=== PATIENT | male | born 1940 | race Caucasian/White ===

== ENCOUNTER 2017-04-25 17:55 | Emergency (ER) | payer OTHER, MEDICARE ==
[~2017-04-25] VITALS: Ht 177.8 cm; Wt 95.9 kg
[~2017-04-25 17:55] MED LIST: ALLO300T2 PO; ASCO10003 PO; ASPI81TA21 PO; ATEN25TA PO; CETI10TA84 PO; FENO145T26 PO; FLAX10007 PO; GINK40TA3 PO; GUAI1TAB55 PO; KETO0.5S22 OP; KRIL1CAP11 PO; LUTE1CAP6 PO; MAGN500C PO; METF1000 PO; MISC4CAP PO; NITR0.4S UT; NRN/300 PO; OFLO0.3S4 OP; PRED1SUS3 OP; PRLSR20 PO; ROSU20TA PO; SITA1TAB27 PO; TRIA0.1C20 TOP; VANC5CAP PO; VTMD1000 PO; ZINC1TAB PO
[2017-04-25 18:21] VITALS: TEMP 36.9; Ht 177.8 cm; Wt 95.9 kg
[2017-04-25] MEDS ORDERED: PROCHLORPERAZINE 5 MG/ML 2 ML VIAL IV STA (18:51)
[2017-04-25] MEDS ORDERED: DiphenhydrAMINE HCL 50 MG/ML VIAL IV STA (18:51)
[2017-04-25] MEDS ORDERED: FENTANYL CITRATE INJ 50 MCG/1 ML 2 ML VIAL IV STA (18:51)
[2017-04-25] MEDS ORDERED: SODIUM CHLORIDE 0.9% 1000ML 1,000 ML IV STA (18:51)
--- NOTE | 2017-04-25 19:00 | EMERGENCY ROOM VISIT NOTE ---
History Report prepared by Shawn: Tosha Uriostegui Under the Supervision of: Dr. Qiana Monahan M.D. First contact with patient: 18:47 Chief Complaint: HEADACHE Stated Complaint: PEPPER SINCE NOON,TYLENOL @ 330, OFF BP MEDS FOR 2 YRS History of Present Illness The patient is a 77 year old male who presents to the Emergency Room with complaints of a constant headache beginning 8 hours ago. The patient states that he got home today about 5 hours ago and took a nap and Tylenol without relief of his symptoms. He is not on any blood thinners. He reports that the pain is on his right side and he does not usually have headaches like this. He notes that he does have a history of migraines but has not had a headache in over 30 years. The patient denies any photophobia, vomiting, difficulty walking , and visual changes. He notes that he was driving today when the headache started and he did not do anything strenuous today. The patient's states that the patient did eat lunch slightly later today than usual. Source of History: patient Onset: 8 hours ago Position: head (right) Quality: ache Timing: constant Note: The patient denies any photophobia, vomiting, and visual changes. Review of Systems See HPI for pertinent positives & negatives. A total of 10 systems reviewed and were otherwise negative. Past Medical & Surgical Medical Problems: (1) CKD (chronic kidney disease), stage III (2) Coronary artery disease (3) Diabetes mellitus, type II (4) GERD (gastroesophageal reflux disease) (5) Hypertension (6) Lumbar stenosis with neurogenic claudication Surgical Problems: (1) Status post appendectomy (2) Status post lumbar surgery Family History Diabetes mellitus FHx: heart disease Social History Smoking Status: Never Smoker Drug Use: none Marital Status: Housing Status: lives with family Occupation Status: retired Current/Historical Medications Scheduled Allopurinol (Zyloprim), 300 MG PO QAM Ascorbic Acid (Vitamin C), 1,000 MG PO DAILY Aspirin Enteric Coated (Ecotrin Or Generic), 81 MG PO QPM Atenolol (Tenormin), 25 MG PO QPM Cetirizine (Zyrtec), 10 MG PO DAILY Cholecalciferol (Vitamin D3), 1,000 INTER.UNIT PO DAILY Clindamycin Phos (Clindamycin Phosphate), 1 APPLN TOP UD Gabapentin (Neurontin), 300 MG PO AMHS Ginkgo Biloba (Ginkoba), 60 MG PO BID Guaifenesin Ext Rel (Mucinex Ext Rel), 600 MG PO Q12 Krill Oil (Hm Megakrill 300 mg), 300 MG PO BID Lutein (Lutein), 40 MG PO DAILY Magnesium Oxide (Mg Supplement (Magnesium), 500 MG PO DAILY Metformin Hcl (Glucophage), 1,000 MG PO BID Omeprazole (Prilosec), 20 MG PO QAM Probiotic Product (Align), 4 MG PO DAILY Rosuvastatin Calcium (Rosuvastatin Calcium), 1 TAB PO DAILY Triamcinolone Acet (Triamcinolone Acetonide), 1 APPLN PO UD Zinc Gluconate (Zinc), 50 MG PO DAILY Scheduled PRN Nitroglycerin (Nitrostat), 0.4 MG UT UD PRN for Chest Pain Allergies Coded Allergies: Oxycodone (Unverified Allergy, Intermediate, NIGHTMARES, 04/25/17) Eletriptan (Verified Allergy, Unknown, LYMPH NODES SWELLED, HOT FLASHES, 04/25/17) Physical Exam Vital Signs Date Time Temp Pulse Resp B/P (MAP) Pulse Ox O2 Delivery O2 Flow Rate FiO2 04/25/17 22:30 59 20 176/86 96 Room Air 04/25/17 21:30 62 20 205/79 96 Room Air 04/25/17 20:57 60 04/25/17 20:56 58 20 175/109 96 Room Air 04/25/17 19:28 61 20 185/80 98 Room Air 04/25/17 18:21 36.9 68 18 142/98 95 Room Air Physical Exam Vital signs reviewed. General: Well-appearing male, in no significant distress. HEENT: No scleral icterus, PERRLA, neck supple. Atraumatic. Cardiovascular: Regular rate and rhythm, no extra sounds. Pulmonary: Clear to auscultation bilaterally, normal work of breathing. Abdomen: Soft, nontender, nondistended, positive bowel sounds. Musculoskeletal: Atraumatic, no peripheral edema. Neurologic: Patient awake alert and oriented x 3, full strength in all 4 extremities. Cranial nerves 2 through 12 grossly intact. Skin: Warm, dry, no rash Medical Decision & Procedures ER Provider Diagnostic Interpretation: CT results as stated below per my review and radiologist interpretation: CT SCAN OF THE BRAIN WITHOUT IV CONTRAST FINDINGS: Brain parenchyma: There are age-related involutional changes noting mild subcortical and periventricular microangiopathic change. There is no hemorrhage, mass effect, or evidence of acute territorial ischemia by CT criteria. Carranza-white matter is preserved. No extra-axial fluid collection is seen. Ventricles, sulci, cisterns: Prominent secondary to involutional change. Intracranial vasculature: There is atherosclerotic calcification of the cavernous carotid and vertebral arteries. Calvarium: Unremarkable. Sinuses and mastoids: There is trace mucosal thickening in the right maxillary antrum and ethmoid sinuses. A retention cyst is noted in the left maxillary antrum. The mastoid air cells are well pneumatized. Orbits: The bony orbits are grossly intact. There are bilateral ocular lens implants. IMPRESSION: There is no hemorrhage, mass effect, or evidence of acute territorial ischemia by CT criteria. Electronically signed by: Dagoberto Quinones M.D. 04/25/2017 8:12 PM Dictated Date/Time: 04/25/2017 8:10 PM Laboratory Results 04/25/17 19:25 Red Blood Count 4.36, Mean Corpuscular Volume 88.3, Mean Corpuscular Hemoglobin 31.0, Mean Corpuscular Hemoglobin Concent 35.1, Mean Platelet Volume 9.7, Neutrophils (%) (Auto) 62.1, Lymphocytes (%) (Auto) 21.2, Monocytes (%) (Auto) 7.5, Eosinophils (%) (Auto) 8.0, Basophils (%) (Auto) 0.7, Neutrophils # (Auto) 4.57, Lymphocytes # (Auto) 1.56, Monocytes # (Auto) 0.55, Eosinophils # (Auto) 0.59, Basophils # (Auto) 0.05 04/25/17 19:25 Test 04/25/17 19:25 04/25/17 22:30 White Blood Count 7.36 K/uL (4.8-10.8) Red Blood Count 4.36 M/uL (4.7-6.1) Hemoglobin 13.5 g/dL (14.0-18.0) Hematocrit 38.5 % (42-52) Mean Corpuscular Volume 88.3 fL (80-100) Mean Corpuscular Hemoglobin 31.0 pg (25-34) Mean Corpuscular Hemoglobin Concent 35.1 g/dl (32-36) Platelet Count 138 K/uL (130-400) Mean Platelet Volume 9.7 fL (7.4-10.4) Neutrophils (%) (Auto) 62.1 % Lymphocytes (%) (Auto) 21.2 % Monocytes (%) (Auto) 7.5 % Eosinophils (%) (Auto) 8.0 % Basophils (%) (Auto) 0.7 % Neutrophils # (Auto) 4.57 K/uL (1.4-6.5) Lymphocytes # (Auto) 1.56 K/uL (1.2-3.4) Monocytes # (Auto) 0.55 K/uL (0.11-0.59) Eosinophils # (Auto) 0.59 K/uL (0-0.5) Basophils # (Auto) 0.05 K/uL (0-0.2) RDW Standard Deviation 45.8 fL (36.4-46.3) RDW Coefficient of Variation 14.1 % (11.5-14.5) Immature Granulocyte % (Auto) 0.5 % Immature Granulocyte # (Auto) 0.04 K/uL (0.00-0.02) Anion Gap 8.0 mmol/L (3-11) Est Creatinine Clear Calc Drug Dose 69.6 ml/min Estimated GFR () 82.6 Estimated GFR (Non- 71.3 BUN/Creatinine Ratio 14.0 (10-20) Calcium Level 9.2 mg/dl (8.5-10.1) Magnesium Level 1.4 mg/dl (1.8-2.4) Total Bilirubin 0.4 mg/dl (0.2-1) Direct Bilirubin < 0.1 mg/dl (0-0.2) Aspartate Amino Transf (AST/SGOT) 29 U/L (15-37) Alanine Aminotransferase (ALT/SGPT) 37 U/L (12-78) Alkaline Phosphatase 82 U/L (45-117) Total Protein 7.9 gm/dl (6.4-8.2) Albumin 4.3 gm/dl (3.4-5.0) Urine Color YELLOW Urine Appearance CLEAR (CLEAR) Urine pH 6.5 (4.5-7.5) Urine Specific [place] 1.013 (1.000-1.030) Urine Protein TRACE (NEG) Urine Glucose (UA) NEG (NEG) Urine Ketones NEG (NEG) Urine Occult Blood NEG (NEG) Urine Nitrite NEG (NEG) Urine Bilirubin NEG (NEG) Urine Urobilinogen NEG (NEG) Urine Leukocyte Esterase NEG (NEG) Urine WBC (Auto) 1-5 /hpf (0-5) Urine RBC (Auto) 0-4 /hpf (0-4) Urine Hyaline Casts (Auto) 1-5 /lpf (0-5) Urine Epithelial Cells (Auto) 0-5 /lpf (0-5) Urine Bacteria (Auto) NEG (NEG) Laboratory results per my review. Medications Administered Medications (Trade) Dose Ordered Sig/Tita Route Start Time Stop Time Status Last Admin Dose Admin Sodium Chloride 1,000 ml @ 150 mls/hr Q6H40M STAT IV 04/25/17 18:51 04/26/17 00:04 DC 04/25/17 19:32 150 MLS/HR Fentanyl Citrate (Fentanyl Inj) 50 mcg NOW STAT IV 04/25/17 18:51 04/25/17 18:53 DC 04/25/17 19:48 50 MCG Prochlorperazine Edisylate (Compazine Inj) 5 mg NOW STAT IV 04/25/17 18:51 04/25/17 18:53 DC 04/25/17 19:47 5 MG Diphenhydramine HCl (Benadryl Inj) 25 mg NOW STAT IV 04/25/17 18:51 04/25/17 18:53 DC 04/25/17 19:48 25 MG Magnesium Sulfate (Magnesium Sulfate) 1 gm NOW STAT IV 04/25/17 20:14 04/25/17 20:15 DC 04/25/17 20:54 1 GM Magnesium Oxide (Mag-Ox Tab) 800 mg NOW STAT PO 04/25/17 22:17 04/25/17 22:18 DC 04/25/17 22:44 800 MG ECG Indication: other (headache) Rate (beats per minute): 59 Rhythm: sinus bradycardia Findings: 1st degree AV block, nonspecific-ST abn (Lateral), left axis deviation, other (sinus arrhythmia) ED Course 1846: Past medical records reviewed. The patient was evaluated in room B7. A complete history and physical examination was performed. 1850: Benadryl Inj 25mg IV, Compazine Inj 5mg IV, Fentanyl 50mcg IV, Sodium Chloride 1000 ml @ 150 mls/hr IV. 2010: I reevaluated and updated the patient. 2013: Magnesium Sulfate 1gm IV. 2212: I reevaluated and updated the patient. 2216: Magnesium Oxide 800mg PO. 2223: Upon reevaluation, the patient appeared to have improvement of his symptoms. I discussed findings with the patient. He verbalized agreement of the treatment plan. The patient was discharged home. Medical Decision DDx: Intracranial hemorrhage, intracranial mass, migraine headache, tension headache , sinusitis, meningitis This patient was evaluated and appeared to be in no significant distress. Physical examination is fairly unrevealing. IV access was obtained and laboratory work was drawn. Patient was medicated with IV fentanyl 50 g, 5 mg of IV Compazine and 25 mg of IV Benadryl. He was hydrated with normal saline solution. CT scan of the head was performed and is negative for acute intracranial abnormality. Laboratory work reveals a normal white blood cell count. Patient does have a mild hypomagnesemia. Patient was given 1 g of IV magnesium. He was given 800 mg of oral magnesium. His headache had resolved. Patient was discharged to care of his . He does take supplemental magnesium home. He was advised to continue the supplemental therapy and follow- up with his primary care physician this week for reevaluation and repeat laboratory work. He will return to the ER for worsening of symptoms or any medical concerns. Medication Reconcilliation Current Medication List: was personally reviewed by me Blood Pressure Screening Patient's blood pressure: Elevated blood pressure Blood pressure disposition: Elevated BP felt to be situational Impression Primary Impression: Headache Additional Impression: Hypomagnesemia Scribe Attestation The scribe's documentation has been prepared under my direction and personally reviewed by me in its entirety. I confirm that the note above accurately reflects all work, treatment, procedures, and medical decision making performed by me. Departure Information Dispostion Home / Self-Care Referrals Chetan Galvez M.D. (PCP) Forms HOME CARE DOCUMENTATION FORM, IMPORTANT VISIT INFORMATION Patient Instructions My [facility] Additional Instructions Diagnosis: Headache, hypomagnesemia Please continue your magnesium as prescribed. Have your magnesium level rechecked in one to 2 weeks. Tylenol 650 mg every 6 hours as needed for pain. Drink plenty of clear fluids. Return to the ER for worsening of symptoms or any medical concerns. Problem Qualifiers
[2017-04-25 19:56] LABS: BASO % 0.7 %; BASO ABS # 0.05 K/uL (0-0.2); COMPLETE YES; HEMATOCRIT 38.5 % (42-52); IG% 0.5 %; LYMPH % 21.2 %; LYMPH ABS # 1.56 K/uL (1.2-3.4); MEAN CELL VOLUME 88.3 fL (80-100); MEAN CORPUSCULAR HGB CONC 35.1 g/dl (32-36); MEAN PLATELET VOLUME 9.7 fL (7.4-10.4); MONO % 7.5 %; NEUT % 62.1 %; PLATELET COUNT 138 K/uL (130-400); RED BLOOD COUNT 4.36 M/uL (4.7-6.1); WHITE BLOOD COUNT 7.36 K/uL (4.8-10.8)
[2017-04-25 20:08] LABS: ALT/SGPT 37 U/L (12-78); AST/SGOT 29 U/L (15-37); BLOOD UREA NITROGEN 14 mg/dl (7-18); CALCIUM 9.2 mg/dl (8.5-10.1); CARBON DIOXIDE 27 mmol/L (21-32); CHLORIDE 106 mmol/L (98-107); GLUCOSE 136 mg/dl (70-99); MAGNESIUM 1.4 mg/dl (1.8-2.4); POTASSIUM 4.2 mmol/L (3.5-5.1); SODIUM 141 mmol/L (136-145)
[2017-04-25 20:11] LABS: ALKALINE PHOSPHATASE 82 U/L (45-117)
--- NOTE | 2017-04-25 20:13 | DIAGNOSTIC IMAGING REPORT ---
CT SCAN OF THE BRAIN WITHOUT IV CONTRAST CLINICAL HISTORY: Headache. COMPARISON STUDY: No priors. TECHNIQUE: Unenhanced axial CT scan of the brain is performed from the vertex to the skull base. CT DOSE: 749.40 mGy.cm FINDINGS: Brain parenchyma: There are age-related involutional changes noting mild subcortical and periventricular microangiopathic change. There is no hemorrhage, mass effect, or evidence of acute territorial ischemia by CT criteria. Carranza-white matter is preserved. No extra-axial fluid collection is seen. Ventricles, sulci, cisterns: Prominent secondary to involutional change. Intracranial vasculature: There is atherosclerotic calcification of the cavernous carotid and vertebral arteries. Calvarium: Unremarkable. Sinuses and mastoids: There is trace mucosal thickening in the right maxillary antrum and ethmoid sinuses. A retention cyst is noted in the left maxillary antrum. The mastoid air cells are well pneumatized. Orbits: The bony orbits are grossly intact. There are bilateral ocular lens implants. IMPRESSION: There is no hemorrhage, mass effect, or evidence of acute territorial ischemia by CT criteria. Electronically signed by: Dagoberto Quinones M.D. 04/25/2017 8:12 PM Dictated Date/Time: 04/25/2017 8:10 PM
[2017-04-25] MEDS ORDERED: MAGNESIUM SULFATE 1GM / D5W 1 GM BAG IV STA (20:14)
[2017-04-25] MEDS ORDERED: CLCS60 TOP (20:23)
[2017-04-25] MEDS ORDERED: [UNRECOGNIZED DRUG - CODE] PO (20:23)
[2017-04-25] MEDS ORDERED: ROSU10TA24 PO (20:23)
[2017-04-25] MEDS ORDERED: MAGNESIUM OXIDE 400 MG TAB PO STA (22:17)
[2017-04-25 22:30] VITALS: BP 176/86; PULSE 59; O2SAT 96
[2017-04-25 22:58] LABS: URINE APPEARANCE CLEAR (CLEAR); URINE BILIRUBIN NEG (NEG); URINE COLOR YELLOW; URINE EPITHELIAL CELL AUTO 0-5 /lpf (0-5); URINE NITRITE NEG (NEG); URINE PH 6.5 (4.5-7.5); URINE SPECIFIC GRAVITY 1.013 (1.000-1.030); UROBILINOGEN NEG (NEG); ZZUR CULT IF INDIC CLEAN CATCH NO
[2017-04-25 23:00] LABS: MANUAL MICROSCOPIC REQUIRED? NO; REVIEW REQ? NO
== END 2017-04-25 22:55 | disposition home or self-care (01) ==
LOC: C.EDB 17:58
DX: R51 Headache (principal); E83.42 Hypomagnesemia; N18.3 Chronic kidney disease, stage 3 (moderate); I25.10 Atherosclerotic heart disease of native coronary artery without angina pectoris; E11.9 Type 2 diabetes mellitus without complications; K21.9 Gastro-esophageal reflux disease without esophagitis; I12.9 Hypertensive chronic kidney disease with stage 1 through stage 4 chronic kidney disease, or unspecified chronic kidney disease; M48.062 Spinal stenosis, lumbar region with neurogenic claudication; Z83.3 Family history of diabetes mellitus; Z82.49 Family history of ischemic heart disease and other diseases of the circulatory system; Z79.899 Other long term (current) drug therapy

== ENCOUNTER → 2017-09-23 | Outpatient (CLI) | payer OTHER, MEDICARE ==
[~2017-09-23] MED LIST changes: +CLCS60 TOP; -FENO145T26 PO; -FLAX10007 PO; -KETO0.5S22 OP; -OFLO0.3S4 OP; -PRED1SUS3 OP; +ROSU10TA35 PO; -ROSU20TA PO; -SITA1TAB27 PO; -TRIA0.1C20 TOP; -VANC5CAP PO; +[UNRECOGNIZED DRUG - CODE] PO
== END | disposition home or self-care (01) ==
LOC: C.LABSPEC 12:25
PROVIDERS: ATTEND Physician Assistant
DX: L29.9 Pruritus, unspecified (principal)

== ENCOUNTER 2018-08-20 17:54 | Inpatient (IN) ==
[2018-08-20] MEDS ORDERED: cefTRIAXone SODIUM 1,000 MG/50 ML BAG IV STA (18:18)
[2018-08-20] MEDS ORDERED: ONDANSETRON INJ 2 MG/ML 2 ML VIAL IV STA (18:22)
[2018-08-20] MEDS ORDERED: SODIUM CHLORIDE 0.9% 1000ML 1,000 ML IV ONE (18:22)
[2018-08-20 19:17] LABS: Basophils # (auto) 0.02 K/uL (0-0.2); Basophils % (auto) 0.3 %; Eosinophils # (auto) 0.11 K/uL (0-0.5); Eosinophils % (auto) 1.6 %; Hemoglobin 11.8 g/dL (14.0-18.0); Immature Granulocytes # (auto) 0.06 K/uL (0.00-0.02); Immature Granulocytes % (auto) 0.8 %; Lymphocytes % (auto) 8.5 %; Mean Corpuscular Hgb Conc 34.7 g/dL (32-36); Mean Corpuscular Volume 89.7 fL (80-100); Mean Platelet Volume 9.2 fL (7.4-10.4); Monocytes # (auto) 0.57 K/uL (0.11-0.59); Monocytes % (auto) 8.1 %; Neutrophils % (auto) 80.7 %; Platelet Count 111 K/uL (130-400); RDW Coefficient of Variation 13.6 % (11.5-14.5); RDW Standard Deviation 44.7 fL (36.4-46.3); Red Blood Count 3.79 M/uL (4.7-6.1); White Blood Count 7.06 K/uL (4.8-10.8)
--- NOTE | 2018-08-20 19:32 | XRay Report ---
XR abdomen min 2V CLINICAL HISTORY: vomiting COMPARISON STUDY: CT scan dated 12/27/2014 FINDINGS: There is no pathologic bowel dilatation. There are postsurgical changes of cervical lumbar spinal rodding. There are bilateral mid abdominal calcifications. While nonspecific, at least one of the right-sided calcifications likely represents a renal calculus, as a renal calculus was visualized on the prior CT scan. The left sided abdominal calcification appears to be positioned slightly media l to the lower pole of the left kidney. This is slightly more lateral than one would expect for a pro ximal ureteral calculus.. There are nonspecific pelvic basin calcifications. IMPRESSION: 1. Possible nephrolithiasis 2. No evidence of pathologic bowel dilatation Electronically signed by: Shad Fleming M.D. 08/20/2018 7:31 PM
[2018-08-20 19:37] LABS: INR 1.2 (0.9-1.1); Partial Thromboplastin Ratio 1.1; Partial Thromboplastin Time 27.6 Seconds (21.0-31.0); Prothrombin Time 11.9 Seconds (9.0-12.0)
[2018-08-20 19:39] LABS: Albumin Level 3.6 gm/dl (3.4-5.0); BUN Creatinine Ratio 11.8 (10-20); Calcium 8.5 mg/dl (8.5-10.1); Creatinine Clr Calc Pharmacy 43.3 ml/min; Est GFR (African American) 46.5; Est GFR (Non-African American) 40.1; Potassium 4.7 mmol/L (3.5-5.1)
[2018-08-20 19:42] LABS: Bilirubin,Total 0.6 mg/dl (0.2-1); Globulin 3.6 gm/dl (2.5-4.0); Total Protein 7.2 gm/dl (6.4-8.2)
[2018-08-20 19:45] LABS: Influenza A virus by PCR Neg for Influ A (Neg); Influenza B virus by PCR Neg for Influ B (Neg)
[2018-08-20] MEDS ORDERED: ACETAMINOPHEN 325 MG TAB ONE (20:12)
--- NOTE | 2018-08-20 20:20 | History & Physical Report ---
Date of Service August 20, 2018 Assessment & Plan (1) Cellulitis of left toe: (2) Diabetic foot ulcer: This is an 78-year-old male with a PMH of DM II, HTN, non-obstructive CAD , CKD III, B12 deficiency anemia, tobacco use and other medical problems listed below who presents with generalized weakness, chills and vomiting x2 this afternoon and was found to have LLE cellulitis and an acute kidney injury. -Afebrile, no leukocytosis -Non-toxic in appearance. Blood culture sent -Has been taking Bactrim and Keflex with some improvement -No evidence of osteo on left foot XR from this morning's ED visit -Given dose of Rocephin in ED -Will continue with Zosyn for broader coverage -Wound care consult (3) Acute kidney injury superimposed on chronic kidney disease: Cr elevated to 1.5 (baseline 1.1) -Clinically appears dry -Given 1 L NSS in ED, will give an additional liter overnight -Hold diuretic for tomorrow morning (4) Generalized weakness: In setting of cellulitis, acute kidney injury -PT/OT evaluation, conditioning (5) Nausea and vomiting: In the setting of infection, also possible that patient ate too quickly at home -Symptoms have resolved -Abd XR without evidence pathologic bowel dilatation -Antiemetics PRN (6) Hypertension: Mild elevation in setting of pain -Continue home Toprol. Holding Amiloride in setting of AICHA (7) Diabetes mellitus, type II: A1c of 7 in July 2018 -Hold metformin -SSI while in-patient -BSG checks AC HS (8) Coronary artery disease: Non-obstructive CAD on 2011 cardiac catheterization -No chest pain -Continue baby aspirin, statin, Toprol DVT Ppx: SQ heparin Code status: FULL PCP: Leonor Dispo: Admitted to med/surg. Discharge planning ordered. Patient seen in collaboration with Dr. Morales. Please see addendum. History of Present Illness Chief Complaint: Generalized weakness, falls, nausea Primary Care Provider: Chetan Galvez This is an 78-year-old male with a PMH of DM II, HTN, non-obstructive CAD, CKD III, B12 deficiency anemia, tobacco use and other medical problems listed below who presents with generalized weakness, chills and vomiting x2 this afternoon. Last week, patient was seen in emergency department for evaluation of diabetic ulcer and was discharged on Keflex and Bactrim. Wound has been improving since then. Woke up early this morning with a fever of 101 F and decreased appetite. Was seen in the ED earlier today but there was no leukocytosis or evidence of infection on chest x-ray or evidence of osteomyelitis on left foot x -ray. Patient was sent home and encouraged to increase oral hydration. Once home today, encouraged patient to eat lunch and he felt nauseated soon after, having 2 episodes of bilious emesis. Also felt weak and slid to the ground twice when trying to ambulate. Had 2 episodes of fecal incontinence in his bed because he was unable to ambulate fast enough. These stools were formed--not diarrhea. Has h/o C diff from 2016 but no diarrhea for the last few months. Patient is endorsing intermittent pain in left toe as well as generalized weakness and decreased appetite. Currently denies fever, chills, lightheadedness, headache, chest pain, palpitations, shortness of breath, nausea , vomiting, abdominal pain, dysuria, diarrhea or constipation. Found to be afebrile and hemodynamically stable. No leukocytosis. Hemoglobin is stable at 11.8. Creatinine is elevated to 1.5 (baseline ~1.1). Allergies Allergy/AdvReac Type Severity Reaction Status Date / Time eletriptan Allergy Intermediate LYMPH Verified 08/20/18 18:38 NODES SWELLED, HOT FLASHES oxycodone Allergy Intermediate NIGHTMARES Verified 08/20/18 18:38 atorvastatin AdvReac Severe TEMP 107., Verified 08/20/18 18:38 NEARLY PER Home Medications Home Medications Medication Instructions Recorded Confirmed Type allopurinol 300 mg PO QAM 08/13/18 08/20/18 History amiloride 10 mg PO QAM 08/13/18 08/20/18 History cephalexin [Keflex] 500 mg PO Q6H 10 Days #40 cap 08/13/18 08/20/18 Rx gabapentin 300 mg PO TID 08/13/18 08/20/18 History metoprolol succinate 50 mg PO PM 08/13/18 08/20/18 History omega-3 acid ethyl esters 1 g PO QID 08/13/18 08/20/18 History simvastatin 40 mg PO HS 08/13/18 08/20/18 History sulfamethoxazole-trimethoprim 1 tab PO Q12H #20 tab 08/13/18 08/20/18 Rx [Bactrim DS] acetaminophen 500 mg PO BID PRN 08/20/18 08/20/18 History ascorbic acid (vitamin C) [Vitamin 1,000 mg PO DAILY 08/20/18 08/20/18 History C] aspirin 81 mg PO PM 08/20/18 08/20/18 History cholecalciferol (vitamin D3) 1,000 unit PO DAILY 08/20/18 08/20/18 History [Vitamin D3] cyanocobalamin (vitamin B-12) 500 mcg SUBLINGUAL BID 08/20/18 08/20/18 History diphenhydramine HCl [Benadryl] 25 mg PO HS 08/20/18 08/20/18 History krill oil 500 mg PO QID 08/20/18 08/20/18 History lactobacillus combination no.4 0 mmu cells PO QAM 08/20/18 08/20/18 History [Probiotic] loratadine [Claritin] 10 mg PO QAM 08/20/18 08/20/18 History lutein 40 mg PO QAM 08/20/18 08/20/18 History lysine 500 mg PO QAM 08/20/18 08/20/18 History magnesium chloride [Slow-Mag] 143 mg PO BID 08/20/18 08/20/18 History metformin 1,000 mg PO BID 08/20/18 08/20/18 History Past Med/Surg History Medical History Lumbar stenosis with neurogenic claudication (Chronic 07/06/13) Hypertension (Chronic) GERD (gastroesophageal reflux disease) (Chronic) CKD (chronic kidney disease), stage III (Chronic) Coronary artery disease (Chronic) "nonobstructive disease per cath 2011" Diabetes mellitus, type II (Chronic) Surgical History Status post appendectomy (Resolved) Status post lumbar surgery (Resolved) Family History Other Family history non-contributory Social History Current Living Situation: Spouse Other Information That Helps Us Care for You: No Feels Safe at Home: No Safety Concerns: Feels Safe At This Time Smoking Status: Former smoker Tobacco Type: smokeless tobacco Hx Alcohol Use: No Hx Substance Use: No Beliefs That Will Affect Care: None Communication Ability: Effective Review of Systems All systems reviewed & are unremarkable except as noted in HPI & below Physical Exam 2 Vital Signs (Past 24 Hours): Last Vital Signs Temp 37.5 C 08/20/18 19:57 Pulse 85 08/20/18 19:57 Resp 18 08/20/18 19:57 BP 150/76 H 08/20/18 19:57 Pulse Ox 95 08/20/18 19:57 Physical Exam: General Appearance: WD/WN, no apparent distress, resting comfortably Head: normocephalic, atraumatic Eyes: normal inspection, PERRL, EOMI ENT: hearing grossly normal, pharynx normal (dry mucous membranes) Neck: supple, no JVD, no adenopathy Respiratory/Chest: lungs clear to auscultation. No wheezes, rales or rhonci. No respiratory distress or accessory muscle use Cardiovascular: regular rate, rhythm, no murmur, normal peripheral pulses Abdomen/GI: normal bowel sounds, soft, non-tender to palpation Extremities/Musculoskelatal: normal inspection, no calf tenderness, normal capillary refill, no pedal edema. Left third toe with blister on distal aspect of digit, erythema and warmth extending to metatarsal. Tender to palpation but normal range of motion. Neurologic/Psych: alert, normal mood/affect, oriented x 3 Skin: normal color, warm/dry Results & Data Laboratory Results Short CBC 08/20/18 Range/Units 18:50 WBC 7.06 (4.8-10.8) K/uL Hgb 11.8 L (14.0-18.0) g/dL Hct 34.0 L (42-52) % Plt Count 111 L (130-400) K/uL BMP 08/20/18 18:50 Sodium 132 L Potassium 4.7 Chloride 101 Carbon Dioxide 18 L BUN 19 H Creatinine 1.60 H Glucose 242 H Calcium 8.5 Liver Function 08/20/18 Range/Units 18:50 Total Bilirubin 0.6 (0.2-1) mg/dl AST 26 (15-37) U/L ALT 39 (12-78) U/L Alkaline Phosphatase 72 (45-117) U/L Albumin 3.6 (3.4-5.0) gm/dl Diagnostic Findings Abdominal XR: IMPRESSION: 1. Possible nephrolithiasis 2. No evidence of pathologic bowel dilatation ECG Additional Comments: Sinus rhythm with 1st degree A-V block with Premature atrial complexes with Aberrant conduction Left axis deviation. Minimal voltage criteria for LVH, may be normal variant. Nonspecific ST and T wave abnormality Code Status & VTE Plan Code Status FULL Supervising Physician Co-Signing Physician Notes Pt was seen and examined. Agreed with Vandana WOLFF exam, assessment and plan. 78- year-old male with a PMH of DM II, HTN, non-obstructive CAD, CKD III, B12 deficiency anemia, tobacco use present with generalized weakness, chills and vomiting. Pt was in the ER early this morning for fever of 101 F and decreased appetite. He was sent home and encouraged to increase oral hydration. Came back to the ER for vomiting and generalized weakness. KUB done in the ER showed no evidence of pathologic bowel dilatation. Received Rocephin in the ER. Will change abx to Zosyn for the wound in the toe. Continue IVF. Wound care consult. Monitor BMP. MD Carmen _ (1) Diabetic foot ulcer Diabetes mellitus type: type 2 Diabetic foot ulcer location: toe Laterality : left Non-pressure ulcer stage: limited to breakdown of skin Qualified Code(s ): E11.621 - Type 2 diabetes mellitus with foot ulcer; L97.521 - Non-pressure chronic ulcer of other part of left foot limited to breakdown of skin
[2018-08-20] MEDS ORDERED: GLUCOSE 40% GEL 15 GM TUBE PO PRN (20:59)
[2018-08-20] MEDS ORDERED: GLUCAGON FOR INJ 1 MG VIAL SQ PRN (20:59)
[2018-08-20] MEDS ORDERED: ONDANSETRON INJ 2 MG/ML 2 ML VIAL IV PRN (20:59)
[2018-08-20] MEDS ORDERED: CARBOHYDRATES FOR HYPOGLYCEMIA PO PRN (20:59)
[2018-08-20] MEDS ORDERED: GLUCOSE 10 TABS/TUBE PO PRN (20:59)
[2018-08-20] MEDS ORDERED: ACETAMINOPHEN 325 MG TAB PO PRN (20:59)
[2018-08-20] MEDS ORDERED: POLYETHYLENE (MIRALAX) 17 GM PACK PO PRN (20:59)
[2018-08-20] MEDS ORDERED: DEXTROSE 50% 50 ML SYRINGE IV PRN (20:59)
[2018-08-20] MEDS ORDERED: KRILL OIL 500 MG PO SCH (21:00)
[2018-08-20] MEDS ORDERED: PIPERACILL/TAZOBAC CONSULT ACTIVE PRN (21:16)
[2018-08-20] MEDS ORDERED: PIPERACILLIN/TAZOBACTAM 3.375 GM in DEXTROSE 5% 100 ML IV STA (21:23)
[2018-08-20] MEDS ORDERED: SODIUM CHLORIDE 0.9% 1000ML 1,000 ML IV SCH (21:30)
[2018-08-20] MEDS: CYANOCOBALAMIN 500 MCG TABLET (VITAMIN B-12) PO SCH (22:17)
[2018-08-20] MEDS: MAGNESIUM CHLORIDE 64MG DELAYED REL TAB PO SCH (22:18)
[2018-08-20] MEDS: GABAPENTIN 300 MG CAP PO SCH (22:18)
[2018-08-20] MEDS: ASPIRIN 81 MG ECTAB PO SCH (22:18)
[2018-08-20] MEDS: SIMVASTATIN 40 MG TAB PO SCH (22:19)
[2018-08-20] MEDS: METOPROLOL SUCC 50MG EXT REL TAB PO SCH (22:20)
[2018-08-20] MEDS: INSULIN ASPART 100 UNITS/ML 3 ML PEN SC SCH (22:31)
--- NOTE | 2018-08-21 00:41 | Emergency Department Note ---
Entered by Dagoberto Silveira acting as a scribe for Sonny Harper DO History of Present Illness General Chief complaint: Fall Stated complaint: fallen 2x, tried to vomit 2x, trouble eat/drink Source: patient History of Present Illness Provider complaint: Vomiting Onset (ago): hour(s) Location: left and right Relieved By: + none Associated symptoms: + denies other symptoms (abd pain, neck pain, diarrhea,), + fever/chills (chills, feels cold/shakes), + nausea/vomiting and + other; no chest pain and no headaches The patient is an 78 year old male who presents to the Emergency Room with complaints of a fall. The patient states he fell forward out of a chair. He denies hitting his head and states he remembers the whole thing (did not black out). The patient was seen in the ED by Dr. Rivero several hours ago. He notes that he is getting weaker. He did have 3 episodes of vomiting. The patient's adds that he has an infected left toe and has also been taking antibiotics for 5 days. She adds that the patient started vomiting stating that he also began to shake due to feeling cold. The patient denies abdominal pain, pain with urination, head/neck pain, Chest pain, and diarrhea. Per review of the chart: X-rays were performed earlier showed no osteo- Home Medications Home Medications Medication Instructions Recorded Confirmed Type allopurinol 300 mg PO QAM 08/13/18 08/20/18 History amiloride 10 mg PO QAM 08/13/18 08/20/18 History cephalexin [Keflex] 500 mg PO Q6H 10 Days #40 cap 08/13/18 08/20/18 Rx gabapentin 300 mg PO TID 08/13/18 08/20/18 History metoprolol succinate 50 mg PO PM 08/13/18 08/20/18 History omega-3 acid ethyl esters 1 g PO QID 08/13/18 08/20/18 History simvastatin 40 mg PO HS 08/13/18 08/20/18 History sulfamethoxazole-trimethoprim 1 tab PO Q12H #20 tab 08/13/18 08/20/18 Rx [Bactrim DS] acetaminophen 500 mg PO BID PRN 08/20/18 08/20/18 History ascorbic acid (vitamin C) [Vitamin 1,000 mg PO DAILY 08/20/18 08/20/18 History C] aspirin 81 mg PO PM 08/20/18 08/20/18 History cholecalciferol (vitamin D3) 1,000 unit PO DAILY 08/20/18 08/20/18 History [Vitamin D3] cyanocobalamin (vitamin B-12) 500 mcg SUBLINGUAL BID 08/20/18 08/20/18 History diphenhydramine HCl [Benadryl] 25 mg PO HS 08/20/18 08/20/18 History krill oil 500 mg PO QID 08/20/18 08/20/18 History lactobacillus combination no.4 0 mmu cells PO QAM 08/20/18 08/20/18 History [Probiotic] loratadine [Claritin] 10 mg PO QAM 08/20/18 08/20/18 History lutein 40 mg PO QAM 08/20/18 08/20/18 History lysine 500 mg PO QAM 08/20/18 08/20/18 History magnesium chloride [Slow-Mag] 143 mg PO BID 08/20/18 08/20/18 History metformin 1,000 mg PO BID 08/20/18 08/20/18 History Allergies Allergy/AdvReac Type Severity Reaction Status Date / Time eletriptan Allergy Intermediate LYMPH Verified 08/20/18 18:38 NODES SWELLED, HOT FLASHES oxycodone Allergy Intermediate NIGHTMARES Verified 08/20/18 18:38 atorvastatin AdvReac Severe TEMP 107., Verified 08/20/18 18:38 NEARLY PER Past Med/Surg History Medical History Lumbar stenosis with neurogenic claudication (Chronic 07/06/13) Hypertension (Chronic) GERD (gastroesophageal reflux disease) (Chronic) CKD (chronic kidney disease), stage III (Chronic) Coronary artery disease (Chronic) "nonobstructive disease per cath 2011" Diabetes mellitus, type II (Chronic) Surgical History Status post appendectomy (Resolved) Status post lumbar surgery (Resolved) Family History Other Family history non-contributory Social History Current Living Situation: Spouse Other Information That Helps Us Care for You: No Feels Safe at Home: No Safety Concerns: Feels Safe At This Time Smoking Status: Former smoker Tobacco Type: smokeless tobacco Hx Alcohol Use: No Hx Substance Use: No Beliefs That Will Affect Care: None Preferred Language: Congolese Communication Ability: Effective Corporate Law Specialist Required: No Review of Systems See HPI for pertinent positives & negatives. and A total of 10 systems reviewed and were otherwise negative Physical Exam Vital Signs Vital Signs - 24 hr 08/20/18 18:06 08/20/18 19:12 08/20/18 19:14 Temperature 37.2 C Temperature Source Oral Sepsis Recent Fever Within 48 Hours No Sepsis New/Unexplained Change in Mental Status No Sepsis Action Taken by Nursing No Action Required Pulse Rate 87 Pulse Rate [Apical] 83 Pulse Rate [Left Finger] Pulse Rhythm Regular Pulse Rhythm [Apical] Pulse Rhythm [Left Finger] Pulse Strength Normal Pulse Strength [Apical] Pulse Strength [Left Finger] Respiratory Rate 20 28 H Respiratory Effort / Characteristics Non-Labored Spontaneous Respiratory Depth Normal Respiratory Pattern Regular Blood Pressure 124/69 Blood Pressure [Right Arm] 166/78 H Blood Pressure Mean 87 Blood Pressure Mean [Right Arm] 107 Blood Pressure Position Sitting Blood Pressure Position [Right Arm] Pulse Oximetry 94 95 Oxygen Delivery Method Room Air Room Air Room Air 08/20/18 19:57 08/20/18 20:45 08/20/18 22:15 Temperature 37.5 C 37.2 C Temperature Source Oral Oral Sepsis Recent Fever Within 48 Hours Sepsis New/Unexplained Change in Mental Status Sepsis Action Taken by Nursing Pulse Rate Pulse Rate [Apical] 85 Pulse Rate [Left Finger] 81 82 Pulse Rhythm Pulse Rhythm [Apical] Regular Pulse Rhythm [Left Finger] Pulse Strength Pulse Strength [Apical] Normal Pulse Strength [Left Finger] Respiratory Rate 18 16 Respiratory Effort / Characteristics Non-Labored Non-Labored Spontaneous Respiratory Depth Normal Normal Respiratory Pattern Regular Regular Blood Pressure Blood Pressure [Right Arm] 150/76 H 149/73 H 144/76 H Blood Pressure Mean Blood Pressure Mean [Right Arm] 100 98 98 Blood Pressure Position Blood Pressure Position [Right Arm] Lying Sitting Lying Pulse Oximetry 95 94 Oxygen Delivery Method Room Air Room Air 08/20/18 23:12 Temperature 37.6 C H Temperature Source Oral Sepsis Recent Fever Within 48 Hours Sepsis New/Unexplained Change in Mental Status Sepsis Action Taken by Nursing Pulse Rate Pulse Rate [Apical] Pulse Rate [Left Finger] 91 H Pulse Rhythm Pulse Rhythm [Apical] Pulse Rhythm [Left Finger] Regular Pulse Strength Pulse Strength [Apical] Pulse Strength [Left Finger] Normal Respiratory Rate 20 Respiratory Effort / Characteristics Non-Labored Respiratory Depth Normal Respiratory Pattern Regular Blood Pressure Blood Pressure [Right Arm] 135/83 Blood Pressure Mean Blood Pressure Mean [Right Arm] 100 Blood Pressure Position Blood Pressure Position [Right Arm] Lying Pulse Oximetry 97 Oxygen Delivery Method Room Air GENERAL: sitting in bed alert, disheveled, no distress, non-toxic HEAD: normal cephalic, atraumatic EYE EXAM: normal conjunctiva, PERRL and EOM's grossly intact OROPHARYNX: no exudate, no erythema, lips, buccal mucosa, and tongue normal and mucous membranes are moist EARS: TMs clear b/l NECK: supple, no nuchal rigidity, no adenopathy, non-tender CHEST: stable to compression anteriorly and posteriorly LUNGS: clear to auscultation. Normal chest wall mechanics HEART: no murmurs, S1 normal and S2 normal ABDOMEN: abdomen soft, non-tender, normo-active bowel sounds, no masses, no rebound or guarding. PELVIS: stable to compression anteriorly and posteriorly BACK: Back is symmetrical on inspection and there is no deformity, no midline tenderness, no CVA tenderness. UPPER EXTREMITIES: full active and passive range of motion of all joints without tenderness to palpation LOWER EXTREMITIES: full active and passive range of motion of all joints. 1x1 necrosis of the left third distal toe , redness in the first digit tracking down to the base of the nail, erythema encompassing the third digit NEURO EXAM: Normal sensorium, cranial nerves II-XII grossly intact, normal speech, no gross weakness of arms, no gross weakness of legs. GCS: 15. Course ED COURSE: Vital signs were reviewed and showed hypotension The patients medical record was reviewed The above diagnostic studies were performed and reviewed. ED treatments and interventions as stated above. 181: The patient was evaluated in room B11. A complete history and physical examination was performed. Based on the patients age, coexisting illnesses, exam and lab findings the decision to treat as an inpatient was made. The patient remained stable while under my care. The patient will be evaluated for further management. 1827:I reviewed the patient's case with Dr. Bruce-Hospitalist. She will evaluate the patient for further management. Consultations Consultation #1: 1827:I reviewed the patient's case with Dr. Bruce- Hospitalist. She will evaluate the patient for further management. Time: 18:27 Administered Medications Aspirin (Ecotrin Ectab) 81 mg PO PM CAPO Stop: 09/19/18 21:59 Last Admin: 08/20/18 22:18 Dose: 81 mg Cyanocobalamin (Vitamin B-12) 500 mcg PO BID CAPO Stop: 09/19/18 21:59 Last Admin: 08/20/18 22:17 Dose: 500 mcg Diphenhydramine HCl (Benadryl Capsule) 25 mg PO HS CAPO Stop: 09/19/18 21:59 Last Admin: 08/20/18 22:17 Dose: 25 mg Gabapentin (Neurontin) 300 mg PO TID CAPO Stop: 09/19/18 21:59 Last Admin: 08/20/18 22:18 Dose: 300 mg Sodium Chloride (Nss 1000ml) 1,000 mls @ 100 mls/hr IV .Q10H CAPO Stop: 08/21/18 07:29 Last Admin: 08/20/18 22:14 Dose: 100 mls/hr Insulin Aspart (Novolog Flexpen) 0 units SC ACHS CAPO Stop: 09/19/18 21:59 Last Admin: 08/20/18 22:31 Dose: 1 units Magnesium Chloride (Slow-Mag) 64 mg PO BID CAPO Stop: 09/19/18 21:59 Last Admin: 08/20/18 22:18 Dose: 64 mg Metoprolol Succinate (Toprol Xl) 50 mg PO PM CAPO Stop: 09/19/18 21:59 Last Admin: 08/20/18 22:20 Dose: 50 mg Simvastatin (Zocor) 40 mg PO HS CAPO Stop: 09/19/18 21:59 Last Admin: 08/20/18 22:19 Dose: 40 mg Discontinued Medications Acetaminophen (Tylenol) Confirm Administered Dose 650 mg .ROUTE .STK-MED ONE Stop: 08/20/18 20:13 Last Admin: 08/20/18 20:16 Dose: 650 mg Ceftriaxone Sodium (Rocephin) 1,000 mg in 50 mls @ 100 mls/hr IV NOW STA Stop: 08/20/18 18:47 Last Infusion: 08/20/18 20:05 Dose: 0 mls/hr Admin: 08/20/18 19:11 Dose: 100 mls/hr Sodium Chloride (Nss 1000ml) 1,000 mls @ 999 mls/hr IV .Q1H1M ONE Stop: 08/20/18 19:22 Last Infusion: 08/20/18 20:04 Dose: 0 mls/hr Admin: 08/20/18 19:10 Dose: 999 mls/hr Piperacillin Sod/Tazobactam (Sod 3.375 gm/ Dextrose) 115 mls @ 230 mls/hr IV NOW STA; Protocol Stop: 08/20/18 21:52 Last Infusion: 08/20/18 22:50 Dose: 0 mls/hr Admin: 08/20/18 22:14 Dose: 230 mls/hr Ondansetron HCl (Zofran) 4 mg IV NOW STA Stop: 08/20/18 18:23 Last Admin: 08/20/18 19:10 Dose: 4 mg Medical Decision Making Differential Diagnosis Differential diagnosis: Etiologies such as fracture, dislocation, intra-abdominal, pneumothorax, intrathoracic , intracranial, neurologic, as well as other traumatic pathologies were entertained. Medical Records Attestation: I reviewed the patient's medical records. Home Medications Current Medication List: was personally reviewed by me Laboratory Data Attestation: I reviewed the patient's lab results. Result diagrams: 08/20/18 18:50 08/20/18 18:50 Lab Results 08/20/18 08/20/18 08/20/18 Range/Units 18:50 18:50 18:50 WBC 7.06 (4.8-10.8) K/uL RBC 3.79 L (4.7-6.1) M/uL Hgb 11.8 L (14.0-18.0) g/dL Hct 34.0 L (42-52) % MCV 89.7 (80-100) fL MCH 31.1 (25-34) pg MCHC 34.7 (32-36) g/dL RDW Std Deviation 44.7 (36.4-46.3) fL RDW Coeff of Mirza 13.6 (11.5-14.5) % Plt Count 111 L (130-400) K/uL MPV 9.2 (7.4-10.4) fL Immature Gran % (Auto) 0.8 % Neut % (Auto) 80.7 % Lymph % (Auto) 8.5 % Orange % (Auto) 8.1 % Eos % (Auto) 1.6 % Baso % (Auto) 0.3 % Immature Gran # (Auto) 0.06 H (0.00-0.02) K/uL Neut # (Auto) 5.70 (1.4-6.5) K/uL Lymph # (Auto) 0.60 L (1.2-3.4) K/uL Orange # (Auto) 0.57 (0.11-0.59) K/uL Eos # (Auto) 0.11 (0-0.5) K/uL Baso # (Auto) 0.02 (0-0.2) K/uL ESR (0-14) mm/hr PT 11.9 (9.0-12.0) Seconds INR 1.2 H (0.9-1.1) APTT 27.6 (21.0-31.0) Seconds PTT Ratio 1.1 Sodium 132 L (136-145) mmol/L Potassium 4.7 (3.5-5.1) mmol/L Chloride 101 (98-107) mmol/L Carbon Dioxide 18 L (21-32) mmol/L Anion Gap 12.0 H (3-11) BUN 19 H (7-18) mg/dl Creatinine 1.60 H (0.6-1.4) mg/dl Est Cr Clr Drug Dosing 43.3 ml/min Est GFR ( Amer) 46.5 Est GFR (Non-Af Amer) 40.1 BUN/Creatinine Ratio 11.8 (10-20) Glucose 242 H (70-99) mg/dl POC Glucose (70-99) Lactate (0.4-2.0) mmol/L Calcium 8.5 (8.5-10.1) mg/dl Total Bilirubin 0.6 (0.2-1) mg/dl AST 26 (15-37) U/L ALT 39 (12-78) U/L Alkaline Phosphatase 72 (45-117) U/L Total Protein 7.2 (6.4-8.2) gm/dl Albumin 3.6 (3.4-5.0) gm/dl Globulin 3.6 (2.5-4.0) gm/dl Albumin/Globulin Ratio 1.0 (0.9-2) Influenza Type A (PCR) (Neg) Influenza Type B (PCR) (Neg) 08/20/18 08/20/18 08/20/18 Range/Units 18:50 18:50 19:05 WBC (4.8-10.8) K/uL RBC (4.7-6.1) M/uL Hgb (14.0-18.0) g/dL Hct (42-52) % MCV (80-100) fL MCH (25-34) pg MCHC (32-36) g/dL RDW Std Deviation (36.4-46.3) fL RDW Coeff of Mirza (11.5-14.5) % Plt Count (130-400) K/uL MPV (7.4-10.4) fL Immature Gran % (Auto) % Neut % (Auto) % Lymph % (Auto) % Orange % (Auto) % Eos % (Auto) % Baso % (Auto) % Immature Gran # (Auto) (0.00-0.02) K/uL Neut # (Auto) (1.4-6.5) K/uL Lymph # (Auto) (1.2-3.4) K/uL Orange # (Auto) (0.11-0.59) K/uL Eos # (Auto) (0-0.5) K/uL Baso # (Auto) (0-0.2) K/uL ESR 21 H (0-14) mm/hr PT (9.0-12.0) Seconds INR (0.9-1.1) APTT (21.0-31.0) Seconds PTT Ratio Sodium (136-145) mmol/L Potassium (3.5-5.1) mmol/L Chloride (98-107) mmol/L Carbon Dioxide (21-32) mmol/L Anion Gap (3-11) BUN (7-18) mg/dl Creatinine (0.6-1.4) mg/dl Est Cr Clr Drug Dosing ml/min Est GFR ( Amer) Est GFR (Non-Af Amer) BUN/Creatinine Ratio (10-20) Glucose (70-99) mg/dl POC Glucose (70-99) Lactate 2.8 H* (0.4-2.0) mmol/L Calcium (8.5-10.1) mg/dl Total Bilirubin (0.2-1) mg/dl AST (15-37) U/L ALT (12-78) U/L Alkaline Phosphatase (45-117) U/L Total Protein (6.4-8.2) gm/dl Albumin (3.4-5.0) gm/dl Globulin (2.5-4.0) gm/dl Albumin/Globulin Ratio (0.9-2) Influenza Type A (PCR) Neg for Influ A (Neg) Influenza Type B (PCR) Neg for Influ B (Neg) 08/20/18 08/20/18 Range/Units 20:49 22:28 WBC (4.8-10.8) K/uL RBC (4.7-6.1) M/uL Hgb (14.0-18.0) g/dL Hct (42-52) % MCV (80-100) fL MCH (25-34) pg MCHC (32-36) g/dL RDW Std Deviation (36.4-46.3) fL RDW Coeff of Mirza (11.5-14.5) % Plt Count (130-400) K/uL MPV (7.4-10.4) fL Immature Gran % (Auto) % Neut % (Auto) % Lymph % (Auto) % Orange % (Auto) % Eos % (Auto) % Baso % (Auto) % Immature Gran # (Auto) (0.00-0.02) K/uL Neut # (Auto) (1.4-6.5) K/uL Lymph # (Auto) (1.2-3.4) K/uL Orange # (Auto) (0.11-0.59) K/uL Eos # (Auto) (0-0.5) K/uL Baso # (Auto) (0-0.2) K/uL ESR (0-14) mm/hr PT (9.0-12.0) Seconds INR (0.9-1.1) APTT (21.0-31.0) Seconds PTT Ratio Sodium (136-145) mmol/L Potassium (3.5-5.1) mmol/L Chloride (98-107) mmol/L Carbon Dioxide (21-32) mmol/L Anion Gap (3-11) BUN (7-18) mg/dl Creatinine (0.6-1.4) mg/dl Est Cr Clr Drug Dosing ml/min Est GFR ( Amer) Est GFR (Non-Af Amer) BUN/Creatinine Ratio (10-20) Glucose (70-99) mg/dl POC Glucose 182 H 168 H (70-99) Lactate (0.4-2.0) mmol/L Calcium (8.5-10.1) mg/dl Total Bilirubin (0.2-1) mg/dl AST (15-37) U/L ALT (12-78) U/L Alkaline Phosphatase (45-117) U/L Total Protein (6.4-8.2) gm/dl Albumin (3.4-5.0) gm/dl Globulin (2.5-4.0) gm/dl Albumin/Globulin Ratio (0.9-2) Influenza Type A (PCR) (Neg) Influenza Type B (PCR) (Neg) Imaging Data Radiologist's Impression: Radiology results as stated below per my review and the radiologist's interpretation: XR abdomen min 2V CLINICAL HISTORY: vomiting COMPARISON STUDY: CT scan dated 12/27/2014 FINDINGS: There is no pathologic bowel dilatation. There are postsurgical changes of cervical lumbar spinal rodding. There are bilateral mid abdominal calcifications. While nonspecific, at least one of the right-sided calcifications likely represents a renal calculus, as a renal calculus was visualized on the prior CT scan. The left sided abdominal calcification appears to be positioned slightly medial to the lower pole of the left kidney. This is slightly more lateral than one would expect for a proximal ureteral calculus.. There are nonspecific pelvic basin calcifications. IMPRESSION: 1. Possible nephrolithiasis 2. No evidence of pathologic bowel dilatation Electronically signed by: Shad Fleming M.D. 08/20/2018 7:31 PM ECG Data Attestation: I personally reviewed and interpreted this ECG as follows: Rate (beats per minute): 85 Rhythm: normal sinus Findings: + other (nonspecific St changes in the high lateral), + 1st degree AV block and + PVC Blood Pressure Blood Pressure Findings: Elevated blood pressure Blood Pressure Disposition: further management by hospitalist KENNETH Cleaning Patient is an 78-year-old male who presents the ER feeling weak associated with fevers last night, shaking chills and 2 falls after being discharged earlier today. Did have 3 episodes of vomiting at home as well. Upon presentation vitals are normal. Labs were obtained and shows no significant leukocytosis or anemia. ESR was slightly elevated at 21. INR was normal. BMP with a CO2 of 18 and creatinine 1.6 along with a slightly elevated BUN. Lactate was elevated at 2.8. Influenza was negative. Patient was given 2 L normal saline. Patient was covered with IV Rocephin secondary to the infection on his left third toe. He was discussed with the hospitalist and admitted for further workup. Impression & Plan Cellulitis, Weakness, Elevated lactic acid level Discharge Plan Visit Data *Final* Discharge Date/Time: 08/20/18 20:26 Chief Complaint: Fall Stated Complaint: fallen 2x, tried to vomit 2x, trouble eat/drink Other Complaint: Dehydration Vomiting ED Provider: Sonny Harper Discharge Problem: Cellulitis, Weakness, Elevated lactic acid level Patient Disposition: Admitted As Inpatient Discharge Instructions Interventions: ED Discharge Assessment Last Done: 08/20/18 20:26 The scribe's documentation has been prepared under my direction and personally reviewed by me in its entirety. I confirm that the note above accurately reflects all work, treatment, procedures, and medical decision making performed by me.
--- NOTE | 2018-08-21 02:35 | Hospitalist Progress Note ---
Date of Service August 21, 2018 Subjective Made aware by RN of fever spike despite ongoing Zosyn Rx. AP Sepsis secondary to diabetic foot infection Add Doxycycline to regimen Physical Exam 2 Vital Signs (Past 24 Hours): Last Vital Signs Temp 38.0 C H 08/21/18 02:22 Pulse 78 08/21/18 02:22 Resp 18 08/21/18 02:22 BP 137/74 08/21/18 02:22 Pulse Ox 92 08/21/18 02:22
[2018-08-21] MEDS ORDERED: DOXYCYCLINE HYCLATE 100 MG in DEXTROSE 5% 100 ML IV ONE (03:00)
[2018-08-21 03:02] LABS: Hematocrit (blood only) 32.6 % (42-52); Hemoglobin 11.2 g/dL (14.0-18.0); Mean Corpuscular Hgb Conc 34.4 g/dL (32-36); Mean Corpuscular Volume 89.6 fL (80-100); RDW Coefficient of Variation 13.6 % (11.5-14.5); RDW Standard Deviation 44.6 fL (36.4-46.3); Red Blood Count 3.64 M/uL (4.7-6.1)
[2018-08-21 03:18] LABS: BUN Creatinine Ratio 11.7 (10-20); Calcium 8.2 mg/dl (8.5-10.1); Creatinine Clr Calc Pharmacy 45.3 ml/min; Est GFR (African American) 49.4; Est GFR (Non-African American) 42.7; Magnesium 1.4 mg/dl (1.8-2.4); Potassium 4.2 mmol/L (3.5-5.1)
[2018-08-21 03:41] LABS: Basophils # (auto) 0.02 K/uL (0-0.2); Basophils % (auto) 0.3 %; Eosinophils # (auto) 0.09 K/uL (0-0.5); Eosinophils % (auto) 1.4 %; Immature Granulocytes # (auto) 0.03 K/uL (0.00-0.02); Immature Granulocytes % (auto) 0.5 %; Lymphocytes # (auto) 0.61 K/uL (1.2-3.4); Lymphocytes % (auto) 9.5 %; Mean Platelet Volume 8.5 fL (7.4-10.4); Monocytes # (auto) 0.92 K/uL (0.11-0.59); Monocytes % (auto) 14.4 %; Neutrophils # (auto) 4.73 K/uL (1.4-6.5); Neutrophils % (auto) 73.9 %; Platelet Count 99 K/uL (130-400)
[2018-08-21] MEDS: PIPERACILLIN/TAZOBACTAM 3.375 GM in DEXTROSE 5% 100 ML IV SCH ×3 (04:25→20:54)
[2018-08-21] MEDS: MAGNESIUM SULFATE / D5W 1 GM/100 ML BAG IV SCH ×3 (04:26→06:36)
[2018-08-21] MEDS: INSULIN ASPART 100 UNITS/ML 3 ML PEN SC SCH ×4 (08:16→20:40)
[2018-08-21] MEDS: CHOLECALCIFEROL 1,000 UNITS TAB PO SCH (08:17)
[2018-08-21] MEDS: MAGNESIUM CHLORIDE 64MG DELAYED REL TAB PO SCH ×2 (08:17→20:56)
[2018-08-21] MEDS: LORATADINE 10 MG TAB PO SCH (08:17)
[2018-08-21] MEDS: ALLOPURINOL 300 MG TAB PO SCH (08:17)
[2018-08-21] MEDS: ASCORBIC ACID 500 MG TAB PO SCH (08:17)
[2018-08-21] MEDS: LACTOBACILLUS ACIDOPHILUS 1 GM PACK PO SCH (08:18)
[2018-08-21] MEDS: GABAPENTIN 300 MG CAP PO SCH ×3 (08:18→20:56)
[2018-08-21] MEDS: CYANOCOBALAMIN 500 MCG TABLET (VITAMIN B-12) PO SCH ×2 (08:18→20:57)
--- NOTE | 2018-08-21 17:38 | Ultrasound Report ---
US arterial duplex LE LT CLINICAL HISTORY: Peripheral arterial disease. Left foot infection. COMPARISON STUDY: No previous studies for comparison. FINDINGS: Brachial arm systolic pressure was 138 mmHg on the right. Posterior tibial arterial systolic pressure was 135 mmHg on the right and 133 mmHg on the left. The dorsalis pedis systolic pressure was 100 mmHg on the left This yields ankle brachial indices of 0.98 on the right and 0.96 on the left There is triphasic flow within the left common femoral, superficial femoral, and popliteal arteries. There was triphasic flow within the left anterior tibial and posterior tibial arteries. There is mono phasic flow within the left peroneal artery. No high velocity jets were visualized. IMPRESSION: 1. Diminished flow within the left peroneal artery 2. No evidence of lower extremity large vessel arterial stenosis. 3. Ankle-brachial index of 0.96. Electronically signed by: Shad Fleming M.D. 08/21/2018 5:37 PM
[2018-08-21] MEDS ORDERED: SODIUM CHLORIDE 0.9% 1000ML 1,000 ML IV ONE (17:45)
--- NOTE | 2018-08-21 17:49 | Hospitalist Progress Note ---
Date of Service August 21, 2018 Assessment & Plan (1) Cellulitis of left toe: (2) Diabetic foot ulcer: Patient is an 78 yr male with H/O DM II, HTN, non-obstructive CAD, CKD III , B12 deficiency anemia, tobacco use who presents with generalized weakness, chills and vomiting x2 for 1 day and was found to have LLE cellulitis and an acute kidney injury. Sepsis: 2/2 left Toe Cellulitis Failed outpatient Bactrim and Keflex therapy --Foot X ray:No acute fractures. No conventional radiographic evidence of osteomyelitis. Stable metallic foreign body within the plantar soft tissues at the base of the distal phalanx the great toe --Discussed with Podiatry, foreign body likely unrelated to present condition. Patient aware. No signs of infection of great toe --Arterial Doppler: Diminished flow within the left peroneal artery. No evidence of lower extremity large vessel arterial stenosis. Ankle-brachial index of 0.96. --Blood cultures: Pending --Continue Zosyn and Doxy --Pain control --Continue Wound Care (3) Acute kidney injury superimposed on chronic kidney disease: Baseline Cr: 1.1 Cr: 1.51 Continue IV fluids monitor renal function Bactrim discontinued Hold Diuretic (4) Generalized weakness: Secondary to above PT/OT evaluation (5) Nausea and vomiting: Likely 2/2 infection Abd X ray: Possible nephrolithiasis. No evidence of pathologic bowel dilatation Resolved (6) Hypertension: Stable Continue Metoprolol Amiloride held 2/2 AICHA (7) Diabetes mellitus, type II: A1c of 7 in July 2018 Hold metformin Conntinue SSI while in-patient BSG checks AC HS (8) Coronary artery disease: Non-obstructive CAD on 2011 cardiac catheterization Continue aspirin, statin, Toprol DVT Px: Heparin SQ Code status: FULL PCP: Leonor Dispo: PT/OT prior to discharge Subjective Patient is seen and examined at bedside Complains of left foot pain Foot swelling is improving Denies chest pain, SOB, dizziness No other complaints Physical Exam 2 Vital Signs (Past 24 Hours): Last Vital Signs Temp 37.3 C 08/21/18 15:25 Pulse 72 08/21/18 15:25 Resp 20 08/21/18 15:25 BP 142/71 H 08/21/18 15:25 Pulse Ox 92 08/21/18 15:25 Physical Exam: Physical Exam: Vitals signs as noted above General Appearance:Moderately built and nourished, no apparent distress Head: normocephalic, Atraumatic Eyes: normal inspection, EOMI Neck: supple, Trachea midline Respiratory/Chest: Normal breath sounds, CTA Cardiovascular: S1, S2, No murmur Abdomen/GI:Soft, Non tender, Bowel sounds present Extremities/Musculoskelatal:normal inspection, Left 3rd Toe blister, erythema and tenderness Neurologic/Psych:AAOX3, grossly no focal neurological deficits Skin: normal color, warm Results & Data Laboratory Results Short CBC 08/20/18 08/21/18 Range/Units 18:50 02:48 WBC 7.06 6.40 (4.8-10.8) K/uL Hgb 11.8 L 11.2 L (14.0-18.0) g/dL Hct 34.0 L 32.6 L (42-52) % Plt Count 111 L 99 L (130-400) K/uL BMP 08/20/18 08/21/18 18:50 02:48 Sodium 132 L 135 L Potassium 4.7 4.2 Chloride 101 106 Carbon Dioxide 18 L 23 BUN 19 H 18 Creatinine 1.60 H 1.52 H Glucose 242 H 188 H Calcium 8.5 8.2 L Liver Function 08/20/18 Range/Units 18:50 Total Bilirubin 0.6 (0.2-1) mg/dl AST 26 (15-37) U/L ALT 39 (12-78) U/L Alkaline Phosphatase 72 (45-117) U/L Albumin 3.6 (3.4-5.0) gm/dl _ (1) Diabetic foot ulcer Diabetes mellitus type: type 2 Diabetic foot ulcer location: toe Laterality : left Non-pressure ulcer stage: limited to breakdown of skin Qualified Code(s ): E11.621 - Type 2 diabetes mellitus with foot ulcer; L97.521 - Non-pressure chronic ulcer of other part of left foot limited to breakdown of skin
[2018-08-21] MEDS: DOXYCYCLINE HYCLATE 100 MG CAP PO SCH (18:01)
[2018-08-21] MEDS: ASPIRIN 81 MG ECTAB PO SCH (20:55)
[2018-08-21] MEDS: METOPROLOL SUCC 50MG EXT REL TAB PO SCH (20:56)
[2018-08-21] MEDS: SIMVASTATIN 40 MG TAB PO SCH (20:57)
[2018-08-22] MEDS: PIPERACILLIN/TAZOBACTAM 3.375 GM in DEXTROSE 5% 100 ML IV SCH ×3 (03:43→21:29)
[2018-08-22] MEDS: DOXYCYCLINE HYCLATE 100 MG CAP PO SCH ×2 (06:13→17:30)
[2018-08-22 06:41] LABS: Hematocrit (blood only) 30.9 % (42-52); Hemoglobin 10.9 g/dL (14.0-18.0); Mean Corpuscular Hgb Conc 35.3 g/dL (32-36); Mean Corpuscular Volume 88.3 fL (80-100); RDW Coefficient of Variation 13.7 % (11.5-14.5); White Blood Count 6.12 K/uL (4.8-10.8)
[2018-08-22 06:46] LABS: Mean Platelet Volume 9.1 fL (7.4-10.4); Platelet Count 98 K/uL (130-400)
[2018-08-22 07:13] LABS: BUN Creatinine Ratio 14.4 (10-20); Calcium 7.9 mg/dl (8.5-10.1); Creatinine Clr Calc Pharmacy 51.4 ml/min; Est GFR (African American) 57.6; Est GFR (Non-African American) 49.7; Magnesium 1.8 mg/dl (1.8-2.4); Potassium 3.7 mmol/L (3.5-5.1)
[2018-08-22] MEDS: INSULIN ASPART 100 UNITS/ML 3 ML PEN SC SCH ×4 (08:31→21:15)
[2018-08-22] MEDS: GABAPENTIN 300 MG CAP PO SCH ×3 (08:32→21:11)
[2018-08-22] MEDS: ALLOPURINOL 300 MG TAB PO SCH (08:32)
[2018-08-22] MEDS: LACTOBACILLUS ACIDOPHILUS 1 GM PACK PO SCH (08:32)
[2018-08-22] MEDS: CHOLECALCIFEROL 1,000 UNITS TAB PO SCH (08:32)
[2018-08-22] MEDS: CYANOCOBALAMIN 500 MCG TABLET (VITAMIN B-12) PO SCH ×2 (08:32→21:13)
[2018-08-22] MEDS: LORATADINE 10 MG TAB PO SCH (08:46)
[2018-08-22] MEDS: MAGNESIUM CHLORIDE 64MG DELAYED REL TAB PO SCH ×2 (08:46→21:12)
[2018-08-22] MEDS: ASCORBIC ACID 500 MG TAB PO SCH (08:46)
--- NOTE | 2018-08-22 19:22 | Hospitalist Progress Note ---
Date of Service August 22, 2018 Assessment & Plan (1) Cellulitis of left toe: (2) Diabetic foot ulcer: Patient is an 78 yr male with H/O DM II, HTN, non-obstructive CAD, CKD III , B12 deficiency anemia, tobacco use who presents with generalized weakness, chills and vomiting x2 for 1 day and was found to have LLE cellulitis and an acute kidney injury. Sepsis: 2/2 left Toe Cellulitis Failed outpatient Bactrim and Keflex therapy --Foot X ray:No acute fractures. No conventional radiographic evidence of osteomyelitis. Stable metallic foreign body within the plantar soft tissues at the base of the distal phalanx the great toe --Discussed with Podiatry, foreign body likely unrelated to present condition. Patient aware. No signs of infection of great toe --Arterial Doppler: Diminished flow within the left peroneal artery. No evidence of lower extremity large vessel arterial stenosis. Ankle-brachial index of 0.96. --Blood cultures: No growth to date --Continue Zosyn and Doxy --Pain control --Continue Wound Care --Continue current management (3) Acute kidney injury superimposed on chronic kidney disease: Baseline Cr: 1.1 Cr: 1.51>>>1.3 Received IV fluids monitor renal function Bactrim discontinued Hold Diuretic for now (4) Generalized weakness: Secondary to above PT/OT evaluation (5) Nausea and vomiting: Likely 2/2 infection Abd X ray: Possible nephrolithiasis. No evidence of pathologic bowel dilatation Resolved (6) Hypertension: Stable Continue Metoprolol Amiloride held 2/2 AICHA (7) Diabetes mellitus, type II: A1c of 7 in July 2018 Hold metformin Conntinue SSI while in-patient BSG checks AC HS (8) Coronary artery disease: Non-obstructive CAD on 2011 cardiac catheterization Continue aspirin, statin, Toprol DVT Px: Heparin SQ Code status: FULL PCP: Leonor Dispo: PT/OT prior to discharge Subjective Patient is seen and examined at bedside Toe pain/swelling better today No new complaints Denies chest pain, SOB, dizziness No growth on blood cultures to date Physical Exam 2 Vital Signs (Past 24 Hours): Last Vital Signs Temp 36.8 C 08/22/18 18:53 Pulse 72 08/22/18 18:53 Resp 18 08/22/18 18:53 BP 149/66 H 08/22/18 18:53 Pulse Ox 95 08/22/18 18:53 Physical Exam: Physical Exam: Vitals signs as noted above General Appearance:Moderately built and nourished, no apparent distress Head: normocephalic, Atraumatic Eyes: normal inspection, EOMI Neck: supple, Trachea midline Respiratory/Chest: Normal breath sounds, CTA Cardiovascular: S1, S2, No murmur Abdomen/GI:Soft, Non tender, Bowel sounds present Extremities/Musculoskelatal:normal inspection, Left 3rd Toe blister, erythema and tenderness Neurologic/Psych:AAOX3, grossly no focal neurological deficits Skin: normal color, warm Results & Data Laboratory Results Short CBC 08/22/18 Range/Units 06:28 WBC 6.12 (4.8-10.8) K/uL Hgb 10.9 L (14.0-18.0) g/dL Hct 30.9 L (42-52) % Plt Count 98 L (130-400) K/uL BMP 08/22/18 06:28 Sodium 136 Potassium 3.7 Chloride 106 Carbon Dioxide 23 BUN 19 H Creatinine 1.34 Glucose 175 H Calcium 7.9 L _ (1) Diabetic foot ulcer Diabetes mellitus type: type 2 Diabetic foot ulcer location: toe Laterality : left Non-pressure ulcer stage: limited to breakdown of skin Qualified Code(s ): E11.621 - Type 2 diabetes mellitus with foot ulcer; L97.521 - Non-pressure chronic ulcer of other part of left foot limited to breakdown of skin
[2018-08-22] MEDS: ASPIRIN 81 MG ECTAB PO SCH (21:11)
[2018-08-22] MEDS: METOPROLOL SUCC 50MG EXT REL TAB PO SCH (21:13)
[2018-08-22] MEDS: SIMVASTATIN 40 MG TAB PO SCH (21:13)
[2018-08-23] MEDS: PIPERACILLIN/TAZOBACTAM 3.375 GM in DEXTROSE 5% 100 ML IV SCH ×2 (03:53→12:16)
[2018-08-23] MEDS: DOXYCYCLINE HYCLATE 100 MG CAP PO SCH ×2 (05:47→17:24)
[2018-08-23 07:18] LABS: Hematocrit (blood only) 32.1 % (42-52); Mean Corpuscular Hgb Conc 34.3 g/dL (32-36); Mean Corpuscular Volume 88.9 fL (80-100); Mean Platelet Volume 9.2 fL (7.4-10.4); Platelet Count 122 K/uL (130-400); RDW Coefficient of Variation 13.5 % (11.5-14.5); Red Blood Count 3.61 M/uL (4.7-6.1); White Blood Count 5.24 K/uL (4.8-10.8)
[2018-08-23 07:46] LABS: Calcium 8.9 mg/dl (8.5-10.1); Creatinine Clr Calc Pharmacy 58.3 ml/min; Est GFR (African American) 67.1; Est GFR (Non-African American) 57.9; Magnesium 1.7 mg/dl (1.8-2.4); Potassium 3.6 mmol/L (3.5-5.1)
[2018-08-23] MEDS: INSULIN ASPART 100 UNITS/ML 3 ML PEN SC SCH ×4 (08:40→20:24)
[2018-08-23] MEDS: ALLOPURINOL 300 MG TAB PO SCH (08:41)
[2018-08-23] MEDS: CYANOCOBALAMIN 500 MCG TABLET (VITAMIN B-12) PO SCH ×2 (08:42→20:22)
[2018-08-23] MEDS: GABAPENTIN 300 MG CAP PO SCH ×3 (08:42→20:23)
[2018-08-23] MEDS: CHOLECALCIFEROL 1,000 UNITS TAB PO SCH (08:42)
[2018-08-23] MEDS: MAGNESIUM CHLORIDE 64MG DELAYED REL TAB PO SCH ×2 (08:42→20:22)
[2018-08-23] MEDS: ASCORBIC ACID 500 MG TAB PO SCH (08:42)
[2018-08-23] MEDS: LACTOBACILLUS ACIDOPHILUS 1 GM PACK PO SCH (08:43)
[2018-08-23] MEDS: LORATADINE 10 MG TAB PO SCH (08:43)
--- NOTE | 2018-08-23 15:39 | Hospitalist Progress Note ---
Date of Service August 23, 2018 Assessment & Plan (1) Diabetic foot ulcer: Patient is an 78 yr male with H/O DM II, HTN, non-obstructive CAD, CKD III , B12 deficiency anemia, tobacco use who presents with generalized weakness, chills and vomiting x2 for 1 day and was found to have LLE cellulitis and an acute kidney injury. Sepsis: 2/2 left Toe Cellulitis Symptoms has resolved, normal white count, no fever or chills, no pain discomfort or swelling on the left third toe Failed outpatient Bactrim and Keflex therapy --Foot X ray:No acute fractures. No conventional radiographic evidence of osteomyelitis. Stable metallic foreign body within the plantar soft tissues at the base of the distal phalanx the great toe --Discussed with Podiatry, foreign body likely unrelated to present condition. Patient aware. No signs of infection of great toe --Arterial Doppler: Diminished flow within the left peroneal artery. No evidence of lower extremity large vessel arterial stenosis. Ankle-brachial index of 0.96. --Blood cultures: No growth to date --Discontinue IV Zosyn P.o. doxycycline to complete 7-day course --Appreciate input from wound care Patient already has appointment/follow-up with podiatry and wound care outpatient Be discharged tomorrow with p.o. doxycycline Present on Admission?: Yes (2) Acute kidney injury superimposed on chronic kidney disease: Resolved renal function improved to baseline Baseline Cr: 1.1 Presented with acute renal failure with elevated creatinine Cr: 1.51>>>1.3 Received IV fluids Present on Admission?: Yes (3) Generalized weakness: Symptom resolved, PT OT evaluation appreciated Patient is independent in ADLs Safe to return home Present on Admission?: Yes (4) Hypertension: Stable Continue Metoprolol Diuretics was kept on hold secondary to acute renal failure Will be resumed on discharge Present on Admission?: Yes (5) Diabetes mellitus, type II: Well-controlled A1c of 7 in July 2018 Hold metformin Conntinue SSI while in-patient BSG checks AC HS (6) Coronary artery disease: Non-obstructive CAD on 2011 cardiac catheterization Continue aspirin, statin, Toprol No complaint of shortness of breath or chest pain DVT Px: Heparin SQ Code status: FULL PCP: Dr. Chetan Last Dispo: Plan to discharge home tomorrow 08/24/2018 Subjective Patient reports of feeling fine, No fever or chills Ambulating independently No pain or discomfort on left third to area Drainage noted Physical Exam 2 Vital Signs (Past 24 Hours): Last Vital Signs Temp 36.3 C L 08/23/18 15:11 Pulse 66 08/23/18 15:11 Resp 18 08/23/18 15:11 BP 167/81 H 08/23/18 15:11 Pulse Ox 95 08/23/18 15:11 Constitutional: WD/WN, vitals as above well developed; no acute distress Eyes: PERRL, conjunctivae normal, anicteric sclerae ENMT: external ear and nose normal, oropharynx normal Neck: trachea midline, no thyromegaly Respiratory: normal respiratory effort, lungs clear to auscultation Cardiovascular: RRR, no murmur, no edema Gastrointestinal (Abdomen): normal bowel sounds, soft, nontender, no hepatosplenomegaly Musculoskeletal: Left hard to, brown, dried appearing wound/eschar on the tip No drainage noted No erythema or swelling Skin: no rashes, warm and dry Neurologic: PERRL, EOMI, accommodation nl, no face palsy, no dysarthria Psychiatric: A+Ox3, euthymic affect _ (1) Diabetes mellitus, type II Diabetes mellitus terminal supervisor insulin use: unspecified fci insulin use status Diabetes mellitus complication status: with circulatory complication Diabetes mellitus complication detail: with peripheral angiopathy without gangrene Qualified Code(s): E11.51 - Type 2 diabetes mellitus with diabetic peripheral angiopathy without gangrene (2) Coronary artery disease Coronary Disease-Associated Artery/Lesion type: [place] artery [place] vs. transplanted heart: [place] heart Associated angina: without angina Qualified Code(s): I25.10 - Atherosclerotic heart disease of [place] coronary artery without angina pectoris (3) Diabetic foot ulcer Diabetes mellitus type: type 2 Diabetic foot ulcer location: toe Laterality : left Non-pressure ulcer stage: limited to breakdown of skin Qualified Code(s ): E11.621 - Type 2 diabetes mellitus with foot ulcer; L97.521 - Non-pressure chronic ulcer of other part of left foot limited to breakdown of skin (4) Hypertension Hypertension type: unspecified Qualified Code(s): I10 - Essential (primary) hypertension
[2018-08-23] MEDS: MAGNESIUM OXIDE 400 MG TAB PO SCH ×2 (17:50→20:22)
[2018-08-23] MEDS: ASPIRIN 81 MG ECTAB PO SCH (20:22)
[2018-08-23] MEDS: METOPROLOL SUCC 50MG EXT REL TAB PO SCH (20:22)
[2018-08-23] MEDS: SIMVASTATIN 40 MG TAB PO SCH (20:23)
[2018-08-24] MEDS: DOXYCYCLINE HYCLATE 100 MG CAP PO SCH (06:26)
[2018-08-24] MEDS: MAGNESIUM CHLORIDE 64MG DELAYED REL TAB PO SCH (08:11)
[2018-08-24] MEDS: LACTOBACILLUS ACIDOPHILUS 1 GM PACK PO SCH (08:12)
[2018-08-24] MEDS: ASCORBIC ACID 500 MG TAB PO SCH (08:12)
[2018-08-24] MEDS: GABAPENTIN 300 MG CAP PO SCH ×2 (08:12→14:12)
[2018-08-24] MEDS: LORATADINE 10 MG TAB PO SCH (08:12)
[2018-08-24] MEDS: ALLOPURINOL 300 MG TAB PO SCH (08:12)
[2018-08-24] MEDS: MAGNESIUM OXIDE 400 MG TAB PO SCH (08:12)
[2018-08-24] MEDS: CHOLECALCIFEROL 1,000 UNITS TAB PO SCH (08:12)
[2018-08-24] MEDS: CYANOCOBALAMIN 500 MCG TABLET (VITAMIN B-12) PO SCH (08:12)
[2018-08-24] MEDS: INSULIN ASPART 100 UNITS/ML 3 ML PEN SC SCH ×2 (08:15→12:08)
--- NOTE | 2018-08-24 12:18 | Discharge Summary ---
Date of Service August 24, 2018 Admission HPI Per Admitting Provider This is an 78-year-old male with a PMH of DM II, HTN, non-obstructive CAD, CKD III, B12 deficiency anemia, tobacco use and other medical problems listed below who presents with generalized weakness, chills and vomiting x2 this afternoon. Last week, patient was seen in emergency department for evaluation of diabetic ulcer and was discharged on Keflex and Bactrim. Wound has been improving since then. Woke up early this morning with a fever of 101 F and decreased appetite. Was seen in the ED earlier today but there was no leukocytosis or evidence of infection on chest x-ray or evidence of osteomyelitis on left foot x -ray. Patient was sent home and encouraged to increase oral hydration. Once home today, encouraged patient to eat lunch and he felt nauseated soon after, having 2 episodes of bilious emesis. Also felt weak and slid to the ground twice when trying to ambulate. Had 2 episodes of fecal incontinence in his bed because he was unable to ambulate fast enough. These stools were formed--not diarrhea. Has h/o C diff from 2016 but no diarrhea for the last few months. Patient is endorsing intermittent pain in left toe as well as generalized weakness and decreased appetite. Currently denies fever, chills, lightheadedness, headache, chest pain, palpitations, shortness of breath, nausea , vomiting, abdominal pain, dysuria, diarrhea or constipation. Found to be afebrile and hemodynamically stable. No leukocytosis. Hemoglobin is stable at 11.8. Creatinine is elevated to 1.5 (baseline ~1.1). Principal Diagnosis Diabetic foot wound Discharge Exam Constitutional WD/WN, vitals as above well developed; no acute distress Eyes PERRL, conjunctivae normal, anicteric sclerae ENMT external ear and nose normal, oropharynx normal Neck trachea midline, no thyromegaly Respiratory normal respiratory effort, lungs clear to auscultation Cardiovascular RRR, no murmur, no edema Gastrointestinal (Abdomen) normal bowel sounds, soft, nontender, no hepatosplenomegaly Skin no rashes, warm and dry Neurologic PERRL, EOMI, accommodation nl, no face palsy, no dysarthria Psychiatric A+Ox3, euthymic affect Discharge Data Allergies Allergy/AdvReac Type Severity Reaction Status Date / Time eletriptan Allergy Intermediate LYMPH Verified 02/17/19 18:38 NODES SWELLED, HOT FLASHES oxycodone Allergy Intermediate NIGHTMARES Verified 08/20/18 18:38 atorvastatin AdvReac Severe TEMP 107., Verified 08/20/18 18:38 NEARLY PER Consultations 08/20/18 18:26 ED Decision to Admit Stat 08/20/18 20:59 Consult Case Management - Discharge Planning Routine Ordered Studies 08/21/18 13:14 US arterial duplex LE LT Routine Hospital Course (1) Diabetic foot ulcer: Patient is an 78 yr male with H/O DM II, HTN, non-obstructive CAD, CKD III , B12 deficiency anemia, tobacco use who presents with generalized weakness, chills and vomiting x2 for 1 day and was found to have LLE cellulitis and an acute kidney injury. Sepsis: 2/2 left Toe Cellulitis Symptoms has resolved, normal white count, no fever or chills, no pain discomfort or swelling on the left third toe Failed outpatient Bactrim and Keflex therapy --Foot X ray:No acute fractures. No conventional radiographic evidence of osteomyelitis. Stable metallic foreign body within the plantar soft tissues at the base of the distal phalanx the great toe --Discussed with Podiatry, foreign body likely unrelated to present condition. Patient aware. No signs of infection of great toe --Arterial Doppler: Diminished flow within the left peroneal artery. No evidence of lower extremity large vessel arterial stenosis. Ankle-brachial index of 0.96. --Blood cultures: No growth to date --Discontinue IV Zosyn P.o. doxycycline to complete 7-day course --Appreciate input from wound care Patient already has appointment/follow-up with podiatry and wound care outpatient stable to be discharged today with p.o. doxycycline (2) Acute kidney injury superimposed on chronic kidney disease: Resolved renal function improved to baseline Baseline Cr: 1.1 Received IV fluids Presented with acute renal failure with elevated creatinine Cr: 1.51>>>1.3 (3) Generalized weakness: Symptom resolved, PT OT evaluation appreciated Patient is independent in ADLs Safe to return home (4) Hypertension: Stable Continue Metoprolol Diuretics was kept on hold secondary to acute renal failure Will be resumed on discharge (5) Diabetes mellitus, type II: Well-controlled A1c of 7 in July 2018 SSI while in-patient Metformin is resumed on discharge (6) Coronary artery disease: Non-obstructive CAD on 2011 cardiac catheterization Continue aspirin, statin, Toprol No complaint of shortness of breath or chest pain DVT Px: Heparin SQ Code status: FULL PCP: Dr. Chetan Last Dispo: Stable to be discharged home today Total Time Total Time Spent Total Time Spent (In Minutes): Approximate 35 minutes Total Time Includes: Examination of the Patient, Discharge Planning and Medication Reconciliation Discharge Plan Discharge Items Patient Disposition: Home - Self-Care Reason For Visit: L TOE CELLULITIS Discharge Diagnosis: DIABETIC TOE WOUND Discharge Goals: Decrease discomfort Activity: Resume your previous activity Non-emergency contact: Primary Care Provider Call non-emergency contact if: you have any medication questions Follow-up/Referrals: Chetan Galvez [Primary Care Provider] - 08/28/18 8:45 am Diet: Carb Consistent or DM2 and Heart Healthy Addtl Provider Instructions: FOLLOW UP WITH PODIATRY/DIABETIC FOOT CLINIC AT [facility] Tuesday09/04/18 @ 10 : 15 AM Prescriptions: Continue aspirin 81 mg Tablet,Delayed Release (Dr/Ec) 81 mg PO PM RF: 0 ascorbic acid (vitamin C) [Vitamin C] 500 mg Tablet 1,000 mg PO DAILY RF: 0 diphenhydramine HCl [Benadryl] 25 mg Capsule 25 mg PO HS RF: 0 metformin 1,000 mg tablet 1,000 mg PO BID RF: 0 lysine 500 mg Tablet 500 mg PO QAM RF: 0 loratadine [Claritin] 10 mg Tablet 10 mg PO QAM RF: 0 magnesium chloride 71.5 mg tablet,delayed release (DR/EC) 143 mg PO BID RF: 0 krill oil 500 mg Capsule 500 mg PO QID RF: 0 lutein 40 mg Capsule 40 mg PO QAM RF: 0 acetaminophen 500 mg Tablet 500 mg PO BID PRN (Reason: Pain) RF: 0 lactobacillus combination no.4 [Probiotic] 3 billion cell Capsule PO QAM RF: 0 cholecalciferol (vitamin D3) [Vitamin D3] 1,000 unit Capsule 1,000 unit PO DAILY RF: 0 cyanocobalamin (vitamin B-12) 500 mcg Tablet, Sublingual 500 mcg SUBLINGUAL BID RF: 0 metoprolol succinate 50 mg tablet extended release 24 hr 50 mg PO PM RF: 0 simvastatin 40 mg tablet 40 mg PO HS RF: 0 amiloride 5 mg tablet 10 mg PO QAM RF: 0 gabapentin 300 mg capsule 300 mg PO TID RF: 0 allopurinol 300 mg tablet 300 mg PO QAM RF: 0 omega-3 acid ethyl esters 1 gram capsule 1 g PO QID RF: 0 Discontinued sulfamethoxazole-trimethoprim [Bactrim DS] 800-160 mg tablet 1 tab PO Q12H Qty: 20 RF: 0 Stand-Alone Forms: [facility]/Other Patient Handouts: Diabetes Foot Care Program Discharge Orders: Discharge Order (Routine); Ordered 08/24/18 Ordered By: Elsie Geiger Admission Data Admit Date/Time: 08/20/18 20:01 Attending Provider: Elsie Geiger Admit Provider: Laurel Morales Primary Care Provider: Chetan Galvez Other Providers: Laurel Morales ; Chan Ag Service: Medical Other Interventions: Discharge Summary Assessment (RN) Last Done: 08/24/18 12:12 DC Date/Time DO NOT enter until pt leaves facility: 08/24/18 14:29
== END 2018-08-24 14:29 | disposition home or self-care (01) | DRG 872 ==
LOC: ED 17:54 → SUATTDRO 20:01 → 2N 20:01

== ENCOUNTER 2020-01-09 19:01 | Inpatient (IN) ==
--- NOTE | 2020-01-09 20:58 | Emergency Department Note ---
Impression & Plan Postoperative fever ED Provider Note NAME: AKILAH LOPEZ AGE: 79 SEX: M ARRIVES VIA: Walk-In INFORMANT: [Patient] ED PROVIDER(S): Douglas Lord MD CHIEF COMPLAINT: Fever PLAN: Disposition: Admitted Condition: [Good] MEDICAL DECISION MAKING: Patient presented with fever. He has several days postop from a arterial bypass. His wound looked good. There is no dehiscence, surrounding cellulitis, or purulent drainage. He had no unusual pain on examination. Blood work was obtained. He had an unremarkable CBC however his lactate was elevated. Chemistries were unremarkable. Urinalysis was unremarkable. He had no pulmonary symptoms and a chest x-ray was negative. Blood cultures were sent. I do have concern for possible bacteremia given his chills, fever and rigors. He was empirically given a dose of IV Rocephin. I discussed the case with Dr. Roberto at [facility], vascular surgery. Given the symptoms overnight observation was felt to be most prudent. He felt that could be accomplished here if there were any issues developing then they would be available for c onsultation and possible transfer. I discussed the case with Dr. Ortiz of the [facility] service. He evaluated patient in the ER and admitted him for further management. Triage Nursing notes reviewed and agree them. [Additional history obtained from] patient's [Prior medical records reviewed] operative report and discharge summary reviewed from [facility] Vital Signs: reviewed and remarkable for [no significant abnormalities] Differential diagnosis: Viral syndrome, pneumonia, influenza, meningitis, urinary tract infection, sepsis, bacteremia, as well as other pathologies. ER treatment provided: Saline hydration IV Rocephin Diagnostics interpreted by me: Cardiac Monitoring: Cardiac monitoring ordered by me: The patient was placed on continuous cardiac monitoring and observed. It revealed a normal sinus rhythm at 79 beats per minute without ectopy or evidence of dysrhythmia. Imaging studies: Chest x-ray. Findings: A chest x-ray was performed and revealed no pneumothorax, effusion, infiltrate, pulmonary edema, free air under the diaphragm, or wide mediastinum. Impression: No acute disease. [facility] HPI: The patient is a 79 year old male who presents to the Emergency Room with complaints of fever. This started this afternoon at 1630 and is stable. The patient also notes the following associated symptoms, chills. The patient has taken no medication for relieving factors. Current pain is rated as 0/10. The patient was admitted to [facility] on January 01 for an arterial bypass on the right leg. and patient state surgery went well and he was discharged on the . He developed a fever this afternoon. The contacted [facility] and conservative recommendations were given. He has an appointment tomorrow with his surgeon. His fever escalated and he had more chills so she brought him to the ER for evaluation. There has not been any significant change in the wound or any unusual drainage noted. pt denies LOC, headache, diaphoresis, visual changes, neck pain, chest pain, breathing difficulties, nausea, vomiting, abdominal pain, back pain, melena, hematochezia, urinary symptoms, numbness, weakness, lymphadenopathy, rash, or other complaints. ROS: See above HPI for pertinent positives & negatives. A total of [10] systems reviewed and were otherwise negative. PAST MEDICAL HISTORY:[See Below] peripheral artery disease PAST SURGICAL HISTORY:[See Below]arterial bypass, right leg FAMILY HISTORY:[See Below] SOCIAL HISTORY:[See Below] HOME MEDICATIONS:[See Below] ALLERGIES:[See Below] VITALS:[See Below] PHYSICAL EXAMINATION: GENERAL: Awake, alert, mildly uncomfortable-appearing, in no distress HENT: Normocephalic, atraumatic. Oropharynx unremarkable. EYES: Normal conjunctiva. Sclera non-icteric. NECK: Inspection normal. Non-tender. Supple. No nuchal rigidity. FROM. No masses. RESPIRATORY: Clear to auscultation. No wheezes. No rales. Normal respiratory effort. CARDIAC: Normal rate. Normal rhythm. No murmurs. No rubs. Extremities warm and well perfused. Pulses equal. No JVD. GI: Soft, non-distended. No tenderness to palpation. No rebound or guarding. No masses. RECTAL: Deferred. MUSCULOSKELETAL: Atraumatic. Chest examination reveals no tenderness. The back is symmetrical on inspection without obvious abnormality. There is no CVA tenderness to palpation. No joint edema. LOWER EXTREMITIES: Calves are equal size bilaterally and non-tender. No edema. Surgical incision noted in the medial aspect of the right lower extremity. There is some associated ecchymosis surrounding the incision but no significant redness, purulent drainage, or abnormal warmth. Sutures are intact. Site of th e toe amputation is unremarkable as well. Right lower leg is warm with normal capillary refill. NEURO: Normal sensorium. No sensory or motor deficits noted. SKIN: No rash or jaundice noted. 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 Required: No Beliefs That Will Affect Care: None Current Living Situation: Spouse Feels Safe at Home: Yes Smoking Status: Former smoker Tobacco Type: smokeless tobacco ; Hx Alcohol Use: No Hx Substance Use: No Allergies Allergies Allergy/AdvReac Type Severity Reaction Status Date / Time eletriptan Allergy Intermediate LYMPH Verified 01/09/20 22:57 NODES SWELLED, HOT FLASHES oxycodone Allergy Intermediate NIGHTMARES Verified 01/09/20 22:57 atorvastatin AdvReac Severe TEMP 107., Verified 01/09/20 22:57 NEARLY PER Home Meds Home Medications Medication Instructions Recorded Confirmed allopurinol 300 mg PO QAM 08/13/18 01/09/20 amiloride 10 mg PO QAM 08/13/18 01/09/20 gabapentin 300 mg PO TID 08/13/18 01/09/20 metoprolol succinate 50 mg PO QDD 08/13/18 01/09/20 simvastatin 40 mg PO HS 08/13/18 01/09/20 Probiotic 0 mmu cells PO QAM 08/20/18 01/09/20 ascorbic acid (vitamin C) [Vitamin 1,000 mg PO QAM 08/20/18 01/09/20 C] aspirin 81 mg PO QDD 08/20/18 01/09/20 cholecalciferol (vitamin D3) 1,000 unit PO QAM 08/20/18 01/09/20 [Vitamin D3] cyanocobalamin (vitamin B-12) 500 mcg SUBLINGUAL BIDM 08/20/18 01/09/20 loratadine [Claritin] 10 mg PO QAM 08/20/18 01/09/20 lutein 40 mg PO QAM 08/20/18 01/09/20 lysine 500 mg PO QAM 08/20/18 01/09/20 metformin 1,000 mg PO BIDM 08/20/18 01/09/20 nitroglycerin 0.4 mg SUBLINGUAL UD PRN 08/05/19 01/09/20 pyridoxine (vitamin B6) 100 mg PO QAM 08/05/19 01/09/20 silver sulfadiazine 1 applic TOPICAL DAILY 08/05/19 01/09/20 diphenhydramine HCl [Benadryl] 25 mg PO HS PRN 01/01/20 01/09/20 famotidine [Pepcid] 20 mg PO BIDM 01/01/20 01/09/20 [id number] 1 cap PO BIDM 01/01/20 01/09/20 magnesium chloride [Slow-Mag] 143 mg PO BID 01/01/20 01/09/20 zinc gluconate 50 mg PO QAM 01/01/20 01/09/20 clopidogrel [Plavix] 75 mg PO DAILY 01/09/20 01/09/20 sulfamethoxazole-trimethoprim 1 tab PO BID 01/09/20 01/09/20 [Bactrim DS] tramadol 50 mg PO DIRECTED PRN 01/09/20 01/09/20 Previous Rx's Medication Instructions Recorded hydrocodone-acetaminophen [Nicholson] 1 tab PO TID PRN #10 tab 01/01/20 Results & Data (ED) Vital Signs Vital Signs - 24 hr 01/09/20 19:05 01/09/20 20:02 01/09/20 22:00 Temperature 37.6 C H 37.3 C Temperature Source Oral Oral Pulse Rate 91 H 81 Pulse Rate [Apical] 78 Pulse Rate from SpO2 Sensor 84 Pulse Rhythm Respiratory Rate 18 18 23 Respiratory Effort / Characteristics Non-Labored Spontaneous Non-Labored Spontaneous Respiratory Depth Normal Normal Respiratory Pattern Regular Regular Blood Pressure 140/80 167/90 H Blood Pressure [Right Arm] 129/86 Blood Pressure Mean 100 96 Blood Pressure Mean [Right Arm] 100 Blood Pressure Position Sitting Blood Pressure Position [Right Arm] Lying Pulse Oximetry 96 96 91 Oxygen Delivery Method Room Air Room Air Room Air Sepsis Recent Fever Within 48 Hours Yes Sepsis Action Taken by Nursing No Action Required 01/09/20 22:01 01/09/20 22:30 01/09/20 23:00 Temperature Temperature Source Pulse Rate 91 H 81 84 Pulse Rate [Apical] Pulse Rate from SpO2 Sensor 84 77 Pulse Rhythm Regular Respiratory Rate 18 20 21 Respiratory Effort / Characteristics Respiratory Depth Respiratory Pattern Blood Pressure 166/93 H 180/87 H Blood Pressure [Right Arm] Blood Pressure Mean 130 122 Blood Pressure Mean [Right Arm] Blood Pressure Position Blood Pressure Position [Right Arm] Pulse Oximetry 96 92 95 Oxygen Delivery Method Room Air Sepsis Recent Fever Within 48 Hours Sepsis Action Taken by Nursing 01/09/20 23:17 01/09/20 23:30 Temperature Temperature Source Pulse Rate 80 81 Pulse Rate [Apical] Pulse Rate from SpO2 Sensor Pulse Rhythm Respiratory Rate 16 20 Respiratory Effort / Characteristics Respiratory Depth Respiratory Pattern Blood Pressure 148/79 H 143/77 H Blood Pressure [Right Arm] Blood Pressure Mean 91 105 Blood Pressure Mean [Right Arm] Blood Pressure Position Blood Pressure Position [Right Arm] Pulse Oximetry 95 95 Oxygen Delivery Method Sepsis Recent Fever Within 48 Hours Sepsis Action Taken by Nursing Laboratory Data Result diagrams: 01/09/20 20:47 01/09/20 20:47 Lab Results 01/09/20 01/09/20 01/09/20 Range/Units 20:47 20:47 20:47 WBC 6.84 (4.8-10.8) K/uL RBC 3.33 L (4.7-6.1) M/uL Hgb 10.3 L (14.0-18.0) g/dL Hct 30.7 L (42-52) % MCV 92.2 (80-100) fL MCH 30.9 (25-34) pg MCHC 33.6 (32-36) g/dL RDW Std Deviation 46.3 (36.4-46.3) fL RDW Coeff of Mirza 13.8 (11.5-14.5) % Plt Count 237 (130-400) K/uL MPV 8.5 (7.4-10.4) fL Immature Gran % (Auto) 1.5 % Neut % (Auto) 72.7 % Lymph % (Auto) 7.9 % [place] % (Auto) 11.1 % Eos % (Auto) 6.4 % Baso % (Auto) 0.4 % Neut # (Auto) 4.97 (1.4-6.5) K/uL Lymph # (Auto) 0.54 L (1.2-3.4) K/uL [place] # (Auto) 0.76 H (0.11-0.59) K/uL Eos # (Auto) 0.44 (0-0.5) K/uL Baso # (Auto) 0.03 (0-0.2) K/uL Immature Gran # (Auto) 0.10 H (0.00-0.02) K/uL Absolute Nucleated RBC 0.02 H (0-0) K/uL Nucleated RBC % (auto) 0.3 % PT 11.9 (9.0-12.0) Seconds INR 1.1 (0.9-1.1) APTT 28.5 (21.0-31.0) Seconds PTT Ratio 1.0 Sodium 134 L (136-145) mmol/L Potassium 4.1 (3.5-5.1) mmol/L Chloride 103 (98-107) mmol/L Carbon Dioxide 21 (21-32) mmol/L Anion Gap 10.0 (3-11) BUN 21 H (7-18) mg/dl Creatinine 1.59 H (0.6-1.4) mg/dl Est Cr Clr Drug Dosing Not Reportable Est GFR ( Amer) 46.5 Est GFR (Non-Af Amer) 40.1 BUN/Creatinine Ratio 13.3 (10-20) Glucose 163 H (70-99) mg/dl Lactate (0.4-2.0) mmol/L Calcium 9.8 (8.5-10.1) mg/dl Magnesium 1.7 L (1.8-2.4) mg/dl Total Bilirubin 0.4 (0.2-1) mg/dl AST 37 (15-37) U/L ALT 59 (12-78) U/L Alkaline Phosphatase 122 H (45-117) U/L Total Protein 8.3 H (6.4-8.2) gm/dl Albumin 3.4 (3.4-5.0) gm/dl Globulin 4.9 H (2.5-4.0) gm/dl Albumin/Globulin Ratio 0.7 L (0.9-2) Urine Color Urine Appearance (Clear) Urine pH (4.5-7.5) Ur Specific [place] (1.000-1.030) Urine Protein (Negative) Urine Glucose (UA) (Negative) Urine Ketones (Negative) Urine Blood (Negative) Urine Nitrite (Negative) Urine Bilirubin (Negative) Urine Urobilinogen (Negative) Ur Leukocyte Esterase (Negative) 01/09/20 01/09/20 01/09/20 Range/Units 21:23 23:06 23:14 WBC (4.8-10.8) K/uL RBC (4.7-6.1) M/uL Hgb (14.0-18.0) g/dL Hct (42-52) % MCV (80-100) fL MCH (25-34) pg MCHC (32-36) g/dL RDW Std Deviation (36.4-46.3) fL RDW Coeff of Mirza (11.5-14.5) % Plt Count (130-400) K/uL MPV (7.4-10.4) fL Immature Gran % (Auto) % Neut % (Auto) % Lymph % (Auto) % [place] % (Auto) % Eos % (Auto) % Baso % (Auto) % Neut # (Auto) (1.4-6.5) K/uL Lymph # (Auto) (1.2-3.4) K/uL [place] # (Auto) (0.11-0.59) K/uL Eos # (Auto) (0-0.5) K/uL Baso # (Auto) (0-0.2) K/uL Immature Gran # (Auto) (0.00-0.02) K/uL Absolute Nucleated RBC (0-0) K/uL Nucleated RBC % (auto) % PT (9.0-12.0) Seconds INR (0.9-1.1) APTT (21.0-31.0) Seconds PTT Ratio Sodium (136-145) mmol/L Potassium (3.5-5.1) mmol/L Chloride (98-107) mmol/L Carbon Dioxide (21-32) mmol/L Anion Gap (3-11) BUN (7-18) mg/dl Creatinine (0.6-1.4) mg/dl Est Cr Clr Drug Dosing Est GFR ( Amer) Est GFR (Non-Af Amer) BUN/Creatinine Ratio (10-20) Glucose (70-99) mg/dl Lactate 2.2 H* 2.3 H* (0.4-2.0) mmol/L Calcium (8.5-10.1) mg/dl Magnesium (1.8-2.4) mg/dl Total Bilirubin (0.2-1) mg/dl AST (15-37) U/L ALT (12-78) U/L Alkaline Phosphatase (45-117) U/L Total Protein (6.4-8.2) gm/dl Albumin (3.4-5.0) gm/dl Globulin (2.5-4.0) gm/dl Albumin/Globulin Ratio (0.9-2) Urine Color Yellow Urine Appearance Clear (Clear) Urine pH 5.0 (4.5-7.5) Ur Specific [place] 1.019 (1.000-1.030) Urine Protein Negative (Negative) Urine Glucose (UA) Negative (Negative) Urine Ketones Negative (Negative) Urine Blood Negative (Negative) Urine Nitrite Negative (Negative) Urine Bilirubin Negative (Negative) Urine Urobilinogen Negative (Negative) Ur Leukocyte Esterase Negative (Negative) Administered Medications Discontinued Medications Sodium Chloride (Nss 1000ml) 500 mls @ 999 mls/hr IV .Q31M ONE Stop: 01/09/20 22:56 Last Infusion: 01/09/20 23:42 Dose: 0 mls/hr Documented by: [id number] Admin: 01/09/20 22:43 Dose: 999 mls/hr Documented by: [id number] Ceftriaxone Sodium (Rocephin) 1,000 mg in 50 mls @ 100 mls/hr IV NOW STA Stop: 01/09/20 23:15 Last Infusion: 01/10/20 00:11 Dose: 0 mls/hr Documented by: [id number] Admin: 01/09/20 23:41 Dose: 100 mls/hr Documented by: [id number] Discharge Plan Visit Data Chief Complaint: Fever Stated Complaint: FEVER,PREVIOUS SURGERY ED Provider: Douglas Lord Discharge Problem: Postoperative fever Discharge Instructions Interventions: ED Discharge Assessment Last Done: 01/10/20 00:17 Forms Stand Alone Forms: My [facility] Prescriptions Prescriptions: No Action aspirin 81 mg Tablet,Delayed Release (Dr/Ec) 81 mg PO QDD RF: 0 ascorbic acid (vitamin C) [Vitamin C] 500 mg Tablet 1,000 mg PO QAM RF: 0 metformin 1,000 mg tablet 1,000 mg PO BIDM RF: 0 lysine 500 mg Tablet 500 mg PO QAM RF: 0 loratadine [Claritin] 10 mg Tablet 10 mg PO QAM RF: 0 lutein 40 mg Capsule 40 mg PO QAM RF: 0 Probiotic 3 billion cell Capsule 0 mmu cells PO QAM RF: 0 cholecalciferol (vitamin D3) [Vitamin D3] 1,000 unit Capsule 1,000 unit PO QAM RF: 0 cyanocobalamin (vitamin B-12) 500 mcg Tablet, Sublingual 500 mcg SUBLINGUAL BIDM RF: 0 silver sulfadiazine 1 % cream 1 applic TOPICAL DAILY RF: 0 nitroglycerin 0.4 mg tablet, sublingual 0.4 mg sublingual UD PRN (Reason: Chest Pain) RF: 0 pyridoxine (vitamin B6) 100 mg Tablet 100 mg PO QAM RF: 0 sulfamethoxazole-trimethoprim [Bactrim DS] 800-160 mg Tablet 1 tab PO BID RF: 0 clopidogrel [Plavix] 75 mg Tablet 75 mg PO DAILY RF: 0 tramadol 50 mg Tablet 50 mg PO DIRECTED PRN (Reason: Pain) RF: 0 metoprolol succinate 50 mg tablet extended release 24 hr 50 mg PO QDD RF: 0 simvastatin 40 mg tablet 40 mg PO HS RF: 0 amiloride 5 mg tablet 10 mg PO QAM RF: 0 gabapentin 300 mg capsule 300 mg PO TID RF: 0 allopurinol 300 mg tablet 300 mg PO QAM RF: 0 famotidine [Pepcid] 20 mg Tablet 20 mg PO BIDM RF: 0 diphenhydramine HCl [Benadryl] 25 mg Capsule 25 mg PO HS PRN (Reason: Sleep) RF: 0 zinc gluconate 50 mg Tablet 50 mg PO QAM RF: 0 Slow-Mag 71.5 mg Tablet,Delayed Release (Dr/Ec) 143 mg PO BID RF: 0 [id number] [id number] mg Capsule 1 cap PO BIDM RF: 0 hydrocodone-acetaminophen [Nicholson] 5-325 mg tablet 1 tab PO TID PRN (Reason: pain) Qty: 10 RF: 0 Referrals Referrals: Chetan Galvez MD [Primary Care Provider] -
[2020-01-09 21:33] LABS: Basophils # (auto) 0.03 K/uL (0-0.2); Basophils % (auto) 0.4 %; Eosinophils # (auto) 0.44 K/uL (0-0.5); Eosinophils % (auto) 6.4 %; Hematocrit (blood only) 30.7 % (42-52); Hemoglobin 10.3 g/dL (14.0-18.0); Immature Granulocytes % (auto) 1.5 %; Lymphocytes # (auto) 0.54 K/uL (1.2-3.4); Lymphocytes % (auto) 7.9 %; Mean Corpuscular Hemoglobin 30.9 pg (25-34); Mean Corpuscular Hgb Conc 33.6 g/dL (32-36); Mean Corpuscular Volume 92.2 fL (80-100); Mean Platelet Volume 8.5 fL (7.4-10.4); Monocytes # (auto) 0.76 K/uL (0.11-0.59); Monocytes % (auto) 11.1 %; Neutrophils # (auto) 4.97 K/uL (1.4-6.5); Neutrophils % (auto) 72.7 %; Nucleated RBC # (auto) 0.02 K/uL (0-0); Nucleated RBC % (auto) 0.3 %; Platelet Count 237 K/uL (130-400); RDW Coefficient of Variation 13.8 % (11.5-14.5); RDW Standard Deviation 46.3 fL (36.4-46.3); Red Blood Count 3.33 M/uL (4.7-6.1); White Blood Count 6.84 K/uL (4.8-10.8)
[2020-01-09 21:44] LABS: INR 1.1 (0.9-1.1); Partial Thromboplastin Time 28.5 Seconds (21.0-31.0); Prothrombin Time 11.9 Seconds (9.0-12.0)
[2020-01-09 21:50] LABS: Alanine Aminotransferase 59 U/L (12-78); Albumin Level 3.4 gm/dl (3.4-5.0); Aspartate Aminotransferase 37 U/L (15-37); BUN Creatinine Ratio 13.3 (10-20); Blood Urea Nitrogen 21 mg/dl (7-18); Calcium 9.8 mg/dl (8.5-10.1); Carbon Dioxide 21 mmol/L (21-32); Chloride 103 mmol/L (98-107); Est GFR (African American) 46.5; Est GFR (Non-African American) 40.1; Glucose 163 mg/dl (70-99); Magnesium 1.7 mg/dl (1.8-2.4); Potassium 4.1 mmol/L (3.5-5.1); Sodium 134 mmol/L (136-145)
[2020-01-09 21:52] LABS: Albumin Globulin Ratio 0.7 (0.9-2); Alkaline Phosphatase 122 U/L (45-117); Bilirubin,Total 0.4 mg/dl (0.2-1); Globulin 4.9 gm/dl (2.5-4.0); Total Protein 8.3 gm/dl (6.4-8.2)
[2020-01-09] MEDS ORDERED: SODIUM CHLORIDE 0.9% 1000ML 500 ML IV ONE (22:26)
[2020-01-09] MEDS ORDERED: cefTRIAXone SODIUM 1,000 MG/50 ML BAG IV STA (22:46)
[2020-01-10 00:03] LABS: Appearance Urine Clear (Clear); Bilirubin Urine Negative (Negative); Blood Urine Negative (Negative); Color Urine Yellow; Glucose Urine UA Negative (Negative); Ketones Urine Negative (Negative); Leukocyte Esterase Urine Negative (Negative); Nitrite Urine Negative (Negative); Protein Urine Negative (Negative); Specific Gravity Urine 1.019 (1.000-1.030); Urobilinogen Urine Negative (Negative)
[2020-01-10] MEDS ORDERED: TRAMADOL HCL 50 MG TABLET PO PRN (00:48)
[2020-01-10] MEDS ORDERED: ONDANSETRON INJ 2 MG/ML 2 ML VIAL IV PRN (00:48)
[2020-01-10] MEDS ORDERED: NITROGLYCERIN SL 0.4 MG/TAB TAB SL PRN ×2 (00:48)
[2020-01-10] MEDS ORDERED: ACETAMINOPHEN 325 MG TAB PO PRN (00:48)
[2020-01-10] MEDS ORDERED: POLYETHYLENE (MIRALAX) 17 GM PACK PO PRN (00:48)
--- NOTE | 2020-01-10 01:18 | History and Physical Report ---
DATE OF ADMISSION: 01/09/2020 CHIEF COMPLAINT: Fever. HISTORY OF PRESENT ILLNESS: This is an 79-year-old male with past medical history significant for type 2 diabetes, hyperlipidemia, hypomagnesemia, chronic kidney disease stage III, chronic CAD, peripheral artery disease, hypertension, PACs, anemia due to be vitamin B12 deficiency, microscopic colitis, gout arthropathy, primary open angle glaucoma, anemia of chronic kidney disease, history of C. diff, presents with fever. 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 The patient lives at home with his . Today in the evening around 4:00 p.m., he had a fever of 101.Called [facility] and they asked to observe and , as he was having lot of chills, he came to the ER. He took Tylenol before he came to the ER. Currently, he is afebrile and hemodynamically stable. No white count, but his lactic acid came as 2.2. ER physician talked to [facility], they are okay observing the patient here in the hospital and if something changes to call them back. He is already on Bactrim course, ER physician gave Rocephin. Currently resting comfortably and hemodynamically stable. Denies any chest pain, no shortness of breath, no cough, no headache, no neck pain, no blurred vision, no earache, no runny nose, no sore throat, no difficulty swallowing. Currently, no nausea, no vomiting, no abdominal pain, no diarrhea or constipation, no blood in the stools, no hematuria, no burning micturition. His right leg surgical site was examined by the ER physician, the area is clean, currently in dressing. He says he ambulating at home, but putting not much weight on the right leg. ALLERGIES: ELETRIPTAN, OXYCODONE, ATORVASTATIN. PAST MEDICAL HISTORY: As mentioned above. PAST SURGICAL HISTORY: Amputation of the right metatarsophalangeal joint, appendectomy, cardiac catheterization, cataract surgeries, colonoscopy, EGDs, right tibial peritoneal arterial revascularization on 11/22/2012, bypass graft with vein, popliteal, tibial on 01/04/2020. MEDICATIONS: The patient is on Plavix 75 mg p.o. daily, Bactrim DS 1 tablet p.o. b.i.d. for 7 days, last dose is 01/14/2020, tramadol 50 mg p.o. q. 6 hours p.r.n., metoprolol 25 mg p.o. at bedtime p.r.n., gabapentin 300 mg p.o. t.i.d., amiloride 10 mg p.o. daily, Tylenol 1000 mg p.o. t.i.d., famotidine 20 mg p.o. b.i.d., allopurinol 300 mg p.o. daily, metformin 1000 mg p.o. b.i.d., Toprol-XL 50 mg p.o. daily, nitroglycerin 0.4 mg sublingual p.r.n., vitamin B6 100 mg p.o. daily, simvastatin 40 mg p.o. at bedtime, krill oil 350 mg p.o. b.i.d., loratadine 10 mg p.o. daily, zinc gluconate 50 mg p.o. daily, Slow-Mag 2 tablets p.o. b.i.d., probiotic 1 capsule p.o. daily, Lysine 500 mg p.o. daily, vitamin B12 500 mcg sublingual tablet b.i.d., Lutein 40 mg p.o. daily, aspirin low dose 81 mg p.o. daily, vitamin C 1000 mg p.o. daily. FAMILY HISTORY: No family history on file. SOCIAL HISTORY: and lives with his . Quit smoking in 2. Chews tobacco. No alcohol use, no drug use. REVIEW OF SYMPTOMS: As per HPI. Rest of review of symptoms negative. PHYSICAL EXAMINATION: GENERAL: The patient is of moderate build, not in acute distress. VITAL SIGNS: Temperature 37.3, T-max 37.6, pulse 81, respiratory rate 20, blood pressure 143/77, oxygen 95% on room air. HEENT: No pallor, no icterus. NECK: No JVD, no neck masses. CARDIOVASCULAR: S1, S2 heard, regular rate and rhythm, no murmur, no gallop. RESPIRATORY SYSTEM: Normal AP diameter. No accessory muscle use. No wheezing, no crackles. ABDOMEN: Soft, bowel sounds present, nontender. No distention. CENTRAL NERVOUS SYSTEM: Alert and oriented. Obeys simple commands. Moves extremities. EXTREMITIES: Right lower extremity is in dressing and surgical site visible outside- there is no drainage or erythema seen. LABORATORY DATA: WBC 6.8, hemoglobin 10.3, hematocrit 30.7, platelets 237. PT 11.9, INR 1.1, APTT 28.5. Sodium 134, potassium 4.1, chloride 103, bicarbonate 21, BUN 21, creatinine 1.59, serum glucose 163, lactate 2.2, repeat is 2.3, calcium 9.8, magnesium 1.7, total bilirubin 0.4, AST 37, ALT 15, alkaline phosphatase 122. Urinalysis pending. IMAGING: Chest x-ray, no acute findings seen. EKG: Sinus rhythm with marked sinus arrhythmia with first degree AV block at a rate of 81, left anterior fascicular block, nonspecific ST abnormality. ASSESSMENT AND PLAN: This is an 79-year-old male who recently on 01/04/2020 at [facility] had right below knee popliteal artery to medial plantar artery bypass surgery and also right fourth toe amputations through MTP joint, comes with fever. 1. Fever and elevated lactic acid: Meets sirs criteria with mild temperature spike and elevated lactic acid. Recent surgical site looks okay. ER physician talked to vascular surgery regional trainer at [facility] and they are okay to observe here in the hospital. He is already on Bactrim and received Rocephin in the ER which we will continue with Rocephin and Bactrim. Follow the cultures. UA is negative. Will repeat lactic acid, IV fluids at 125 mL per hour. If any change in condition, we will call [facility] again. 2. Peripheral artery disease, recent status post right below knee popliteal artery to medial plantar artery bypass using ipsilateral reverse greater saphenous vein and also right fourth toe amputations through MTP joint, has follow up with vascular surgery tomorrow actually at [facility], on aspirin, Plavix and statin. 3. Diabetes: On metformin, which will be on hold, place insulin sliding scale. Follow the blood sugars, follow HbA1c levels. 4. History of coronary artery disease: On Plavix, aspirin, statin and Toprol-XL, currently stable. 5. History of clostridium difficile colitis: On probiotic. 6. Acute kidney injury on chronic kidney disease stage III, baseline creatinine around 1.2. Getting fluids. Follow the labs in a.m. 7. Hypomagnesemia: We will replace. 8. Hyperlipidemia: On statin. 9. Anemia of chronic kidney disease. Hemoglobin is 10.3. Seems to be at baseline. 10. Deep venous thrombosis prophylaxis. Heparin subQ. DISPOSITION: Closely monitor in the med/surg tele. Level 1 full code. Expect discharge home and follow with family doctor. ANASTASIYA
[2020-01-10] MEDS ORDERED: HYDROCODONE/ACETAMOPHEN 5/325MG TAB PO PRN (01:51)
[2020-01-10] MEDS ORDERED: GLUCAGON FOR INJ 1 MG VIAL IM PRN (02:00)
[2020-01-10] MEDS ORDERED: DEXTROSE 50% 50 ML SYRINGE IV PRN (02:00)
[2020-01-10] MEDS ORDERED: CARBOHYDRATES FOR HYPOGLYCEMIA PO PRN (02:00)
[2020-01-10] MEDS ORDERED: MAGNESIUM SULFATE / D5W 1 GM/100 ML BAG IV ONE (02:00)
[2020-01-10] MEDS ORDERED: GLUCOSE 10 TABS/TUBE PO PRN (02:00)
[2020-01-10] MEDS ORDERED: GLUCOSE 40% GEL 15 GM TUBE PO PRN (02:00)
[2020-01-10] MEDS: SODIUM CHLORIDE 0.9% 1000ML 1,000 ML IV SCH ×2 (02:06→10:31)
[2020-01-10] MEDS: SULFAMETHOXAZOLE/TRIMETHOPRIM DS 800/160MG TAB PO SCH ×3 (02:16→21:15)
[2020-01-10] MEDS: HEPARIN SOD 5,000 UNIT/0.5 ML VIAL SQ SCH ×3 (04:55→21:19)
[2020-01-10 05:33] LABS: Basophils # (auto) 0.02 K/uL (0-0.2); Basophils % (auto) 0.3 %; Eosinophils # (auto) 0.35 K/uL (0-0.5); Eosinophils % (auto) 5.9 %; Hematocrit (blood only) 30.4 % (42-52); Immature Granulocytes % (auto) 1.7 %; Lymphocytes # (auto) 0.63 K/uL (1.2-3.4); Lymphocytes % (auto) 10.6 %; Mean Corpuscular Hgb Conc 32.9 g/dL (32-36); Mean Corpuscular Volume 91.3 fL (80-100); Mean Platelet Volume 8.3 fL (7.4-10.4); Monocytes % (auto) 13.4 %; Neutrophils # (auto) 4.07 K/uL (1.4-6.5); Neutrophils % (auto) 68.1 %; Platelet Count 194 K/uL (130-400); RDW Coefficient of Variation 13.7 % (11.5-14.5); RDW Standard Deviation 45.6 fL (36.4-46.3); Red Blood Count 3.33 M/uL (4.7-6.1); White Blood Count 5.97 K/uL (4.8-10.8)
[2020-01-10 05:50] LABS: BUN Creatinine Ratio 13.9 (10-20); Calcium 8.8 mg/dl (8.5-10.1); Creatinine Clr Calc Pharmacy 49.6 ml/min; Est GFR (African American) 56.7; Est GFR (Non-African American) 48.9; Magnesium 1.8 mg/dl (1.8-2.4); Potassium 4.1 mmol/L (3.5-5.1)
[2020-01-10 06:08] LABS: Estimated Average Glucose 151 mg/dl; Hemoglobin A1C 6.9 % (4.5-5.6)
--- NOTE | 2020-01-10 07:54 | XRay Report ---
XR chest 1V portable CLINICAL HISTORY: SEPSIS dyspnea COMPARISON STUDY: 08/10/2019 FINDINGS: The bones soft tissues and hemidiaphragms are normal. The cardiomediastinal silhouette is n ormal. The lungs are clear. The pulmonary vasculature is normal. IMPRESSION: Negative chest. ACT 112: Negative or not required by law. The above report was generated using voice recognition software. It may contain grammatical, syntax or spelling errors. Electronically signed by: Baldemar Swan M.D. 01/10/2020 7:53 AM
[2020-01-10] MEDS: FAMOTIDINE 20 MG TAB PO SCH ×2 (08:14→16:49)
[2020-01-10] MEDS: CLOPIDOGREL BISULFATE 75 MG TAB PO SCH (08:14)
[2020-01-10] MEDS: PYRIDOXINE HCL 50 MG TAB PO SCH (08:14)
[2020-01-10] MEDS: MAGNESIUM CHLORIDE 64MG DELAYED REL TAB PO SCH ×2 (08:15→21:15)
[2020-01-10] MEDS: ZINC SULFATE 220 MG CAPSULE PO SCH (08:15)
[2020-01-10] MEDS: GABAPENTIN 300 MG CAP PO SCH ×3 (08:15→21:16)
[2020-01-10] MEDS: CYANOCOBALAMIN 500 MCG TABLET (VITAMIN B-12) PO SCH ×2 (08:15→16:49)
[2020-01-10] MEDS: ASCORBIC ACID 500 MG TAB PO SCH (08:16)
[2020-01-10] MEDS: allopurinoL 300 MG TAB PO SCH (08:16)
[2020-01-10] MEDS: LORATADINE 10 MG TAB PO SCH (08:16)
[2020-01-10] MEDS: CHOLECALCIFEROL 1,000 UNITS 25 MCG TAB PO SCH (08:16)
[2020-01-10] MEDS: LACTOBACILLUS ACIDOPHILUS (FLORANEX) TAB PO SCH (08:17)
[2020-01-10] MEDS: INSULIN ASPART 100 UNITS/ML 3 ML PEN SC SCH ×4 (08:23→21:16)
[2020-01-10] MEDS: SILVER SULFADIAZINE 1% CR 50 GM JAR TOP SCH (08:25)
[2020-01-10] MEDS ORDERED: PNEUMOCOCCAL ADMINISTRATION CHARGE ONE (09:00)
[2020-01-10] MEDS ORDERED: PNEUMOCOCCAL POLYSACCHARIDES 25 MCG/0.5 ML VIAL/SYR IM ONE (09:00)
--- NOTE | 2020-01-10 12:26 | Hospitalist Progress Note ---
Date of Service January 10, 2020 Assessment & Plan (1) Fever: Patient presented with temperature spike/fever at home Temperature was recorded 100.1F at home with chills Has been afebrile since admission No identifiable source of infection noted Patient had recent right lower extremity femoral-popliteal bypass surgery done for severe peripheral artery disease, surgical incision site looks noninfected, well-healed Patient had appointment today at 3:20 PM at [facility] vascular surgery Dr. Elmo Cortez vascular surgery team updated, appointment will be rescheduled Blood culture ordered will follow the report, On empiric antibiotic with IV Rocephin. Elevated lactic acid: Doubt due to sepsis, possible secondary to dehydration, Lactic acidosis normalized with IV fluids, on IV Rocephin, patient is already on Bactrim postop Follow culture report Vascular surgery in [place] aware of patient's admission at [facility] Peripheral vascular disease: Status post below-knee popliteal artery to medial plantar artery bypass surgery, status post amputation of right fourth toe Doubt any postsurgical infection Patient is continue with aspirin Plavix and statin, continue Bactrim which is ordered postoperatively by vascular surgery, added Rocephin for febrile episode Coronary artery disease: No complaint of chest pain or angina, continue outpatient cardiac meds Acute kidney injury on CKD stage III: Possible secondary to dehydration, given IV fluids, renal function improved to baseline Continue to monitor CODE STATUS: Full code Disposition: Continue to observe in medical telemetry for another 24 hours, if patient remains afebrile with stable vitals for 48 hours, plan to discharge home and outpatient follow-up with vascular surgery at [facility]. Admission and Anticipated Discharge Date Admission Date: January 09, 2020 Subjective Patient remains afebrile, No temperatures spike, no chills Feels fine, no shortness of breath no cough No pain or discomfort on right lower extremity surgical site Review of Systems Review of Systems: All systems reviewed & are unremarkable except as noted in HPI & below Physical Exam Constitutional: WD/WN, vitals as above no acute distress Eyes: PERRL, conjunctivae normal, anicteric sclerae ENMT: external ear and nose normal, oropharynx normal Neck: trachea midline, no thyromegaly Respiratory: normal respiratory effort, lungs clear to auscultation Cardiovascular: RRR, no murmur, no edema Gastrointestinal (Abdomen): Percussion/Palpation: abdomen nontender Musculoskeletal: Right knee lower extremity: Below knee surgical incision for popliteal artery to medial plantar artery bypass surgery Surgical incision site looks well-healed, no swelling no erythema no tenderness Neurologic: PERRL, EOMI, accommodation nl, no face palsy, no dysarthria Psychiatric: A+Ox3, euthymic affect Results & Data Results & Data ([facility]) Vital Signs (Past 12 Hours) Vital Signs Temp Pulse Pulse Resp BP BP Pulse Ox 01/10/20 11:20 36.9 C 73 18 138/73 94 01/10/20 08:30 62 01/10/20 07:21 36.8 C 70 18 155/84 H 96 01/10/20 04:36 37 C 79 18 147/80 H 95 01/10/20 01:48 84 01/10/20 00:30 37.7 C H 84 20 155/76 H 96
[2020-01-10 14:51] LABS: D Dimer 1210 ug/L FEU (0-500)
--- NOTE | 2020-01-10 16:27 | Ultrasound Report ---
BILATERAL LOWER EXTREMITY VENOUS DOPPLER HISTORY: Acute pain and swelling of the bilateral lower legs eval for DVT COMPARISON STUDY: None. FINDINGS: There is normal compressibility, flow, and augmentation within the bilateral lower extremit y deep venous systems. Limited visualization of the calf veins secondary to recent lower extremity hendricks rgery. IMPRESSION: No DVT within the right or left lower extremity. ACT 112: Negative or not required by law. Electronically signed by: Luis Manuel Zamora M.D. 01/10/2020 4:25 PM
[2020-01-10] MEDS ORDERED: METOPROLOL SUCC 50MG EXT REL TAB PO SCH (16:30)
[2020-01-10] MEDS ORDERED: ASPIRIN 81 MG ECTAB PO SCH (16:30)
[2020-01-10] MEDS ORDERED: SIMVASTATIN 40 MG TAB PO SCH (21:00)
[2020-01-10] MEDS ORDERED: cefTRIAXone SODIUM 2,000 MG in DEXTROSE 5% 50 ML IV SCH (23:00)
--- NOTE | 2020-01-11 04:33 | Electrocardiogram Report ---
Test Reason : Blood Pressure : / mmHG Vent. Rate : 081 BPM Atrial Rate : 081 BPM P-R Int : 218 ms QRS Dur : 094 ms QT Int : 390 ms P-R-T Axes : 037 -45 060 degrees QTc Int : 453 ms Sinus rhythm with marked sinus arrhythmia with 1st degree A-V block Left anterior fascicular block Nonspecific ST abnormality Abnormal ECG When compared with ECG of 10-AUG-2019 14:56, Premature atrial complexes are no longer Present Confirmed by Ap Perdomo ([id number]) on 01/11/2020 4:33:32 AM Referred By: REFERRED SELF Confirmed By:Ap Perdomo
[2020-01-11] MEDS: HEPARIN SOD 5,000 UNIT/0.5 ML VIAL SQ SCH ×2 (05:28→13:37)
[2020-01-11] MEDS: SILVER SULFADIAZINE 1% CR 50 GM JAR TOP SCH (07:27)
[2020-01-11] MEDS: SULFAMETHOXAZOLE/TRIMETHOPRIM DS 800/160MG TAB PO SCH (07:27)
[2020-01-11] MEDS: PYRIDOXINE HCL 50 MG TAB PO SCH (07:27)
[2020-01-11] MEDS: LACTOBACILLUS ACIDOPHILUS (FLORANEX) TAB PO SCH (07:28)
[2020-01-11] MEDS: GABAPENTIN 300 MG CAP PO SCH ×2 (07:28→13:37)
[2020-01-11] MEDS: allopurinoL 300 MG TAB PO SCH (07:28)
[2020-01-11] MEDS: MAGNESIUM CHLORIDE 64MG DELAYED REL TAB PO SCH (07:28)
[2020-01-11] MEDS: CLOPIDOGREL BISULFATE 75 MG TAB PO SCH (07:28)
[2020-01-11] MEDS: CHOLECALCIFEROL 1,000 UNITS 25 MCG TAB PO SCH (07:28)
[2020-01-11] MEDS: ZINC SULFATE 220 MG CAPSULE PO SCH (07:28)
[2020-01-11] MEDS: FAMOTIDINE 20 MG TAB PO SCH (07:28)
[2020-01-11] MEDS: CYANOCOBALAMIN 500 MCG TABLET (VITAMIN B-12) PO SCH (07:28)
[2020-01-11] MEDS: LORATADINE 10 MG TAB PO SCH (07:29)
[2020-01-11] MEDS: ASCORBIC ACID 500 MG TAB PO SCH (07:29)
[2020-01-11] MEDS: INSULIN ASPART 100 UNITS/ML 3 ML PEN SC SCH ×2 (08:34→12:10)
[2020-01-11 09:25] LABS: Creatinine Clr Calc Pharmacy 46.3 ml/min; Est GFR (African American) 52.9; Est GFR (Non-African American) 45.6
--- NOTE | 2020-01-11 12:30 | Hospitalist Progress Note ---
Date of Service January 11, 2020 Assessment & Plan (1) Fever: No further episode, has been doing well so far normal white count, no sign of any infection Patient presented with temperature spike/fever at home Temperature was recorded 100.1F at home with chills Has been afebrile since admission No identifiable source of infection noted Patient had recent right lower extremity femoral-popliteal bypass surgery done for severe peripheral artery disease, surgical incision site looks noninfected, well-healed Blood cultures been negative, Patient postsurgical vascular surgery follow-up rescheduled for 01/14/[address] Borrego at [facility] stable to be discharged home today Elevated lactic acid No evidence of sepsis, possible secondary to dehydration Lactic acidosis normalized with IV fluids, IV Rocephin discontinued Continue Bactrim ordered by vascular surgery Cultures negative Peripheral vascular disease: Status post below-knee popliteal artery to medial plantar artery bypass surgery, status post amputation of right fourth toe No evidence of postsurgical infection Patient is continue with aspirin Plavix and statin, continue Bactrim which is ordered postoperatively by vascular surgery, Elevated d-dimer, Lower extremity Doppler negative for DVT Coronary artery disease: No complaint of chest pain or angina, continue outpatient cardiac meds Acute kidney injury on CKD stage III: Possible secondary to dehydration, given IV fluids, renal function improved Stable to be discharged home Outpatient lab: Basic metabolic panel with next physician visit CODE STATUS: Full code Disposition: Stable to be discharged home today Admission and Anticipated Discharge Date Admission Date: January 09, 2020 Subjective No further febrile episode, patient continues to do well, No fever or chills, no cough or shortness of breath No pain or discomfort on right lower extremity surgical site, Review of Systems Review of Systems: All systems reviewed & are unremarkable except as noted in HPI & below Physical Exam Constitutional: WD/WN, vitals as above no acute distress Eyes: PERRL, conjunctivae normal, anicteric sclerae ENMT: external ear and nose normal, oropharynx normal Neck: trachea midline, no thyromegaly Respiratory: normal respiratory effort, lungs clear to auscultation Cardiovascular: RRR, no murmur, no edema Gastrointestinal (Abdomen): Percussion/Palpation: abdomen nontender Musculoskeletal: right lower extremity bypass surgery suture site well-hea led, no swelling, no drainage noted Neurologic: PERRL, EOMI, accommodation nl, no face palsy, no dysarthria Psychiatric: A+Ox3, euthymic affect Results & Data Results & Data ([facility]) Vital Signs (Past 12 Hours) Vital Signs Temp Pulse Resp BP Pulse Ox 01/11/20 11:25 37.1 C 86 18 139/75 94 01/11/20 07:28 37.5 C 80 18 125/70 95
--- NOTE | 2020-01-11 13:30 | Discharge Summary ---
Date of Service January 11, 2020 Admission HPI Per Admitting Provider DICTATED BY: Garfield Ortiz MD DATE OF ADMISSION: 01/09/2020 CHIEF COMPLAINT: Fever. HISTORY OF PRESENT ILLNESS: This is an 79-year-old male with past medical history significant for type 2 diabetes, hyperlipidemia, hypomagnesemia, chronic kidney disease stage III, chronic CAD, peripheral artery disease, hypertension, PACs, anemia due to be vitamin B12 deficiency, microscopic colitis, gout arthropathy, primary open angle glaucoma, anemia of chronic kidney disease, history of C. diff, presents with fever. The patient recently was admitted to [place] for right foot pain with three, four, five toe ulcers on 01/02/2020 and he was taken to the OR on 01/04/2020 and underwent right below-knee popliteal artery to medial plantar artery bypass and also open right fourth toe amputation through MTP joint and the patient was discharged on 01/07/2020. The patient lives at home with his . Today in the evening around 4:00 p.m., he had a fever of 101.Called [place] and they asked to observe and , as he was having lot of chills, he came to the ER. He took Tylenol before he came to the ER. Currently, he is afebrile and hemodynamically stable. No white count, but his lactic acid came as 2.2. ER physician talked to [place], they are okay observing the patient here in the hospital and if something changes to call them back. He is already on Bactrim course, ER physician gave Rocephin. Currently resting comfortably and hemodynamically stable. Denies any chest pain, no shortness of breath, no cough, no headache, no neck pain, no blurred vision, no earache, no runny nose, no sore throat, no difficulty swallowing. Currently, no nausea, no vomiting, no abdominal pain, no diarrhea or constipation, no blood in the stools, no hematuria, no burning micturition. His right leg surgical site was examined by the ER physician, the area is clean, currently in dressing. He says he ambulating at home, but putting not much weight on the right leg. Principal Diagnosis Febrile episode-resolved, no known source of infection identified, peripheral vascular disease Chronic kidney disease stage III Discharge Exam Constitutional WD/WN, vitals as above no acute distress Eyes PERRL, conjunctivae normal, anicteric sclerae ENMT external ear and nose normal, oropharynx normal Neck trachea midline, no thyromegaly Respiratory normal respiratory effort, lungs clear to auscultation Cardiovascular RRR, no murmur, no edema Gastrointestinal (Abdomen) Percussion/Palpation: abdomen nontender Neurologic PERRL, EOMI, accommodation nl, no face palsy, no dysarthria Psychiatric A+Ox3, euthymic affect Discharge Data Allergies Allergy/AdvReac Type Severity Reaction Status Date / Time eletriptan Allergy Intermediate LYMPH Verified 01/09/20 22:57 NODES SWELLED, HOT FLASHES oxycodone Allergy Intermediate NIGHTMARES Verified 01/09/20 22:57 atorvastatin AdvReac Severe TEMP 107., Verified 01/09/20 22:57 NEARLY PER Consultations 01/09/20 22:46 ED Decision to Admit Stat 01/10/20 00:48 Consult Case Management - Discharge Planning Routine Ordered Studies 01/10/20 15:30 US venous doppler [facility] Urgent Hospital Course (1) Fever: No further episode, has been doing well so far normal white count, no sign of any infection Patient presented with temperature spike/fever at home Temperature was recorded 100.1F at home with chills Has been afebrile since admission No identifiable source of infection noted Patient had recent right lower extremity femoral-popliteal bypass surgery done for severe peripheral artery disease, surgical incision site looks noninfected, well-healed Blood cultures been negative, Patient postsurgical vascular surgery follow-up rescheduled for 01/14/[address] Borrego at [facility] stable to be discharged home today Elevated lactic acid No evidence of sepsis, possible secondary to dehydration Lactic acidosis normalized with IV fluids, IV Rocephin discontinued Continue Bactrim ordered by vascular surgery Cultures negative Peripheral vascular disease: Status post below-knee popliteal artery to medial plantar artery bypass surgery, status post amputation of right fourth toe No evidence of postsurgical infection Patient is continue with aspirin Plavix and statin, continue Bactrim which is ordered postoperatively by vascular surgery, Elevated d-dimer, Lower extremity Doppler negative for DVT Coronary artery disease: No complaint of chest pain or angina, continue outpatient cardiac meds Acute kidney injury on CKD stage III: Possible secondary to dehydration, given IV fluids, renal function improved Stable to be discharged home Outpatient lab: Basic metabolic panel with next physician visit CODE STATUS: Full code Disposition: Stable to be discharged home today Total Time Total Time Spent Total Time Spent (In Minutes): 35 mins Total Time Includes: Examination of the Patient, Discharge Planning and Medication Reconciliation Discharge Plan Discharge Items Patient Disposition: Home - Self-Care Reason For Visit: FEVER Discharge Diagnosis: Febrile episode-resolved, no known source of infection identified, peripheral vascular disease Chronic kidney disease stage III Activity: Resume your previous activity Non-emergency contact: Primary Care Provider Call non-emergency contact if: you have any medication questions Follow-up/Referrals: Chetan Galvez MD [Primary Care Provider] - 01/15/20 11:20 am (01/15/2020 11:20 AM Provider Nirmal Mota DO Department Family [facility] ) Eloy Borrego MD [Outside Practitioners] - 01/14/20 1:00 pm (01/14/2020 1:00 PM Provider Eloy Borrego MD Department Vascular Surgery, [place] ) Diet: Heart Healthy Ambulatory Orders: Basic Metabolic Panel (Routine) Timeframe: 20200115 Location: Determined by Patient Ordered By: Elsie Jarrell Attending Provider Instructions: Follow-up with vascular surgery at [facility] as scheduled on 01/14/2020Tuesday at 1 PM at [place] Do not take naproxen, Aleve, Advil, ibuprofen, can cause worsening of your kidney function Repeat lab: Basic metabolic panel on next clinic follow-up on 01/15/2020 Pending Studies at Discharge: No Stand-Alone Forms: [employer], Smoking Cessation Medications and DC Order Prescriptions: Continued aspirin 81 mg Tablet,Delayed Release (Dr/Ec) 81 mg PO QDD RF: 0 ascorbic acid (vitamin C) [Vitamin C] 500 mg Tablet 1,000 mg PO QAM RF: 0 metformin 1,000 mg tablet 1,000 mg PO BIDM RF: 0 lysine 500 mg Tablet 500 mg PO QAM RF: 0 loratadine [Claritin] 10 mg Tablet 10 mg PO QAM RF: 0 lutein 40 mg Capsule 40 mg PO QAM RF: 0 Probiotic 3 billion cell Capsule 0 mmu cells PO QAM RF: 0 cholecalciferol (vitamin D3) [Vitamin D3] 1,000 unit Capsule 1,000 unit PO QAM RF: 0 cyanocobalamin (vitamin B-12) 500 mcg Tablet, Sublingual 500 mcg SUBLINGUAL BIDM RF: 0 silver sulfadiazine 1 % cream 1 applic TOPICAL DAILY RF: 0 nitroglycerin 0.4 mg tablet, sublingual 0.4 mg sublingual UD PRN (Reason: Chest Pain) RF: 0 pyridoxine (vitamin B6) 100 mg Tablet 100 mg PO QAM RF: 0 sulfamethoxazole-trimethoprim [Bactrim DS] 800-160 mg Tablet 1 tab PO BID RF: 0 clopidogrel [Plavix] 75 mg Tablet 75 mg PO DAILY RF: 0 tramadol 50 mg Tablet 50 mg PO DIRECTED PRN (Reason: Pain) RF: 0 metoprolol succinate 50 mg tablet extended release 24 hr 50 mg PO QDD RF: 0 simvastatin 40 mg tablet 40 mg PO HS RF: 0 amiloride 5 mg tablet 10 mg PO QAM RF: 0 gabapentin 300 mg capsule 300 mg PO TID RF: 0 allopurinol 300 mg tablet 300 mg PO QAM RF: 0 famotidine [Pepcid] 20 mg Tablet 20 mg PO BIDM RF: 0 diphenhydramine HCl [Benadryl] 25 mg Capsule 25 mg PO HS PRN (Reason: Sleep) RF: 0 zinc gluconate 50 mg Tablet 50 mg PO QAM RF: 0 Slow-Mag 71.5 mg Tablet,Delayed Release (Dr/Ec) 143 mg PO BID RF: 0 [id number] mg Capsule 1 cap PO BIDM RF: 0 hydrocodone-acetaminophen [Berlin] 5-325 mg tablet 1 tab PO TID PRN (Reason: pain) Qty: 10 RF: 0 Discharge Orders: Discharge Order (Routine); Ordered 01/11/20 Ordered By: Elsie Geiger Admission Data Admit Date/Time: 01/09/20 23:46 Attending Provider: Elsie Geiger Admit Provider: Garfield Ortiz Primary Care Provider: Chetan Galvez Other Providers: Garfield Ortiz
== END 2020-01-11 16:11 | disposition home or self-care (01) | DRG 864 ==
LOC: ED 19:01 → 2W 23:46

== ENCOUNTER 2022-12-30 17:12 | Inpatient (IN) ==
[2022-12-30] MEDS ORDERED: SODIUM CHLORIDE 0.9% 500 ML IV STA (17:35)
[2022-12-30] MEDS ORDERED: ONDANSETRON INJ 2 MG/ML 2 ML VIAL IV STA (17:35)
[2022-12-30] MEDS ORDERED: FAMOTIDINE 20MG IV PUSH 20 MG/5 ML SYR IV STA (17:35)
--- NOTE | 2022-12-30 18:10 | XRay Report ---
XR chest 1V portable CLINICAL HISTORY: Nausea and vomiting. COMPARISON STUDY: Chest radiograph January 09, 2020. FINDINGS: Lung volumes are normal. Lungs are clear. There is no pneumothorax or pleural effusion. Car diac size is normal. Mediastinal contours are normal. There is no evidence for pulmonary edema. Old l eft sixth rib fracture is incidentally noted. IMPRESSION: No acute cardiopulmonary findings. ACT 112: Negative or not required by law. Electronically signed by: Ant De Souza M.D. 12/30/2022 6:09 PM
--- NOTE | 2022-12-30 18:19 | XRay Report ---
KUB CLINICAL HISTORY: Nausea and vomiting. COMPARISON STUDY: CT of the abdomen and pelvis December 29, 2022. FINDINGS: Postoperative findings within the spine are incidentally noted. There are cholecystectomy c lips. Bilateral renal calculi are noted. Pelvic calcifications likely reflect phleboliths, better dep icted on prior CT precontrast within the bladder from recent CT is noted. The bowel gas pattern is no rmal. Amount of stool is within normal limits. No evidence for free air on supine exam. IMPRESSION: 1. No evidence for a bowel obstruction. 2. Bilateral nephrolithiasis. ACT 112: Negative or not required by law. Electronically signed by: Ant De Souza M.D. 12/30/2022 6:18 PM
[2022-12-30 19:02] LABS: Basophils # (auto) 0.05 K/uL (0-0.2); Basophils % (auto) 0.8 %; Eosinophils # (auto) 0.58 K/uL (0-0.50); Eosinophils % (auto) 9.7 %; Hematocrit (blood only) 37.3 % (42.0-52.0); Hemoglobin 12.9 g/dl (14.0-18.0); Immature Granulocytes # (auto) 0.04 K/uL (0.01-0.20); Immature Granulocytes % (auto) 0.7 %; Lymphocytes # (auto) 1.33 K/uL (1.2-3.4); Lymphocytes % (auto) 22.3 %; Mean Corpuscular Hemoglobin 31.6 pg (25.0-34.0); Mean Corpuscular Hgb Conc 34.6 g/dL (32.0-36.0); Mean Corpuscular Volume 91.4 fL (80.0-100.0); Mean Platelet Volume 9.5 fL (9.4-12.4); Monocytes # (auto) 0.52 K/uL (0.11-0.59); Monocytes % (auto) 8.7 %; Neutrophils # (auto) 3.44 K/uL (1.40-6.50); Neutrophils % (auto) 57.8 %; Platelet Count 144 K/uL (130-400); RDW Coefficient of Variation 13.5 % (11.5-14.5); RDW Standard Deviation 44.9 fL (36.4-46.3); Red Blood Count 4.08 M/uL (4.70-6.10); White Blood Count 5.96 K/ul (4.8-10.8)
[2022-12-30 19:13] LABS: Albumin Globulin Ratio 1.7 (0.9-2); Albumin Level 4.9 gm/dl (3.4-5.0); BUN Creatinine Ratio 17.7 (10-20); Bilirubin,Total 0.6 mg/dl (0.2-1.0); Calcium 9.9 mg/dl (8.6-10.3); Creatinine Clr Calc Pharmacy 50.5 ml/min; Est GFR (African American) 61.5 ml/min; Est GFR (Non-African American) 53.1 ml/min; Globulin 2.9 gm/dl (2.5-4.0); Magnesium 1.6 mg/dl (1.7-2.4); Total Protein 7.8 gm/dl (6.0-8.3)
[2022-12-30 19:19] LABS: Troponin I High Sensitivity 10.1 pg/ml (0-20)
--- NOTE | 2022-12-30 19:19 | Emergency Department Note ---
Impression & Plan Intractable nausea and vomiting, Dehydration, Hypomagnesemia, CKD (chronic kidney disease) ED Provider Note NAME: AKILAH LOPEZ Sr AGE: 82 SEX: M ARRIVES VIA: Walk-In INFORMANT: Patient ED PROVIDER(S): Ray Ray MD CHIEF COMPLAINT: n/v, referred. PLAN: Disposition: Admit MEDICAL DECISION MAKING: The patient is a pleasant 82-year-old gentleman with a past medical history of GERD, hypertension, diabetes to the emergency department via walk-in, accomp anied by his for evaluation of recurrence of nausea and vomiting this morning after eating oatmeal and then again after attempting to eat a poached egg. The patient's symptoms occur in the setting of being seen emerged department yesterday by this provider we had an evaluation including blood work and CT scan of his abdomen that demonstrated suggestion of possible esophageal dysmotility but otherwise no obstruction or acute process otherwise. He had felt improved with IV fluids, antiemetics and Carafate and so plan was for outpatient follow-up and GI referral. However they report that after having his initial vomiting this morning with the oatmeal that they did take the Carafate and Zofran prescribed and he felt improved to try eating the poached egg but then vomited shortly thereafter. They contacted their primary care doctor's office who ultimately for them to the emergency department for admission given his persistent symptoms and inability to tolerate oral intake and take his medications. On my evaluation the patient is no acute distress, afebrile stable vital signs. Appears clinically dry. Abdomen is benign. EKG without overt acute ischemia. Chest x-ray negative for acute cardiopulmonary process. KUB unremarkable with nonobstructive bowel gas pattern. WBC and platelets within normal limits. H/H similar to prior range of values. Chemistry with bicarb of 20 improved from yesterday. Magnesium 1.6 slightly decreased from yesterday but similar to prior. AST and ALT 69 and 67, respectively decreased from yesterday and nonspecific. Lipase is not elevated. COVID-19 RNA, JESUS test was negative. Given the refractory symptoms patient and his agree with plan for admission for further management. Treatment provided with IV hydration, IV Pepcid and Zofran. Case was discussed with Dr. Moss, [facility] who will evaluate the patient for admission. Triage Nursing notes reviewed and agree them. Prior/outside medical records reviewed Vital Signs: reviewed Differential diagnosis: Gastroenteritis, food borne illness, infections, appendicitis, diverticulitis, inflammatory bowel disease, obstruction, GI bleed, biliary pathology, volvulus, as well as other pathologies. ER treatment provided: See below. Diagnostics interpreted by me: ECG: Sinus rhythm with first-degree AV block, 63 bpm, PACs, left anterior fascicular block, nonspecific ST abnormality, no overt ST elevation or depressio n. Cardiac Monitoring: An order for continuous cardiac monitoring was placed and demonstrated sinus rhythm, 63 bpm, PACs. Laboratory studies: See below Imaging studies: See below Consultation(s): Case was discussed with Dr. Moss, [facility] who will evaluate the patient for admission. HPI: The patient is a pleasant 82-year-old gentleman with a past medical history of GERD, hypertension, diabetes to the emergency department via walk-in, accompanied by his for evaluation of recurrence of nausea and vomiting this morning after eating oatmeal and then again after attempting to eat a poached egg. The patient's symptoms occur in the setting of being seen emerged department yesterday by this provider we had an evaluation including blood work and CT scan of his abdomen that demonstrated suggestion of possible esophageal dysmotility but otherwise no obstruction or acute process otherwise. He had felt improved with IV fluids, antiemetics and Carafate and so plan was for outpatient follow-up and GI referral. However they report that after having his initial vomiting this morning with the oatmeal that they did take the Carafate and Zofran prescribed and he felt improved to try eating the poached egg but then vomited shortly thereafter. They contacted their primary care doctor's office who ultimately for them to the emergency department for admission given his persistent symptoms and inability to tolerate oral intake and take his medications. ROS: See above HPI for pertinent positives & negatives. A total of 10 systems reviewed and were otherwise negative. VITALS:See Below PHYSICAL EXAMINATION: GENERAL: Awake, alert, well-appearing, in no distress HENT: Normocephalic, atraumatic. Oropharynx with dry mucous membranes and otherwise unremarkable. EYES: Normal conjunctiva. Sclera non-icteric. NECK: Supple. No nuchal rigidity. FROM. No JVD. RESPIRATORY: Clear to auscultation. CARDIAC: Regular rate, normal rhythm. Extremities warm and well perfused. Pulses equal. ABDOMEN: Soft, non-distended. No tenderness to palpation. No rebound or guarding. No masses. RECTAL: Deferred. MUSCULOSKELETAL: Chest examination reveals no tenderness. The back is symmetric al on inspection without obvious abnormality. There is no CVA tenderness to palpation. No joint edema. LOWER EXTREMITIES: Calves are equal size bilaterally and non-tender. No edema. No discoloration. NEURO: Normal sensorium. No sensory or motor deficits noted. SKIN: No rash or jaundice noted. Ray Ray MD Past Med/Surg History Medical History Acquired hallux valgus of right foot Acquired hammer toe of right foot BPH (benign prostatic hyperplasia) Callus CKD (chronic kidney disease), stage III pt denies Coronary artery disease "nonobstructive disease per cath 2011" Diabetes mellitus with diabetic polyneuropathy Diabetes mellitus, type II GERD (gastroesophageal reflux disease) Gout Hallux valgus (acquired), left foot Hammertoe of left foot Hearing deficit Hyperlipidemia Hypertension Kidney stones per is a current problem Lumbar stenosis with neurogenic claudication (07/06/13) Myocardial Infarction hx of 1994---follows with Dr. Mcfarland On anticoagulant therapy plavix daily--prescribed after vein surgery 2018 Osteoarthritis Skin ulcer of left foot including toes Surgical History History of bilateral cataract extraction History of cardiac cath x3--1 in [place], 2nd @ [facility], last 2011 @ [facility]--all with no stents History of colonoscopy History of esophagogastroduodenoscopy (EGD) History of lumbar spinal fusion 2009 @ [facility] Dr. 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 Lobo--Posterolateral fusion T11-L3 History of tooth extraction all teeth removed, top denture Status post appendectomy 12/21/12 @ [facility] Family History Other Family history non-contributory No family history of adverse response to anesthesia Social History Smoking Status: Never smoker Second Hand Exposure: No; Do You Dip or Chew Tobacco: Yes (chews (advised)); Hx Alcohol Use: No Hx Substance Use: No Preferred Language: Citizen Of [place] Communication Ability: Effective Syrup Shed Supervisor Required: No Beliefs That Will Affect Care: None marital status: Current Living Situation: Spouse Current Living Situation Comment: home with spouse Other Information That Helps Us Care for You: No Feels Safe at Home: Yes Safety Concerns: Feels Safe At This Time Assistive Devices: Denture - Upper and Glasses Allergies Allergies Allergy/AdvReac Type Severity Reaction Status Date / Time atorvastatin Allergy Severe TEMP 107., Verified 12/30/22 19:18 NEARLY PER eletriptan Allergy Intermediate LYMPH Verified 12/30/22 19:18 NODES SWELLED, HOT FLASHES oxycodone Allergy Intermediate NIGHTMARES Verified 12/30/22 19:18 Home Meds Home Medications Medication Instructions Recorded Confirmed allopurinol 300 mg tablet 300 mg PO QAM 08/13/18 12/30/22 metoprolol succinate 50 mg 50 mg PO PM 08/13/18 12/30/22 tablet,extended release 24 hr simvastatin 40 mg tablet 40 mg PO HS 08/13/18 12/30/22 ascorbic acid (vitamin C) 500 mg 1,000 mg PO QAM 08/20/18 12/30/22 tablet (Vitamin C) aspirin 81 mg tablet,delayed 81 mg PO PM 08/20/18 12/30/22 release lactobacillus combination no.4 3 3 mmu cells PO QAM 08/20/18 12/30/22 billion cell capsule (Probiotic) lutein 40 mg capsule 40 mg PO QAM 08/20/18 12/30/22 lysine 500 mg tablet 500 mg PO QAM 08/20/18 12/30/22 metformin 1,000 mg tablet 500 mg PO BIDM 08/20/18 12/30/22 nitroglycerin 0.4 mg sublingual 0.4 mg sublingual UD PRN Chest Pain 08/05/19 12/30/22 tablet magnesium chloride 71.5 mg 143 mg PO BID 01/01/20 12/30/22 (magnesium chloride) tablet,delayed release (Slow-Mag) zinc gluconate 50 mg tablet 50 mg PO QAM 01/01/20 12/30/22 clopidogrel 75 mg tablet (Plavix) 75 mg PO QAM 01/09/20 12/30/22 acetaminophen 500 mg tablet 500 mg PO HS 04/20/22 12/30/22 finasteride 5 mg tablet 5 mg PO PM 04/20/22 12/30/22 lisinopril 2.5 mg tablet 2.5 mg PO QAM 04/20/22 12/30/22 cetirizine 10 mg tablet 10 mg PO QAM 12/29/22 12/30/22 cyanocobalamin (vitamin B-12) 2,000 mcg PO DAILY 12/29/22 12/30/22 1,000 mcg tablet (Vitamin B-12) pyridoxine (vitamin B6) 100 mg 100 mg PO QAM 12/29/22 12/30/22 tablet (Vitamin B-6) doxylamine succinate 25 mg tablet 25 mg PO HS PRN Sleep 12/30/22 12/30/22 (Unisom (doxylamine)) Previous Rx's Medication Instructions Recorded ondansetron 4 mg disintegrating 4 mg PO Q6H PRN nausea and 12/29/22 tablet vomiting #14 tabs sucralfate 100 mg/mL oral 10 ml PO QID #420 mL 12/29/22 suspension (Carafate) Results & Data (ED) Vital Signs Vital Signs - 24 hr 12/30/22 17:24 12/30/22 18:24 12/30/22 18:05 Temperature 36.9 C Temperature Source Temporal Artery Scan Pulse Rate 73 65 67 Pulse Rate [Right Finger] Pulse Rhythm Regular Pulse Rhythm [Right Finger] Pulse Strength [Right Finger] Respiratory Rate 18 21 Respiratory Effort / Characteristics Non-Labored Spontaneous Respiratory Depth Normal Respiratory Pattern Regular Blood Pressure 126/80 Blood Pressure [Right Arm] Blood Pressure Mean 95 Blood Pressure Mean [Right Arm] Blood Pressure Position Sitting Blood Pressure Position [Right Arm] Pulse Oximetry 98 96 Oxygen Delivery Method Room Air Room Air Sepsis Recent Fever Within 48 Hours No Sepsis New/Unexplained Change in Mental Status N/A Sepsis Action Taken by Nursing No Action Required 12/30/22 18:16 Temperature Temperature Source Pulse Rate Pulse Rate [Right Finger] 56 L Pulse Rhythm Pulse Rhythm [Right Finger] Regular Pulse Strength [Right Finger] Normal Respiratory Rate 21 Respiratory Effort / Characteristics Non-Labored Spontaneous Respiratory Depth Normal Respiratory Pattern Regular Blood Pressure Blood Pressure [Right Arm] 154/91 H Blood Pressure Mean Blood Pressure Mean [Right Arm] 112 Blood Pressure Position Blood Pressure Position [Right Arm] Lying Pulse Oximetry 97 Oxygen Delivery Method Room Air Sepsis Recent Fever Within 48 Hours Sepsis New/Unexplained Change in Mental Status Sepsis Action Taken by Nursing Laboratory Data Attestation: I reviewed the patient's lab results. 12/30/22 18:21 12/30/22 18:21 Lab Results 12/30/22 12/30/22 12/30/22 Range/Units 18:21 18:21 18:25 WBC 5.96 (4.8-10.8) K/ul RBC 4.08 L (4.70-6.10) M/uL Hgb 12.9 L (14.0-18.0) g/dl Hct 37.3 L (42.0-52.0) % MCV 91.4 (80.0-100.0) fL MCH 31.6 (25.0-34.0) pg MCHC 34.6 (32.0-36.0) g/dL RDW Std Deviation 44.9 (36.4-46.3) fL RDW Coeff of Mirza 13.5 (11.5-14.5) % Plt Count 144 (130-400) K/uL MPV 9.5 (9.4-12.4) fL Immature Gran % (Auto) 0.7 % Neut % (Auto) 57.8 % Lymph % (Auto) 22.3 % [place] % (Auto) 8.7 % Eos % (Auto) 9.7 % Baso % (Auto) 0.8 % Neut # (Auto) 3.44 (1.40-6.50) K/uL Lymph # (Auto) 1.33 (1.2-3.4) K/uL [place] # (Auto) 0.52 (0.11-0.59) K/uL Eos # (Auto) 0.58 H (0-0.50) K/uL Baso # (Auto) 0.05 (0-0.2) K/uL Immature Gran # (Auto) 0.04 (0.01-0.20) K/uL Sodium 137 (136-145) mmol/L Potassium 4.0 (3.5-5.1) mmol/L Chloride 106 (98-107) mmol/L Carbon Dioxide 20 L (21-32) mmol/L Anion Gap 11 (3-11) BUN 22 (6-23) mg/dl Creatinine 1.24 (0.6-1.4) mg/dl Est Cr Clr Drug Dosing 50.5 ml/min Est GFR ( Amer) 61.5 ml/min Est GFR (Non-Af Amer) 53.1 ml/min BUN/Creatinine Ratio 17.7 (10-20) Glucose 153 H (70-99(Fasting)) mg/dl Calcium 9.9 (8.6-10.3) mg/dl Magnesium 1.6 L (1.7-2.4) mg/dl Total Bilirubin 0.6 (0.2-1.0) mg/dl AST 69 H (13-39) U/L ALT 67 H (7-52) U/L Alkaline Phosphatase 68 (34-104) U/L Troponin I High Sens 10.1 (0-20) pg/ml Total Protein 7.8 (6.0-8.3) gm/dl Albumin 4.9 (3.4-5.0) gm/dl Globulin 2.9 (2.5-4.0) gm/dl Albumin/Globulin Ratio 1.7 (0.9-2) Lipase 52 (11-82) U/L SARS-CoV-2, RNA, NAAT NEGATIVE (NEGATIVE) Administered Medications Acetaminophen (Acetaminophen 500 Mg Tab) 500 mg PO HS CAPO Stop: 01/29/23 22:00 Last Admin: 12/30/22 22:43 Dose: 500 mg Documented By: ELHAM Aspirin (Aspirin 81 Mg Ectab) 81 mg PO PM CAPO Stop: 01/29/23 22:00 Last Admin: 12/30/22 22:43 Dose: 81 mg Documented By: ELHAM Finasteride (Finasteride 5 Mg Tab) 5 mg PO PM CAPO Stop: 01/29/23 22:00 Last Admin: 12/30/22 22:43 Dose: 5 mg Documented By: ELHAM Lactated Ringer's (Lr) 1,000 mls @ 60 mls/hr IV .[id number] ONE Stop: 12/31/22 13:29 Last Admin: 12/30/22 21:21 Dose: 60 mls/hr Documented By: CERAMIC ENGINEERING PROFESSOR Insulin Aspart (Insulin Aspart Per Unit Charge) 0 units SC Q6 CAPO Stop: 01/29/23 22:29 Last Admin: 12/30/22 22:59 Dose: 1 units Documented By: ELHAM Co-signed By: EUGENE Lisinopril (Lisinopril 2.5 Mg Tab) 2.5 mg PO QAM CAPO Stop: 01/29/23 22:19 Last Admin: 12/30/22 22:43 Dose: 2.5 mg Documented By: ELHAM Magnesium Chloride (Magnesium Chloride W/Calcium 64mg Delayed Rel Tab) 128 mg PO BID CAPO Stop: 01/29/23 22:14 Last Admin: 12/30/22 22:43 Dose: 128 mg Documented By: ELHAM Simvastatin (Simvastatin 40 Mg Tab) 40 mg PO HS CAPO Stop: 01/29/23 22:00 Last Admin: 12/30/22 22:43 Dose: 40 mg Documented By: ELHAM Sucralfate (Sucralfate 1 Gm/10 Ml Udc) 1 gm PO ACHS CAPO Stop: 01/29/23 22:14 Last Admin: 12/30/22 22:43 Dose: 1 gm Documented By: ELHAM Discontinued Medications Sodium Chloride (Nss) 500 mls @ 999 mls/hr IV .Q31M STA Stop: 12/30/22 18:05 Last Infusion: 12/30/22 19:00 Dose: 0 mls/hr Documented By: Admin: 12/30/22 18:20 Dose: 999 mls/hr Documented By: BETTY Famotidine (Pepcid 20mg Iv Push) 20 mg in 5 mls @ 2.5 mls/min IV NOW STA Stop: 12/30/22 17:36 Last Admin: 12/30/22 18:20 Dose: 2.5 mls/min Documented By: CERAMIC ENGINEERING PROFESSOR Magnesium Sulfate/Dextrose (Magnesium Sulfate / D5w) 1 gm in 100 mls @ 50 mls/hr IV ONE ONE Stop: 12/30/22 21:44 Last Infusion: 12/30/22 22:59 Dose: 0 mls/hr Documented By: Admin: 12/30/22 20:11 Dose: 50 mls/hr Documented By: BETTY Metoprolol Succinate (Metoprolol Succ 50mg Ext Rel Tab) 50 mg PO NOW STA Stop: 12/30/22 20:45 Last Admin: 12/30/22 21:21 Dose: 50 mg Documented By: BETTY Ondansetron HCl (Ondansetron Inj 2 Mg/Ml 2 Ml Vial) 4 mg IV NOW STA Stop: 12/30/22 17:36 Last Admin: 12/30/22 18:21 Dose: 4 mg Documented By: CERAMIC ENGINEERING PROFESSOR Imaging Data Radiologist's Impression: Chest X-Ray 12/30/22 17:36 XR chest 1V portable CLINICAL HISTORY: Nausea and vomiting. COMPARISON STUDY: Chest radiograph January 09, 2020. FINDINGS: Lung volumes are normal. Lungs are clear. There is no pneumothorax or pleural effusion. Cardiac size is normal. Mediastinal contours are normal. There is no evidence for pulmonary edema. Old left sixth rib fracture is incidentally noted. IMPRESSION: No acute cardiopulmonary findings. ACT 112: Negative or not required by law. Electronically signed by: Ant De Souza M.D. 12/30/2022 6:09 PM KUB X-Ray 12/30/22 17:40 KUB CLINICAL HISTORY: Nausea and vomiting. COMPARISON STUDY: CT of the abdomen and pelvis December 29, 2022. FINDINGS: Postoperative findings within the spine are incidentally noted. There are cholecystectomy clips. Bilateral renal calculi are noted. Pelvic calcifications likely reflect phleboliths, better depicted on prior CT precontrast within the bladder from recent CT is noted. The bowel gas pattern is normal. Amount of stool is within normal limits. No evidence for free air on supine exam. IMPRESSION: 1. No evidence for a bowel obstruction. 2. Bilateral nephrolithiasis. ACT 112: Negative or not required by law. Electronically signed by: Ant De Souza M.D. 12/30/2022 6:18 PM Discharge Plan Visit Data Chief Complaint: Vomiting Stated Complaint: DOC WANTS HIM ADMITED, VOMITING ED Provider: Ray Ray Discharge Problem: Intractable nausea and vomiting, Dehydration, Hypomagnesemia, CKD (chronic kidney disease) Patient Disposition: Admitted As Inpatient Discharge Instructions Interventions: ED Discharge Assessment Last Done: 12/30/22 21:33
[2022-12-30] MEDS ORDERED: PROMETHAZINE HCL 6.25 MG in SODIUM CHLORIDE 0.9% 50 ML IV PRN (19:29)
[2022-12-30] MEDS ORDERED: MAGNESIUM SULFATE / D5W 1 GM/100 ML BAG IV ONE (19:45)
[2022-12-30] MEDS ORDERED: METOPROLOL SUCC 50MG EXT REL TAB PO STA (20:44)
--- NOTE | 2022-12-30 20:45 | History & Physical Report ---
Date of Service December 30, 2022 Assessment & Plan (1) Abdominal pain: Plan: Intractable postprandial nausea/vomiting hx GERD/esophageal dysphagia as per records Esophageal dysmotility noted on imaging Elevated BP secondary to discomfort and missed home BP medications hx nonobstructive CAD/PVD status post surgery hyperlipidemia, on statin Rx DM2 on oral medications, reasonable control as of recent hemoglobin A1c of 7.1 this month chronic anemia, hemoglobin at baseline Transaminitis likely secondary to NAFLD, hepatic steatosis noted on imaging 2 days ago microscopic colitis as per records past tobacco abuse OBS Medical telemetry given possible need for IV beta-cindy if patient unable to keep down oral beta-cindy medication Antiemetics as needed GI consult Re: Intractable postprandial nausea/vomiting, esophageal dysmotility N.p.o. after midnight until patient seen GI in anticipation of procedure Hold patient Plavix for now, continue home aspirin Basal bolus insulin adjusted for n.p.o. status, ISS BG goal 1 10-1 40 DVT prophylaxis. TEDs; SCDs contraindicated w/ history of LE PAD Re: Possible procedure Full code Patient requesting updates providers. Gilma Quintanilla, contact #[phone]. Text document was generated using [employer] voice recognition software. It may contain grammatical or spelling errors. Kindly contact undersigned for clarification of any documentation item in question. History of Present Illness Chief Complaint: Nausea, vomiting Primary Care Provider: Chetan Galvez MD History obtained from patient, family, and records. Medical history significant for nonobstructive CAD, PVD status post surgery, hypertension, hyperlipidemia, DM2 on oral medications, chronic anemia (baseline hemoglobin of 12), BPH, esophageal dysphagia as per records, GERD, microscopic colitis as per records, past tobacco abuse. Last confinement January 2020 for fever post vascular surgery. Patient has had swallowing problems for about 3 years. Food will get stuck in his throat but will be eventually go down. No unusual weight loss. has to cut his food into small pieces. EGD 2020 showed tortuous esophagus status post dilatation. 2 days ago, patient had nausea and emesis symptoms in addition to swallowing problems which is unusual. Patient denies hematemesis/coffee-ground emesis/black/bloody stools. No fever, no chills, no chest pain, no SOB. Patient seen at the ER yesterday. Abnormal LFTs noted. CT abdomen pelvis showed 1. There are several calyceal calculi in the right kidney measuring up to 11 mm and in the left kidney measuring up to 9 mm. No hydronephrosis or ureterolithiasis is seen. 2. 3.3 cm of debris in the lower esophagus may represent esophageal dysmotility. No hiatal hernia is seen. 3. Bowel loops are nondilated. There is diverticulosis of the lower left and sigmoid colon. No acute inflammatory changes are seen involving the bowel. The appendix is not visible. Patient's symptoms attributed to gastritis. Patient given prescription for Carafate, and Zofran. He was instructed to increase home Pepcid to twice a day. Persistent symptoms at home. Patient unable to take his pills and food. Outpatient GI appointment not until next week. Patient directed to ER by outpatient provider. 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 Allergies Allergy/AdvReac Type Severity Reaction Status Date / Time atorvastatin Allergy Severe TEMP 107., Verified 12/30/22 19:18 NEARLY PER eletriptan Allergy Intermediate LYMPH Verified 12/30/22 19:18 NODES SWELLED, HOT FLASHES oxycodone Allergy Intermediate NIGHTMARES Verified 12/30/22 19:18 Home Medications Medication Instructions Recorded Confirmed Type allopurinol 300 mg tablet 300 mg PO QAM 08/13/18 12/30/22 History metoprolol succinate 50 mg 50 mg PO PM 08/13/18 12/30/22 History tablet,extended release 24 hr simvastatin 40 mg tablet 40 mg PO HS 08/13/18 12/30/22 History ascorbic acid (vitamin C) 500 mg 1,000 mg PO QAM 08/20/18 12/30/22 History tablet (Vitamin C) aspirin 81 mg tablet,delayed 81 mg PO PM 08/20/18 12/30/22 History release lactobacillus combination no.4 3 3 mmu cells PO QAM 08/20/18 12/30/22 History billion cell capsule (Probiotic) lutein 40 mg capsule 40 mg PO QAM 08/20/18 12/30/22 History lysine 500 mg tablet 500 mg PO QAM 08/20/18 12/30/22 History metformin 1,000 mg tablet 500 mg PO BIDM 08/20/18 12/30/22 History nitroglycerin 0.4 mg sublingual 0.4 mg sublingual UD PRN Chest Pain 08/05/19 12/30/22 History tablet magnesium chloride 71.5 mg 143 mg PO BID 01/01/20 12/30/22 History (magnesium chloride) tablet,delayed release (Slow-Mag) zinc gluconate 50 mg tablet 50 mg PO QAM 01/01/20 12/30/22 History clopidogrel 75 mg tablet (Plavix) 75 mg PO QAM 01/09/20 12/30/22 History acetaminophen 500 mg tablet 500 mg PO HS 04/20/22 12/30/22 History finasteride 5 mg tablet 5 mg PO PM 04/20/22 12/30/22 History lisinopril 2.5 mg tablet 2.5 mg PO QAM 04/20/22 12/30/22 History cetirizine 10 mg tablet 10 mg PO QAM 12/29/22 12/30/22 History cyanocobalamin (vitamin B-12) 2,000 mcg PO DAILY 12/29/22 12/30/22 History 1,000 mcg tablet (Vitamin B-12) ondansetron 4 mg disintegrating 4 mg PO Q6H PRN nausea and 12/29/22 12/30/22 Rx tablet vomiting #14 tabs pyridoxine (vitamin B6) 100 mg 100 mg PO QAM 12/29/22 12/30/22 History tablet (Vitamin B-6) sucralfate 100 mg/mL oral 10 ml PO QID #420 mL 12/29/22 12/30/22 Rx suspension (Carafate) doxylamine succinate 25 mg tablet 25 mg PO HS PRN Sleep 12/30/22 12/30/22 H istory (Unisom (doxylamine)) Past Med/Surg History Medical History Acquired hallux valgus of right foot Acquired hammer toe of right foot BPH (benign prostatic hyperplasia) Callus CKD (chronic kidney disease), stage III pt denies Coronary artery disease "nonobstructive disease per cath 2011" Diabetes mellitus with diabetic polyneuropathy Diabetes mellitus, type II GERD (gastroesophageal reflux disease) Gout Hallux valgus (acquired), left foot Hammertoe of left foot Hearing deficit Hyperlipidemia Hypertension Kidney stones per is a current problem Lumbar stenosis with neurogenic claudication (07/06/13) Myocardial Infarction hx of 1994---follows with Dr. Mcfarland On anticoagulant therapy plavix daily--prescribed after vein surgery 2018 Osteoarthritis Skin ulcer of left foot including toes Surgical History History of bilateral cataract extraction History of cardiac cath x3--1 in [place], 2nd @ [facility], last 2011 @ [facility], [place]--all with no stents History of colonoscopy History of esophagogastroduodenoscopy (EGD) History of lumbar spinal fusion 2009 @ [facility], [place] Dr. 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 Required: No Beliefs That Will Affect Care: None marital status: Current Living Situation: Spouse Current Living Situation Comment: home with spouse Other Information That Helps Us Care for You: No Feels Safe at Home: Yes Safety Concerns: Feels Safe At This Time Assistive Devices: Denture - Upper and Glasses Review of Systems Review of Systems: As per HPI, all other systems reviewed and negative Physical Exam Physical Exam: GENERAL: Comfortable, pleasant, looks younger than stated age, no respiratory distress SKIN: Normal color, warm HEENT: [place] palpebral conjunctivae, no ptosis, dry buccal mucosa NECK : Supple, no tenderness CHEST : CTA, no tenderness HEART : RRR, no obvious murmurs ABDOMEN: Some distention, minimal epigastric tenderness EXTREMITIES : No LE swelling/tenderness, no other conspicuous deformities noted NEUROLOGIC : Coherent, no facial asymmetry, no other gross focality Results & Data Results & Data Vital Signs (Past 12 Hours) Vital Signs Temp Pulse Pulse Resp BP BP Pulse Ox 12/30/22 18:16 56 L 21 154/91 H 97 12/30/22 18:05 67 21 96 12/30/22 18:24 65 12/30/22 17:24 36.9 C 73 18 126/80 98 O2 Del Method 12/30/22 18:16 Room Air 12/30/22 18:05 Room Air 12/30/22 18:24 12/30/22 17:24 Room Air Laboratory Results Laboratory Results WBC 5.96 K/ul (4.8-10.8) 12/30/22 18:21 RBC 4.08 M/uL (4.70-6.10) L 12/30/22 18:21 Hgb 12.9 g/dl (14.0-18.0) L 12/30/22 18:21 Hct 37.3 % (42.0-52.0) L 12/30/22 18:21 MCV 91.4 fL (80.0-100.0) 12/30/22 18:21 MCH 31.6 pg (25.0-34.0) 12/30/22 18:21 MCHC 34.6 g/dL (32.0-36.0) 12/30/22 18:21 RDW Std Deviation 44.9 fL (36.4-46.3) 12/30/22 18:21 RDW Coeff of Mirza 13.5 % (11.5-14.5) 12/30/22 18:21 Plt Count 144 K/uL (130-400) 12/30/22 18:21 MPV 9.5 fL (9.4-12.4) 12/30/22 18:21 Immature Gran % (Auto) 0.7 % 12/30/22 18:21 Neut % (Auto) 57.8 % 12/30/22 18:21 Lymph % (Auto) 22.3 % 12/30/22 18:21 [place] % (Auto) 8.7 % 12/30/22 18:21 Eos % (Auto) 9.7 % 12/30/22 18:21 Baso % (Auto) 0.8 % 12/30/22 18:21 Neut # (Auto) 3.44 K/uL (1.40-6.50) 12/30/22 18:21 Lymph # (Auto) 1.33 K/uL (1.2-3.4) 12/30/22 18:21 [place] # (Auto) 0.52 K/uL (0.11-0.59) 12/30/22 18:21 Eos # (Auto) 0.58 K/uL (0-0.50) H 12/30/22 18:21 Baso # (Auto) 0.05 K/uL (0-0.2) 12/30/22 18:21 Immature Gran # (Auto) 0.04 K/uL (0.01-0.20) 12/30/22 18:21 Sodium 137 mmol/L (136-145) 12/30/22 18:21 Potassium 4.0 mmol/L (3.5-5.1) 12/30/22 18:21 Chloride 106 mmol/L (98-107) 12/30/22 18:21 Carbon Dioxide 20 mmol/L (21-32) L 12/30/22 18:21 Anion Gap 11 (3-11) 12/30/22 18:21 BUN 22 mg/dl (6-23) 12/30/22 18:21 Creatinine 1.24 mg/dl (0.6-1.4) 12/30/22 18:21 Est Cr Clr Drug Dosing 50.5 ml/min 12/30/22 18:21 Est GFR ( Amer) 61.5 ml/min 12/30/22 18:21 Est GFR (Non-Af Amer) 53.1 ml/min 12/30/22 18:21 BUN/Creatinine Ratio 17.7 (10-20) 12/30/22 18:21 Glucose 153 mg/dl (70-99(Fasting)) H 12/30/22 18:21 Calcium 9.9 mg/dl (8.6-10.3) 12/30/22 18:21 Magnesium 1.6 mg/dl (1.7-2.4) L 12/30/22 18:21 Total Bilirubin 0.6 mg/dl (0.2-1.0) 12/30/22 18:21 AST 69 U/L (13-39) H 12/30/22 18:21 ALT 67 U/L (7-52) H 12/30/22 18:21 Alkaline Phosphatase 68 U/L (34-104) 12/30/22 18:21 Troponin I High Sens 10.1 pg/ml (0-20) 12/30/22 18:21 Total Protein 7.8 gm/dl (6.0-8.3) 12/30/22 18:21 Albumin 4.9 gm/dl (3.4-5.0) 12/30/22 18:21 Globulin 2.9 gm/dl (2.5-4.0) 12/30/22 18:21 Albumin/Globulin Ratio 1.7 (0.9-2) 12/30/22 18:21 Lipase 52 U/L (11-82) 12/30/22 18:21 SARS-CoV-2, RNA, NAAT NEGATIVE (NEGATIVE) 12/30/22 18:25 Impressions Chest X-Ray 12/30/22 17:36 XR chest 1V portable CLINICAL HISTORY: Nausea and vomiting. COMPARISON STUDY: Chest radiograph January 09, 2020. FINDINGS: Lung volumes are normal. Lungs are clear. There is no pneumothorax or pleural effusion. Cardiac size is normal. Mediastinal contours are normal. There is no evidence for pulmonary edema. Old left sixth rib fracture is incidentally noted. IMPRESSION: No acute cardiopulmonary findings. ACT 112: Negative or not required by law. Electronically signed by: Ant De Souza M.D. 12/30/2022 6:09 PM KUB X-Ray 12/30/22 17:40 KUB CLINICAL HISTORY: Nausea and vomiting. COMPARISON STUDY: CT of the abdomen and pelvis December 29, 2022. FINDINGS: Postoperative findings within the spine are incidentally noted. There are cholecystectomy clips. Bilateral renal calculi are noted. Pelvic calcifications likely reflect phleboliths, better depicted on prior CT precontrast within the bladder from recent CT is noted. The bowel gas pattern is normal. Amount of stool is within normal limits. No evidence for free air on supine exam. IMPRESSION: 1. No evidence for a bowel obstruction. 2. Bilateral nephrolithiasis. ACT 112: Negative or not required by law. Electronically signed by: Ant De Souza M.D. 12/30/2022 6:18 PM Diagnostic Findings EKG as per my interpretation : Rate 65, NSR, LAD, LAFB, 1 AVB, LVH, septal infarct, no ischemia
[2022-12-30] MEDS ORDERED: ACETAMINOPHEN 1,000 MG/100 ML VIAL IV PRN (20:49)
[2022-12-30] MEDS ORDERED: LACTATED RINGER'S 1,000 ML IV ONE (20:50)
[2022-12-30 21:40] LABS: Appearance Urine Clear (Clear); Bilirubin Urine Negative (Negative); Blood Urine Negative (Negative); Color Urine Yellow; Glucose Urine UA Negative (Negative); Ketones Urine Trace (Negative); Leukocyte Esterase Urine Trace (Negative); Nitrite Urine Negative (Negative); Protein Urine Trace (Negative); Specific Gravity Urine 1.025 (1.000-1.030); Urobilinogen Urine Negative (Negative)
[2022-12-30] MEDS ORDERED: GLUCOSE 10 TAB/TUBE PO PRN (22:01)
[2022-12-30] MEDS ORDERED: DEXTROSE 50% 50 ML SYRINGE IV PRN (22:01)
[2022-12-30] MEDS ORDERED: ACETAMINOPHEN 325 MG TAB PO PRN ×2 (22:01→22:18)
[2022-12-30] MEDS ORDERED: GLUCAGON FOR INJ 1 MG VIAL SQ PRN (22:01)
[2022-12-30] MEDS ORDERED: GLUCOSE 40% GEL 15 GM TUBE PO PRN (22:01)
[2022-12-30] MEDS ORDERED: CARBOHYDRATES FOR HYPOGLYCEMIA PO PRN (22:01)
[2022-12-30 22:29] LABS: Bacteria Urine Negative (Negative); Epithelial Cell Urine 0-5 /lpf (0-5); RBC Urine 0-4 /hpf (0-4); WBC Urine 0-5 /hpf (0-5)
[2022-12-30] MEDS: ASPIRIN 81 MG ECTAB PO SCH (22:43)
[2022-12-30] MEDS: FINASTERIDE 5 MG TAB PO SCH (22:43)
[2022-12-30] MEDS: SUCRALFATE 1 GM/10 ML UDC PO SCH (22:43)
[2022-12-30] MEDS: ACETAMINOPHEN 500 MG TAB PO SCH (22:43)
[2022-12-30] MEDS: MAGNESIUM CHLORIDE W/CALCIUM 64MG DELAYED REL TAB PO SCH (22:43)
[2022-12-30] MEDS: lisinopril 2.5 MG TAB PO SCH (22:43)
[2022-12-30] MEDS: SIMVASTATIN 40 MG TAB PO SCH (22:43)
[2022-12-30] MEDS: INSULIN ASPART PER UNIT CHARGE SC SCH (22:59)
[2022-12-31] MEDS: INSULIN ASPART PER UNIT CHARGE SC SCH ×4 (06:19→21:02)
[2022-12-31 07:51] LABS: Basophils # (auto) 0.05 K/uL (0-0.2); Basophils % (auto) 0.9 %; Eosinophils % (auto) 12.8 %; Hematocrit (blood only) 33.2 % (42.0-52.0); Hemoglobin 11.6 g/dl (14.0-18.0); Immature Granulocytes # (auto) 0.02 K/uL (0.01-0.20); Immature Granulocytes % (auto) 0.4 %; Lymphocytes # (auto) 1.39 K/uL (1.2-3.4); Lymphocytes % (auto) 25.3 %; Mean Corpuscular Hemoglobin 31.8 pg (25.0-34.0); Mean Corpuscular Hgb Conc 34.9 g/dL (32.0-36.0); Mean Platelet Volume 9.3 fL (9.4-12.4); Monocytes # (auto) 0.57 K/uL (0.11-0.59); Monocytes % (auto) 10.4 %; Neutrophils # (auto) 2.76 K/uL (1.40-6.50); Neutrophils % (auto) 50.2 %; Platelet Count 116 K/uL (130-400); RDW Coefficient of Variation 13.3 % (11.5-14.5); Red Blood Count 3.65 M/uL (4.70-6.10); White Blood Count 5.49 K/ul (4.8-10.8)
[2022-12-31 08:05] LABS: Creatinine Clr Calc Pharmacy 59.1 ml/min; Est GFR (African American) 75.2 ml/min; Est GFR (Non-African American) 64.9 ml/min; Magnesium 1.6 mg/dl (1.7-2.4); Potassium 3.9 mmol/L (3.5-5.1)
--- NOTE | 2022-12-31 08:39 | Gastrointestinal Consultation ---
Date of Consultation December 31, 2022 Assessment & Plan (1) Intractable nausea and vomitin82 year old male with history of CKD, T2DM, HTN, CAD and others below who is admitted through the ED w/ nausea/vomiting, CT imaging w/ suspected esophageal debris, reported last PO intake to me was Tuesday NPO, EGD today Hold ASA, Plavix today Antiemetics PRN Analgesia PRN Will discuss with attending EUS given recurrent episodes of nausea/vomiting and elevated LFTs s/p CCY last year We appreciate assistance in the management of any serological abnormality and corrections to include: hemoglobin >7, INR <2, platelets >50,000, potassium levels >3.5 but <5.3, and sodium levels within 5 points of the reference range prior to endoscopic evaluation. Thank you for allowing us to participate in the care of this patient. Please call with any acute changes, questions or concerns. Please see addendum below with additional recommendation from my supervising physician. Supervising Physician Co-Signing Physician Notes ) I saw and evaluated the patient. The patient reports having postprandial discomfort and what sounds like a sticking sensation. His CT did show evidence of food debris within the distal esophagus. He also notes having postprandial emesis with a mild elevation of his liver associated enzymes. This appears to been an ongoing problem since his cholecystectomy that was performed in the fall. Physical examination no obvious distress No scleral icterus mild right upper quadrant tenderness noted impression: Patient presenting with postprandial emesis, given the CT findings we will proceed with upper endoscopy for further evaluation of possible dilation of the distal esophagus. Given the recent elevation of the patient's liver enzymes and postprandial nausea we will also perform endoscopic ultrasound to evaluate for evidence of retained common bile duct stones. If positive we would then proceed with ERCP here. We have discussed the risks of the procedures with the patient to include bleeding infection perforation pain failed biliary cannulation and need for follow-up/ History of Present Illness Reason for Consultation: abd pain, eso dysmotility Requesting Physician: Hay Attending Physician: Maco Guido MD History of Present Illness 82 year old male with history of CKD, T2DM, HTN, CAD and others below who is admitted through the ED w/ nausea/vomiting - GI asked to evaluate. Pt was seen and evaluated, chart reviewed. He is somewhat of a poor historian. He suggests for about a year he has had decreased appetite, intermittent epigastric pain with PO intake and vomiting without nausea. He suggests when he eats he sometimes feels sticking sensation w/ resulting emesis episodes. No black or bloody emesis. Bowels moving well, unchanged. No black or bloody stools. Tbili 0.6 AST 69 ALT 67 ALKP 68 Lipase 52 KUB 2022: No evidence for a bowel obstruction.Bilateral nephrolithiasis. CTAP 2022: There are several calyceal calculi in the right kidney measuring upto 11 mm and in the left kidney measuring up to 9 mm. No hydronephrosisor ureterolithiasis is seen. 3.3 cm of debris in the lower esophagus may represent esophagealdysmotility. No hiatal hernia is seen. Bowel loops are nondilated. There is diverticulosis of the lowerleft and sigmoid colon. No acute inflammatory changes are seen involvingthe bowel. The appendix is not visible. EGD 2020: Tortuous esophagus. Dilated. - Normal stomach. - Normal examined duodenum. - No specimens collected Allergies Allergy/AdvReac Type Severity Reaction Status Date / Time atorvastatin Allergy Severe TEMP 107., Verified 12/30/22 19:18 NEARLY PER eletriptan Allergy Intermediate LYMPH Verified 12/30/22 19:18 NODES SWELLED, HOT FLASHES oxycodone Allergy Intermediate NIGHTMARES Verified 12/30/22 19:18 Home Medications Medication Instructions Recorded Confirmed Type allopurinol 300 mg tablet 300 mg PO QAM 08/13/18 12/30/22 History metoprolol succinate 50 mg 50 mg PO PM 08/13/18 12/30/22 History tablet,extended release 24 hr simvastatin 40 mg tablet 40 mg PO HS 08/13/18 12/30/22 History ascorbic acid (vitamin C) 500 mg 1,000 mg PO QAM 08/20/18 12/30/22 History tablet (Vitamin C) aspirin 81 mg tablet,delayed 81 mg PO PM 08/20/18 12/30/22 History release lactobacillus combination no.4 3 3 mmu cells PO QAM 08/20/18 12/30/22 History billion cell capsule (Probiotic) lutein 40 mg capsule 40 mg PO QAM 08/20/18 12/30/22 History lysine 500 mg tablet 500 mg PO QAM 08/20/18 12/30/22 History metformin 1,000 mg tablet 500 mg PO BIDM 08/20/18 12/30/22 History nitroglycerin 0.4 mg sublingual 0.4 mg sublingual UD PRN Chest Pain 08/05/19 12/30/22 History tablet magnesium chloride 71.5 mg 143 mg PO BID 01/01/20 12/30/22 History (magnesium chloride) tablet,delayed release (Slow-Mag) zinc gluconate 50 mg tablet 50 mg PO QAM 01/01/20 12/30/22 History clopidogrel 75 mg tablet (Plavix) 75 mg PO QAM 01/09/20 12/30/22 History acetaminophen 500 mg tablet 500 mg PO HS 04/20/22 12/30/22 History finasteride 5 mg tablet 5 mg PO PM 04/20/22 12/30/22 History lisinopril 2.5 mg tablet 2.5 mg PO QAM 04/20/22 12/30/22 History cetirizine 10 mg tablet 10 mg PO QAM 12/29/22 12/30/22 History cyanocobalamin (vitamin B-12) 2,000 mcg PO DAILY 12/29/22 12/30/22 History 1,000 mcg tablet (Vitamin B-12) ondansetron 4 mg disintegrating 4 mg PO Q6H PRN nausea and 12/29/22 12/30/22 Rx tablet vomiting #14 tabs pyridoxine (vitamin B6) 100 mg 100 mg PO QAM 12/29/22 12/30/22 History tablet (Vitamin B-6) sucralfate 100 mg/mL oral 10 ml PO QID #420 mL 12/29/22 12/30/22 Rx suspension (Carafate) doxylamine succinate 25 mg tablet 25 mg PO HS PRN Sleep 12/30/22 12/30/22 History (Unisom (doxylamine)) Patient History Medical History Acquired hallux valgus of right foot Acquired hammer toe of right foot BPH (benign prostatic hyperplasia) Callus CKD (chronic kidney disease), stage III pt denies Coronary artery disease "nonobstructive disease per cath 2011" Diabetes mellitus with diabetic polyneuropathy Diabetes mellitus, type II GERD (gastroesophageal reflux disease) Gout Hallux valgus (acquired), left foot Hammertoe of left foot Hearing deficit Hyperlipidemia Hypertension Kidney stones per is a current problem Lumbar stenosis with neurogenic claudication (07/06/13) Myocardial Infarction hx of 1994---follows with Dr. Mcfarland On anticoagulant therapy plavix daily--prescribed after vein surgery 2018 Osteoarthritis Skin ulcer of left foot including toes Surgical History History of bilateral cataract extraction History of cardiac cath x3--1 in [place], 2nd @ [facility], last 2011 @ [facility]--all with no stents History of colonoscopy History of esophagogastroduodenoscopy (EGD) History of lumbar spinal fusion 2009 @ [facility] Dr. 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 Lobo--Posterolateral fusion T11-L3 History of tooth extraction all teeth removed, top denture Status post appendectomy 12/21/[address] [facility] Family History Other Family history non-contributory No family history of adverse response to anesthesia Social History Smoking Status: Never smoker Second Hand Exposure: No; Do You Dip or Chew Tobacco: Yes (chews (advised)); Hx Alcohol Use: No Hx Substance Use: No Preferred Language: Persian Communication Ability: Effective Coat Baster Required: No Beliefs That Will Affect Care: None marital status: Current Living Situation: Spouse Current Living Situation Comment: home with spouse Other Information That Helps Us Care for You: No Feels Safe at Home: Yes Safety Concerns: Feels Safe At This Time Assistive Devices: Denture - Upper and Glasses Review of Systems Review of Systems: All systems reviewed & are unremarkable except as noted in HPI & below Physical Exam Constitutional: WD/WN, vitals as above Respiratory: normal respiratory effort Cardiovascular: Rate/Rhythm: regular rate and regular rhythm Gastrointestinal (Abdomen): normal bowel sounds, soft, nontender, no hepatosplenomegaly Skin: no rashes, warm and dry Results & Data Vital Signs (Past 12 Hours) Vital Signs Temp Pulse Pulse Resp BP BP Pulse Ox 12/31/22 07:37 36.5 C 55 L 18 162/83 H 96 12/31/22 02:42 36.4 C L 63 18 126/72 95 12/30/22 23:18 69 12/30/22 22:05 36.5 C 64 18 157/85 H 96 12/30/22 21:33 61 21 166/74 H 96 O2 Del Method 12/31/22 07:37 Room Air 12/31/22 02:42 Room Air 12/30/22 23:18 12/30/22 22:05 Room Air 12/30/22 21:33 Room Air Laboratory Results 12/31/22 12/31/22 12/31/22 Range/Units 07:41 07:12 07:12 WBC 5.49 (4.8-10.8) K/ul RBC 3.65 L (4.70-6.10) M/uL Hgb 11.6 L (14.0-18.0) g/dl Hct 33.2 L (42.0-52.0) % MCV 91.0 (80.0-100.0) fL MCH 31.8 (25.0-34.0) pg MCHC 34.9 (32.0-36.0) g/dL RDW Std Deviation 44.0 (36.4-46.3) fL RDW Coeff of Mirza 13.3 (11.5-14.5) % Plt Count 116 L (130-400) K/uL MPV 9.3 L (9.4-12.4) fL Immature Gran % (Auto) 0.4 % Neut % (Auto) 50.2 % Lymph % (Auto) 25.3 % [place] % (Auto) 10.4 % Eos % (Auto) 12.8 % Baso % (Auto) 0.9 % Neut # (Auto) 2.76 (1.40-6.50) K/uL Lymph # (Auto) 1.39 (1.2-3.4) K/uL [place] # (Auto) 0.57 (0.11-0.59) K/uL Eos # (Auto) 0.70 H (0-0.50) K/uL Baso # (Auto) 0.05 (0-0.2) K/uL Immature Gran # (Auto) 0.02 (0.01-0.20) K/uL Sodium 137 (136-145) mmol/L Potassium 3.9 (3.5-5.1) mmol/L Chloride 108 H (98-107) mmol/L Carbon Dioxide 22 (21-32) mmol/L Anion Gap 7 (3-11) BUN 19 (6-23) mg/dl Creatinine 1.05 (0.6-1.4) mg/dl Est Cr Clr Drug Dosing 59.1 ml/min Est GFR ( Amer) 75.2 ml/min Est GFR (Non-Af Amer) 64.9 ml/min BUN/Creatinine Ratio (10-20) Glucose (70-99(Fasting)) mg/dl POC Glucose 150 H (70-99) mg/dl Fasting Glucose 137 H (70-99) mg/dl Calcium 9.0 (8.6-10.3) mg/dl Magnesium 1.6 L (1.7-2.4) mg/dl Total Bilirubin (0.2-1.0) mg/dl AST (13-39) U/L ALT (7-52) U/L Alkaline Phosphatase (34-104) U/L Troponin I High Sens (0-20) pg/ml Total Protein (6.0-8.3) gm/dl Albumin (3.4-5.0) gm/dl Globulin (2.5-4.0) gm/dl Albumin/Globulin Ratio (0.9-2) Lipase (11-82) U/L Urine Color Urine Appearance (Clear) Urine pH (4.5-7.5) Ur Specific [place] (1.000-1.030) Urine Protein (Negative) Urine Glucose (UA) (Negative) Urine Ketones (Negative) Urine Blood (Negative) Urine Nitrite (Negative) Urine Bilirubin (Negative) Urine Urobilinogen (Negative) Ur Leukocyte Esterase (Negative) Urine RBC (0-4) /hpf Urine WBC (0-5) /hpf Ur Epithelial Cells (0-5) /lpf Urine Bacteria (Negative) SARS-CoV-2, RNA, NAAT (NEGATIVE) 12/31/22 12/30/22 12/30/22 Range/Units 05:11 22:30 21:18 WBC (4.8-10.8) K/ul RBC (4.70-6.10) M/uL Hgb (14.0-18.0) g/dl Hct (42.0-52.0) % MCV (80.0-100.0) fL MCH (25.0-34.0) pg MCHC (32.0-36.0) g/dL RDW Std Deviation (36.4-46.3) fL RDW Coeff of Mirza (11.5-14.5) % Plt Count (130-400) K/uL MPV (9.4-12.4) fL Immature Gran % (Auto) % Neut % (Auto) % Lymph % (Auto) % [place] % (Auto) % Eos % (Auto) % Baso % (Auto) % Neut # (Auto) (1.40-6.50) K/uL Lymph # (Auto) (1.2-3.4) K/uL [place] # (Auto) (0.11-0.59) K/uL Eos # (Auto) (0-0.50) K/uL Baso # (Auto) (0-0.2) K/uL Immature Gran # (Auto) (0.01-0.20) K/uL Sodium (136-145) mmol/L Potassium (3.5-5.1) mmol/L Chloride (98-107) mmol/L Carbon Dioxide (21-32) mmol/L Anion Gap (3-11) BUN (6-23) mg/dl Creatinine (0.6-1.4) mg/dl Est Cr Clr Drug Dosing ml/min Est GFR ( Amer) ml/min Est GFR (Non-Af Amer) ml/min BUN/Creatinine Ratio (10-20) Glucose (70-99(Fasting)) mg/dl POC Glucose 142 H 144 H (70-99) mg/dl Fasting Glucose (70-99) mg/dl Calcium (8.6-10.3) mg/dl Magnesium (1.7-2.4) mg/dl Total Bilirubin (0.2-1.0) mg/dl AST (13-39) U/L ALT (7-52) U/L Alkaline Phosphatase (34-104) U/L Troponin I High Sens (0-20) pg/ml Total Protein (6.0-8.3) gm/dl Albumin (3.4-5.0) gm/dl Globulin (2.5-4.0) gm/dl Albumin/Globulin Ratio (0.9-2) Lipase (11-82) U/L Urine Color Yellow Urine Appearance Clear (Clear) Urine pH 5.0 (4.5-7.5) Ur Specific [place] 1.025 (1.000-1.030) Urine Protein Trace H (Negative) Urine Glucose (UA) Negative (Negative) Urine Ketones Trace H (Negative) Urine Blood Negative (Negative) Urine Nitrite Negative (Negative) Urine Bilirubin Negative (Negative) Urine Urobilinogen Negative (Negative) Ur Leukocyte Esterase Trace H (Negative) Urine RBC 0-4 (0-4) /hpf Urine WBC 0-5 (0-5) /hpf Ur Epithelial Cells 0-5 (0-5) /lpf Urine Bacteria Negative (Negative) SARS-CoV-2, RNA, NAAT (NEGATIVE) 12/30/22 12/30/22 12/30/22 Range/Units 18:25 18:21 18:21 WBC 5.96 (4.8-10.8) K/ul RBC 4.08 L (4.70-6.10) M/uL Hgb 12.9 L (14.0-18.0) g/dl Hct 37.3 L (42.0-52.0) % MCV 91.4 (80.0-100.0) fL MCH 31.6 (25.0-34.0) pg MCHC 34.6 (32.0-36.0) g/dL RDW Std Deviation 44.9 (36.4-46.3) fL RDW Coeff of Mirza 13.5 (11.5-14.5) % Plt Count 144 (130-400) K/uL MPV 9.5 (9.4-12.4) fL Immature Gran % (Auto) 0.7 % Neut % (Auto) 57.8 % Lymph % (Auto) 22.3 % [place] % (Auto) 8.7 % Eos % (Auto) 9.7 % Baso % (Auto) 0.8 % Neut # (Auto) 3.44 (1.40-6.50) K/uL Lymph # (Auto) 1.33 (1.2-3.4) K/uL [place] # (Auto) 0.52 (0.11-0.59) K/uL Eos # (Auto) 0.58 H (0-0.50) K/uL Baso # (Auto) 0.05 (0-0.2) K/uL Immature Gran # (Auto) 0.04 (0.01-0.20) K/uL Sodium 137 (136-145) mmol/L Potassium 4.0 (3.5-5.1) mmol/L Chloride 106 (98-107) mmol/L Carbon Dioxide 20 L (21-32) mmol/L Anion Gap 11 (3-11) BUN 22 (6-23) mg/dl Creatinine 1.24 (0.6-1.4) mg/dl Est Cr Clr Drug Dosing 50.5 ml/min Est GFR ( Amer) 61.5 ml/min Est GFR (Non-Af Amer) 53.1 ml/min BUN/Creatinine Ratio 17.7 (10-20) Glucose 153 H (70-99(Fasting)) mg/dl POC Glucose (70-99) mg/dl Fasting Glucose (70-99) mg/dl Calcium 9.9 (8.6-10.3) mg/dl Magnesium 1.6 L (1.7-2.4) mg/dl Total Bilirubin 0.6 (0.2-1.0) mg/dl AST 69 H (13-39) U/L ALT 67 H (7-52) U/L Alkaline Phosphatase 68 (34-104) U/L Troponin I High Sens 10.1 (0-20) pg/ml Total Protein 7.8 (6.0-8.3) gm/dl Albumin 4.9 (3.4-5.0) gm/dl Globulin 2.9 (2.5-4.0) gm/dl Albumin/Globulin Ratio 1.7 (0.9-2) Lipase 52 (11-82) U/L Urine Color Urine Appearance (Clear) Urine pH (4.5-7.5) Ur Specific [place] (1.000-1.030) Urine Protein (Negative) Urine Glucose (UA) (Negative) Urine Ketones (Negative) Urine Blood (Negative) Urine Nitrite (Negative) Urine Bilirubin (Negative) Urine Urobilinogen (Negative) Ur Leukocyte Esterase (Negative) Urine RBC (0-4) /hpf Urine WBC (0-5) /hpf Ur Epithelial Cells (0-5) /lpf Urine Bacteria (Negative) SARS-CoV-2, RNA, NAAT NEGATIVE (NEGATIVE)
[2022-12-31] MEDS: CYANOCOBALAMIN (B-12) 500 MCG TABLET PO SCH (08:47)
[2022-12-31] MEDS: ADVANCED PROBIOTIC 1250 MG CAPSULE PO SCH (08:47)
[2022-12-31] MEDS: CETIRIZINE HCL 10 MG TABLET PO SCH (08:47)
[2022-12-31] MEDS: allopurinoL 300 MG TAB PO SCH (08:47)
[2022-12-31] MEDS: SUCRALFATE 1 GM/10 ML UDC PO SCH ×4 (08:47→21:04)
[2022-12-31] MEDS: MAGNESIUM CHLORIDE W/CALCIUM 64MG DELAYED REL TAB PO SCH ×2 (08:49→21:03)
[2022-12-31] MEDS: PYRIDOXINE HCL 50 MG TAB PO SCH (08:49)
[2022-12-31] MEDS: lisinopril 2.5 MG TAB PO SCH (09:00)
[2022-12-31] MEDS ORDERED: lisinopril 2.5 MG TAB PO SCH (09:00)
--- NOTE | 2022-12-31 12:33 | Anesthesiology Consultation ---
Date of Service December 31, 2022 Assessment & Plan (1) Encounter for pre-operative examination: Chart Review Chart Review: Acceptable Risk for Surgery (possible food in distal esophagus) History Surgery Operation Date: 12/31/22 10:55 Proposed Procedures p Endoscopic Ultrasonography Upper - Jones Zhou DO s Endoscopic Retrograde Cholangiopancreato - Jones Zhou DO Height/Weight Height: 5 ft 10 in Weight: 89.9 kg Allergies Allergy/AdvReac Type Severity Reaction Status Date / Time atorvastatin Allergy Severe TEMP 107., Verified 12/30/22 19:18 NEARLY PER eletriptan Allergy Intermediate LYMPH Verified 12/30/22 19:18 NODES SWELLED, HOT FLASHES oxycodone Allergy Intermediate NIGHTMARES Verified 12/30/22 19:18 Medications Home Medications Medication Instructions Recorded Confirmed Last Taken allopurinol 300 mg tablet 300 mg PO QAM 08/13/18 12/30/22 12/28/22 metoprolol succinate 50 mg 50 mg PO PM 08/13/18 12/30/22 12/28/22 tablet,extended release 24 hr simvastatin 40 mg tablet 40 mg PO HS 08/13/18 12/30/22 12/28/22 ascorbic acid (vitamin C) 500 mg 1,000 mg PO QAM 08/20/18 12/30/22 12/28/22 tablet (Vitamin C) aspirin 81 mg tablet,delayed 81 mg PO PM 08/20/18 12/30/22 12/28/22 release lactobacillus combination no.4 3 3 mmu cells PO QAM 08/20/18 12/30/22 12/28/22 billion cell capsule (Probiotic) lutein 40 mg capsule 40 mg PO QAM 08/20/18 12/30/22 12/28/22 lysine 500 mg tablet 500 mg PO QAM 08/20/18 12/30/22 12/28/22 metformin 1,000 mg tablet 500 mg PO BIDM 08/20/18 12/30/22 12/28/22 nitroglycerin 0.4 mg sublingual 0.4 mg sublingual UD PRN Chest Pain 08/05/19 12/30/22 Unknown tablet magnesium chloride 71.5 mg 143 mg PO BID 01/01/20 12/30/22 12/28/22 (magnesium chloride) tablet,delayed release (Slow-Mag) zinc gluconate 50 mg tablet 50 mg PO QAM 01/01/20 12/30/22 12/28/22 clopidogrel 75 mg tablet (Plavix) 75 mg PO QAM 01/09/20 12/30/22 12/28/22 acetaminophen 500 mg tablet 500 mg PO HS 04/20/22 12/30/22 12/28/22 finasteride 5 mg tablet 5 mg PO PM 04/20/22 12/30/22 12/28/22 lisinopril 2.5 mg tablet 2.5 mg PO QAM 04/20/22 12/30/22 12/28/22 cetirizine 10 mg tablet 10 mg PO QAM 12/29/22 12/30/22 12/28/22 cyanocobalamin (vitamin B-12) 2,000 mcg PO DAILY 12/29/22 12/30/22 12/28/22 1,000 mcg tablet (Vitamin B-12) ondansetron 4 mg disintegrating 4 mg PO Q6H PRN nausea and 12/29/22 12/30/22 12/30/22 tablet vomiting #14 tabs pyridoxine (vitamin B6) 100 mg 100 mg PO QAM 12/29/22 12/30/22 12/28/22 tablet (Vitamin B-6) sucralfate 100 mg/mL oral 10 ml PO QID #420 mL 12/29/22 12/30/22 12/30/22 suspension (Carafate) doxylamine succinate 25 mg tablet 25 mg PO HS PRN Sleep 12/30/22 12/30/2212/27 (Unisom (doxylamine)) Active Medications Generic Name Dose Route Start Last Admin Trade Name Freq PRN Reason Stop Dose Admin Acetaminophen 500 mg 12/30/22 22:01 12/30/22 22:43 Acetaminophen 500 Mg Tab PO 01/29/23 22:00 500 mg HS CAPO Administration Allopurinol 300 mg 12/31/22 09:00 12/31/22 08:47 Allopurinol 300 Mg Tab PO 01/30/23 08:59 Not Given QAM CAPO Aspirin 81 mg 12/30/22 22:01 12/30/22 22:43 Aspirin 81 Mg Ectab PO 01/29/23 22:00 81 mg PM CAPO Administration Cetirizine HCl 10 mg 12/31/22 09:00 12/31/22 08:47 Cetirizine Hcl 10 Mg Tablet PO 01/30/23 08:59 Not Given QAM CAPO Cyanocobalamin 2,000 mcg 12/31/22 09:00 12/31/22 08:47 Cyanocobalamin (B-12) 500 Mcg Tablet PO 01/30/23 08:59 Not Given DAILY CAPO Finasteride 5 mg 12/30/22 22:01 12/30/22 22:43 Finasteride 5 Mg Tab PO 01/29/23 22:00 5 mg PM CAPO Administration Lactated Ringer's 1,000 mls @ 60 mls/hr 12/30/22 20:50 12/30/22 21:21 Lr IV 12/31/22 13:29 60 mls/hr .[id number] Administration Insulin Aspart 0 units 12/30/22 22:30 12/31/22 06:19 Insulin Aspart Per Unit Charge SC 01/29/23 22:29 1 units Q6 CAPO Administration Lactobacillus Acidophilus 2 cap 12/31/22 09:00 12/31/22 08:47 Advanced Probiotic 1250 Mg Capsule PO 01/30/23 08:59 Not Given QAM CAPO Lisinopril 2.5 mg 12/30/22 22:20 12/30/22 22:43 Lisinopril 2.5 Mg Tab PO 01/29/23 22:19 2.5 mg QAM CAPO Administration Magnesium Chloride 128 mg 12/30/22 22:15 12/31/22 08:49 Magnesium Chloride W/Calcium 64mg Delayed Rel Tab PO 01/29/23 22:14 Not Given BID CAPO Pyridoxine HCl 100 mg 12/31/22 09:00 12/31/22 08:49 Pyridoxine Hcl 50 Mg Tab PO 01/30/23 08:59 Not Given QAM CAPO Simvastatin 40 mg 12/30/22 22:01 12/30/22 22:43 Simvastatin 40 Mg Tab PO 01/29/23 22:00 40 mg HS CAPO Administration Sucralfate 1 gm 12/30/22 22:15 12/31/22 08:47 Sucralfate 1 Gm/10 Ml Udc PO 01/29/23 22:14 Not Given ACHS CAPO Past Medical History Medical History Acquired hallux valgus of right foot Acquired hammer toe of right foot BPH (benign prostatic hyperplasia) Callus CKD (chronic kidney disease), stage III pt denies Coronary artery disease "nonobstructive disease per cath 2011" Diabetes mellitus with diabetic polyneuropathy Diabetes mellitus, type II GERD (gastroesophageal reflux disease) Gout Hallux valgus (acquired), left foot Hammertoe of left foot Hearing deficit Hyperlipidemia Hypertension Kidney stones per is a current problem Lumbar stenosis with neurogenic claudication (07/06/13) Myocardial Infarction hx of 1994---follows with Dr. Mcfarland On anticoagulant therapy plavix daily--prescribed after vein surgery 2018 Osteoarthritis Skin ulcer of left foot including toes Past Family History Family History Other Family history non-contributory No family history of adverse response to anesthesia Past Surgical History Surgical History History of bilateral cataract extraction History of cardiac cath x3--1 in [place], 2nd @ [facility], last 2011 @ [facility]--all with no stents History of colonoscopy History of esophagogastroduodenoscopy (EGD) History of lumbar spinal fusion 2009 @ [facility] Dr. 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 Lobo--Posterolateral fusion T11-L3 History of tooth extraction all teeth removed, top denture Status post appendectomy 12/21/12 @ [facility] Social History Smoking Status: Never smoker tobacco type: smokeless tobacco Do You Dip or Chew Tobacco: Yes (chews (advised)) Hx Alcohol Use: No Hx Substance Use: No substance use type: does not use Physical Exam Vital Signs Last Vital Signs Temp 36.3 C L 12/31/22 11:50 Pulse 50 L 12/31/22 11:50 Resp 18 12/31/22 11:50 BP 134/80 12/31/22 11:50 Pulse Ox 96 12/31/22 11:50 O2 Del Method Room Air 12/31/22 11:50 Testing Laboratory Results 12/31/22 07:12 12/31/22 07:12 Urine Color Yellow 12/30/22 21:18 Urine Appearance Clear (Clear) 12/30/22 21:18 Urine pH 5.0 (4.5-7.5) 12/30/22 21:18 Ur Specific [place] 1.025 (1.000-1.030) 12/30/22 21:18 Urine Protein Trace (Negative) H 12/30/22 21:18 Urine Glucose (UA) Negative (Negative) 12/30/22 21:18 Urine Ketones Trace (Negative) H 12/30/22 21:18 Urine Nitrite Negative (Negative) 12/30/22 21:18 Ur Leukocyte Esterase Trace (Negative) H 12/30/22 21:18 Urine RBC 0-4 /hpf (0-4) 12/30/22 21:18 Urine WBC 0-5 /hpf (0-5) 12/30/22 21:18 Ur Epithelial Cells 0-5 /lpf (0-5) 12/30/22 21:18 12/31/22 12/31/22 12/31/22 11:22 07:41 05:11 POC Glucose 165 H 150 H 142 H Electrocardiogram Date: 12/30/22 Findings: + NSR @ (63) and + NSST changes PAC's Echocardiogram Date: 01/13/21 EF: 45-50% Valvular Disease: + AI (mild) and + MR (mild)
--- NOTE | 2022-12-31 12:37 | Hospitalist Progress Note ---
Date of Service December 31, 2022 Assessment & Plan (1) Abdominal pain: Plan 82-year-old male with PMH of nonobstructive CAD, PVD status post surgery, HTN, HLD, DM2 on oral meds, chronic anemia [baseline hemoglobin of 12], BPH, esophageal dysphagia, GERD, microscopic colitis and past tobacco abuse presented to the ED 12/30 with complaint of progressive worsening of his already existing difficulty swallowing with associated upper belly pain which is relieved by forceful emesis for the last 2 days [employer]. Patient denied any fever or chills or black/bloody stools or hematemesis. Of note, patient had swallowing problems for about 3 years, no unusual weight loss, EGD 2020 showed tortuous esophagus status post dilatation, recently evaluated as an outpatient and symptoms attributed to gastritis when patient was prescribed Carafate/Zofran/instructed to increase Pepcid to twice a day. He is being managed for the following: Esophageal dysphagia Patient has history of dysphagia, comes in with worsening swallowing difficulty associated with upper belly pain, relieved with forceful emesis for the last 2 days [employer]. Keep n.p.o. except for meds and sips. If he is not able to swallow meds, consider changing to IV. Continue antiemetics as needed, hold Plavix / aspirin per GI rec for likely GI procedure. c/w ivf GI on board, appreciate recommendation. Monitor and replete electrolytes, labs in AM. Transaminitis likely secondary to NAFLD, hepatic steatosis noted on imaging 2 days ago, monitor lfts. already trending down. Other chronic medical conditions: Continue with/resume home meds as able. nonobstructive CAD/PVD status post surgery hyperlipidemia, on statin Rx DM2 on oral medications, reasonable control as of recent hemoglobin A1c of 7.1 this month chronic anemia, hemoglobin at baseline microscopic colitis as per records past tobacco abuse DVT prophylaxis: EDs; SCDs contraindicated w/ history of LE PAD Re: Possible procedure Full code. Patient Ms. Gilma Quintanilla, contact #[phone]. Admission and Anticipated Discharge Date Admission Date: December 30, 2022 Subjective Patient seen and examined bedside for follow-up of progressive difficulty swallowing associated with abdominal pain relieved with forceful vomiting. Patient was lying in bed, on room air, NAD, n.p.o., denies any new acute event overnight, denies any headache or fever or chills or flulike illness recently. Patient reports that he had been having swallowing problem for long time, in the last 2 days [employer] he would get upper belly pain with solid or with liquids and he has to forcefully vomit out for the relief of his belly pain. He will get sensation of food being caught in the lower chest region. Physical Exam Physical Exam: GENERAL: Alert and oriented x3. NAD, on RA. HEENT: No pallor, no icterus. Pupils equal, round and reactive to light. Oral mucosa moist. NECK: No JVD, no neck masses. HEART: S1 and S2 heard. Regular rate and rhythm. No murmur, no gallop. RESPIRATORY SYSTEM: Normal AP diameter. No accessory muscle use. No wheezing, no crackles. ABDOMEN: Soft, bowel sounds present, nontender, no distention. CENTRAL NERVOUS SYSTEM: No facial droop. Speech is clear. Obeys simple commands. Moves extremities. EXTREMITIES: No edema, no erythema seen. Results & Data Results & Data Vital Signs (Past 12 Hours) Vital Signs Temp Pulse Pulse Resp BP Pulse Ox O2 Del Method 12/31/22 11:50 36.3 C L 50 L 18 134/80 96 Room Air 12/31/22 08:00 53 L 12/31/22 07:37 36.5 C 55 L 18 162/83 H 96 Room Air 12/31/22 02:42 36.4 C L 63 18 126/72 95 Room Air
[2022-12-31] MEDS ORDERED: fentaNYL citrate PF 100 MCG/2 ML VIAL ONE (13:29)
[2022-12-31] MEDS ORDERED: fentaNYL citrate PF 100 MCG/2 ML VIAL IV PRN (13:44)
[2022-12-31] MEDS ORDERED: ONDANSETRON INJ 2 MG/ML 2 ML VIAL IV PRN (13:44)
[2022-12-31] MEDS ORDERED: LABETALOL HCL IV 5 MG/ML 20ML IV PRN (13:44)
[2022-12-31] MEDS ORDERED: ATROPINE SULFATE 0.1 MG/ML 10ML SYR IV PRN (13:44)
[2022-12-31] MEDS ORDERED: hydrALAZINE HCL 20 MG/ML VIAL IV PRN (13:46)
--- NOTE | 2022-12-31 13:51 | History & Physical Bridge Note ---
Date of Service December 31, 2022 History & Physical Bridge Note I have examined the patient, reviewed the History & Physical and in the interval since the performance of the History & Physical I have noted the following changes of clinical significance: no changes noted
[2022-12-31] MEDS ORDERED: SUCCINYLCHOLINE CHLORIDE 20 MG/ML 10 ML VIAL IV ONE (14:02)
[2022-12-31] MEDS ORDERED: GLYCOPYRROLATE 0.2 MG/ML VIAL ONE (14:02)
[2022-12-31] MEDS ORDERED: LIDOCAINE 2% 2 ML VIAL/AMP(20MG/ML) INFIL ONE (14:02)
[2022-12-31] MEDS ORDERED: PROPOFOL IV EMULSION 10 MG/ML 20 ML VIAL IV ONE (14:02)
[2022-12-31] MEDS ORDERED: DEXAMETHASONE SOD INJ 4 MG/ML VIAL ONE (14:02)
[2022-12-31] MEDS ORDERED: ONDANSETRON INJ 2 MG/ML 2 ML VIAL ONE (14:02)
[2022-12-31] MEDS ORDERED: ePHEDrine sulfate 50 MG/ML AMP ONE (14:53)
[2022-12-31] MEDS ORDERED: SODIUM CHLORIDE 0.9% PF INJ 10 ML VIAL ONE (14:53)
--- NOTE | 2022-12-31 15:32 | Post Operative Brief Note ---
Immediate Post Op Note v1 Date of Surgery December 31, 2022 Pre & Post Diagnosis Operation Date: 12/31/22 10:55 Pre-Op Diagnosis: ELEVATED BP, ABD PAIN, MAY NEED IV BB Post-Op Diagnosis: hiatal hernia food bolus Gastritis I identified the patient and participated in the time-out.: Yes Procedure Operation Date: 12/31/22 10:55 Actual Procedures p EGD Foreign Body Removal - Jones Zhou DO s EGD Biopsy Dilatation - Jones Zhou DO p Endoscopic Ultrasonography Upper - Jones Zhou DO Surgeon Jones Zhou, Analysis Consultant None Estimated Blood Loss 0 Findings Consistent with Post-Op Diagnosis
--- NOTE | 2022-12-31 15:34 | Communication Note ---
Date of Service: December 31, 2022 The patient underwent upper endoscopy and endoscopic ultrasound this afternoon. The patient was found to have a large amount of food within his esophagus, the debris extended from the top of the esophagus to the gastroesophageal junction. There was evidence of inflammatory changes in the distal aspect of the esophagus consistent with recent food impaction. We removed the food from the esophagus and performed a low diameter dilation of 45 [place] today. Endoscopic ultrasound was performed showing a bile duct without evidence of choledocholithiasis. No obvious esophageal mass was seen today although some nonspecific wall thickening was noted. Recommendations Clear liquid diet today then full liquid diet until after the next upper endoscopy. Repeat upper endoscopy in 2 to 4 weeks Protonix 40 mg 1 time daily, begin today please Carafate slurry 4 times daily for 10 days Please call with any questions or concerns GI to sign off.
--- NOTE | 2022-12-31 15:37 | GI REPORT ---
Patient Name: Mehdi Quintanilla Procedure Date: 12/31/2022 2:07 PM Date of : 1940 Admit Type: Inpatient Age: 82 Gender: Male Attending MD: Jones Zhou DO, Procedure: Upper GI endoscopy Providers: Jones Zhou DO Referring MD: Maco Guido Md Indications: Epigastric abdominal pain, Dysphagia Medicines: General Anesthesia Complications: No immediate complications. Estimated blood loss: Minimal. Estimated Blood Loss: Estimated blood loss was minimal. Procedure: Pre-Anesthesia Assessment: - Prior to the procedure, a History and Physical was performed, and patient medications, allergies and sensitivities were reviewed. The patient's tolerance of previous anesthesia was reviewed. - The risks and benefits of the procedure and the sedation options and risks were discussed with the patient. All questions were answered and informed consent was obtained. - Patient identification and proposed procedure were verified prior to the procedure by the physician, the nurse and the real estate administrator. The procedure was verified in the procedure room. - Pre-procedure physical examination revealed no contraindications to sedation. - ASA Grade Assessment: III - A patient with severe systemic disease. - After reviewing the risks and benefits, the patient was deemed in satisfactory condition to undergo the procedure. - The anesthesia plan was to use general anesthesia. - Immediately prior to administration of medications, the patient was re-assessed for adequacy to receive sedatives. - The heart rate, respiratory rate, oxygen saturations, blood pressure, adequacy of pulmonary ventilation, and response to care were monitored throughout the procedure. - The physical status of the patient was re-assessed after the procedure. After obtaining informed consent, the endoscope was passed under direct vision. Throughout the procedure, the patient's blood pressure, pulse, and oxygen saturations were monitored continuously. The Endoscope was introduced through the mouth, and advanced to the third part of duodenum. The upper GI endoscopy was accomplished without difficulty. The patient tolerated the procedure well. Findings: Food was found in the entire esophagus. Removal was accomplished with a Velazquez net. The middle third of the esophagus and lower third of the esophagus were moderately tortuous. A guidewire was placed and the scope was withdrawn. Dilation was performed with a Savary dilator with no resistance at 45 Fr. The dilation site was examined following endoscope reinsertion and showed no change. Estimated blood loss was minimal. Esophagitis with no bleeding was found in the lower third of the esophagus consistent with recent food impaction. The Z-line was regular and was found 40 cm from the incisors. Diffuse moderate inflammation characterized by congestion (edema), erythema and granularity was found in the entire examined stomach. Biopsies were taken with a cold forceps for histology. The pathology specimen was placed into Bottle A. Estimated blood loss was minimal. The examined duodenum was normal. Impression: - Food in the esophagus. Removal was successful. - Tortuous esophagus. Dilation performed to 45 Fr. today. - Esophagitis with no bleeding, consistent with recent food impaction. - Z-line regular, 40 cm from the incisors. - Diffuse gastritis. Biopsied. - Normal examined duodenum. Recommendation: - Perform an upper endoscopic ultrasound (UEUS) today. - Recommend acid suppression medication for 6 weeks. - Full liquid diet. - Repeat upper endoscopy in 2 weeks for retreatment. Jones Zhou D.O. Jones Zhou, 12/31/2022 3:37:27 PM This report has been signed electronically. Note Initiated On: 12/31/2022 2:07 PM Number of Addenda: 0 I attest to the content of the Intraoperative Record and orders documented therein, exceptions below {[id number]}
--- NOTE | 2022-12-31 15:43 | Anesthesiology Progress Note ---
Date of Service December 31, 2022 Anesthesia Post Procedure Vital Signs Vital Signs: Temp Pulse Pulse Pulse Resp BP BP 12/31/22 15:35 64 16 109/55 L 12/31/22 15:25 63 17 110/65 12/31/22 15:19 36 C L 69 16 111/72 12/31/22 13:15 60 20 172/90 H 12/31/22 11:50 36.3 C L 50 L 18 134/80 12/31/22 08:00 53 L 12/31/22 07:37 36.5 C 55 L 18 162/83 H 12/31/22 02:42 36.4 C L 63 18 126/72 12/30/22 23:18 69 12/30/22 22:05 36.5 C 64 18 157/85 H 12/30/22 21:33 61 21 166/74 H 12/30/22 18:16 56 L 21 154/91 H 12/30/22 18:05 67 21 12/30/22 18:24 65 12/30/22 17:24 36.9 C 73 18 126/80 Pulse Ox O2 Del Method O2 Flow Rate 12/31/22 15:35 95 Room Air 12/31/22 15:25 97 Room Air 12/31/22 15:19 98 Oxymask 4 12/31/22 13:15 97 Room Air 12/31/22 11:50 96 Room Air 12/31/22 08:00 12/31/22 07:37 96 Room Air 12/31/22 02:42 95 Room Air 12/30/22 23:18 12/30/22 22:05 96 Room Air 12/30/22 21:33 96 Room Air 12/30/22 18:16 97 Room Air 12/30/22 18:05 96 Room Air 12/30/22 18:24 12/30/22 17:24 98 Room Air Pain Intensity Abdomen: Pain Intensity: 4 Transfer of Care Handoff Completed per policy Notes Mental Status: alert / awake / arousable Patient Amnestic to Procedure: Yes Nausea / Vomiting: adequately controlled Pain: adequately controlled Airway Patency, RR, SpO2: stable & adequate BP & HR: stable & adequate Hydration State: stable & adequate Anesthetic Complications: no major complications apparent
--- NOTE | 2022-12-31 15:49 | GI REPORT ---
Patient Name: Mehdi Quintanilla Procedure Date: 12/31/2022 2:08 PM Date of : 1940 Admit Type: Inpatient Age: 82 Gender: Male Attending MD: Jones Zhou DO, Procedure: Upper EUS Providers: Jones Zhou DO Referring MD: Maco Guido Md Indications: Elevated liver enzymes, Suspected choledocholithiasis Medicines: General Anesthesia Complications: No immediate complications. Estimated blood loss: Minimal. Estimated Blood Loss: Estimated blood loss was minimal. Procedure: Pre-Anesthesia Assessment: - Prior to the procedure, a History and Physical was performed, and patient medications, allergies and sensitivities were reviewed. The patient's tolerance of previous anesthesia was reviewed. - The risks and benefits of the procedure and the sedation options and risks were discussed with the patient. All questions were answered and informed consent was obtained. - Patient identification and proposed procedure were verified prior to the procedure by the physician, the nurse and the stock sheets cleaner inspector. The procedure was verified in the procedure room. - Pre-procedure physical examination revealed no contraindications to sedation. - ASA Grade Assessment: III - A patient with severe systemic disease. - After reviewing the risks and benefits, the patient was deemed in satisfactory condition to undergo the procedure. - The anesthesia plan was to use general anesthesia. - Immediately prior to administration of medications, the patient was re-assessed for adequacy to receive sedatives. - The heart rate, respiratory rate, oxygen saturations, blood pressure, adequacy of pulmonary ventilation, and response to care were monitored throughout the procedure. - The physical status of the patient was re-assessed after the procedure. After obtaining informed consent, the endoscope was passed under direct vision. Throughout the procedure, the patient's blood pressure, pulse, and oxygen saturations were monitored continuously. The Endosonoscope was introduced through the mouth, and advanced to the third part of duodenum. The upper EUS was accomplished without difficulty. The patient tolerated the procedure well. Findings: ENDOSONOGRAPHIC FINDING: : There was no sign of significant endosonographic abnormality in the ampulla. No pathologic lymphadenopathy and no masses were identified. Evidence of a previous cholecystectomy was identified endosonographically. There was no sign of significant endosonographic abnormality in the common bile duct. The maximum diameter of the duct was 6 mm. No stones and ducts of normal caliber were identified. There was no sign of significant endosonographic abnormality in the entire pancreas. The pancreatic duct measured up to 2 mm in diameter. No masses, no cysts, the pancreatic duct was thin in caliber. One benign-appearing lymph node was visualized in the celiac region (level 20). It measured 9 mm by 8 mm in maximal cross-sectional diameter. The node was triangular, hypoechoic and had poorly defined margins. Localized wall thickening was visualized endosonographically in the lower third of the esophagus. This appeared to be primarily due to thickening of the submucosa (Layer 3). Additionally, wall thickening was noted in the following wall layer(s): submucosa (Layer 3). The thickness of the abnormal layers measured 4 mm. The esophageal wall measured up to 4 mm in total thickness. Impression: - There was no sign of significant pathology in the ampulla. - Evidence of a cholecystectomy. - There was no sign of significant pathology in the common bile duct. - There was no sign of significant pathology in the entire pancreas. - One benign lymph node was visualized in the celiac region (level 20). - Wall thickening was seen in the lower third of the esophagus. The thickening appeared to primarily be within the submucosa (Layer 3) and could be consistent with the patients food impaction. - No specimens collected. Recommendation: - [facility] patient [facility] for [facility] care. - Clear liquid diet today. - Please see note in [facility] for further recomendations. Jones Zhou D.O. Jones Zhou, 12/31/2022 3:49:38 PM This report has been signed electronically. Note Initiated On: 12/31/2022 2:08 PM Number of Addenda: 0 I attest to the content of the Intraoperative Record and orders documented therein, exceptions below {[id number]}
[2022-12-31] MEDS ORDERED: PANTOprazole 40 MG TAB PO SCH (16:00)
[2022-12-31] MEDS: MAGNESIUM SULFATE / D5W 1 GM/100 ML BAG IV SCH ×2 (16:11→17:28)
[2022-12-31] MEDS ORDERED: SUCRALFATE 1 GM/10 ML UDC PO SCH (17:00)
[2022-12-31] MEDS: PANTOprazole 40 MG TAB PO SCH (17:32)
[2022-12-31] MEDS ORDERED: METOPROLOL SUCC 50MG EXT REL TAB PO SCH (21:00)
[2022-12-31] MEDS: ACETAMINOPHEN 500 MG TAB PO SCH (21:01)
[2022-12-31] MEDS: FINASTERIDE 5 MG TAB PO SCH (21:02)
[2022-12-31] MEDS: ASPIRIN 81 MG ECTAB PO SCH (21:02)
[2022-12-31] MEDS: SIMVASTATIN 40 MG TAB PO SCH (21:03)
[2023-01-01 07:13] LABS: Hematocrit (blood only) 33.9 % (42.0-52.0); Hemoglobin 12.1 g/dl (14.0-18.0); Mean Corpuscular Hemoglobin 31.4 pg (25.0-34.0); Mean Corpuscular Hgb Conc 35.7 g/dL (32.0-36.0); Mean Corpuscular Volume 88.1 fL (80.0-100.0); Mean Platelet Volume 9.3 fL (9.4-12.4); Platelet Count 143 K/uL (130-400); RDW Coefficient of Variation 13.1 % (11.5-14.5); RDW Standard Deviation 41.9 fL (36.4-46.3); Red Blood Count 3.85 M/uL (4.70-6.10); White Blood Count 7.77 K/ul (4.8-10.8)
[2023-01-01 07:43] LABS: Anion Gap 8 (3-11); BUN Creatinine Ratio 13.8 (10-20); Blood Urea Nitrogen 15 mg/dl (6-23); Calcium 9.3 mg/dl (8.6-10.3); Carbon Dioxide 23 mmol/L (21-32); Chloride 104 mmol/L (98-107); Creatinine Clr Calc Pharmacy 57.3 ml/min; Est GFR (African American) 71.9 ml/min; Glucose 163 mg/dl (70-99(Fasting)); Magnesium 1.8 mg/dl (1.7-2.4); Phosphorus 3.6 mg/dl (2.5-4.9); Sodium 135 mmol/L (136-145)
[2023-01-01] MEDS: ADVANCED PROBIOTIC 1250 MG CAPSULE PO SCH (08:20)
[2023-01-01] MEDS: SUCRALFATE 1 GM/10 ML UDC PO SCH ×2 (08:21→12:12)
[2023-01-01] MEDS: PANTOprazole 40 MG TAB PO SCH (08:22)
[2023-01-01] MEDS: CYANOCOBALAMIN (B-12) 500 MCG TABLET PO SCH (08:23)
[2023-01-01] MEDS: PYRIDOXINE HCL 50 MG TAB PO SCH (08:23)
[2023-01-01] MEDS: CETIRIZINE HCL 10 MG TABLET PO SCH (08:24)
[2023-01-01] MEDS: allopurinoL 300 MG TAB PO SCH (08:24)
[2023-01-01] MEDS: lisinopril 2.5 MG TAB PO SCH (08:24)
[2023-01-01] MEDS: MAGNESIUM CHLORIDE W/CALCIUM 64MG DELAYED REL TAB PO SCH (08:25)
[2023-01-01] MEDS: INSULIN ASPART PER UNIT CHARGE SC SCH ×2 (08:40→12:12)
--- NOTE | 2023-01-01 12:21 | Electrocardiogram Report ---
Test Reason : Blood Pressure : / mmHG Vent. Rate : 063 BPM Atrial Rate : 063 BPM P-R Int : 228 ms QRS Dur : 096 ms QT Int : 420 ms P-R-T Axes : 090 -46 091 degrees QTc Int : 429 ms Sinus rhythm with 1st degree A-V block with Premature atrial complexes Left anterior fascicular block Minimal voltage criteria for LVH, may be normal variant ( R in aVL ) Nonspecific ST and T wave abnormality Abnormal ECG When compared with ECG of 29-DEC-2022 19:29, MO interval has increased Confirmed by Ap Perdomo ([id number]) on 01/01/2023 12:20:35 PM Referred By: REFERRED SELF Confirmed By:Ap Perdomo
--- NOTE | 2023-01-01 12:30 | Discharge Summary ---
Date of Service January 01, 2023 Admission HPI Per Admitting Provider History obtained from patient, family, and records. Medical history significant for nonobstructive CAD, PVD status post surgery, hypertension, hyperlipidemia, DM2 on oral medications, chronic anemia (baseline hemoglobin of 12), BPH, esophageal dysphagia as per records, GERD, microscopic colitis as per records, past tobacco abuse. Last confinement January 2020 for fever post vascular surgery. Patient has had swallowing problems for about 3 years. Food will get stuck in his throat but will be eventually go down. No unusual weight loss. has to cut his food into small pieces. EGD 2020 showed tortuous esophagus status post dilatation. 2 days ago, patient had nausea and emesis symptoms in addition to swallowing problems which is unusual. Patient denies hematemesis/coffee-ground emesis/black/bloody stools. No fever, no chills, no chest pain, no SOB. Patient seen at the ER yesterday. Abnormal LFTs noted. CT abdomen pelvis showed 1. There are several calyceal calculi in the right kidney measuring up to 11 mm and in the left kidney measuring up to 9 mm. No hydronephrosis or ureterolithiasis is seen. 2. 3.3 cm of debris in the lower esophagus may represent esophageal dysmotility. No hiatal hernia is seen. 3. Bowel loops are nondilated. There is diverticulosis of the lower left and sigmoid colon. No acute inflammatory changes are seen involving the bowel. The appendix is not visible. Patient's symptoms attributed to gastritis. Patient given prescription for Carafate, and Zofran. He was instructed to increase home Pepcid to twice a day. Persistent symptoms at home. Patient unable to take his pills and food. Outpatient GI appointment not until next week. Patient directed to ER by outpatient provider. 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 Admission Exam Per Admitting Provider GENERAL: Comfortable, pleasant, looks younger than stated age, no respiratory distress SKIN: Normal color, warm HEENT: [place] palpebral conjunctivae, no ptosis, dry buccal mucosa NECK : Supple, no tenderness CHEST : CTA, no tenderness HEART : RRR, no obvious murmurs ABDOMEN: Some distention, minimal epigastric tenderness EXTREMITIES : No LE swelling/tenderness, no other conspicuous deformities noted NEUROLOGIC : Coherent, no facial asymmetry, no other gross focality Principal Diagnosis Esophageal dysphagia Abdominal pain Transaminitis Discharge Exam GENERAL: Alert and oriented x3. NAD, on RA. HEENT: No pallor, no icterus. Pupils equal, round and reactive to light. Oral mucosa moist. NECK: No JVD, no neck masses. HEART: S1 and S2 heard. Regular rate and rhythm. No murmur, no gallop. RESPIRATORY SYSTEM: Normal AP diameter. No accessory muscle use. No wheezing, no crackles. ABDOMEN: Soft, bowel sounds present, nontender, no distention. CENTRAL NERVOUS SYSTEM: No facial droop. Speech is clear. Obeys simple commands. Moves extremities. EXTREMITIES: No edema, no erythema seen. Discharge Data Allergies Allergy/AdvReac Type Severity Reaction Status Date / Time atorvastatin Allergy Severe TEMP 107., Verified 12/30/22 19:18 NEARLY PER eletriptan Allergy Intermediate LYMPH Verified 12/30/22 19:18 NODES SWELLED, HOT FLASHES oxycodone Allergy Intermediate NIGHTMARES Verified 12/30/22 19:18 Consultations 12/30/22 19:19 ED Decision to Admit Stat 12/30/22 22:01 Consult Gastroenterology Routine Procedures Performed Operation Date: 12/31/22 10:55 Actual Procedures p EGD Foreign Body Removal - Jones Zhou DO s EGD Biopsy Dilatation - Jones Zhou DO p Endoscopic Ultrasonography Upper - Jones Zhou DO Ordered Studies 12/31/22 14:01 US upper EUS PACS images Routine Hospital Course (1) Abdominal pain: Plan 82-year-old male with PMH of nonobstructive CAD, PVD status post surgery, HTN, HLD, DM2 on oral meds, chronic anemia [baseline hemoglobin of 12], BPH, esophageal dysphagia, GERD, microscopic colitis and past tobacco abuse presented to the ED 12/30 with complaint of progressive worsening of his already existing difficulty swallowing with associated upper belly pain which is relieved by forceful emesis for the last 2 days [employer]. Patient denied any fever or chills or black/bloody stools or hematemesis. Of note, patient had swallowing problems for about 3 years, no unusual weight loss, EGD 2020 showed tortuous esophagus status post dilatation, recently evaluated as an outpatient and symptoms attributed to gastritis when patient was prescribed Carafate/Zofran/instructed to increase Pepcid to twice a day. He was managed for the following: Esophageal dysphagia Patient has history of dysphagia, comes in with worsening swallowing difficulty associated with upper belly pain, relieved with forceful emesis for the last 2 days [employer]. Patient s/p post EGD and EUS, status post dilatation, tolerating clear liquid diet. Advance to full liquid diet. Patient aware that he needs to stay on full liquid diet until he sees GI doctor in 2 weeks time for repeat endoscopy. Patient will be discharged on Protonix daily and Carafate slurry 4 times daily for 10 days. Patient is hemodynamically stable and denies any new complaints or belly pain. Patient reports feeling better. Transaminitis likely secondary to NAFLD, hepatic steatosis noted on imaging 2 days ago, monitor lfts. already trending down. Follow-up with LFT and with GI doctor office in 2 weeks. Other chronic medical conditions: Continue with/resume home meds as able. nonobstructive CAD/PVD status post surgery hyperlipidemia, on statin Rx DM2 on oral medications, reasonable control as of recent hemoglobin A1c of 7.1 this month chronic anemia, hemoglobin at baseline microscopic colitis as per records past tobacco abuse DVT prophylaxis: EDs; SCDs contraindicated w/ history of LE PAD Re: Possible procedure Full code. Patient Ms. Gilma Quintanilla, contact #[phone]. By CMS guidelines, a determination that the admission or continued stay is not medically necessary has been made by a member of the Utilization Review committee and a physician for this hospital stay. Therefore, a Code 44 will be completed and the inpatient admission will be changed to outpatient. Patient being discharged to home with following instruction at the point of discharge: Follow-up with your primary care physician within a week time and likely you will need labs CBC/CMP/magnesium/phosphorus. Follow-up with GI doctor in the 2 weeks time for repeat endoscopy. You will need to be on full liquid diet until seen by GI doctor as an outpatient. You will be discharged on Carafate slurry and Protonix daily. Please make sure that you are able to get your medications today by calling your pharmacy before you leave the hospital so that your treatment continuity is not broken. Home Health Attestation I certify that this patient is under my care and that I, or a physicians events administrative assistant working with me, had a face to-face encounter that meets the home health [id number] encounter requirements with this patient. The encounter with the patient was in whole, or in part, for the following medical condition, which is the primary reason for home health care (list medical condition): I certify that, based on my findings, the following services are medically necessary home health services: My clinical findings support the need for the above services because: Further, I certify that my clinical findings support that this patient is homebound (i.e. absences from home require considerable and taxing effort and are for medical reasons or hinduism services or infrequently or of short duration when for other reasons) because: Certification for Home Health Services: Based on the above findings, I certify that this patient is confined to the home and needs intermittent alf care, physical therapy and/or speech therapy or continues to need occupational therapy. The patient is under my care, and I have initiated the establishment of the plan of care. This patient will be followed by a physician who will periodically review the plan of care. Total Time Total Time Spent Total Time Spent (In Minutes): 45 Discharge Plan Discharge Items Patient Disposition: Home - Self-Care Reason For Visit: ELEVATED BP, ABD PAIN, MAY NEED IV BB Discharge Diagnosis: Esophageal dysphagia Abdominal pain Transaminitis Activity: Resume your previous activity Non-emergency contact: Primary Care Provider Call non-emergency contact if: you have any medication questions, your pain is worsening and your temperature is above 101 Follow-up/Referrals: Chetan Galvez MD [Primary Care Provider] - Diet: Other - See Diet Comment Diet Comment: FULL LIQUID DIET UNTIL GI EVAL OUTPATIENT Addtl Attending Provider Instructions: Follow-up with your primary care physician within a week time and likely you will need labs CBC/CMP/magnesium/phosphorus. Follow-up with GI doctor in the 2 weeks time for repeat endoscopy. You will need to be on full liquid diet until seen by GI doctor as an outpatient. You will be discharged on Carafate slurry and Protonix daily. Please make sure that you are able to get your medications today by calling your pharmacy before you leave the hospital so that your treatment continuity is not broken. Pending Studies at Discharge: Yes Stand-Alone Forms: My [facility], Smoking Cessation Medications and DC Order Prescriptions: New pantoprazole 40 mg Tablet,Delayed Release (Dr/Ec) 40 mg PO QAM Qty: 30 0RF sucralfate 100 mg/mL Suspension 1 g PO QID 10 Days Qty: 400 0RF Continued aspirin 81 mg Tablet,Delayed Release (Dr/Ec) 81 mg PO PM ascorbic acid (vitamin C) [Vitamin C] 500 mg Tablet 1,000 mg PO QAM metformin 1,000 mg tablet 500 mg PO BIDM lysine 500 mg Tablet 500 mg PO QAM lutein 40 mg Capsule 40 mg PO QAM Probiotic 3 billion cell Capsule 3 mmu cells PO QAM nitroglycerin 0.4 mg tablet, sublingual 0.4 mg sublingual UD PRN (Reason: Chest Pain) Rx Instructions: take 1 tab every 5 minutes as needed for chest pain, use up to 3 in 15 minutes clopidogrel [Plavix] 75 mg Tablet 75 mg PO QAM metoprolol succinate 50 mg tablet extended release 24 hr 50 mg PO PM simvastatin 40 mg tablet 40 mg PO HS allopurinol 300 mg tablet 300 mg PO QAM zinc gluconate 50 mg Tablet 50 mg PO QAM Slow-Mag 71.5 mg Tablet,Delayed Release (Dr/Ec) 143 mg PO BID acetaminophen 500 mg Tablet 500 mg PO HS lisinopril 2.5 mg Tablet 2.5 mg PO QAM finasteride 5 mg Tablet 5 mg PO PM cetirizine 10 mg Tablet 10 mg PO QAM cyanocobalamin (vitamin B-12) [Vitamin B-12] 1,000 mcg Tablet 2,000 mcg PO DAILY pyridoxine (vitamin B6) [Vitamin B-6] 100 mg Tablet 100 mg PO QAM ondansetron 4 mg tablet,disintegrating 4 mg PO Q6H PRN (Reason: nausea and vomiting) Qty: 14 0RF Unisom (doxylamine) 25 mg Tablet 25 mg PO HS PRN (Reason: Sleep) Discontinued sucralfate [Carafate] 100 mg/mL suspension 10 ml PO QID Qty: 420 0RF Rx Instructions: swish in mouth and swallow; use after food/drink: May substitute tablets as a slurry. Discharge Orders: Discharge Order (Routine); Ordered 01/01/23 Ordered By: Maco Guido Admission Data Admit Date/Time: 12/31/22 13:45 Attending Provider: Maco Guido Admit Provider: Lam Moss Primary Care Provider: Chetan Galvez Other Providers: Lam Moss ; Carla Honeycutt ; Ceferino Jean ; Bridget Denson ; Juana Valenzuela ; Kathia Kiser ; Lynda Olivares ; Goyo Oakes ; Maximus Gallagher ; Jones Zhou ; Renee Haas ; Nicho Cline ; Monserrat Hagan ; Toya Napier ; Iona Crandall ; Ashley Walden ; Maria Fernanda Smith ; Sunil Tao ; Rj Prieto ; Dionne Cartagena ; Wen Chaparro Jr
== END 2023-01-01 14:25 | disposition home or self-care (01) | DRG 392 ==
LOC: ED 17:12 → 2N 17:12

== ENCOUNTER 2024-03-29 17:24 | Observation (INO) ==
--- NOTE | 2024-03-29 18:04 | Emergency Department Note ---
Impression & Plan Food impaction of esophagus ED Provider Note CHIEF COMPLAINT: Food bolus HISTORY OF PRESENTING ILLNESS: This 84-year-old male patient presents to the emergency department with his for evaluation of a food bolus. The patient states that he has a "twisted esophagus" and he believes he got food stuck last night while he was eating dinner. He was eating nigerian steak that was broken up last night as well as pierogis. The patient states that since that time he has had trouble swallowing. Sometimes he is able to swallow his saliva and sometimes he has to spit out his saliva. He has not been able to eat or drink anything since last night - it all just comes right back up per patient. The patient states he could not even take his medications today. He feels like it is stuck in the middle part of his esophagus. He has a history of food boluses. Sometimes it resolves on its own after a couple hours, but this time it isn't clearing on its own. He denies any chest pain or shortness of breath from the episode, but has a history of chronic intermittent SOB. He is on Plavix for a history of vein bypass. The patient's last EGD was 01/26/[address] Zhou that showed a torturous esophagus that was dilated to 51 Spanish. Otherwise normal in appearance. The patient was prescribed Protonix 40 mg once a day in the past per his records, but the patient states that he never got a prescription for Protonix. He is taking Pepcid 20 mg once a day in the morning. He denies any reflux symptoms. REVIEW OF SYSTEMS: See HPI for pertinent positives and pertinent negatives. ALLERGIES: Atorvastatin, eletriptan, oxycodone MEDICATIONS: See below PAST MEDICAL HISTORY: See below PHYSICAL EXAM: VITALS: Vitals are noted on the nurse's note and reviewed by myself. GENERAL: Non toxic, no acute distress, non-diaphoretic. SKIN: Capillary refill <2 sec. EYES: PERRLA. EOMI. Conjunctivae without injection, sclerae without icterus. NOSE: Patent without discharge. MOUTH: Mucous membranes moist. Uvula midline. Airway patent. NECK: Supple without nuchal rigidity. HEART: Regular rate and rhythm without murmurs gallops or rubs. LUNGS: Clear to auscultation bilaterally without wheezes, rales or rhonchi. No retractions or accessory muscle use. ABDOMEN: Positive bowel sounds x 4. Normal tympanic percussion. Soft, nontender. No masses or organomegaly. Osullivan sign negative. No guarding or rebound tenderness. No focal RLQ or LLQ tenderness. MUSCULOSKELETAL: No gross musculoskeletal defects. NEURO: Patient was alert and oriented. No focal neurological deficits. DIFFERENTIAL DIAGNOSIS: Differential diagnosis includes food bolus, esophageal web, Ma's esophagus, eosinophilic esophagitis, gastritis, esophagitis, esophageal mass, or others. ED COURSE AND MEDICAL DECISION MAKING: HISTORY FROM INDEPENDENT HISTORIAN: Additional history was obtained from the patient's . MEDICATIONS GIVEN: 250 mL normal saline solution bolus. Glucagon 1 mg IV. Ativan 0.5 mg IV. MONITOR: Continuous cardiac rehabilitation program director: Order was placed for continuous cardiac rehabilitation program director. Patient was placed on the cardiac rehabilitation program director and continuous pulse ox. Patient was noted to be in normal sinus rhythm at an initial rate of 84 bpm per my interpretation. INTERPRETATION OF LABS: I interpreted the labs with full lab results as below in the lab section of this note. Pertinent lab results discussed in the MDM section below. INTERPRETATION OF IMAGING: Imaging studies were interpreted by myself and read by radiology as per the imaging section of this note. Chest x-ray showed a mildly enlarged heart, but no significant change from previous imaging. Chronic interstitial thickening and mild elevation of the right hemidiaphragm is similar to previous. No other acute cardiopulmonary etiology. EXTERNAL RECORDS REVIEWED: I reviewed the patient's last EGD as summarized above. CHRONIC MEDICAL/SOCIAL CONDITIONS AFFECTING CARE: History of torturous esophagus with previous food bolus and need for esophageal dilation CONSULTATIONS: Dr. Chaparro of GI MDM SUMMARY: I examined the patient. The patient was eating Lithuanian steak and pierogis last evening when he felt like they got stuck in his mid to lower esophagus. He has been unable to eat or drink anything since that time. He is usually able to swallow his saliva, but sometimes has to spit his saliva back up. He has not been able to take any of his medications because they come right back up. The patient has a history of a torturous esophagus with previous food boluses and need for esophageal dilation. The patient denies any reflux symptoms and is only taking Pepcid 20 mg once a day. The patient is on Plavix. An IV lock was placed and labs were drawn. White blood cell count normal at 7.12. Hemoglobin stable at 12.6. Platelet count normal at 155. Coags are normal. Glucose 159 and AST 62, but CMP otherwise without significant abnormalities. Chest x-ray without acute cardiopulmonary etiology. The patient was given a 250 mL normal saline solution bolus, glucagon 1 mg IV, and Ativan 0.5 mg IV. However, there was no change in the status of his food bolus. He was given water to try to drink which would stay down for short period of time before he would need to spit it back up. He was unable to keep any fluids down. The patient was independently evaluated by Dr. Small, who agrees with my assessment and treatment plan. Since the patient's food bolus was unable to be resolved with medication, I contacted Dr. Chaparro of GI. Dr. Chaparro presented to take the patient for emergent endoscopy for treatment of the food bolus. Please refer to his dictation for further details. The patient was taken for endoscopy in stable condition. DIAGNOSIS: Food bolus Past Med/Surg History Problem List (Updated 03/30/24 @ 01:36 by Yvonne Keith PA-C) Food impaction of esophagus (Acute) Acute kidney injury superimposed on chronic kidney disease (Acute) Diabetic ulcer of toe associated with type 2 diabetes mellitus, with fat layer exposed (Acute) Diabetic peripheral neuropathy associated with type 2 diabetes mellitus (Chronic) Loss of sensation of skin (Chronic) Foot deformity (Chronic) Postoperative fever (Acute) Fever Chronic cholecystitis with calculus Abdominal pain Intractable nausea and vomiting (Acute) Dehydration (Acute) Hypomagnesemia (Acute) CKD (chronic kidney disease) (Acute) Encounter for pre-operative examination Lumbar stenosis with neurogenic claudication (Chronic 07/06/13) Hypertension (Chronic) GERD (gastroesophageal reflux disease) (Chronic) CKD (chronic kidney disease), stage III (Chronic) pt denies Coronary artery disease (Chronic) "nonobstructive disease per cath 2011" Diabetes mellitus, type II (Chronic) Medical History Hyperlipidemia On anticoagulant therapy plavix daily--prescribed after vein surgery 2019 Osteoarthritis Gout BPH (benign prostatic hyperplasia) Kidney stones per is a current problem Hearing deficit Myocardial Infarction hx of 1994---follows with Dr. 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 Lobo--Posterolateral fusion T11-L3 History of lumbar spinal fusion 2009 @ [facility] Dr. Lobo History of right knee surgery History of colonoscopy History of esophagogastroduodenoscopy (EGD) History of tooth extraction all teeth removed, top denture History of bilateral cataract extraction History of cardiac cath x3--1 in [place], 2nd @ [facility], last 2011 @ [facility]--all with no stents Family History Other Family history non-contributory No family history of adverse response to anesthesia Social History Smoking Status: Former smoker Second Hand Exposure: No; Do You Dip or Chew Tobacco: Yes (chews (advised)); Hx Alcohol Use: No Hx Substance Use: No Preferred Language: French Communication Ability: Effective Dog Bather Required: No Beliefs That Will Affect Care: None marital status: Current Living Situation: Spouse Current Living Situation Comment: home with spouse Feels Safe at Home: Yes Assistive Devices: Denture - Upper and Glasses Allergies Allergies Allergy/AdvReac Type Severity Reaction Status Date / Time atorvastatin Allergy Severe TEMP 107., Verified 01/26/23 07:52 NEARLY PER eletriptan Allergy Intermediate LYMPH Verified 01/26/23 07:52 NODES SWELLED, HOT FLASHES oxycodone Allergy Intermediate NIGHTMARES Verified 01/26/23 07:52 Home Meds Home Medications Medication Instructions Recorded Confirmed allopurinol 300 mg tablet 300 mg PO QAM 08/13/18 01/18/23 metoprolol succinate 50 mg 50 mg PO PM 08/13/18 01/26/23 tablet,extended release 24 hr simvastatin 40 mg tablet 40 mg PO HS 08/13/18 01/26/23 ascorbic acid (vitamin C) 500 mg 1,000 mg PO QAM 08/20/18 01/26/23 tablet (Vitamin C) aspirin 81 mg tablet,delayed 81 mg PO PM 08/20/18 01/18/23 release lactobacillus combination no.4 3 3 mmu cells PO QAM 08/20/18 01/26/23 billion cell capsule (Probiotic) lutein 40 mg capsule 40 mg PO QAM 08/20/18 01/26/23 lysine 500 mg tablet 500 mg PO QAM 08/20/18 01/26/23 metformin 1,000 mg tablet 500 mg PO BIDM 08/20/18 01/26/23 nitroglycerin 0.4 mg sublingual 0.4 mg sublingual UD PRN Chest Pain 08/05/19 01/18/23 tablet magnesium chloride 71.5 mg 143 mg PO BID 01/01/20 01/26/23 (magnesium chloride) tablet,delayed release (Slow-Mag) zinc gluconate 50 mg tablet 50 mg PO QAM 01/01/20 01/26/23 clopidogrel 75 mg tablet (Plavix) 75 mg PO QAM 01/09/20 01/26/23 acetaminophen 500 mg tablet 500 mg PO HS 04/20/22 01/26/23 finasteride 5 mg tablet 5 mg PO PM 04/20/22 01/26/23 lisinopril 2.5 mg tablet 2.5 mg PO QAM 04/20/22 01/18/23 cetirizine 10 mg tablet 10 mg PO QAM 12/29/22 01/26/23 pyridoxine (vitamin B6) 100 mg 100 mg PO QAM 12/29/22 01/26/23 tablet (Vitamin B-6) doxylamine succinate 25 mg tablet 25 mg PO HS 12/30/22 01/26/23 (Unisom (doxylamine)) cyanocobalamin (vitamin B-12) 500 500 mcg PO BID 01/18/23 01/26/23 mcg tablet (Vitamin B-12) Previous Rx's Medication Instructions Recorded ondansetron 4 mg disintegrating 4 mg PO Q6H PRN nausea and 12/29/22 tablet vomiting #14 tabs pantoprazole 40 mg tablet,delayed 40 mg PO QAM #30 tabs 01/01/23 release Results & Data (ED) Vital Signs Vital Signs - 24 hr 03/29/24 17:28 Temperature 36.7 C Temperature Source Temporal Artery Scan Pulse Rate 82 Respiratory Rate 18 Respiratory Effort / Characteristics Non-Labored Spontaneous Respiratory Depth Normal Blood Pressure 131/79 Blood Pressure Mean 96 Blood Pressure Position Sitting Pulse Oximetry 96 Oxygen Delivery Method Room Air Sepsis Recent Fever Within 48 Hours No Sepsis New/Unexplained Change in Mental Status No Sepsis Action Taken by Nursing No Action Required Laboratory Data 03/29/24 Unknown 03/29/24 Unknown Lab Results 03/29/24 Range/Units Unknown WBC 7.12 (4.8-10.8) K/ul RBC 4.09 L (4.70-6.10) M/uL Hgb 12.6 L (14.0-18.0) g/dl Hct 37.7 L (42.0-52.0) % MCV 92.2 (80.0-100.0) fL MCH 30.8 (25.0-34.0) pg MCHC 33.4 (32.0-36.0) g/dL RDW Std Deviation 46.6 H (36.4-46.3) fL RDW Coeff of Mirza 14.0 (11.5-14.5) % Plt Count 155 (130-400) K/uL MPV 9.8 (9.4-12.4) fL Immature Gran % (Auto) 0.7 % Neut % (Auto) 52.8 % Lymph % (Auto) 29.1 % Leake % (Auto) 8.0 % Eos % (Auto) 8.6 % Baso % (Auto) 0.8 % Neut # (Auto) 3.76 (1.40-6.50) K/uL Lymph # (Auto) 2.07 (1.20-3.40) K/uL Leake # (Auto) 0.57 (0.11-0.59) K/uL Eos # (Auto) 0.61 H (0.00-0.50) K/uL Baso # (Auto) 0.06 (0.00-0.20) K/uL Immature Gran # (Auto) 0.05 (0.01-0.20) K/uL PT 11.6 (9.0-12.0) Seconds INR 1.1 (0.9-1.1) APTT 24 (21-31) Seconds PTT Ratio 0.9 Sodium 140 (136-145) mmol/L Potassium 4.6 (3.5-5.1) mmol/L Chloride 108 H (98-107) mmol/L Carbon Dioxide 23 (21-32) mmol/L Anion Gap 9 (3-11) BUN 19 (6-23) mg/dl Creatinine 1.17 (0.6-1.4) mg/dl Est Cr Clr Drug Dosing 49.9 ml/min Est GFR ( Amer) 65.0 ml/min Est GFR (Non-Af Amer) 56.1 ml/min BUN/Creatinine Ratio 16.2 (10-20) Glucose 159 H (70-99(Fasting)) mg/dl Calcium 9.9 (8.6-10.3) mg/dl Total Bilirubin 0.7 (0.2-1.0) mg/dl AST 62 H (13-39) U/L ALT 47 (7-52) U/L Alkaline Phosphatase 55 (34-104) U/L Total Protein 7.5 (6.0-8.3) gm/dl Albumin 4.8 (3.4-5.0) gm/dl Globulin 2.7 (2.5-4.0) gm/dl Albumin/Globulin Ratio 1.8 (0.9-2) Administered Medications Lactated Ringer's (Lr) 1,000 mls @ 60 mls/hr IV .[id number] [facility] Stop: 04/28/24 23:44 Last Admin: 03/30/24 01:05 Dose: 60 mls/hr Documented By: LUZ Insulin Aspart (Insulin Aspart Per Unit Charge) 0 units SC Q6 [facility] Stop: 04/29/24 00:24 Last Admin: 03/30/24 01:10 Dose: Not Given Documented By: LUZ Co-signed By: ANA Metoprolol Tartrate (Metoprolol Tartrate 1 Mg/Ml Vial) 2.5 mg IV Q6 [facility] Stop: 04/29/24 00:00 Last Admin: 03/30/24 01:09 Dose: 2.5 mg Documented By: LUZ Discontinued Medications Glucagon 1 mg/ Syringe 1 mls @ 1 mls/min IV NOW ONE Stop: 03/29/24 18:17 Last Admin: 03/29/24 19:02 Dose: 1 mls/min Documented By: EJV Sodium Chloride (Nss) 250 mls @ 999 mls/hr IV .Q16M ONE Stop: 03/29/24 18:31 Last Infusion: 03/29/24 19:32 Dose: Infused Documented By: Admin: 03/29/24 18:55 Dose: 999 mls/hr Documented By: TOSHIA Lorazepam (Lorazepam 2 Mg/1 Ml Vial) 0.5 mg IV NOW STA Stop: 03/29/24 18:17 Last Admin: 03/29/24 18:55 Dose: 0.5 mg Documented By: TOSHIA Imaging Data Radiologist's Impression: Chest X-Ray 03/29/24 18:16 SINGLE VIEW CHEST CLINICAL HISTORY: Dysphagia. Food bolus sensation. FINDINGS: 2 AP, portable, upright chest radiographs are compared to study dated 12/30/2022. No radiodense foreign body is identified. The heart is mildly enlarged. The pulmonary vasculature is noncongested. Chronic interstitial thickening and mild elevation of the right hemidiaphragm is similar to previous. No airspace consolidation or large pleural effusion is identified. No pneumothorax is seen. The skeletal structures are osteopenic. The bony thorax is grossly intact. Degenerative change is noted throughout the spine. Fusion hardware is seen at the thoracolumbar junction. IMPRESSION: No active disease in the chest. ACT 112: Negative or not required by law. Electronically signed by: Dagoberto Quinones M.D. 03/29/2024 6:48 PM Discharge Plan Visit Data Chief Complaint: Food Bolus Stated Complaint: ESOPHOGUS, NEEDS CLEANED OUT FOOD STUCK ED Provider: Jv Small ED Midlevel Provider: Yvonne Keith Discharge Problem: Food impaction of esophagus Patient Disposition: Admitted As Inpatient Condition: Good Discharge Instructions Interventions: ED Discharge Assessment Last Done: 03/29/24 21:59 Discharge Problem: Food impaction of esophagus Qualifiers: Encounter type: initial encounter Qualified Code(s): T18.128A - Food in esophagus causing other injury, initial encounter; W44.F3XA - Food entering into or through a natural orifice, initial encounter
[2024-03-29] MEDS ORDERED: GLUCAGON FOR INJ 1 MG VIAL IM PRN (18:30)
[2024-03-29 18:37] LABS: Basophils # (auto) 0.06 K/uL (0.00-0.20); Basophils % (auto) 0.8 %; Eosinophils # (auto) 0.61 K/uL (0.00-0.50); Eosinophils % (auto) 8.6 %; Hematocrit (blood only) 37.7 % (42.0-52.0); Hemoglobin 12.6 g/dl (14.0-18.0); Immature Granulocytes # (auto) 0.05 K/uL (0.01-0.20); Immature Granulocytes % (auto) 0.7 %; Lymphocytes # (auto) 2.07 K/uL (1.20-3.40); Lymphocytes % (auto) 29.1 %; Mean Corpuscular Hemoglobin 30.8 pg (25.0-34.0); Mean Corpuscular Hgb Conc 33.4 g/dL (32.0-36.0); Mean Corpuscular Volume 92.2 fL (80.0-100.0); Mean Platelet Volume 9.8 fL (9.4-12.4); Monocytes # (auto) 0.57 K/uL (0.11-0.59); Neutrophils # (auto) 3.76 K/uL (1.40-6.50); Neutrophils % (auto) 52.8 %; Platelet Count 155 K/uL (130-400); RDW Standard Deviation 46.6 fL (36.4-46.3); Red Blood Count 4.09 M/uL (4.70-6.10); White Blood Count 7.12 K/ul (4.8-10.8)
[2024-03-29 18:40] LABS: Albumin Globulin Ratio 1.8 (0.9-2); Albumin Level 4.8 gm/dl (3.4-5.0); BUN Creatinine Ratio 16.2 (10-20); Bilirubin,Total 0.7 mg/dl (0.2-1.0); Calcium 9.9 mg/dl (8.6-10.3); Creatinine Clr Calc Pharmacy 49.9 ml/min; Est GFR (Non-African American) 56.1 ml/min; Globulin 2.7 gm/dl (2.5-4.0); Potassium 4.6 mmol/L (3.5-5.1); Total Protein 7.5 gm/dl (6.0-8.3)
--- NOTE | 2024-03-29 18:49 | XRay Report ---
SINGLE VIEW CHEST CLINICAL HISTORY: Dysphagia. Food bolus sensation. FINDINGS: 2 AP, portable, upright chest radiographs are compared to study dated 12/30/2022. No radiode nse foreign body is identified. The heart is mildly enlarged. The pulmonary vasculature is noncongest ed. Chronic interstitial thickening and mild elevation of the right hemidiaphragm is similar to previ ous. No airspace consolidation or large pleural effusion is identified. No pneumothorax is seen. The skeletal structures are osteopenic. The bony thorax is grossly intact. Degenerative change is noted t hroughout the spine. Fusion hardware is seen at the thoracolumbar junction. IMPRESSION: No active disease in the chest. ACT 112: Negative or not required by law. Electronically signed by: Dagoberto Quinones M.D. 03/29/2024 6:48 PM
[2024-03-29] MEDS: LORazepam 2 MG/1 ML VIAL IV STA (18:55)
[2024-03-29] MEDS: SODIUM CHLORIDE 0.9% 250 ML IV ONE (18:55)
[2024-03-29] MEDS: GLUCAGON 1 MG in SYRINGE 0 ML IV ONE (19:02)
[2024-03-29 19:03] LABS: INR 1.1 (0.9-1.1); Partial Thromboplastin Ratio 0.9; Partial Thromboplastin Time 24 Seconds (21-31); Prothrombin Time 11.6 Seconds (9.0-12.0)
--- NOTE | 2024-03-29 20:25 | Emergency Department Note ---
ED Visit Note I was consulted by the Advanced Practice Provider. I personally made/approved the management plan and take responsibility for the patient management. I performed a substantive portion of the visit. This includes the aspects of: -History/Physical/Personally seeing the patient -MDM -Pulm examination patient is spitting into a basin and unable to tolerate secretions. This happened 6 previous times requiring scoping. At this time patient will require GI consultation for endoscopy. .
--- NOTE | 2024-03-29 22:06 | History & Physical Report ---
Date of Service March 29, 2024 Assessment & Plan (1) Encounter for pre-operative examination: Plan: Elderly man with a food impaction. Procedure and risks for EGD with relief of food impaction discussed, emphasizing risk of bleeding on plavix and perforation because of the length of time food has been in esophagus. He understands. History of Present Illness Chief Complaint: Food bolus Primary Care Provider: Chetan Galvez MD 84 year old man with food bolus that occurred greater than 24 hours ago. He is here for relief. Has had this before Has had dilation. Takes Plavix Allergies Allergy/AdvReac Type Severity Reaction Status Date / Time atorvastatin Allergy Severe TEMP 107., Verified 01/26/23 07:52 NEARLY PER eletriptan Allergy Intermediate LYMPH Verified 01/26/23 07:52 NODES SWELLED, HOT FLASHES oxycodone Allergy Intermediate NIGHTMARES Verified 01/26/23 07:52 Home Medications Medication Instructions Recorded Confirmed Type allopurinol 300 mg tablet 300 mg PO QAM 08/13/18 01/18/23 History metoprolol succinate 50 mg 50 mg PO PM 08/13/18 01/26/23 History tablet,extended release 24 hr simvastatin 40 mg tablet 40 mg PO HS 08/13/18 01/26/23 History ascorbic acid (vitamin C) 500 mg 1,000 mg PO QAM 08/20/18 01/26/23 History tablet (Vitamin C) aspirin 81 mg tablet,delayed 81 mg PO PM 08/20/18 01/18/23 History release lactobacillus combination no.4 3 3 mmu cells PO QAM 08/20/18 01/26/23 History billion cell capsule (Probiotic) lutein 40 mg capsule 40 mg PO QAM 08/20/18 01/26/23 History lysine 500 mg tablet 500 mg PO QAM 08/20/18 01/26/23 History metformin 1,000 mg tablet 500 mg PO BIDM 08/20/18 01/26/23 History nitroglycerin 0.4 mg sublingual 0.4 mg sublingual UD PRN Chest Pain 08/05/19 01/18/23 History tablet magnesium chloride 71.5 mg 143 mg PO BID 01/01/20 01/26/23 History (magnesium chloride) tablet,delayed release (Slow-Mag) zinc gluconate 50 mg tablet 50 mg PO QAM 01/01/20 01/26/23 History clopidogrel 75 mg tablet (Plavix) 75 mg PO QAM 01/09/20 01/26/23 History acetaminophen 500 mg tablet 500 mg PO HS 04/20/22 01/26/23 History finasteride 5 mg tablet 5 mg PO PM 04/20/22 01/26/23 History lisinopril 2.5 mg tablet 2.5 mg PO QAM 04/20/22 01/18/23 History cetirizine 10 mg tablet 10 mg PO QAM 12/29/22 01/26/23 History ondansetron 4 mg disintegrating 4 mg PO Q6H PRN nausea and 12/29/22 01/18/23 Rx tablet vomiting #14 tabs pyridoxine (vitamin B6) 100 mg 100 mg PO QAM 12/29/22 01/26/23 History tablet (Vitamin B-6) doxylamine succinate 25 mg tablet 25 mg PO HS 12/30/22 01/26/23 History (Unisom (doxylamine)) pantoprazole 40 mg tablet,delayed 40 mg PO QAM #30 tabs 01/01/23 01/26/23 Rx release cyanocobalamin (vitamin B-12) 500 500 mcg PO BID 01/18/23 01/26/23 History mcg tablet (Vitamin B-12) Past Med/Surg History Problem List Acute kidney injury superimposed on chronic kidney disease (Acute) Diabetic ulcer of toe associated with type 2 diabetes mellitus, with fat layer exposed (Acute) Diabetic peripheral neuropathy associated with type 2 diabetes mellitus (Chronic) Loss of sensation of skin (Chronic) Foot deformity (Chronic) Postoperative fever (Acute) Fever Chronic cholecystitis with calculus Abdominal pain Intractable nausea and vomiting (Acute) Dehydration (Acute) Hypomagnesemia (Acute) CKD (chronic kidney disease) (Acute) Encounter for pre-operative examination Lumbar stenosis with neurogenic claudication (Chronic 07/06/13) Hypertension (Chronic) GERD (gastroesophageal reflux disease) (Chronic) CKD (chronic kidney disease), stage III (Chronic) pt denies Coronary artery disease (Chronic) "nonobstructive disease per cath 2011" Diabetes mellitus, type II (Chronic) Medical History Hyperlipidemia On anticoagulant therapy plavix daily--prescribed after vein surgery 2018 Osteoarthritis Gout BPH (benign prostatic hyperplasia) Kidney stones per is a current problem Hearing deficit Myocardial Infarction hx of 1994---follows with Dr. 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 Lobo--Posterolateral fusion T11-L3 History of lumbar spinal fusion 2009 @ [facility] Dr. Lobo History of right knee surgery History of colonoscopy History of esophagogastroduodenoscopy (EGD) History of tooth extraction all teeth removed, top denture History of bilateral cataract extraction History of cardiac cath x3--1 in [place], 2nd @ [facility], last 2011 @ [facility]--all with no stents Family History Other Family history non-contributory No family history of adverse response to anesthesia Social History Smoking Status: Former smoker Second Hand Exposure: No; Do You Dip or Chew Tobacco: Yes (chews (advised)); Hx Alcohol Use: No Hx Substance Use: No Preferred Language: Belarusian Communication Ability: Effective Spring Machine Operator Required: No Beliefs That Will Affect Care: None marital status: Current Living Situation: Spouse Current Living Situation Comment: home with spouse Feels Safe at Home: Yes Assistive Devices: Denture - Upper and Glasses Review of Systems All systems reviewed & are unremarkable except as noted in HPI & below Physical Exam Constitutional: WD/WN, vitals as above Respiratory: normal respiratory effort, lungs clear to auscultation Cardiovascular: RRR, no murmur, no edema Gastrointestinal (Abdomen): normal bowel sounds, soft, nontender, no hepatosplenomegaly ASA Classification ASA ASA3 Results & Data Vital Signs (Past 12 Hours) Vital Signs Temp Pulse Resp BP Pulse Ox O2 Del Method 03/29/24 17:28 36.7 C 82 18 131/79 96 Room Air
[2024-03-29] MEDS ORDERED: ONDANSETRON INJ 2 MG/ML 2 ML VIAL IV PRN (22:12)
[2024-03-29] MEDS ORDERED: PROMETHAZINE HCL 6.25 MG in SODIUM CHLORIDE 0.9% 50 ML IV PRN (22:12)
[2024-03-29] MEDS ORDERED: ePHEDrine sulfate 50 MG/ML AMP IV PRN (22:12)
[2024-03-29] MEDS ORDERED: ATROPINE SULFATE 0.1 MG/ML 10ML SYR IV PRN (22:12)
[2024-03-29] MEDS ORDERED: fentaNYL citrate PF 100 MCG/2 ML VIAL IV PRN (22:12)
--- NOTE | 2024-03-29 22:12 | Anesthesiology Consultation ---
Date of Service March 29, 2024 Assessment & Plan Chart Review Chart Review: Acceptable Risk for Surgery and Patient NOT seen in Pre Admission Testing Consults Requested none ASA ASA3E Proposed Anesthesia Anesthesia Type: General Risk / Benefits Reviewed With: PT / POA / Parent / Guardian, Accepts Plan and Informed Consent Obtained History Surgery Operation Date: 03/29/24 21:25 Proposed Procedures p Esophagogastroduodenoscopy - Wen Chaparro Jr, MD Height/Weight Height: 5 ft 9 in Weight: 88.6 kg Allergies Allergy/AdvReac Type Severity Reaction Status Date / Time atorvastatin Allergy Severe TEMP 107., Verified 01/26/23 07:52 NEARLY PER eletriptan Allergy Intermediate LYMPH Verified 01/26/23 07:52 NODES SWELLED, HOT FLASHES oxycodone Allergy Intermediate NIGHTMARES Verified 01/26/23 07:52 Medications Home Medications Medication Instructions Recorded Confirmed Last Taken allopurinol 300 mg tablet 300 mg PO QAM 08/13/18 01/18/23 12/28/22 metoprolol succinate 50 mg 50 mg PO PM 08/13/18 01/26/23 01/25/23 tablet,extended release 24 hr simvastatin 40 mg tablet 40 mg PO HS 08/13/18 01/26/23 01/25/23 ascorbic acid (vitamin C) 500 mg 1,000 mg PO QAM 08/20/18 01/26/23 01/25/23 tablet (Vitamin C) aspirin 81 mg tablet,delayed 81 mg PO PM 08/20/18 01/18/23 12/28/22 release lactobacillus combination no.4 3 3 mmu cells PO QAM 08/20/18 01/26/23 01/25/23 billion cell capsule (Probiotic) lutein 40 mg capsule 40 mg PO QAM 08/20/18 01/26/23 01/25/23 lysine 500 mg tablet 500 mg PO QAM 08/20/18 01/26/23 01/25/23 metformin 1,000 mg tablet 500 mg PO BIDM 08/20/18 01/26/23 01/25/23 nitroglycerin 0.4 mg sublingual 0.4 mg sublingual UD PRN Chest Pain 08/05/19 01/18/23 Unknown tablet magnesium chloride 71.5 mg 143 mg PO BID 01/01/20 01/26/23 01/25/23 (magnesium chloride) tablet,delayed release (Slow-Mag) zinc gluconate 50 mg tablet 50 mg PO QAM 01/01/20 01/26/23 01/25/23 clopidogrel 75 mg tablet (Plavix) 75 mg PO QAM 01/09/20 01/26/23 01/25/23 acetaminophen 500 mg tablet 500 mg PO HS 04/20/22 01/26/23 01/25/23 finasteride 5 mg tablet 5 mg PO PM 04/20/22 01/26/23 01/25/23 lisinopril 2.5 mg tablet 2.5 mg PO QAM 04/20/22 01/18/23 12/28/22 cetirizine 10 mg tablet 10 mg PO QAM 12/29/22 01/26/23 01/25/23 ondansetron 4 mg disintegrating 4 mg PO Q6H PRN nausea and 12/29/22 01/18/23 12/30/22 tablet vomiting #14 tabs pyridoxine (vitamin B6) 100 mg 100 mg PO QAM 12/29/22 01/26/23 01/25/23 tablet (Vitamin B-6) doxylamine succinate 25 mg tablet 25 mg PO HS 12/30/22 01/26/23 01/25/23 (Unisom (doxylamine)) pantoprazole 40 mg tablet,delayed 40 mg PO QAM #30 tabs 01/01/23 01/26/23 01/26/23 06:00 release cyanocobalamin (vitamin B-12) 500 500 mcg PO BID 01/18/23 01/26/23 01/25/23 mcg tablet (Vitamin B-12) NPO Date Last Intake of Fluids: 03/28/24 Time Last Intake of Fluids: 17:00 Date Last Intake of Solids: 03/28/24 Time Last Intake of Solids: 17:00 Past Medical History Medical History Hyperlipidemia On anticoagulant therapy plavix daily--prescribed after vein surgery 2019 Osteoarthritis Gout BPH (benign prostatic hyperplasia) Kidney stones per is a current problem Hearing deficit Myocardial Infarction hx of 1994---follows with Dr. Mcfarland Skin ulcer of left foot including toes Acquired hammer toe of right foot Callus Diabetes mellitus with diabetic polyneuropathy Hallux valgus (acquired), left foot Acquired hallux valgus of right foot Hammertoe of left foot Exercise / Class Metabolic Activity II 4-5 Yardwork/Stairs/Walk up hill Past Family History Family History Other Family history non-contributory No family history of adverse response to anesthesia Past Surgical History Surgical History History of cholecystectomy 04/26/22 @ [facility] History of surgery 01/03/2019--vein surgery on right leg/toe am[place] (4th digit on right foot[place] [facility] [place] thoracic spinal fusion 07/06/13 @ [facility] Dr. Lobo--Posterolateral fusion T11-L3 History of lumbar spinal fusion 2009 @ [facility] Dr. oLbo History of right knee surgery History of colonoscopy History of esophagogastroduodenoscopy (EGD) History of tooth extraction all teeth removed, top denture History of bilateral cataract extraction History of cardiac cath x3--1 in [place], 2nd @ [facility], last 2011 @ [facility]--all with no stents Past Anesthesia History No Hx of Anesthesia Complications and No Family Hx of Anesthesia Complications History of PONV No Hx of PONV and No Hx of Motion Sickness Social History Smoking Status: Former smoker tobacco type: smokeless tobacco Do You Dip or Chew Tobacco: Yes (chews (advised)) Hx Alcohol Use: No Hx Substance Use: No substance use type: does not use Physical Exam Vital Signs Last Vital Signs Temp 36.7 C 03/29/24 17:28 Pulse 82 03/29/24 17:28 Resp 18 03/29/24 17:28 BP 131/79 03/29/24 17:28 Pulse Ox 96 03/29/24 17:28 O2 Del Method Room Air 03/29/24 17:28 ENMT Mouth: + dentures (upper) Thyromental Distance: > or= 3.5 Finger Breadths Mallampati Class: II Neck normal visual inspection Respiratory normal respiratory effort Auscultation: lungs clear to auscultation bilaterally Cardiovascular Rate/Rhythm: regular rate and regular rhythm Psychiatric Orientation: alert Testing Laboratory Results 03/29/24 Unknown 03/29/24 Unknown PT 11.6 Seconds (9.0-12.0) 03/29/24 Unknown INR 1.1 (0.9-1.1) 03/29/24 Unknown APTT 24 Seconds (21-31) 03/29/24 Unknown
[2024-03-29] MEDS ORDERED: fentaNYL citrate PF 100 MCG/2 ML VIAL ONE (22:19)
[2024-03-29] MEDS ORDERED: ONDANSETRON INJ 2 MG/ML 2 ML VIAL ONE (23:26)
[2024-03-29] MEDS ORDERED: SUCCINYLCHOLINE CHLORIDE 20 MG/ML 10 ML VIAL IV ONE (23:26)
[2024-03-29] MEDS ORDERED: PROPOFOL IV EMULSION 10 MG/ML 20 ML VIAL IV ONE (23:26)
[2024-03-29] MEDS ORDERED: LIDOCAINE 2% 2 ML VIAL/AMP(20MG/ML) INFIL ONE (23:26)
--- NOTE | 2024-03-29 23:33 | History & Physical Report ---
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 as per GI instructions Daily Protonix as per [facility] GI specialist recommendation from last year. Dr. Chaparro of GI recommended formal [facility] [place] [facility] [place] for possible achalasia workup Barium esophagogram study in a.m. (without speech pathology involvement) as per Dr. Chaparro. ISS BG goal 1 10-1 40 DVT prophylaxis. TEDs; SCDs contraindicated w/ history of LE PAD Re: Possible procedure Full code Patient requesting updates providers. Ms. Gilma Quintanilla, contact #[phone]. Text document was generated using [employer] voice recognition software. It may contain grammatical or spelling errors. Kindly contact undersigned for clarification of any documentation item in question. History of Present Illness Chief Complaint: Food impaction Primary Care Provider: Chetan Galvez MD History obtained from patient and records. 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 Last confinement January 2023 for esophageal dysphagia. Tortuous esophagus, esophagitis and gastritis on EGD. Patient underwent EGD dilatation. Outpatient EGD a few weeks after discharge. Tortuous esophagus status post dilatation. GI specialist recommended PPI daily indefinitely. Patient was not able to comply with prescription because he never got it as per her account. Patient had trouble swallowing while eating dinner hours ago. Patient eating broken up [place] steak as well as. GS. Achy right-sided chest pain. Patient able to swallow saliva. Subsequent emesis. Patient consulted ER for evaluation. Patient underwent emergent EGD. Incomplete removal of food in the esophagus as per GI specialist. Specialist recommended strict n.p.o. and admission for workup for possible achalasia. 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 Allergies Allergy/AdvReac Type Severity Reaction Status Date / Time atorvastatin Allergy Severe TEMP 107., Verified 01/26/23 07:52 NEARLY PER eletriptan Allergy Intermediate LYMPH Verified 01/26/23 07:52 NODES SWELLED, HOT FLASHES oxycodone Allergy Intermediate NIGHTMARES Verified 01/26/23 07:52 Home Medications Medication Instructions Recorded Confirmed Type allopurinol 300 mg tablet 300 mg PO QAM 08/13/18 03/30/24 History metoprolol succinate 50 mg 50 mg PO DAILY 08/13/18 03/30/24 History tablet,extended release 24 hr simvastatin 40 mg tablet 40 mg PO HS 08/13/18 03/30/24 History ascorbic acid (vitamin C) 500 mg 1,000 mg PO QAM 08/20/18 03/30/24 History tablet (Vitamin C) aspirin 81 mg tablet,delayed 81 mg PO PM 08/20/18 03/30/24 History release lactobacillus combination no.4 3 3 mmu cells PO QAM 08/20/18 03/30/24 History billion cell capsule (Probiotic) lutein 40 mg capsule 40 mg PO QAM 08/20/18 03/30/24 History lysine 500 mg tablet 500 mg PO QAM 08/20/18 03/30/24 History metformin 1,000 mg tablet 500 mg PO BIDM 08/20/18 03/30/24 History nitroglycerin 0.4 mg sublingual 0.4 mg sublingual UD PRN Chest Pain 08/05/19 03/30/24 History tablet magnesium chloride 71.5 mg 143 mg PO BID 01/01/20 03/30/24 History (magnesium chloride) tablet,delayed release (Slow-Mag) zinc gluconate 50 mg tablet 50 mg PO QAM 01/01/20 03/30/24 History clopidogrel 75 mg tablet (Plavix) 75 mg PO QAM 01/09/20 03/30/24 History acetaminophen 500 mg tablet 500 mg PO Q6 PRN Pain, Mild 04/20/22 03/30/24 History finasteride 5 mg tablet 5 mg PO DAILY 04/20/22 03/30/24 History cetirizine 10 mg tablet 10 mg PO QAM 12/29/22 03/30/24 History pyridoxine (vitamin B6) 100 mg 100 mg PO QAM 12/29/22 03/30/24 History tablet (Vitamin B-6) cyanocobalamin (vitamin B-12) 500 1,000 mcg PO DAILY 01/18/23 03/30/24 History mcg tablet (Vitamin B-12) betamethasone, augmented 0.05 % 1 applic topical TID 03/30/24 03/30/24 History topical cream famotidine 20 mg tablet 20 mg PO BID 03/30/24 03/30/24 History loratadine 10 mg tablet 10 mg PO DAILY 03/30/24 03/30/24 History omega-3 acid ethyl esters 1 gram 1 cap PO DAILY 03/30/24 03/30/24 History capsule Past Med/Surg History Problem List (Updated 03/30/24 @ 01:36 by Yvonne Keith PA-C) Food impaction of esophagus (Acute) Acute kidney injury superimposed on chronic kidney disease (Acute) Diabetic ulcer of toe associated with type 2 diabetes mellitus, with fat layer exposed (Acute) Diabetic peripheral neuropathy associated with type 2 diabetes mellitus (C hronic) Loss of sensation of skin (Chronic) Foot deformity (Chronic) Postoperative fever (Acute) Fever Chronic cholecystitis with calculus Abdominal pain Intractable nausea and vomiting (Acute) Dehydration (Acute) Hypomagnesemia (Acute) CKD (chronic kidney disease) (Acute) Encounter for pre-operative examination Lumbar stenosis with neurogenic claudication (Chronic 07/06/13) Hypertension (Chronic) GERD (gastroesophageal reflux disease) (Chronic) CKD (chronic kidney disease), stage III (Chronic) pt denies Coronary artery disease (Chronic) "nonobstructive disease per cath 2011" Diabetes mellitus, type II (Chronic) Medical History Hyperlipidemia On anticoagulant therapy plavix daily--prescribed after vein surgery 2019 Osteoarthritis Gout BPH (benign prostatic hyperplasia) Kidney stones per is a current problem Hearing deficit Myocardial Infarction hx of 1994---follows with Dr. Mcfarland Skin ulcer of left foot including toes Acquired hammer toe of right foot Callus Diabetes mellitus with diabetic polyneuropathy Hallux valgus (acquired), left foot Acquired hallux valgus of right foot Hammertoe of left foot Surgical History History of cholecystectomy 04/26/[address] [facility] History of surgery 01/03/2019--vein surgery on right leg/toe amputation (4th digit on right foot) @ [facility] [place] History of thoracic spinal fusion 07/06/[address] [facility] Dr. Lobo--Posterolateral fusion T11-L3 History of lumbar spinal fusion [address] [facility] Dr. Lobo History of right knee surgery History of colonoscopy History of esophagogastroduodenoscopy (EGD) History of tooth extraction all teeth removed, top denture History of bilateral cataract extraction History of cardiac cath x3--1 in [place], 2nd @ [facility], last [address] [facility]--all with no stents Family History Other Family history non-contributory No family history of adverse response to anesthesia Social History Smoking Status: Former smoker Second Hand Exposure: No; Do You Dip or Chew Tobacco: Yes (chews (advised)); Hx Alcohol Use: No Hx Substance Use: No Preferred Language: Ukrainian Communication Ability: Effective Oim Architect Required: No Beliefs That Will Affect Care: None marital status: Current Living Situation: Spouse Current Living Situation Comment: lives with Feels Safe at Home: Yes Safety Concerns: Feels Safe At This Time Assistive Devices: Denture - Upper Review of Systems Review of Systems: As per HPI, all other systems reviewed and negative Physical Exam Physical Exam: GENERAL: Comfortable, pleasant, looks younger than stated age, no respiratory distress SKIN: Pallor, warm HEENT: Partial alopecia, pale palpebral conjunctivae, no ptosis, dry buccal mucosa NECK : Supple, no tenderness CHEST : CTA, no tenderness HEART : RRR, no obvious murmurs ABDOMEN: Some distention, minimal epigastric tenderness EXTREMITIES : No LE swelling/tenderness, no other conspicuous deformities noted NEUROLOGIC : Coherent, no facial asymmetry, no other gross focality Results & Data Results & Data Vital Signs (Past 12 Hours) Vital Signs Temp Pulse Resp BP Pulse Ox O2 Del Method 03/29/24 17:28 36.7 C 82 18 131/79 96 Room Air Laboratory Results Laboratory Results WBC 7.12 K/ul (4.8-10.8) 03/29/24 Unknown RBC 4.09 M/uL (4.70-6.10) L 03/29/24 Unknown Hgb 12.6 g/dl (14.0-18.0) L 03/29/24 Unknown Hct 37.7 % (42.0-52.0) L 03/29/24 Unknown MCV 92.2 fL (80.0-100.0) 03/29/24 Unknown MCH 30.8 pg (25.0-34.0) 03/29/24 Unknown MCHC 33.4 g/dL (32.0-36.0) 03/29/24 Unknown RDW Std Deviation 46.6 fL (36.4-46.3) H 03/29/24 Unknown RDW Coeff of Mirza 14.0 % (11.5-14.5) 03/29/24 Unknown Plt Count 155 K/uL (130-400) 03/29/24 Unknown MPV 9.8 fL (9.4-12.4) 03/29/24 Unknown Immature Gran % (Auto) 0.7 % 03/29/24 Unknown Neut % (Auto) 52.8 % 03/29/24 Unknown Lymph % (Auto) 29.1 % 03/29/24 Unknown [place] % (Auto) 8.0 % 03/29/24 Unknown Eos % (Auto) 8.6 % 03/29/24 Unknown Baso % (Auto) 0.8 % 03/29/24 Unknown Neut # (Auto) 3.76 K/uL (1.40-6.50) 03/29/24 Unknown Lymph # (Auto) 2.07 K/uL (1.20-3.40) 03/29/24 Unknown [place] # (Auto) 0.57 K/uL (0.11-0.59) 03/29/24 Unknown Eos # (Auto) 0.61 K/uL (0.00-0.50) H 03/29/24 Unknown Baso # (Auto) 0.06 K/uL (0.00-0.20) 03/29/24 Unknown Immature Gran # (Auto) 0.05 K/uL (0.01-0.20) 03/29/24 Unknown PT 11.6 Seconds (9.0-12.0) 03/29/24 Unknown INR 1.1 (0.9-1.1) 03/29/24 Unknown APTT 24 Seconds (21-31) 03/29/24 Unknown PTT Ratio 0.9 03/29/24 Unknown Sodium 140 mmol/L (136-145) 03/29/24 Unknown Potassium 4.6 mmol/L (3.5-5.1) 03/29/24 Unknown Chloride 108 mmol/L (98-107) H 03/29/24 Unknown Carbon Dioxide 23 mmol/L (21-32) 03/29/24 Unknown Anion Gap 9 (3-11) 03/29/24 Unknown BUN 19 mg/dl (6-23) 03/29/24 Unknown Creatinine 1.17 mg/dl (0.6-1.4) 03/29/24 Unknown Est Cr Clr Drug Dosing 49.9 ml/min 03/29/24 Unknown Est GFR ( Amer) 65.0 ml/min 03/29/24 Unknown Est GFR (Non-Af Amer) 56.1 ml/min 03/29/24 Unknown BUN/Creatinine Ratio 16.2 (10-20) 03/29/24 Unknown Glucose 159 mg/dl (70-99(Fasting)) H 03/29/24 Unknown Calcium 9.9 mg/dl (8.6-10.3) 03/29/24 Unknown Total Bilirubin 0.7 mg/dl (0.2-1.0) 03/29/24 Unknown AST 62 U/L (13-39) H 03/29/24 Unknown ALT 47 U/L (7-52) 03/29/24 Unknown Alkaline Phosphatase 55 U/L (34-104) 03/29/24 Unknown Total Protein 7.5 gm/dl (6.0-8.3) 03/29/24 Unknown Albumin 4.8 gm/dl (3.4-5.0) 03/29/24 Unknown Globulin 2.7 gm/dl (2.5-4.0) 03/29/24 Unknown Albumin/Globulin Ratio 1.8 (0.9-2) 03/29/24 Unknown Impressions Chest X-Ray 03/29/24 18:16 SINGLE VIEW CHEST CLINICAL HISTORY: Dysphagia. Food bolus sensation. FINDINGS: 2 AP, portable, upright chest radiographs are compared to study dated 12/30/2022. No radiodense foreign body is identified. The heart is mildly enlarged. The pulmonary vasculature is noncongested. Chronic interstitial thickening and mild elevation of the right hemidiaphragm is similar to previous. No airspace consolidation or large pleural effusion is identified. No pneumothorax is seen. The skeletal structures are osteopenic. The bony thorax is grossly intact. Degenerative change is noted throughout the spine. Fusion hardware is seen at the thoracolumbar junction. IMPRESSION: No active disease in the chest. ACT 112: Negative or not required by law. Electronically signed by: Dagoberto Quinones M.D. 03/29/2024 6:48 PM (1) Food impaction of esophagus Encounter type: initial encounter Qualified Code(s): T18.128A - Food in esophagus causing other injury, initial encounter; W44.F3XA - Food entering into or through a natural orifice, initial encounter
[2024-03-29] MEDS ORDERED: PROMETHAZINE 6.25 MG/50.25 ML BAG IV PRN (23:37)
[2024-03-29] MEDS ORDERED: ACETAMINOPHEN 1,000 MG/100 ML VIAL IV PRN (23:38)
--- NOTE | 2024-03-29 23:38 | GI REPORT ---
[facility] Patient: AKILAH LOPEZ : 1940 Sex at : Male Age: 84 Years Procedure: Upper GI endoscopy Date: 03/29/2024 Attending Physician: Wen Chaparro MD Referring MD: Jv Small Md Indications: - Foreign body in the esophagus Medications: - General Anesthesia - See the Anesthesia note for documentation of the administered medications Complications: - No immediate complications. Estimated Blood Loss: - Estimated blood loss: None. Procedure: - ASA Grade Assessment: III - A patient with severe systemic disease. - The egd scope was introduced through the mouth and advanced to the body of the stomach. - The upper GI endoscopy was performed with moderate difficulty due to presence of food. - The patient tolerated the procedure well. Findings: - Food was found in the entire esophagus. Removal of food was partially accomplished. The esophagus was full of small particles of food and some particles that looked like plastic. The esophagus was very tortuous but the EG junction was very tight in a muscular fashion. All of the food particles that were removed had to be pushed through. I was unable to completely clear the esophagus. - The entire examined stomach was normal. Impression: - Food in the esophagus. Removal was not completely successful. I am suspicious the patient has a tortuous esophagus with achalasia by the findings on EGD. With small particles of food remaining in the esophagus and liquid from attempt at irrigation I believe the patient should be admitted and barium swallow obtained. - Normal stomach. Recommendation: - Admit the patient to [facility] for ongoing care. Procedure Code(s): - 59828-27, Esophagogastroduodenoscopy, flexible, transoral; with removal of foreign body(s) Diagnosis Code(s): - T18.108A, Unspecified foreign body in esophagus causing other injury, initial encounter - T18.128A, Food in esophagus causing other injury, initial encounter CPT(R) - 202 copyright [employer]. All Rights Reserved. The CPT codes, CCI edits and ICD codes generated are intended as suggestions and were generated based on input data. These codes are preliminary and upon geology teacher review may be revised to meet current compliance and payer requirements. The provider is responsible for the final determination of appropriate codes, and modifiers. Dr. Wen Chaparro MD This document has been electronically signed. Note Initiated:03/29/2024 Note Completed:03/29/2024 11:36 PM [id number]
--- NOTE | 2024-03-29 23:59 | Anesthesiology Progress Note ---
Date of Service March 29, 2024 Anesthesia Post Procedure Vital Signs Vital Signs: Temp Pulse Pulse Resp BP BP Pulse Ox 03/29/24 23:50 36.3 C L 80 18 100/72 94 03/29/24 23:40 36.3 C L 82 16 108/72 96 03/29/24 17:28 36.7 C 82 18 131/79 96 O2 Del Method O2 Flow Rate 03/29/24 23:50 Room Air 03/29/24 23:40 Oxymask 2 03/29/24 17:28 Room Air Transfer of Care Handoff Completed per policy Notes Mental Status: alert / awake / arousable Patient Amnestic to Procedure: Yes Nausea / Vomiting: adequately controlled Pain: adequately controlled Airway Patency, RR, SpO2: stable & adequate BP & HR: stable & adequate Hydration State: stable & adequate Anesthetic Complications: no major complications apparent
[2024-03-30] MEDS ORDERED: CARBOHYDRATES FOR HYPOGLYCEMIA PO PRN (00:21)
[2024-03-30] MEDS ORDERED: GLUCOSE 10 TAB/TUBE PO PRN (00:21)
[2024-03-30] MEDS ORDERED: GLUCAGON FOR INJ 1 MG VIAL SQ PRN (00:21)
[2024-03-30] MEDS ORDERED: DEXTROSE 50% 50 ML SYRINGE IV PRN (00:21)
[2024-03-30] MEDS ORDERED: GLUCOSE 40% GEL 15 GM TUBE PO PRN (00:21)
[2024-03-30] MEDS: LACTATED RINGER'S 1,000 ML IV SCH (01:05)
[2024-03-30] MEDS: METOPROLOL TARTRATE 1 MG/ML VIAL IV SCH (01:09)
[2024-03-30] MEDS: INSULIN ASPART PER UNIT CHARGE SC SCH ×2 (01:10→17:55)
[2024-03-30 01:13] LABS: Magnesium 1.4 mg/dl (1.7-2.4)
--- OUTSIDE RECORDS SUMMARY | 2024-03-30 03:49 | External Medical Summary | Summary of Care ---
Author Name Unknown Organization [facility] Address [address] [facility] [address] Phone [phone] Care Team Providers Care Senior Oracle Dba Name Role Phone Chetan Galvez MD Primary Care Provider + Reason for Visit * Reason Comments Outpatient Testing Encounter Details Date Type Department Care Team (Late st Contact Info) Description 2024 8:20 AM EDT Laboratory Laboratory [address] [place] [phone] , Specimen Drop Off [address] [place] [phone] Diarrhea of presumed infectious origin Allergies Active Allergy Reactions Criticality Noted Date Comments Atorvastatin 10/17/2015 Myaglias, worse Tamsulosin 10/29/2021 Dizzy, lightheaded Oxycodone Hcl Psych complications 08/14/2013 nightmares documented as of this encounter (statuses as of 02/24/2024) Medications Medication Sig Dispensed Refills Start Date End Date Status VITAMIN C CR 1000 MG PO TBCR Take 1,000 mg by mouth daily. In the morning Active ASPIRIN LOW DOSE 81 MG PO TABS Take 1 Tablet by mouth in the morning. With dinner. Active LUTEIN 40 MG PO CAPS Take 40 mg by mouth daily. In the morning 10/18/2013 Active Lysine 500 MG TABS Take 500 mg by mouth daily. In the morning Active Probiotic Product (PROBIOTIC & ACIDOPHILUS EX ST) Capsule Take 1 Capsule by mouth in the morning. In the morning. 08/04/2017 Active SLOW-MAG 71.5-119 MG TBEC TAKE 2 TABLETS BY MOUTH 2 TIMES A DAY. 120 Tab 5 12/14/2017 Active zinc gluconate 50 MG Tablet Take 1 Tablet by mouth in the morning. In the morning. Active pyridOXINE (VITAMIN B-6) 100 MG Tablet Take 1 Tablet by mouth in the morning. In the morning. Active Acetaminophen 500 MG Oral Tablet Take 1 Tablet by mouth daily as needed. Active Cetirizine HCl 10 MG Oral Tablet Take 1 Tablet by mouth in the morning. Active B-12 1000 MCG Oral Tablet Take 2 Tablets by mouth daily. 06/25/2021 Active Betamethasone Dipropionate Aug 0.05 % External Cream (Diprolene AF)Indications:Ot her eczema APPLY TOPICALLY TO AFFECTED AREA 2 TIMES A DAY . TO AFFECTED AREA. 50 g 3 01/25/2023 Active Famotidine 20 MG Oral Tablet (Pepcid) Take 1 Tablet by mouth in the morning and 1 Tablet before bedtime. 180 Tablet 3 02/28/2023 Active Allopurinol 300 MG Oral Tablet (Zyloprim) TAKE 1 TABLET BY MOUTH EVERY DAY 90 Tablet 3 03/12/2023 Active Nitroglycerin 0.4 MG Sublingual Tablet Sublingual (Nitrostat) Place 1 Tablet under the tongue every 5 minutes as needed for Pain, Chest. Use up to 3 in 15 minutes 25 Tablet 1 08/03/2023 Active [place]-0-axmp Ethyl Esters 1 GM Oral Capsule (Lovaza)Indicatio ns:Hypertriglycer idemia Take 1 Capsule by mouth in the morning. 90 Capsule 3 08/23/2023 Active Benzonatate 100 MG Oral Capsule Take 1 Capsule by mouth 3 times a day as needed for Cough. 30 Capsule 1 08/24/2023 Active Additional Information Patient not taking.Informant: Wallet Card/List, Reported on 02/01/2024 Doxycycline Hyclate 100 MG Oral Capsule Take 1 Capsule by mouth in the morning and 1 Capsule before bedtime. Until gone.. 20 Capsule 08/28/2023 Active Additional Information Patient not taking.Informant: Wallet Card/List, Reported on 02/01/2024 Clopidogrel Bisulfate 75 MG Oral Tablet (pLAVix) TAKE 1 TABLET BY MOUTH EVERY DAY IN THE MORNING 90 Tablet 1 09/22/2023 Active Finasteride 5 MG Oral Tablet (Proscar)Indicati ons:BPH with obstruction/lower urinary tract symptoms,Voiding difficulty TAKE 1 TABLET BY MOUTH EVERY DAY IN THE MORNING 90 Tablet 3 09/22/2023 Active metFORMIN HCl 1000 MG Oral Tablet (Glucophage) TAKE 1/2 TABLET TWICE DAILY (TOTAL OF 1000MG DAILY) 90 Tablet 1 01/23/2024 Active Metoprolol Succinate ER 50 MG Oral Tablet Extended Release 24 Hour (toPROL XL)Indications:Ch ronic coronary artery disease TAKE 1 TABLET BY MOUTH EVERY DAY IN THE MORNING 90 Tablet 1 01/27/2024 Active Loratadine 10 MG Oral Capsule Take 1 Capsule by mouth in the morning. Active Simvastatin 40 MG Oral Tablet (Zocor)Indication s:Dyslipidemia, goal LDL below 70,Chronic coronary artery disease,Type 2 diabetes mellitus with hemoglobin A1c goal of less than 8.0% (HCC) TAKE 1 TABLET BY MOUTH EVERYDAY AT BEDTIME 90 Tablet 1 08/03/2023 02/03/20 24 Discontinued documented as of this encounter (statuses as of 02/24/2024) Active Problems Problem Noted Date Diagnosed Date Medical home patient encounter 01/05/2023 S/P laparoscopic cholecystectomy 05/25/2022 S/P amputation of lesser toe, right 10/29/2021 S/P amputation of lesser toe, right 10/29/2021 Coronary artery disease of n ative artery of [place] heart with stable angina pectoris 10/29/2021 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 08/14/2020 PAD (peripheral artery disease) 01/02/2020 Type 2 DM with CKD stage 3 and hypertension 08/05 Gouty arthropathy 12/14/2017 Microscopic colitis 11/01/2017 Hypomagnesemia 06/28/2017 Primary open angle glaucoma 03/10/2017 ACEI/ARB contraindicated 11/04/2015 Overview: Low BPs Anemia due to vitamin B12 deficiency 10/21/2015 Overview: 10/17 start b12 im Controlled type 2 diabetes m audra with microalbuminuria, without long-term current use of insulin 03/11/2015 Overview: 04/01/15 a1c 5.9 @[place] ICD-10 update of inactive term Routine general medical exam ination at a health care facility 10/23/2014 Overview: 01/23 EGD dilated, stay on PPI forever. 11/21 EGD tortuous, dilated. 12/18 Will stop Januvia around February (cost-doughnut hole--start Glimperide) 12/18 +microalb. No CHRISTY/ARB as low BPs. 2014 colon WNL-no polyps Dr Gallagher Health care proxy scanned 01/15. 01/15 Gluc 97, Cr 1.3, LDL 68 Dr Lobo. Anemia, chronic disease 10/23/2014 History of Clostridium difficile colitis 015 Overview: 03/20 recurrent. Rx vanco given. 12/16 C diff 11/15 colonoscopy +microscopic colitis on biopsy PAC (premature atrial contraction) 10/08/2014 HTN, goal below 140/90 02/21/2012 Overview: Per HTN Protocol #27. 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 documented as of this encounter (statuses as of 02/24/2024) Immunizations Name Administration Dates Next Due COVID-19 mRNA, LNP-s, No Pre serve, 2-Dose Series (Pfizer) 11/04/2020,10/14/2020 Pneumococcal Conjugate Vacc, 13 Valent (Prevnar) 04/21/2016 Pneumococcal Polysaccharide PPV23 (Pneumovax) TDAP (age 10 and older)(Boostrix) 11/21/2020,07/2009 Varicella Zoster Vaccine (Adult) 04/12/2015 documented as of this encounter Social History Tobacco Use Types Packs/Day Years Used Date Smoking Tobacco: Former Cigarettes 0 07/19/1953 - 07/19/1961 Smokeless Tobacco: Current Chew Comments:Currently using 2 p ouches a week Alcohol Use Standard Drinks/Week Comments No 0 (1 standard drink = 0.6 oz pur e alcohol) PHQ-2 Answer Date Recorded PHQ Adult Total Score 0 01/05/2023 Hunger Vital Sign Answer Date Recorded Within the past 12 months, y ou worried that your food would run out before you got the money to buy more. Never true 10/14/19 24 Within the past 12 months, t he food you bought just didn't last and you didn't have money to get more. Never true 10/14/2023 Childcare Answer Date Recorded Do you feel overwhelmed with taking care of a child, family member or friend? No 10/14/2023 Does your family need help f inding childcare? (Household - for ages 0-17 years) Not on file 10/14/2023 Clothing Answer Date Recorded Have you been unable to get clothing when it was really needed? No 10/14/2023 Is your family able to get c lothes or diapers when needed? (Household - for ages 0-17 years) Not on file 10/14/2023 Personal Safety Answer Date Recorded Do you feel unsafe or have concerns for your saf ety? No 10/14/2023 Do you have concerns for you r family's safety? (Household - for ages 0-17 years) Not on file 10/14/2023 Utilities Answer Date Recorded Do you have trouble paying y our heating, water, or electric bill? No 10/14/2023 Is your family able to pay t he heat, water, or electric bill? (Household - for ages 0-17 years) Not on file 10/14/2023 Does your family have access to good internet? (Household - for ages 0-17 years) Not on file 10/14/2023 Employment Status Answer Date Recorded Are you unemployed or without regular income? No 10/14/2023 Does the household have a re gular source of income? (Household - for ages 0-17 years) Not on file 10/14/2023 Social Connections Answer Date Recorded How often do you feel lonely or isolated from th ose around you? Never 10/14/2023 Financial Resource Strain Answer Date R ecorded Do you have any trouble payi ng for your medications, or do you think you might in the future? No 10/14/2023 Does your family have troubl e paying for medicine? (Household - for ages 0-17 years) Not on file 10/14/2023 Transportation Needs Answer Date Record ed READ ONLY Do you have troubl e getting a ride to medical visits or work? Never True 10/14/2023 Does your family have a hard time getting a ride to doctors visits? (Household - for ages 0-17 years) Not on file 10/14/2023 Has lack of transportation k ept you from medical appointments, meetings, work, or from getting things needed for daily living? Check all that apply. (Adult - for ages 18 years and over) Not on file 10/14/2023 Do you (or your family) have trouble finding or paying for a ride (transportation)? (Household - for ages 0-17 years) Not on file 10/14/2023 Housing Stability Answer Date Recorded Do you currently live in a s helter or have no steady place to sleep at night? No 10/14/2023 READ ONLY Do you think you a re at risk of becoming homeless? No 10/14/2023 Does your family worry about paying for your home or becoming homeless? (Household - for ages 0-17 years) Not on file 0 10/14/2023 Are you homeless or worried that you might be in the future? (Adult - for ages 18 years and over) Not on file Are you (or your family) westley eless or worried that you might be in the future? (Household - for ages 0-17 years) Not on file Food Insecurity Answer Date Recorded Do you need food for this week? No 10/14/2023 Are you able to get enough f ood for your family? (Household - for ages 0-17 years) Not on file 10/14/2023 Does your family need food t his week? (Household - for ages 0-17 years) Not on file 10/14/2023 Do you always have enough fo od for your family? (Household - for ages 0-17 years) Not on file 10/14/2023 Sex and Gender Information Value Date Recorded Sex Assigned at Male 01/05/2023 10:06 AM EDT Gender Identity Male 01/05/2023 10:06 AM EDT Sexual Orientation Straight 01/05/2023 10 :06 AM EDT Job Start Date Occupation Industry Not on file Not on file Not on file documented as of this encounter Functional Status Functional Status Response Date of Assess ment Are you deaf or do you have serious difficulty h earing? No 01/02/2020 Are you blind or do you have serious difficulty seeing, even when wearing glasses? No 01/02/2020 Do you have serious difficul ty walking or climbing stairs? (5 years old or older) No 01/02/2020 Do you have difficulty dress ing or bathing? (5 years old or older) No 01/02/2020 Because of a physical, menta l, or emotional condition, do you have difficulty doing errands alone such as visiting a doctor s office or shopping? (15 years old or older) No 01/02/20 Cognitive Status Response Date of Assessm ent Because of a physical, menta l, or emotional condition, do you have serious difficulty concentrating, remembering, or making decisions? (5 years old or older) No 01/02/2020 documented as of this encounter Plan of Treatment Upcoming Encounters Date Type Department Care Team (Late st Contact Info) Description 03/19/2024 12:20 PM EDT Office Visit Family Practice [facility] [address] [place] [id number] Kemar Díaz CRNP [address] [place] [address] 03/22/2024 1:30 PM EDT Office Visit Interventional Pain Center, [facility] [address] [place] [address] Suha Oconnor MD [address] [place] [address] [place] [address] 07/30/2024 11:30 AM EST Imaging Vascular Lab, [facility] 2nd Floor, [place] [address] [place] [address] 08/08/2024 12:00 PM EST Office Visit Family Practice [facility] [address] [facility] [place] [address] Chetan Galvez MD [address] [place] [address] 08/09/2024 10:30 AM EST Office Visit Vascular Surgery, [address] [place] [address] Eloy Borrego MD [address] [place] [address] 08/14/2024 1:30 PM EST Office Visit Cardiology, [facility] [address] [place] [address] Yinka Mcfarland DO 132 [facility] [place] [address] Health Maintenance Due Date Last Done Comments Adult Wellness Visit 02/04/2004 Zoster Vaccines (2 of 3) 06/07/2015 04/12/2015 COVID-19 Vaccine (3 - season) 2023 11/04/2020, 10/14/2020 Depression Screening 01/06/2024 01/05/2023, 10/20/2016 (Declined) Diabetic Foot Exam 01/06/2024 01/05/2023, 1 , 04/30/2020, Additional history exists Influenza Vaccine (FLU shot) (#1) 2024 HbA1c 07/26/2024 01/24/2024, 07/05, 12/29/2022, Additional history exists B-12 07/27/2024 07/27/2023, 12/03, 10/29/2021, Additional history exists CKD HGB USE SMARTSET 76468 07/27/202407/27, 07/27/2023, 12/29/2022, Additional history exists Diabetic Eye Exam 12/07/2024 12/08/2023, , 08/19/2022, Additional history exists CKD PHOS USE SMARTSET 50583 01/23/202501/02, 03/12/2021, 01/25/2020, Additional history exists Albumin/Creatinine Ratio 01/24/2025 024, 12/29/2022, 10/29/2021, Additional history exists DTaP,Tdap,and Td Vaccines (3 - Td or Tdap) 11/21/2030 11/21/2020, 11/01/2009 Pneumococcal Vaccine: 65+ Years Completed 09/16/2017, 04/21/2016 HPV (Gardasil) Vaccine Aged Out No lo nger eligible based on patient's age to complete this topic Hepatitis B Vaccine Aged Out No longe r eligible based on patient's age to complete this topic MENINGOCOCCAL (MENACTRA/MENVEO) Aged Out No longer eligible based on patient's age to complete this topic documented as of this encounter Medical Devices Not on filedocumented as of this encounter Procedures Procedure Name Priority Date/Time Associated Diagnosis Comments GASTROINTESTINAL PATHOGEN PANEL, STOOL Routine 2024 8:17 AM EDT Diarrhea of presumed infectious origin GASTROINTESTINAL PATHOGEN PANEL CULTURE Routine 2024 8:17 AM EDT Diarrhea of presumed infectious origin GASTROINTESTINAL PATHOGEN PANEL PCR Routine 2024 8:17 AM EDT Diarrhea of presumed infectious origin CLOSTRIDIUM DIFFICILE, PCR Routine 2024 8:17 AM EDT Diarrhea of presumed infectious origin documented in this encounter Results * CLOSTRIDIUM DIFFICILE, PCR (2024 8:17 AM EDT) Stool Consistency Liquid 2024 2:[address] [facility] Clostridium difficile Result Negative. No C. difficile toxin B gene DNA detected by PCR (Amplified Probe). Negative 2024 2:[address] [facility] Stool Stool specimen / Unknown Non-blood Collection / Unknown 2024 8:17 AM EDT 2024 8:17 AM EDT Chetan Galvez MD LAB MICRO - GENE RAL ORDERABLES Performing Organization Address City/[facility]/ZIP Co de Phone Number [facility]ATORY [facility] [address] [place] [address] * GASTROINTESTINAL PATHOGEN PANEL CULTURE (2024 8:17 AM EDT) Culture Growth No Aeromonas species or Plesiomonas species isolated. 02/05/2024 1:54 PM EDT LAB[facility]ATORY [facility] Stool Stool specimen / Unknown Non-blood Collection / Unknown 2024 8:17 AM EDT 2024 8:17 AM EDT Chetan Galvez MD LAB MICRO - GENE RAL ORDERABLES Performing Organization Address City/[facility] Co de Phone Number LAB[facility]ATORY [facility] [address] [place] [address] * GASTROINTESTINAL PATHOGEN PANEL PCR (2024 8:17 AM EDT) Campylobacter group by PCR Negative Negative 2024 9:10 PM EDT [facility]ORY [facility] Salmonella species by PCR Negative Negative 2024 9:10 PM EDT [facility] Shigella species by PCR Negative Negative 2024 9:10 PM EDT [facility] Vibrio group by PCR Negative Negative 2024 9:10 PM EDT [facility] Yersinia enterocolitica by PCR Negative Negative 2024 9:10 PM EDT [facility] Shiga Toxin 1 Gene by PCR Negative Negative 2024 9:10 PM EDT [facility] Shiga Toxin 2 Gene by PCR Negative Negative 2024 9:10 PM EDT [facility] Norovirus by PCR Negative Negative 02/03/20 9:10 PM EDT [facility] Rotavirus by PCR Negative Negative 02/03/20 9:10 PM EDT [facility] Stool Stool specimen / Unknown Non-blood Collection / Unknown 2024 8:17 AM EDT 2024 8:17 AM EDT Chetan Galvez MD LAB MICRO - GENE RAL ORDERABLES [facility]ATORY [facility] [address] [facility] [place] [address] documented in this encounter Visit Diagnoses Diagnosis Diarrhea of presumed infectious origin documented in this encounter Additional Health Concerns Infection Onset Date Last Indicated Resolved Time Gastrointestinal Rule-Out 2024 2024 9:10 PM EDT C. difficile Rule-Out 2024 02/03/20242023 2:13 PM EDT documented as of this encounter Advance Directives * Full Code (Latest Code Status on File) Date Activated Date Inactivated Comments 01/02/2020 5:09 PM 01/07/2020 11:18 PM This order re flects the patients wishes and were consensually agreed upon. Care Teams Senior Oracle Dba Relationship Specialty Start Date End Date Chetan Galvez MD [address] [place] [address] [place] [address] PCP - General Family Medicine 10/23/14 documented as of this encounter
--- OUTSIDE RECORDS SUMMARY | 2024-03-30 03:49 | External Medical Summary | Summary of Care ---
Author Name Unknown Organization [facility] Address [address] [facility] [address] Phone [phone] Care Team Providers Care Insurance Processing Clerk Name Role Phone Chetan Leung MD Primary Care Provider + Reason for Visit * Reason Comments eRx-Medication Refill Encounter Details Date Type Department Care Team (Late st Contact Info) Description 03/06/2024 Refill Family Practice [facility] [address] [place] [address] Chetan Leung MD [address] [place] [address] Allergies Active Allergy Reactions Criticality Noted Date Comments Atorvastatin 10/17/2015 Myaglias, worse Tamsulosin 10/29/2021 Dizzy, lightheaded Oxycodone Hcl Psych complications 08/14/2013 nightmares documented as of this encounter (statuses as of 03/07/2024) Medications Medication Sig Dispensed Refills Start Date [...] AFFECTED AREA. 50 g 3 01/25/2023 Active Nitroglycerin 0.4 MG Sublingual Tablet Sublingual (Nitrostat) Place 1 Tablet under the tongue every 5 minutes as needed for Pain, Chest. Use up to 3 in 15 minutes 25 Tablet 1 08/03/2023 Active Asreo-1-gbxg Ethyl Esters 1 GM Oral Capsule (Lovaza)Indicatio [...] MOUTH EVERYDAY AT BEDTIME 90 Tablet 1 2024 Active Famotidine 20 MG Oral Tablet (Pepcid) TAKE 1 TABLET BY MOUTH IN THE MORNING AND BEFORE BEDTIME 180 Tablet 3 02/29/2024 Active Allopurinol 300 MG Oral Tablet (Zyloprim) TAKE 1 TABLET BY MOUTH EVERY DAY 90 Tablet 2 03/07/2024 Active Allopurinol 300 MG Oral Tablet (Zyloprim) TAKE 1 TABLET BY MOUTH EVERY DAY 90 Tablet 3 03/12/2023 03/07/20 24 Discontinued documented as of this encounter (statuses as of 03/07/2024) Active Problems Problem Noted Date Diagnosed Date Medical home patient encounter 01/05/2023 S/P laparoscopic cholecystectomy 05/25/2022 S/P amputation of lesser toe, right 10/29/2021 S/P amputation of lesser toe, right 10/29/2021 Coronary artery disease of n ative artery of [place] heart with stable angina pectoris 10/29/2021 Atherosclerosis [...] of insulin 03/11/2015 Overview: 04/01/15 a1c 5.9 @[place] ICD-10 update of inactive term Routine general [...] as of this encounter (statuses as of 03/07/2024) Resolved Problems Problem Noted Date Diagnosed Date Resolved Date 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 documented as of this encounter (statuses as of 03/07/2024) Immunizations Name Administration Dates Next Due COVID-19 [...] (15 years old or older) No 01/02/20 20 Cognitive Status Response Date of Assessm ent Because of a physical, menta l, or emotional condition, do you have serious difficulty concentrating, remembering, or making decisions? (5 years old or older) No 01/02/2020 documented as of this encounter Miscellaneous Notes * Telephone Encounter - Teo Leslie RPh - 03/07/2024 1:32 PM EDTSigned Prescriptions: Disp Refills Allopurinol 300 MG Oral Tablet (Zyloprim) 90 Tab*2 Sig: TAKE 1 TABLET BY MOUTH EVERY DAYAuthorizing Provider: CHETAN LEUNG User: TEO LESLIE-- documented in this encounter Plan of Treatment Upcoming Encounters Date Type Department Care Team (Late st Contact Info) Description 07/30/2024 11:30 AM EST Imaging Vascular Lab, [facility] 2nd Floor, [place] [address] [facility] [place] [address] 08/08/2024 12:00 PM EST [facility] [place] [address] Chetan Leung MD [address] [place] [address] 08/09/2024 10:30 AM EST Office Visit Vascular Surgery, [address] [address] Eloy Borrego MD [address] [place], [place] [id number] 08/14/2024 1:30 PM EST Office Visit Cardiology, [facility] 132 [facility] [place] [address] Yinka Mcfarland DO [facility] [place] [address] Health Maintenance Due Date Last Done Comments Adult Wellness Visit 02/04/2004 Zoster Vaccines (2 of 3) 06/07/2015 04/12/2015 Depression Screening 01/06/2024 01/05/2023, 10/20/2016 (Declined) Diabetic Foot Exam 01/06/2024 01/05/2023, 1 , 04/30/2020, Additional history exists COVID-19 Vaccine (3 - season) 2024 11/04/2020, 10/14/2020 Influenza Vaccine (FLU shot) (#1) 2024 HbA1c 07/26/2024 01/24/2024, 07/05, 12/29/2022, Additional history exists B-12 07/27/2024 07/27/2023, 12/03, 10/29/2021, Additional history exists CKD HGB USE SMARTSET 93113 07/27/202407/27, 07/27/2023, 12/29/2022, Additional history exists Diabetic Eye Exam 12/07/2024 12/08/2023, , 08/19/2022, Additional history exists CKD PHOS USE SMARTSET 17324 01/23/2025 07/2 09/2023, 03/12/2021, 01/25/2020, Additional history exists Albumin/Creatinine Ratio 01/24/2025 024, 12/29/2022, 10/29/2021, Additional history exists DTap/Tdap Vaccines (3 - Td or Tdap) 11/21/2030 [...] Not on filedocumented as of this encounter Advance Directives * Full Code (Latest Code Status on File) Date Activated Date Inactivated Comments 01/02/2020 5:09 PM 01/07/2020 11:18 PM This order re flects the patients wishes and were consensually agreed upon. Care Teams Insurance Processing Clerk Relationship Specialty Start Date End Date Chetan Leung MD [address] [place] [address] PCP - General Family Medicine 10/23/14 documented as of this encounter
--- OUTSIDE RECORDS SUMMARY | 2024-03-30 03:49 | External Medical Summary | Summary of Care ---
Author Name Unknown Organization [facility] Address [address] [facility] [address] Phone [phone] Care Team Providers Care Office Support Associate Name Role Phone Chetan Galvez MD Primary Care Provider + Reason for Visit * Reason Onset Date Comments Forms Request 03/13/2024 Placard permit Encounter Details Date Type Department Care Team (Late st Contact Info) Description 03/13/2024 Telephone Family Practice [facility] [address] [place] [address] Chetan Galvez MD [address] [place] [address] Forms Request (Placard permit ) Allergies Active Allergy Reactions Criticality Noted Date Comments Atorvastatin 10/17/2015 Myaglias, worse Tamsulosin 10/29/2021 Dizzy, lightheaded Oxycodone Hcl Psych complications 08/14/2013 nightmares documented as of this encounter (statuses as of 03/14/2024) Medications Medication Sig Dispensed Refills Start Date [...] Dipropionate Aug 0.05 % External Cream (Diprolene AF)Indications:Othe r eczema APPLY TOPICALLY TO AFFECTED AREA 2 TIMES A DAY . TO AFFECTED AREA. 50 g 3 01/25/2023 Active Nitroglycerin 0.4 MG Sublingual Tablet Sublingual (Nitrostat) Place 1 Tablet under the tongue every 5 minutes as needed for Pain, Chest. Use up to 3 in 15 minutes 25 Tablet 1 08/03/2023 Active Emuyv-0-nads Ethyl Esters 1 GM Oral Capsule (Lovaza)Indications :Hypertriglyceridem ia Take 1 Capsule by mouth in the [...] 09/22/2023 Active Finasteride 5 MG Oral Tablet (Proscar)Indication s:BPH with obstruction/lower urinary tract symptoms,Voiding difficulty TAKE 1 TABLET BY MOUTH EVERY DAY IN THE MORNING 90 Tablet 3 09/22/2023 Active metFORMIN HCl 1000 MG Oral Tablet (Glucophage) TAKE 1/2 TABLET TWICE DAILY (TOTAL OF 1000MG DAILY) 90 Tablet 1 01/23/2024 Active Metoprolol Succinate ER 50 MG Oral Tablet Extended Release 24 Hour (toPROL XL)Indications:Jet Pilot rehan coronary artery disease TAKE 1 TABLET BY MOUTH EVERY DAY IN THE MORNING 90 Tablet 1 01/27/2024 Active Loratadine 10 MG Oral Capsule Take 1 Capsule by mouth in the morning. Active Simvastatin 40 MG Oral Tablet (Zocor)Indications: Dyslipidemia, goal LDL below 70,Chronic coronary artery disease,Type [...] EVERY DAY 90 Tablet 2 03/07/2024 Active documented as of this encounter (statuses as of 03/14/2024) Active Problems Problem Noted Date Diagnosed Date Medical home patient encounter 01/05/2023 S/P laparoscopic cholecystectomy 05/25/2022 S/P amputation of lesser toe, right 10/29/2021 S/P amputation of lesser toe, right 10/29/2021 Coronary artery disease of n ative artery of [place] heart with stable angina pectoris 10/29/2021 Atherosclerosis [...] of insulin 03/11/2015 Overview: 04/01/15 a1c 5.9 @[place] ICD-10 update of inactive term Routine general [...] as of this encounter (statuses as of 03/14/2024) Resolved Problems Problem Noted Date Diagnosed Date Resolved Date 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 documented as of this encounter (statuses as of 03/14/2024) Immunizations Name Administration Dates Next Due COVID-19 [...] encounter Miscellaneous Notes * Telephone Encounter - Monserrat Morales LPN - 03/14/2024 11:18 AM EDT Signed form placed in mail to send to patient. * Telephone Encounter - Monserrat Morales LPN - 03/13/2024 6:41 PM EDT Patients sent letter requesting a handicap placard for patient. Application for placard placedin PCP mailbox for signature. documented in this encounter Plan of Treatment Upcoming Encounters Date Type Department Care Team (Late st Contact Info) Description 07/30/2024 11:30 AM EST Imaging Vascular Lab, [facility] 2nd [facility], [address] [place] [address] 08/08/2024 12:00 PM EST Office Visit Family Practice [facility] [address] [place] [address] Chetan Galvez MD [address] [place] [address] 08/09/2024 10:30 AM EST Office Visit Vascular Surgery, [address] [place] [address] Eloy Borrego MD [address] [facility] [place] [address] 08/14/2024 1:30 PM EST Office Visit Cardiology, [facility] [address] [place] [address] Yinka Mcfarland DO [address] [place] [address] Health Maintenance Due Date Last Done Comments Adult Wellness Visit 02/04/2004 Zoster Vaccines (2 of 3) 06/07/2015 04/12/2015 Depression Screening 01/06/2024 01/05/2023, 10/20/2016 (Declined) Diabetic Foot Exam 01/06/2024 01/05/2023, 1 , 04/30/2020, Additional history exists COVID-19 Vaccine ( season) 2024 11/04/2020, 10/14/2020 Influenza Vaccine (FLU shot) (#1) 2024 HbA1c 07/26/2024 01/24/2024, 07/05, 12/29/2022, Additional history exists B-12 07/27/2024 07/27/2023, 12/03, 10/29/2021, Additional history exists CKD HGB USE SMARTSET 04084 07/27/202407/27, 07/27/2023, 12/29/2022, Additional history exists Diabetic Eye Exam 12/07/2024 12/08/2023, , 08/19/2022, Additional history exists CKD PHOS USE SMARTSET 68809 01/23/2025 0709/2023, 03/12/2021, 01/25/2020, Additional history exists Albumin/Creatinine Ratio [...] and were consensually agreed upon. Care Teams Office Support Associate Relationship Specialty Start Date End Date Chetan Galvez MD [address] [place] [address] PCP - General Family Medicine 10/23/14 documented as of this encounter
--- OUTSIDE RECORDS SUMMARY | 2024-03-30 03:49 | External Medical Summary | Summary of Care ---
Author Name Unknown Organization [facility] Address [address] [facility] [address] Phone [phone] Care Team Providers Care Bruise Trimmer Name Role Phone Chetan Leung MD Primary Care Provider + Reason for Visit * Reason Comments eRx-Medication Refill Encounter Details Date Type Department Care Team (Late st Contact Info) Description 02/27/[address] [facility] [address] [place] [address] Chetan Leung MD [address] [place] [address] Allergies Active Allergy Reactions Criticality Noted Date Comments Atorvastatin 10/17/2015 Myaglias, worse Tamsulosin 10/29/2021 Dizzy, lightheaded Oxycodone Hcl Psych complications 08/14/2013 nightmares documented as of this encounter (statuses as of 02/29/2024) Medications Medication Sig Dispensed Refills Start Date [...] AFFECTED AREA. 50 g 3 01/25/2023 Active Allopurinol 300 MG Oral Tablet (Zyloprim) TAKE 1 TABLET BY MOUTH EVERY DAY 90 Tablet 3 03/12/2023 Active Nitroglycerin 0.4 MG Sublingual Tablet Sublingual (Nitrostat) Place 1 Tablet under the tongue every 5 minutes as needed for Pain, Chest. Use up to 3 in 15 minutes 25 Tablet 1 08/03/2023 Active Crxbp-0-zzbn Ethyl Esters 1 GM Oral Capsule (Lovaza)Indicatio [...] BEFORE BEDTIME 180 Tablet 3 02/29/2024 Active Famotidine 20 MG Oral Tablet (Pepcid) Take 1 Tablet by mouth in the morning and 1 Tablet before bedtime. 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 documented as of this encounter (statuses as of 02/29/2024) Immunizations Name Administration Dates Next Due COVID-19 [...] encounter Miscellaneous Notes * Telephone Encounter - El Vivar RP - 02/29/2024 2:52 PM EDTSigned Prescriptions: Disp Refills Famotidine 20 MG Oral Tablet (Pepcid) 180 Ta*3 Sig: TAKE 1 TABLET BY MOUTH IN THE MORNING AND BEFORE BEDTIMEAuthorizing Provider: CHETAN LEUNG User: EL VIVAR * Telephone Encounter - El Vivar RP - 02/29/2024 2:49 PM EDT Did you pend patient's preferred pharmacy and medication before forwarding?yes Pharmacy: [id number] [address] [facility] Pending Prescriptions: Disp Refills Famotidine 20 MG Oral Tablet (Pepcid) [Ph*180 Ta*3 Sig: TAKE 1 TABLET BY MOUTH IN THE MORNING AND BEFORE BEDTIME Last Visit: 02/01/2024 (in office), 10/26/2019 (telemedicine) Next Visit: 03/19/2024 If no future appointments scheduled, and last appointment is greater than a year ago, please schedule patient for a follow-up appointment Last date the medication was ordered: 02/28/2023 Is this request for a controlled substance?No Urine Drug Screen:No results found for this or any previous visit. Patient Phone Numbers Labs: Lab Results Component Value Date/Time CREAT 1.3 (H) 07/27/2023 07:59 AM CREAT 1.27 12/29/2022 12:00 AM CREAT 1.1 04/23/2020 08:50 AM POTASSIUM 5.2 (H) 07/27/2023 07:59 AM POTASSIUM 4.8 12/29/2022 12:00 AM POTASSIUM 3.6 04/23/2020 08:50 AM TSH 5.67 (H) 07/27/2023 07:59 AM LDL 64 07/27/2023 07:59 AM LDL 52 10/26/2019 10:35 AM LDL UNINTERPRETABLE RESULT 01/05/2019 08:31 AM LDLCALC 68 01/18/2015 12:00 AM ALT 63 (H) 07/27/2023 07:59 AM ALT 37 04/25/2017 12:00 AM HGBA1C 7.7 (H) 01/24/2024 07:57 AM HGBA1C 6.8 (H) 04/23/2020 08:50 AM documented in this encounter Plan of Treatment Upcoming Encounters Date Type Department Care Team (Late st Contact Info) Description 03/19/2024 12:20 PM EDT Office Visit [facility] [address] [place] [address] Kemar Díaz CRNP [address] [place] [address] 03/22/2024 1:30 PM EDT Office Visit Interventional Pain Center, [facility] [address] [facility] [place] [address] Suha Oconnor MD [address] [place] [address] 07/30/2024 11:30 AM EST [facility] [address] [facility] [place] [address] 08/08/2024 12:00 PM EST Office Visit Family Practice [facility] [address] [facility] [place] [address] Chetan Leung MD 132 [facility] [place] [address] 08/09/2024 10:30 AM EST Office Visit Vascular Surgery, [address] [address] Eloy Borrego MD [address] [place] [address] 08/14/2024 1:30 PM EST Office Visit Cardiology, [facility] [address] [facility] [place] [address] Yinka Mcfarland, [address] [facility] [place] [address] Health Maintenance Due Date Last Done Comments Adult Wellness Visit 02/04/2004 Zoster Vaccines (2 of 3) 06/07/2015 04/12/2015 COVID-19 Vaccine (3 2022-24 season) 2023 11/04/2020, 10/14/2020 Depression Screening 01/06/2024 01/05/2023, 10/20/2016 (Declined) Diabetic Foot Exam 01/06/2024 01/05/2023, 1 , 04/30/2020, Additional history exists Influenza Vaccine (FLU shot) (#1) 2024 HbA1c 07/26/2024 01/24/2024, 07/05, 12/29/2022, Additional history exists B-12 07/27/2024 07/27/2023, 12/03, 10/29/2021, Additional history exists CKD HGB USE SMARTSET 60196 07/27/202407/27, 07/27/2023, 12/29/2022, Additional history exists Diabetic Eye Exam 12/07/2024 12/08/2023, , 08/19/2022, Additional history exists CKD PHOS USE SMARTSET 76219 01/23/202501/02, 03/12/2021, 01/25/2020, Additional history exists Albumin/Creatinine [...] and were consensually agreed upon. Care Teams Bruise Trimmer Relationship Specialty Start Date End Date Chetan Leung MD [address] [place] [address] PCP - General Family Medicine 10/23/14 documented as of this encounter
--- OUTSIDE RECORDS SUMMARY | 2024-03-30 03:49 | External Medical Summary | Summary of Care ---
Author Name Unknown Organization [facility] Address [address] [facility] [address] Phone [phone] Care Team Providers Care Rn Women Services Name Role Phone Chetan Leung MD Primary Care Provider + Reason for Visit * Reason Comments eRx-Medication Refill Encounter Details Date Type Department Care Team (Late st Contact Info) Description 03/26/2024 Refill Family Practice [facility] [address] [place] [address] Chetan Leung MD [address] [place] [address] Allergies Active Allergy Reactions Criticality Noted Date Comments Atorvastatin 10/17/2015 Myaglias, worse Tamsulosin 10/29/2021 Dizzy, lightheaded Oxycodone Hcl Psych complications 08/14/2013 nightmares documented as of this encounter (statuses as of 03/27/2024) Medications Medication Sig Dispensed Refills Start Date [...] 15 minutes 25 Tablet 1 08/03/2023 Active Zyfrk-2-gcri Ethyl Esters 1 GM Oral Capsule (Lovaza)Indicatio [...] not taking.Informant: Wallet Card/List, Reported on 02/01/2024 Finasteride 5 MG Oral Tablet (Proscar)Indicati ons:BPH [...] EVERY DAY 90 Tablet 2 03/07/2024 Active Clopidogrel Bisulfate 75 MG Oral Tablet (pLAVix) TAKE 1 TABLET BY MOUTH EVERY DAY IN THE MORNING 90 Tablet 1 03/27/2024 Active Clopidogrel Bisulfate 75 MG Oral Tablet (pLAVix) TAKE 1 TABLET BY MOUTH EVERY DAY IN THE MORNING 90 Tablet 1 09/22/2023 03/27/20 24 Discontinued documented as of this encounter (statuses as of 03/27/2024) Active Problems Problem Noted Date Diagnosed Date Medical home patient encounter 01/05/2023 S/P laparoscopic cholecystectomy 05/25/2022 S/P amputation of lesser toe, right 10/29/2021 S/P amputation of lesser toe, right 10/29/2021 Coronary artery disease of n ative artery of [place] heart with stable angina pectoris 10/29/2021 Atherosclerosis [...] long-term current use of insulin 03/11/2015 Overview: 9/29/15 a1c 5.9 @[place] ICD-10 update of inactive term Routine general [...] as of this encounter (statuses as of 03/27/2024) Resolved Problems Problem Noted Date Diagnosed Date Resolved Date 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 documented as of this encounter (statuses as of 03/27/2024) Immunizations Name Administration Dates Next Due COVID-19 [...] Telephone Encounter - Teo Leslie RPh - 03/27/2024 10:42 AM EDTSigned Prescriptions: Disp Refills Clopidogrel Bisulfate 75 MG Oral Tablet (p*90 Tab*1 Sig: TAKE 1 TABLET BY MOUTH EVERY DAY IN THE MORNINGAuthorizing Provider: CHETAN LEUNG User: TEO LESLIE documented in this encounter Plan of Treatment Upcoming Encounters Date Type Department Care Team (Late st Contact Info) Description 07/30/2024 11:30 AM EST Imaging Vascular Lab, [facility] 2nd Floor, [place] [facility] [place] [address] 08/08/2024 12:00 PM EST Office Visit Family Practice [facility] [address] [place] [address] Chetan Leung MD [address] [place] [address] 08/09/2024 10:30 AM EST Office Visit Vascular Surgery, [address] [address] Eloy Borrego MD [address] [place] [address] 08/14/2024 1:30 PM EST Office Visit Cardiology, [facility] [address] [place] [address] Yinka Mcfarland DO [address] [place] [address] Health Maintenance Due Date Last Done Comments [...] Additional history exists CKD HGB USE SMARTSET 78744 07/27/202407/27, 07/27/2023, 12/29/2022, Additional history exists Diabetic Eye Exam 12/07/2024 12/08/2023, , 08/19/2022, Additional history exists CKD PHOS USE SMARTSET 55937 01/23/2025 07/2 09/2023, 03/12/2021, 01/25/2020, Additional history [...] and were consensually agreed upon. Care Teams Rn Women Services Relationship Specialty Start Date End Date Chetan Leung MD [address] [place] [address] PCP - General Family Medicine 10/23/14 documented as of this encounter
--- OUTSIDE RECORDS SUMMARY | 2024-03-30 03:50 | External Medical Summary ---
Author Name Unknown Address Unknown Organization K01:[facility] [place] [address] [facility] [address] Laboratory Report Ordering Provider Test Date Status XOCHITL BELL 2024 08:17:01 Final Observation Date Value Abnormality Reference (Units ) Status Campylobacter sp DNA.diarrheagenic [Presence] in Stool by BROOKE with probe detection 2024 08:17:01 Negative Negative Final Salmonella sp rpoD gene [Presence] in Stool by BROOKE with probe detection 2024 08:17:01 Negative Negative Final Shigella species+EIEC invasion plasmid antigen H ipaH gene [Presence] in Stool by BROOKE with probe detection 2024 08:17:01 Negative Negative Final Vibrio sp DNA [Identifier] in Specimen by BROOKE with probe detection 2024 08:17:01 Negative Negative Final Yersinia enterocolitica recN gene [Presence] in Stool by BROOKE with probe detection 2024 08:17:01 Negative Negative Final Escherichia coli Stx1 toxin stx1 gene [Presence] in Stool by BROOKE with probe detection 2024 08:17:01 Negative Negative Final Escherichia coli Stx2 toxin stx2 gene [Presence] in Stool by BROOKE with probe detection 2024 08:17:01 Negative Negative Final Norovirus genogroups I and II RNA panel - Stool by BROOKE with probe detection 2024 08:17:01 Negative Negative Final Rotavirus A RNA [Presence] in Stool by BROOKE with probe detection 2024 08:17:01 Negative Negative Final Performing Location [facility] [place] [address] [address]
--- OUTSIDE RECORDS SUMMARY | 2024-03-30 03:50 | External Medical Summary | Summary of Care ---
Author Name Unknown Organization [facility] Address [address] [place] [address] Phone [phone] Care Team Providers Care Manufacturing Engineer Chief Name Role Phone Chetan Galvez MD Primary Care Provider + Reason for Visit * Reason Onset Date Comments Advice 01/30/2024 An order for Ann rdia? Encounter Details Date Type Department Care Team (Late st Contact Info) Description 01/30/2024 Telephone Family Practice [facility] [address] [employer] [facility] [place] [address] Chetan Galvez MD [address] [employer] [place] [address] Advice (An order for Giardia?) Allergies Active Allergy Reactions Criticality Noted Date Comments Atorvastatin 10/17/2015 Myaglias, worse Tamsulosin 10/29/2021 Dizzy, lightheaded Oxycodone Hcl Psych complications 08/14/2013 nightmares documented as of this encounter (statuses as of 01/30/2024) Medications Medication Sig Dispensed Refills Start Date [...] Dipropionate Aug 0.05 % External Cream (Diprolene AF)Indications:Other eczema APPLY TOPICALLY TO AFFECTED AREA 2 [...] 15 minutes 25 Tablet 1 08/03/2023 Active Simvastatin 40 MG Oral Tablet (Zocor)Indications:D yslipidemia, goal LDL below 70,Chronic coronary artery disease,Type 2 diabetes mellitus with hemoglobin A1c goal of less than 8.0% ([facility]) TAKE 1 TABLET BY MOUTH EVERYDAY AT BEDTIME 90 Tablet 1 08/03/2023 Active Iqoje-1-oeom Ethyl Esters 1 GM Oral Capsule (Lovaza)Indications: Hypertriglyceridemia Take 1 Capsule by mouth in the morning. 90 Capsule 3 08/23/2023 Active Benzonatate 100 MG Oral Capsule Take 1 Capsule by mouth 3 times a day as needed for Cough. 30 Capsule 1 08/24/2023 Active Doxycycline Hyclate 100 MG Oral Capsule Take 1 Capsule by mouth in the morning and 1 Capsule before bedtime. Until gone.. 20 Capsule 08/28/2023 Active Clopidogrel Bisulfate 75 MG Oral Tablet (pLAVix) TAKE 1 TABLET BY MOUTH EVERY DAY IN THE MORNING 90 Tablet 1 09/22/2023 Active Finasteride 5 MG Oral Tablet (Proscar)Indications :BPH with obstruction/lower urinary tract symptoms,Voiding difficulty TAKE 1 TABLET BY MOUTH EVERY DAY IN THE MORNING 90 Tablet 3 09/22/2023 Active metFORMIN HCl 1000 MG Oral Tablet (Glucophage) TAKE 1/2 TABLET TWICE DAILY (TOTAL OF 1000MG DAILY) 90 Tablet 1 01/23/2024 Active Lisinopril 2.5 MG Oral Tablet (Prinivil) TAKE 1 TABLET BY MOUTH EVERY DAY IN THE MORNING 90 Tablet 1 01/23/2024 Active Metoprolol Succinate ER 50 MG Oral Tablet Extended Release 24 Hour (toPROL XL)Indications:Chron ic coronary artery disease TAKE 1 TABLET BY MOUTH EVERY DAY IN THE MORNING 90 Tablet 1 01/27/2024 Active documented as of this encounter (statuses as of 01/30/2024) Active Problems Problem Noted Date Diagnosed Date Medical home patient encounter 01/05/2023 S/P laparoscopic cholecystectomy 05/25/2022 S/P amputation of lesser toe, right 10/29/2021 S/P amputation of lesser toe, right 10/29/2021 Coronary artery disease of n ative artery of [place] heart with stable angina pectoris 10/29/2021 Atherosclerosis [...] of insulin 03/11/2015 Overview: 04/01/15 a1c 5.9 @[place] ICD-10 update of inactive term Routine general [...] as of this encounter (statuses as of 01/30/2024) Resolved Problems Problem Noted Date Diagnosed Date Resolved Date 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 documented as of this encounter (statuses as of 01/30/2024) Immunizations Name Administration Dates Next Due COVID-19 [...] encounter Miscellaneous Notes * Telephone Encounter - Khadijah Culp OSA - 01/30/2024 10:42 AM EDT Pt's Gilma is calling and Mehdi has had diarrhea x a few weeks. Imodium is not working. [facility] can go to [facility] [employer] [facility]for a test kit, if he would send the order. 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 Dr Galvez has treated him for this in the past. Pt has apt 02-01-24 Please call her at [phone] documented in this encounter Plan of Treatment Upcoming Encounters Date Type Department Care Team (Late st Contact Info) Description 02/01/2024 11:00 AM EDT Office Visit Family Practice [facility] [address] [place] [address] Kemar Díaz CRNP [address] [place] [address] 02/02/2024 10:30 AM EDT Office Visit Vascular Surgery, [place] [address] [place] [address] Eloy Borrego MD [address] [facility] [place] [address] 08/08/2024 12:00 PM EST Office Visit [facility] [address] [place] [address] Chetan Galvez MD [address] [place] [address] Health Maintenance Due Date Last Done Comments Zoster Vaccines (2 of 3) 06/07/2015 04/12/2015 COVID-19 Vaccine ( season) 2023 11/04/2020, 10/14/2020 Depression Screening 01/06/2024 01/05/2023, 10/20/2016 (Declined) Diabetic Foot Exam 01/06/2024 01/05/2023, 1 , 04/30/2020, Additional history exists Influenza Vaccine (FLU shot) (#1) 2024 HbA1c 07/26/2024 01/24/2024, 07/05, 12/29/2022, Additional history exists B-12 07/27/2024 07/27/2023, 12/03, 10/29/2021, Additional history exists CKD HGB USE SMARTSET 61295 07/27/202407/27, 07/27/2023, 12/29/2022, Additional history exists Diabetic Eye Exam 12/07/2024 12/08/2023, , 08/19/2022, Additional history exists CKD PHOS USE SMARTSET 94598 01/23/202501/02, 03/12/2021, 01/25/2020, Additional history exists Albumin/Creatinine [...] and were consensually agreed upon. Care Teams Manufacturing Engineer Chief Relationship Specialty Start Date End Date Chetan Galvez MD [address] [facility] [place] [address] PCP - General Family Medicine 10/23/14 documented as of this encounter
--- OUTSIDE RECORDS SUMMARY | 2024-03-30 03:50 | External Medical Summary | Summary of Care ---
Author Name Unknown Organization [facility] Address [address] [place] [address] Phone [phone] Care Team Providers Care Plate And Frame Filter Operator Name Role Phone Chetan Leung MD Primary Care Provider + Reason for Visit * Reason Onset Date Comments Advice 01/30/2024 An order for Ann rdia? Encounter Details Date Type Department Care Team (Late st Contact Info) Description 01/30/2024 Telephone Family Practice [facility] [address] [facility] [place] [address] Chetan Leung MD [address] [place] [address] Advice (An order for [...] hemoglobin A1c goal of less than 8.0% ([facility]) TAKE 1 TABLET BY MOUTH EVERYDAY AT BEDTIME 90 Tablet 1 08/03/2023 Active Nrgbj-9-zdoy Ethyl Esters 1 GM Oral Capsule (Lovaza)Indications: [...] artery disease of n ative artery of [place] heart with stable angina pectoris 10/29/2021 Atherosclerosis [...] of insulin 03/11/2015 Overview: 04/01/15 a1c 5.9 @[place] ICD-10 update of inactive term Routine general [...] as of this encounter Miscellaneous Notes * Addendum Note - Chetan Leung MD - 01/30/2024 3:25 PM EDTAddended by: CHETAN LEUNG on: 01/30/2024 03:25 PM Modules accepted: Orders * Telephone Encounter - Chetan Leung MD - 01/30/2024 3:24 PM EDT Stool labs ordered-please stop by office to tile picker containers & we'll get results and go from there. * Telephone Encounter - Khadijah Culp OSA - 01/30/2024 10:42 AM EDT Pt's Gilma is calling and Mehdi has had diarrhea x a few weeks. Imodium is not working. She can go to [facility]for a test kit, if he would send the order. 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 Dr Leung has treated him for this in the past. Pt has apt 02-01-24 Please call her at [phone] documented in this encounter Plan of Treatment Upcoming Encounters Date Type Department Care Team (Late st Contact Info) Description 02/01/2024 11:00 AM EDT Office Visit [facility] [address] [facility] [place] [address] Kemar Díaz CRNP 132 [place] [address] 02/02/2024 10:30 AM EDT Office Visit Vascular Surgery[address] [address] Eloy Borrego MD [address] [place] [address] 08/08/2024 12:00 PM EST [facility] [address] Chetan Leung MD 132 [place] [address] Scheduled Orders Name Type Priority Associated Diagnoses Orde r Schedule CLOSTRIDIUM DIFFICILE, PCR Lab Routine Diarrhea of presumed infectious origin Expected: 01/30/2024 (Approximate), Expires: 01/29/2025 GASTROINTESTINAL PATHOGEN PANEL, STOOL Lab Routine Diarrhea of presumed infectious origin Expected: 01/30/2024 (Approximate), Expires: 01/29/2025 Health Maintenance Due Date Last Done Comments [...] Additional history exists CKD HGB USE SMARTSET 84500 07/27/202407/27, 07/27/2023, 12/29/2022, Additional history exists Diabetic Eye Exam 12/07/2024 12/08/2023, , 08/19/2022, Additional history exists CKD PHOS USE SMARTSET 80856 01/23/2025 0709/2023, 03/12/2021, 01/25/2020, Additional history exists [...] Not on filedocumented as of this encounter Visit Diagnoses Diagnosis Diarrhea of presumed infectious origin- Primary PAD (peripheral artery disease) (HCC)- Primary Peripheral vascular disease, unspecified Dyslipidemia, goal LDL below 70 Other and unspecified hyperlipidemia documented in this encounter Advance Directives * Full Code (Latest Code Status on File) Date Activated Date Inactivated Comments 01/02/2020 5:09 PM 01/07/2020 11:18 PM This order re flects the patients wishes and were consensually agreed upon. Care Teams Plate And Frame Filter Operator Relationship Specialty Start Date End Date Chetan Leung MD [address] [place] [address] PCP - General Family Medicine 10/23/14 documented as of this encounter
--- OUTSIDE RECORDS SUMMARY | 2024-03-30 03:50 | External Medical Summary | Summary of Care ---
Author Name Unknown Organization [facility] Address [address] [facility] [place] [address] Phone [phone] Care Team Providers Care Fish And Wildlife Biologist Name Role Phone Chetan Leung MD Primary Care Provider + Reason for Visit * Reason Comments eRx-Medication Refill Encounter Details Date Type Department Care Team (Late st Contact Info) Description 2024 Refill Family Practice [facility] [address] [place] [address] Chetan Leung MD [address] [place] [address] Dyslipidemia, goal LDL below 70; Chronic coronary artery disease; Type 2 diabetes mellitus with hemoglobin A1c goal of less than 8.0% ([facility]) Allergies Active Allergy Reactions Criticality Noted Date Comments Atorvastatin 10/17/2015 Myaglias, worse Tamsulosin 10/29/2021 Dizzy, lightheaded Oxycodone Hcl Psych complications 08/14/2013 nightmares documented as of this encounter (statuses as of 02/06/2024) Medications Medication Sig Dispensed Refills Start Date [...] 15 minutes 25 Tablet 1 08/03/2023 Active Jwuac-7-hmqz Ethyl Esters 1 GM Oral Capsule (Lovaza)Indicatio [...] AT BEDTIME 90 Tablet 1 2024 Active Simvastatin 40 MG Oral Tablet (Zocor)Indication s:Dyslipidemia, goal LDL below 70,Chronic coronary artery disease,Type 2 diabetes mellitus with hemoglobin A1c goal of less than 8.0% (HCC) TAKE 1 TABLET BY MOUTH EVERYDAY AT BEDTIME 90 Tablet 1 08/03/2023 02/03/20 24 Discontinued documented as of this encounter (statuses as of 02/06/2024) Active Problems Problem Noted Date Diagnosed Date Medical home patient encounter 01/05/2023 S/P laparoscopic cholecystectomy 05/25/2022 S/P amputation of lesser toe, right 10/29/2021 S/P amputation of lesser toe, right 10/29/2021 Coronary artery disease of n ative artery of [place] heart with stable angina pectoris 10/29/2021 Atherosclerosis [...] of insulin 03/11/2015 Overview: 04/01/15 a1c 5.9 @[place] ICD-10 update of inactive term Routine general [...] as of this encounter (statuses as of 02/06/2024) Resolved Problems Problem Noted Date Diagnosed Date Resolved Date 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 documented as of this encounter (statuses as of 02/06/2024) Immunizations Name Administration Dates Next Due COVID-19 mRNA, LNP-s, No Pre serve, 2-Dose Series ([employer]) 11/04/2020,10/14/2020 Pneumococcal Conjugate Vacc, 13 Valent (Prevnar) [...] encounter Miscellaneous Notes * Telephone Encounter - Kathe Tesfaye PHARM Tech - 02/06/2024 7:45 AM EDT Pt calling to request simvastatin. Informed pt that RX is available at their pharmacy. Pt verbalized understanding and stated they will check with their pharmacy regarding this medication. Thank You, Kathe Tesfaye CPhT [facility] 02/06/2024, 7:45 AM * Telephone Encounter - Paty Garcia [facility] - 2024 10:35 AM EDTSigned Prescriptions: Disp Refills Simvastatin 40 MG Oral Tablet (Zocor) 90 Tab*1 Sig: TAKE 1 TABLET BY MOUTH EVERYDAY AT BEDTIMEAuthorizing Provider: CHETAN LEUNG User: KENDRA GARCIA documented in this encounter Plan of Treatment Upcoming Encounters Date Type Department Care Team (Late st Contact Info) Description 02/07/2024 11:30 AM EDT Imaging Radiology [facility] 1st [facility] [address] [facility] [place] [address] 03/22/2024 1:30 PM EDT Office Visit Interventional Pain Center, [facility] [address] [facility] [place] [address] Suha Oconnor MD [address] [facility] [place] [address] 07/30/2024 11:30 AM EST Imaging Vascular Lab, [facility] 2nd [facility] [address] [facility] [place] [address] 08/08/2024 12:00 PM EST Office Visit Family Practice [facility] [address] [facility] [place] [address] Chetan Leung MD 132 [facility] [place] [address] 08/09/2024 10:30 AM EST Office Visit [facility], [place] [facility] [address] Eloy Borrego MD [address] [place] [address] 08/14/2024 1:30 PM EST Office Visit Cardiology, [facility] [address] [place] [address] Yinka Mcfarland DO [address] [place] [address] Health Maintenance Due Date Last Done Comments Zoster Vaccines (2 of 3) 06/07/2015 04/12/2015 COVID-19 Vaccine (3 - 2022- season) 2023 11/04/2020, 10/14/2020 Depression Screening 01/06/2024 01/05/2023, 10/20/2016 (Declined) Diabetic Foot Exam 01/06/2024 01/05/2023, 1 , 04/30/2020, Additional history exists Influenza Vaccine (FLU shot) (#1) 2024 HbA1c 07/26/2024 01/24/2024, 07/05, 12/29/2022, Additional history exists B-12 07/27/2024 07/27/2023, 12/03, 10/29/2021, Additional history exists CKD HGB USE SMARTSET 72138 07/27/202407/27, 07/27/2023, 12/29/2022, Additional history exists Diabetic Eye Exam 12/07/2024 12/08/2023, , 08/19/2022, Additional history exists CKD PHOS USE SMARTSET 39445 01/23/2025 0709/2023, 03/12/2021, 01/25/2020, Additional history exists [...] as of this encounter Visit Diagnoses Diagnosis Dyslipidemia, goal LDL below 70 Other and unspecified hyperlipidemia Chronic coronary artery disease Coronary atherosclerosis of unspecified type of vessel, [place] or graft Type 2 diabetes mellitus with hemoglobin A1c goal of less than 8.0% (HCC) documented in this encounter Additional Health Concerns [...] and were consensually agreed upon. Care Teams Fish And Wildlife Biologist Relationship Specialty Start Date End Date Chetan Leung MD [address] [place] [address] PCP - General Family Medicine 10/23/14 documented as of this encounter
--- OUTSIDE RECORDS SUMMARY | 2024-03-30 03:50 | External Medical Summary | Summary of Care ---
Author Name Unknown Organization [facility] Address [address] [facility] [place] [address] Phone [phone] Care Team Providers Care Program Aide Name Role Phone Chetan Galvez MD Primary Care Provider + Reason for Visit * Reason Onset Date Comments Appointment 02/15/2024 Encounter Details Date Type Department Care Team (Late st Contact Info) Description 02/15/2024 Telephone Family Practice [facility] [address] [place] [address] Kemar Díaz CRNP [address] [place] [address] Appointment Allergies Active Allergy Reactions Criticality Noted Date Comments Atorvastatin 10/17/2015 Myaglias, worse Tamsulosin 10/29/2021 Dizzy, lightheaded Oxycodone Hcl Psych complications 08/14/2013 nightmares documented as of this encounter (statuses as of 02/15/2024) Medications Medication Sig Dispensed Refills Start Date [...] 15 minutes 25 Tablet 1 08/03/2023 Active Tcthj-8-gfse Ethyl Esters 1 GM Oral Capsule (Lovaza)Indications [...] Oral Tablet Extended Release 24 Hour (toPROL XL)Indications:Junior Sales Assistant rehan coronary artery disease TAKE 1 TABLET [...] AT BEDTIME 90 Tablet 1 2024 Active documented as of this encounter (statuses as of 02/15/2024) Active Problems Problem Noted Date Diagnosed Date Medical home patient encounter 01/05/2023 S/P laparoscopic cholecystectomy 05/25/2022 S/P amputation of lesser toe, right 10/29/2021 S/P amputation of lesser toe, right 10/29/2021 Coronary artery disease of n ative artery of [place] heart with stable angina pectoris 10/29/2021 Atherosclerosis [...] of insulin 03/11/2015 Overview: 04/01/15 a1c 5.9 @[place] ICD-10 update of inactive term Routine general [...] as of this encounter (statuses as of 02/15/2024) Resolved Problems Problem Noted Date Diagnosed Date Resolved Date 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 documented as of this encounter (statuses as of 02/15/2024) Immunizations Name Administration Dates Next Due COVID-19 [...] encounter Miscellaneous Notes * Telephone Encounter - Manisha Hung OSA - 02/15/2024 12:28 PM EDT Spoke w/ pt made f/u appt for 03/19 at 12:30 * Telephone Encounter - Kemar Díaz CRNP - 02/15/2024 11:54 AM EDT Please notify patient that xray showed age related changes in neck but no fracture or mass. Has he been going to PT? Please schedule follow up visit. We'll need to document the trial of PT for 6-8 weeks, and order MRI ideally prior to pain management appt. documented in this encounter Plan of Treatment Upcoming Encounters Date Type Department Care Team (Late st Contact Info) Description 03/19/2024 12:20 PM EDT Office Visit [facility] [address] [place] [address] Kemar Díaz CRNP [address] [place] [address] 03/22/2024 1:30 PM EDT Office [facility] [place] [address] Suha Oconnor MD [address] [place] [address] 07/30/2024 11:30 AM EST [facility] [place] [address] 08/08/2024 12:00 PM EST Office Visit Family Practice [facility] [address] [facility] [place] [address] Chetan Galvez MD [address] [address] 08/09/2024 10:30 AM EST Office Visit Vascular Surgery, [place] [address] [place] [address] Eloy Borrego MD [address] [place] [address] 08/14/2024 1:30 PM EST Office Visit Cardiology, [facility] [address] [facility] [place] [address] Yinka Mcfarland, [address] [place] [address] Health Maintenance Due Date Last Done Comments Adult Wellness Visit 02/04/2004 Zoster Vaccines (2 of 3) 06/07/2015 04/12/2015 COVID-19 Vaccine (3 - 2022-24 season) 2023 11/04/2020, 10/14/2020 Depression Screening 01/06/2024 01/05/2023, 10/20/2016 (Declined) Diabetic Foot Exam 01/06/2024 01/05/2023, 1 , 04/30/2020, Additional history exists Influenza Vaccine (FLU shot) (#1) 2024 HbA1c 07/26/2024 01/24/2024, 07/05, 12/29/2022, Additional history exists B-12 07/27/2024 07/27/2023, 12/03, 10/29/2021, Additional history exists CKD HGB USE SMARTSET 77574 07/27/202407/27, 07/27/2023, 12/29/2022, Additional history exists Diabetic Eye Exam 12/07/2024 12/08/2023, , 08/19/2022, Additional history exists CKD PHOS USE SMARTSET 91998 01/23/202501/02, 03/12/2021, 01/25/2020, Additional history exists Albumin/Creatinine [...] and were consensually agreed upon. Care Teams Program Aide Relationship Specialty Start Date End Date Chetan Galvez MD [address] [place] [address] PCP - General Family Medicine 10/23/14 documented as of this encounter
--- OUTSIDE RECORDS SUMMARY | 2024-03-30 03:50 | External Medical Summary | Summary of Care ---
Author Name Unknown Organization [facility] Address [address] [place] [address] Phone [phone] Care Team Providers Care Rubber Roller Grinder Operator Name Role Phone Chetan Galvez MD Primary Care Provider + Reason for Referral * Evaluate & Treat - Unlimited Visits (Within 30 days (routine)) - Authorized Specialty Diagnoses / Procedures Referred By Contjenae mar Referred To Contact Pain Management / Pain Medicine Diagnoses Neck pain Kemar Díaz CRNP [address] [place] [address] Referral ID Status Reason Start Date Expiration Date Visits Requested Visits Authorized [id number] Authorized Specialty Services Required 02/01/2024 999 999 Question Answer Referral Priority Within 30 days (routine) Where should this appointment be scheduled? [facility] Reason for referral? Interventional Pain Management - (Injection) What condition is the patient being referred for? Neck Axial What is the preferred location to have this test performed? [facility] Comments Patient Name: Mehdi Quintanilla Date of : 1940 Department Phone Number: MRI or CT (if unable to have a MRI) is recommended if any of the following apply: 1. Patient has neck or back pain with radiation to extremities. A previous MRI will be accepted if symptoms unchanged since prior MRI. 2. Spinal surgery since last MRI. If yes, order a MRI with and without contrast. 3. Hx or ongoing cancer treatment. Patient will need spine x-ray (Ap/Lat) for axial neck or back pain if not done previously. Fax No. [facility] [phone] or contact front tender [phone] Fax No. [facility] [phone] or contact front tender [phone] Fax No. [facility] [phone] or contact front tender [phone] * Evaluate & Treat - Unlimited Visits (Within 30 days (routine)) - Authorized Specialty Diagnoses / Procedures Referred By Bere mar Referred To Contact Physical Therapy / Physical Medicine And Rehab Diagnoses Neck pain Kemar Díaz CRNP [address] [place] [address] Referral ID Status Reason Start Date Expiration Date Visits Requested Visits Authorized [id number] Authorized Specialty Services Required 02/01/2024 999 999 Question Answer Referral Priority Within 30 days (routine) Where should this appointment be scheduled? [facility] Reason for Visit * Reason Comments Re-Check 6 month check up Neck Pain While showering Encounter Details Date Type Department Care Team (Late st Contact Info) Description 02/01/2024 11:00 AM EDT Office Visit Family Practice [facility] [address] [place] [address] Kemar Díaz CRNP [address] [place] [address] Type 2 diabetes mellitus with hemoglobin A1c goal of less than 8.0% ([facility])*; Chronic neck pain; HTN, goal below 140/90; PAD (peripheral artery disease) ([facility]) Allergies Active Allergy Reactions Criticality Noted Date Comments Atorvastatin 10/17/2015 Myaglias, worse Tamsulosin 10/29/2021 Dizzy, lightheaded Oxycodone Hcl Psych complications 08/14/2013 nightmares documented as of this encounter (statuses as of 02/01/2024) Medications Medication Sig Dispensed Refills Start Date [...] 08/03/2023 Active Simvastatin 40 MG Oral Tablet (Zocor)Indication s:Dyslipidemia, goal LDL below 70,Chronic coronary artery disease,Type 2 diabetes mellitus with hemoglobin A1c goal of less than 8.0% (HCC) TAKE 1 TABLET BY MOUTH EVERYDAY AT BEDTIME 90 Tablet 1 08/03/2023 Active Ituzt-5-vpmb Ethyl Esters 1 GM Oral Capsule (Lovaza)Indicatio [...] Capsule by mouth in the morning. Active Lisinopril 2.5 MG Oral Tablet (Prinivil) TAKE 1 TABLET BY MOUTH EVERY DAY IN THE MORNING 90 Tablet 1 01/23/2024 02/01/20 24 Discontinued documented as of this encounter (statuses as of 02/01/2024) Active Problems Problem Noted Date Diagnosed Date Medical home patient encounter 01/05/2023 S/P laparoscopic cholecystectomy 05/25/2022 S/P amputation of lesser toe, right 10/29/2021 S/P amputation of lesser toe, right 10/29/2021 Coronary artery disease of n ative artery of [place] heart with stable angina pectoris 10/29/2021 Atherosclerosis [...] start b12 im Controlled type 2 diabetes fransisco zhu with microalbuminuria, without long-term current use of insulin 03/11/2015 Overview: 04/01/15 a1c 5.9 @[place] ICD-10 update of inactive term Routine general [...] as of this encounter (statuses as of 02/01/2024) Resolved Problems Problem Noted Date Diagnosed Date Resolved Date 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 documented as of this encounter (statuses as of 02/01/2024) Immunizations Name Administration Dates Next Due COVID-19 [...] 07/19/1955 - 07/19/1963 Smokeless Tobacco: Current Chew Tobacco Cessation:Ready to Q uit: No; Counseling Given: No Comments:Currently using 2 pouches a week Alcohol Use Standard Drinks/Week Comments [...] on file documented as of this encounter Last Filed Vital Signs Vital Sign Reading Time Taken Comments Blood Pressure 90/50 02/01/2024 10:51 AM EDT Pulse 60 02/01/2024 10:51 AM EDT Temperature 36.2 C (97.2 F) 02/01/2024 10:51 AM E DT Respiratory Rate 16 02/01/2024 10:51 AM EDT Oxygen Saturation - - Inhaled Oxygen Concentration - - Weight 90.7 kg (200 lb) 02/01/2024 10:51 AM EDT Height - - Body Mass Index 28.7 01/05/2023 10:04 AM EDT documented in this encounter Functional Status Functional Status Response [...] No 01/02/2020 documented as of this encounter Progress Notes * Kemar Díaz CRNP - 02/01/2024 10:56 AM EDT Images from the original note were not included. Follow up Family Medicine Visit History of Present Illness Mehdi Quintanilla is a very pleasant 83 year old male with PMH listed below presenting with 6 months check up. Overall doing well. C/o neck pain when he is taking a shower. No pain in arms. Sometimes feels tired/lightheaded. He had injection in his neck several years ago and interested in again. Re-Check (6 month check up) and Neck Pain (While showering). 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 PRN Occupation: works w/[employer] Tobacco Use Smoking status: Former Current packs/day: 0.00 Types: Cigarettes Start date: 07/19/1955 Quit date: 07/19/1961 Years since quittin.5 Smokeless tobacco: Current Types: Chew Tobacco comments: Currently using 2 pouches a week Vaping Use Vaping status: Never Used Substance and Sexual Activity Alcohol use: No Drug use: No Sexual activity: Never Comment: , +ED Other Topics Concern Not on file Social History Narrative Likes racing, working at [employer] Social Determinants of Health Financial Resource Strain: Low Risk (10/14/2023) Financial Resource Strain Do you have any trouble paying for your medications, or do you think you might in the future? (Adult - for ages 18 years and over): No Does your family have trouble paying for medicine? (Household - for ages 0-17 years): Not on file Food Insecurity: No Food Insecurity (10/14/2023) Food Insecurity Do you need food for this week? (Adult - for ages 18 years and over): No Are you able to get enough food for your family? (Household - for ages 0-17 years): Not on file Does your family need food this week? (Household - for ages 0-17 years): Not on file Do you always have enough food for your family? (Household - for ages 0-17 years): Not on file Transportation Needs: No Transportation Needs (10/14/2023) Transportation Needs Do you have trouble getting a ride to medical visits or work? (Adult - for ages 18 years and over):Never True Does your family have a hard time getting a ride to doctors visits? (Household - for ages 0-17 years): Not on file Has lack of transportation kept you from medical appointments, meetings, work, or from getting things needed for daily living? Check all that apply. (Adult - for ages 18 years and over): Not on file Do you (or your family) have trouble finding or paying for a ride (transportation)? (Household - for ages 0-17 years): Not on file Social Connections: Socially Integrated (10/14/2023) Social Connections How often do you feel lonely or isolated from those around you? (Adult - for ages 18 years and over): Never Housing Stability: Low Risk (10/14/2023) Housing Stability Do you currently live in a fdc or have no steady place to sleep at night? (Adult - for ages 18 years and over): No Do you think you are at risk of becoming homeless? (Adult - for ages 18 years and over): No Does your family worry about paying for your home or becoming homeless? (Household - for ages 0-17 years): Not on file Are you homeless or worried that you might be in the future? (Adult - for ages 18 years and over): Not on file Are you (or your family) homeless or worried that you might be in the future? (Household - for ages0-17 years): Not on file PMH: Past Medical History: Diagnosis Date Anemia, chronic disease 10/23/2014 C. 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 Rx vanco given. 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 Hypomagnesemia 06/28/2017 PAC (premature atrial contraction) 10/08/2014 Primary open angle glaucoma 03/10/2017 S/P cholecystectomy Past Surgical History: Procedure Laterality Date AMPUTATION OF TOE Right 01/04/2020 AMPUTATION TOE METATARSOPHALANGEAL JOINT performed by Eloy Borrego MD at [facility] APPENDECTOMY W/OTHER PROCEDURE 2011? CARDIAC CATH SCANNED RESULT 2008, 2011 CATARACT SURGERY,COMPLEX 05/07/[address] Rolan Parker [place] CATARACT SURGERY,COMPLEX Right 05/21/[address] Waterman [place]. COLONOSCOPY, DIAGNOSTIC (RECTUM) 11/28/2014 microscopic colitis, diverticulosis/[facility] EGD, FLEXIBLE, DIAGNOSTIC 11/28/2014 normal bx/[facility] EGD, FLEXIBLE, DIAGNOSTIC 11/21/2020 Tortuous esophagus / ESOPHAGOGASTRODUODENOSCOPY (EGD), FLEXIBLE, TRANSORAL, DIAGNOSTIC performed byToya Napier DO at [facility] EGD, FLEXIBLE, DIAGNOSTIC N/A 12/31/2022 food esophagus, removed/tortuous esophagus/esophagitis/diffuse gastritis/EGD/[facility] EGD, FLEXIBLE, DIAGNOSTIC 01/26/2023 tortuous esophagus / [facility] LAPAROSCOPY; CHOLECYSTECTOMY 04/26/[address] [facility] [address] Dr Dhillon MISCELLANEOUS ORDER ([facility] ONLY) 2009, 2013 Dr Lobo, lumbar fusion/thorac TIBIAL/PERONEAL ART. REVASC W/ANGIO, FIRST Right 11/23/2019 TIBIAL/PERONEAL ART. REVASC W/ANGIO, FIRST performed by Eloy Borrego MD at [facility] ENDOSCOPIC N/A 12/31/2022 one benign lymph node celiac region/wall thickening lower third esophagus, appeared to be primarilywithin submucosa, consistent with food impaction/EUS/MN VEIN BYPASS, POP-TIB/PER Right 01/04/2020 BYPASS GRAFT WITH VEIN POPLITEAL TIBIAL performed by Eloy Borrego MD at [facility] Current Outpatient Medications Medication Sig Dispense Refill Loratadine 10 MG Oral Capsule Take 1 Capsule by mouth in the morning. Metoprolol Succinate ER 50 MG Oral Tablet Extended Release 24 Hour (toPROL XL) TAKE 1 TABLET BY MOUTH EVERY DAY IN THE MORNING 90 Tablet 1 Lisinopril 2.5 MG Oral Tablet (Prinivil) TAKE 1 TABLET BY MOUTH EVERY DAY IN THE MORNING 90 Tablet 1 metFORMIN HCl 1000 MG Oral Tablet (Glucophage) TAKE 1/2 TABLET TWICE DAILY (TOTAL OF 1000MG DAILY) 90 Tablet 1 Clopidogrel Bisulfate 75 MG Oral Tablet (pLAVix) TAKE 1 TABLET BY MOUTH EVERY DAY IN THE MORNING 90Tablet 1 Finasteride 5 MG Oral Tablet (Proscar) TAKE 1 TABLET BY MOUTH EVERY DAY IN THE MORNING 90 Tablet 3 Zcoud-7-xtab Ethyl Esters 1 GM Oral Capsule (Lovaza) Take 1 Capsule by mouth in the morning. 90 Capsule 3 Nitroglycerin 0.4 MG Sublingual Tablet Sublingual (Nitrostat) Place 1 Tablet under the tongue every5 minutes as needed for Pain, Chest. Use up to 3 in 15 minutes 25 Tablet 1 Simvastatin 40 MG Oral Tablet (Zocor) TAKE 1 TABLET BY MOUTH EVERYDAY AT BEDTIME 90 Tablet 1 Allopurinol 300 MG Oral Tablet (Zyloprim) TAKE 1 TABLET BY MOUTH EVERY DAY 90 Tablet 3 Famotidine 20 MG Oral Tablet (Pepcid) Take 1 Tablet by mouth in the morning and 1 Tablet before bedtime. 180 Tablet 3 Betamethasone Dipropionate Aug 0.05 % External Cream (Diprolene AF) APPLY TOPICALLY TO AFFECTED AREA 2 TIMES A DAY . TO AFFECTED AREA. 50 g 3 B-12 1000 MCG Oral Tablet Take 2 Tablets by mouth daily. Acetaminophen 500 MG Oral Tablet Take 1 Tablet by mouth daily as needed. pyridOXINE (VITAMIN B-6) 100 MG Tablet Take 1 Tablet by mouth in the morning. In the morning. zinc gluconate 50 MG Tablet Take 1 Tablet by mouth in the morning. In the morning. SLOW-MAG 71.5-119 MG TBEC TAKE 2 TABLETS BY MOUTH 2 TIMES A DAY. 120 Tab 5 Probiotic Product (PROBIOTIC & ACIDOPHILUS EX ST) Capsule Take 1 Capsule by mouth in the morning. In the morning. Lysine 500 MG TABS Take 500 mg by mouth daily. In the morning ASPIRIN LOW DOSE 81 MG PO TABS Take 1 Tablet by mouth in the morning. With dinner. VITAMIN C CR 1000 MG PO TBCR Take 1,000 mg by mouth daily. In the morning Doxycycline Hyclate 100 MG Oral Capsule Take 1 Capsule by mouth in the morning and 1 Capsule beforebedtime. Until gone.. (Patient not taking: Reported on 02/01/2024) 20 Capsule 0 Benzonatate 100 MG Oral Capsule Take 1 Capsule by mouth 3 times a day as needed for Cough. (Patientnot taking: Reported on 02/01/2024) 30 Capsule 1 Cetirizine HCl 10 MG Oral Tablet Take 1 Tablet by mouth in the morning. (Patient not taking: Reported on 02/01/2024) LUTEIN 40 MG PO CAPS Take 40 mg by mouth daily. In the morning (Patient not taking: Reported on 02/01/2024) No current facility-administered medications for this visit. Review of patient's allergies indicates: Allergen Reactions Atorvastatin Myaglias, worse Flomax [Tamsulosin] Dizzy, lightheaded Oxycodone Hcl Psych complications nightmares Most Recent Immunizations Administered Date(s) Administered COVID-19 mRNA, LNP-s, No Preserve, 2-Dose Series (Labtiva) 11/04/2020 Pneumococcal Conjugate Vacc, 13 Valent (Prevnar) 04/21/2016 Pneumococcal Polysaccharide PPV23 (Pneumovax) 09/16/2017 TDAP (age 10 and older)(Boostrix) 11/21/2020 Varicella Zoster Vaccine (Adult) 04/12/2015 Vitamin B12 Injection 11/26/2015 Review of Systems: Physical Exam BP 90/50 (BP Site: Left Arm, BP Position: Sitting, BP Cuff Size: Large) | Pulse 60 | Temp 36.2 C (97.2 F) (Tympanic) | Resp 16 | Wt 90.7 kg (200 lb) | BMI 28.70 kg/m | BSA 2.12 m Physical Exam Constitutional: Appearance: Normal appearance. HENT: Head: Normocephalic. Neck: Comments: No cervical radiculopathy, strength 5/5, normal sensation Cardiovascular: Rate and Rhythm: Normal rate. Pulmonary: Effort: Pulmonary effort is normal. Breath sounds: Normal breath sounds. Musculoskeletal: Cervical back: Neck supple. Pain with movement (with extension, left lateral flexion/rotation) present. No muscular tenderness. Lymphadenopathy: Cervical: No cervical adenopathy. Skin: General: Skin is warm. Neurological: Mental Status: He is alert and oriented to person, place, and time. Psychiatric: Mood and Affect: Mood normal. Assessment and Plan 1. Type 2 diabetes mellitus with hemoglobin A1c goal of less than 8.0% ([facility]) A1C stable, cont metformin 2. Chronic neck pain - PHYSICAL THERAPY REFERRAL OP - XR C SPINE 4-5 VIEWS - PAIN MEDICINE REFERRAL OP 3. HTN, goal below 140/90 BP 90/50, stop lisinopril today and monitor 4. PAD (peripheral artery disease) ([facility]) Has f/u vascular surgery Wrap-Up I have advised the patient to call our office with any worsening or new symptoms. I spent a total of 30-39 minutes (exact time 30 mins) on the date of service in preparation, delivery, and documentation of the care provided to Mehdi Quintanilla excluding any time spent in the performance of separately billed services. Kemar Díaz, MSN, [employer] SPRAYER [facility] documented in this encounter Plan of Treatment Upcoming Encounters Date Type Department Care Team (Late st Contact Info) Description 02/02/2024 10:30 AM EDT Office Visit Vascular Surgery, [place] [address] [place] [address] Eloy Borrego MD [address] [place] [address] 03/22/2024 1:30 PM EDT Office Visit Interventional Pain Center, [facility] [address] [facility] [place] [address] Suha Oconnor MD [address] [place] [address] 08/08/2024 12:00 PM EST Office Visit Family Practice [facility] [address] [facility] [place] [address] Chetan Galvez MD [address] [facility] [place] [address] Scheduled Orders Name Type Priority Associated Diagnoses Orde r Schedule XR C SPINE 4-5 VIEWS Medical Imaging Routine Chronic neck pain Ordered: 02/01/2024 Scheduled Referrals Name Type Priority Associated Diagnoses Orde r Schedule PHYSICAL THERAPY REFERRAL OP Referral Within 30 days (routine) Chronic neck pain Ordered: 02/01/2024 PAIN MEDICINE REFERRAL OP Referral Within 30 days (routine) Chronic neck pain Ordered: 02/01/2024 Health Maintenance Due Date Last Done Comments [...] Additional history exists CKD HGB USE SMARTSET 41745 07/27/202407/27, 07/27/2023, 12/29/2022, Additional history exists Diabetic Eye Exam 12/07/2024 12/08/2023, , 08/19/2022, Additional history exists CKD PHOS USE SMARTSET 70717 01/23/202501/02, 03/12/2021, 01/25/2020, Additional history exists Albumin/Creatinine [...] as of this encounter Visit Diagnoses Diagnosis Type 2 diabetes mellitus with hemoglobin A1c goal of less than 8.0% (HCC)- Primary Chronic neck pain Cervicalgia HTN, goal below 140/90 Unspecified essential hypertension PAD (peripheral artery disease) (HCC) Peripheral vascular disease, unspecified PAD (peripheral artery disease) (HCC)- Primary Peripheral vascular disease, unspecified Dyslipidemia, goal LDL below 70 Other and unspecified hyperlipidemia documented in this encounter Advance Directives * Full Code (Latest Code Status on File) Date Activated Date Inactivated Comments 01/02/2020 5:09 PM 01/07/2020 11:18 PM This order re flects the patients wishes and were consensually agreed upon. Care Teams Rubber Roller Grinder Operator Relationship Specialty Start Date End Date Chetan Galvez MD [address] [place] [address] PCP - General Family Medicine 10/23/14 documented as of this encounter"
--- OUTSIDE RECORDS SUMMARY | 2024-03-30 03:50 | External Medical Summary | Summary of Care ---
Author Name Unknown Organization [facility] Address [address] [facility] [address] Phone [phone] Care Team Providers Care Leather Goods Assembler Name Role Phone Chetan Galvez MD Primary Care Provider + Reason for Visit * Reason Comments Outpatient Testing Encounter Details Date Type Department Care Team (Late st Contact Info) Description 2024 8:20 AM EDT Laboratory Laboratory [address] [place] [phone] , Specimen Drop Off [address] [place] [address] Diarrhea of presumed infectious origin Allergies Active Allergy Reactions Criticality Noted Date Comments Atorvastatin 10/17/2015 Myaglias, worse Tamsulosin 10/29/2021 Dizzy, lightheaded Oxycodone Hcl Psych complications 08/14/2013 nightmares documented as of this encounter (statuses as of 2024) Medications Medication Sig Dispensed Refills Start Date [...] 08/03/2023 Active Simvastatin 40 MG Oral Tablet (Zocor)Indications: Dyslipidemia, goal LDL below 70,Chronic coronary artery disease,Type 2 diabetes mellitus with hemoglobin A1c goal of less than 8.0% (HCC) TAKE 1 TABLET BY MOUTH EVERYDAY AT BEDTIME 90 Tablet 1 08/03/2023 Active Ceexi-8-spqb Ethyl Esters 1 GM Oral Capsule (Lovaza)Indications [...] Oral Tablet Extended Release 24 Hour (toPROL XL)Indications: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 Active documented as of this encounter (statuses as of 2024) Active Problems Problem Noted Date Diagnosed Date Medical home patient encounter 01/05/2023 S/P laparoscopic cholecystectomy 05/25/2022 S/P amputation of lesser toe, right 10/29/2021 S/P amputation of lesser toe, right 10/29/2021 Coronary artery disease of n ative artery of [place] heart with stable angina pectoris 10/29/2021 Atherosclerosis [...] of insulin 03/11/2015 Overview: 04/01/15 a1c 5.9 @[place] ICD-10 update of inactive term Routine general [...] as of this encounter (statuses as of 2024) Resolved Problems Problem Noted Date Diagnosed Date Resolved Date 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 documented as of this encounter (statuses as of 2024) Immunizations Name Administration Dates Next Due COVID-19 [...] Care Team (Late st Contact Info) Description 03/22/2024 1:30 PM EDT Office Visit Interventional Pain Center, [facility] [address] [place] [address] Suha Oconnor MD [address] [place] [address] [place] [address] 07/30/2024 11:30 AM EST Imaging Vascular Lab, [facility] 2nd Floor, [place] [address] [place] [address] 08/08/2024 12:00 PM EST Office Visit Family Practice [facility] [address] [place] [address] Chetan Galvez MD [address] [place] [address] 08/09/2024 10:30 AM EST Office Visit Vascular Surgery, [place] [address] [place] [address] Eloy Borrego MD [address] [facility] [place] [address] 08/14/2024 1:30 PM EST Office Visit Cardiology, [facility] [address] [place] [address] Yinka Mcfarland, [address] [place] [address] Pending Results Name Type Priority Associated Diagnoses Date /Time GASTROINTESTINAL PATHOGEN PANEL, STOOL Lab Routine Diarrhea of presumed infectious origin 2024 8:17 AM EDT GASTROINTESTINAL PATHOGEN PANEL PCR Lab Routine Diarrhea of presumed infectious origin 2024 8:17 AM EDT GASTROINTESTINAL PATHOGEN PANEL CULTURE Lab Routine Diarrhea of presumed infectious origin 2024 8:17 AM EDT CLOSTRIDIUM DIFFICILE, PCR Lab Routine Diarrhea of presumed infectious origin 2024 8:17 AM EDT Health Maintenance Due Date Last Done Comments [...] Additional history exists CKD HGB USE SMARTSET 16129 07/27/202407/27, 07/27/2023, 12/29/2022, Additional history exists Diabetic Eye Exam 12/07/2024 12/08/2023, , 08/19/2022, Additional history exists CKD PHOS USE SMARTSET 83388 01/23/202501/02, 03/12/2021, 01/25/2020, Additional history exists Albumin/Creatinine [...] Indicated Resolved Time Gastrointestinal Rule-Out 2024 2024 C. difficile Rule-Out 2024 2024 documented as of this encounter Advance Directives * Full Code (Latest Code Status on File) Date Activated Date Inactivated Comments 01/02/2020 5:09 PM 01/07/2020 11:18 PM This order re flects the patients wishes and were consensually agreed upon. Care Teams Leather Goods Assembler Relationship Specialty Start Date End Date Chetan Galvez MD [address] [place] [address] PCP - General Family Medicine 10/23/14 documented as of this encounter
--- OUTSIDE RECORDS SUMMARY | 2024-03-30 03:50 | External Medical Summary | Summary of Care ---
Author Name Unknown Organization [facility] Address [address] [place] [address] Phone [phone] Care Team Providers Care Density Control Puncher Name Role Phone Chetan Galvez MD Primary Care Provider + Encounter Details Date Type Department Care Team (Late st Contact Info) Description 02/02/2024 10:30 AM EDT Office Visit Vascular Surgery[address] [phone] Eloy Borrego MD [address] [place] [address] PVD (peripheral vascular disease) ([facility])*; Dyslipidemia, goal LDL below 70 Allergies Active Allergy Reactions Criticality Noted Date Comments Atorvastatin 10/17/2015 Myaglias, worse Tamsulosin 10/29/2021 Dizzy, lightheaded Oxycodone Hcl Psych complications 08/14/2013 nightmares documented as of this encounter (statuses as of 02/02/2024) Medications Medication Sig Dispensed Refills Start Date [...] AT BEDTIME 90 Tablet 1 08/03/2023 Active Yjffj-3-iugw Ethyl Esters 1 GM Oral Capsule (Lovaza)Indications [...] Oral Tablet Extended Release 24 Hour (toPROL XL)Indications: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 Active documented as of this encounter (statuses as of 02/02/2024) Active Problems Problem Noted Date Diagnosed Date Medical home patient encounter 01/05/2023 S/P laparoscopic cholecystectomy 05/25/2022 S/P amputation of lesser toe, right 10/29/2021 S/P amputation of lesser toe, right 10/29/2021 Coronary artery disease of n ative artery of [place] heart with stable angina pectoris 10/29/2021 Atherosclerosis [...] of insulin 03/11/2015 Overview: 04/01/15 a1c 5.9 @[place] ICD-10 update of inactive term Routine general [...] as of this encounter (statuses as of 02/02/2024) Resolved Problems Problem Noted Date Diagnosed Date Resolved Date 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 documented as of this encounter (statuses as of 02/02/2024) Immunizations Name Administration Dates Next Due COVID-19 [...] as of this encounter Progress Notes * Aldair Cheema CRNP - 02/02/2024 10:30 AM EDT Images from the original note were not included. Patient location: HOME. I was in a hospital or clinic location. After connecting through phone, patient was verified with two unique identifiers. 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 Methods to assure confidentiality were taken. Patient acknowledged consent and understanding of privacy and security of the Telemedicine visit. The patient agreed to participate. After connecting to the patient via telephone, the patient was identified by name and date of . Patient was then informed that this was a telephone call only visit. The patient agreed to participate. Requested telephonic visit r/t explosive diarrhea. Visit Disposition: Routine follow-up Total call duration was 5 minutes. Date of Service: 02/02/2024 9:27 AM Mehdi Quintanilla is an 83 year old male. Referring Physician: Chetan Galvez MD ; Keri Ruiz DPM Chief Complaint: Here for f/u of PAD with known occluded R leg bypass. Accompanied by , since 9. HPI: Former smoker with CAD, HTN, dyslipidemia, DM, CKD, and hx of c-diff. Was dealing with R 3rd toe-tip ulcer and R lateral 5th lateral toe ulcers since around 08/2019. We met him 11/19/2019 with with rubor to both feet, whallow ulcers to tip of R 3rd toe and lateral R5th toe and basically a scab on tip of L 3rd toe. He underwent BLE angiogram and R-AT angioplasty 11/23/[address] Borrego. We saw him back 01/02/2020 with horrible rest pain to R foot and new gangrene of the toes. Underwent right below knee popliteal artery => medial plantar artery bypass (1 mm coronary dilator) using ipsilateral reversed GSV and open right 4th toe amputation through MTP joint 01/04/[address] Borrego. Was d/c on a course of Bactrim, which was completed. Bypass remained patent, and surgical incisions eventually healed. Has had a chronic R 3rd toe ulcer, which diligently cared for for many months, and for which we had held off on amputation, and eventually healed. Vascular labs 08/10/2023, noted an occluded BPG - fortunately asymptomatic. FAMILY HX: Brother was a blind, bilateral amputee. 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 Current Outpatient Medications Medication Sig Dispense Refill VITAMIN C CR 1000 MG PO TBCR Take 1,000 mg by mouth daily. In the morning ASPIRIN LOW DOSE 81 MG PO TABS Take 1 Tablet by mouth in the morning. With dinner. LUTEIN 40 MG PO CAPS Take 40 mg by mouth daily. In the morning (Patient not taking: Reported on 02/01/2024) Lysine 500 MG TABS Take 500 mg by mouth daily. In the morning Probiotic Product (PROBIOTIC & ACIDOPHILUS EX ST) Capsule Take 1 Capsule by mouth in the morning. In the morning. SLOW-MAG 71.5-119 MG TBEC TAKE 2 TABLETS BY MOUTH 2 TIMES A DAY. 120 Tab 5 zinc gluconate 50 MG Tablet Take 1 Tablet by mouth in the morning. In the morning. pyridOXINE (VITAMIN B-6) 100 MG Tablet Take 1 Tablet by mouth in the morning. In the morning. Acetaminophen 500 MG Oral Tablet Take 1 Tablet by mouth daily as needed. Cetirizine HCl 10 MG Oral Tablet Take 1 Tablet by mouth in the morning. (Patient not taking: Reported on 02/01/2024) B-12 1000 MCG Oral Tablet Take 2 Tablets by mouth daily. Betamethasone Dipropionate Aug 0.05 % External Cream (Diprolene AF) APPLY TOPICALLY TO AFFECTED AREA 2 TIMES A DAY . TO AFFECTED AREA. 50 g 3 Famotidine 20 MG Oral Tablet (Pepcid) Take 1 Tablet by mouth in the morning and 1 Tablet before bedtime. 180 Tablet 3 Allopurinol 300 MG Oral Tablet (Zyloprim) TAKE 1 TABLET BY MOUTH EVERY DAY 90 Tablet 3 Nitroglycerin 0.4 MG Sublingual Tablet Sublingual (Nitrostat) Place 1 Tablet under the tongue every5 minutes as needed for Pain, Chest. Use up to 3 in 15 minutes 25 Tablet 1 Simvastatin 40 MG Oral Tablet (Zocor) TAKE 1 TABLET BY MOUTH EVERYDAY AT BEDTIME 90 Tablet 1 Lerhi-2-qmhi Ethyl Esters 1 GM Oral Capsule (Lovaza) Take 1 Capsule by mouth in the morning. 90 Capsule 3 Benzonatate 100 MG Oral Capsule Take 1 Capsule by mouth 3 times a day as needed for Cough. (Patientnot taking: Reported on 02/01/2024) 30 Capsule 1 Doxycycline Hyclate 100 MG Oral Capsule Take 1 Capsule by mouth in the morning and 1 Capsule beforebedtime. Until gone.. (Patient not taking: Reported on 02/01/2024) 20 Capsule 0 Clopidogrel Bisulfate 75 MG Oral Tablet (pLAVix) TAKE 1 TABLET BY MOUTH EVERY DAY IN THE MORNING 90Tablet 1 Finasteride 5 MG Oral Tablet (Proscar) TAKE 1 TABLET BY MOUTH EVERY DAY IN THE MORNING 90 Tablet 3 metFORMIN HCl 1000 MG Oral Tablet (Glucophage) TAKE 1/2 TABLET TWICE DAILY (TOTAL OF 1000MG DAILY) 90 Tablet 1 Metoprolol Succinate ER 50 MG Oral Tablet Extended Release 24 Hour (toPROL XL) TAKE 1 TABLET BY MOUTH EVERY DAY IN THE MORNING 90 Tablet 1 Loratadine 10 MG Oral Capsule Take 1 Capsule by mouth in the morning. No current facility-administered medications for this visit. Review of patient's allergies indicates: Allergen Reactions Atorvastatin Myaglias, worse Flomax [Tamsulosin] Dizzy, lightheaded Oxycodone Hcl Psych complications nightmares Patient Active Problem List Diagnosis Dyslipidemia, goal LDL below 70 Chronic coronary artery disease HTN, goal below 140/90 History of Clostridium difficile colitis PAC (premature atrial contraction) Routine general medical examination at a health care facility Anemia, chronic disease Controlled type 2 diabetes mellitus with microalbuminuria, without long-term current use of insulin([facility]) Anemia due to vitamin B12 deficiency ACEI/ARB contraindicated Primary open angle glaucoma Hypomagnesemia Microscopic colitis Gouty arthropathy Type 2 DM with CKD stage 3 and hypertension ([facility]) PAD (peripheral artery disease) ([facility]) 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 Rx vanco given. 12/16 C diff 11/15 colonoscopy +microscopic colitis on biopsy Chronic coronary artery disease 07/19/2011 DM type 2 causing renal disease ([facility]) 07/19/2011 DM type 2, goal A1C below 8.0 03/11/2015 Dyslipidemia, goal LDL below 70 07/19/2011 HTN, goal below 140/90 02/21/2012 Per HTN Protocol #27. Hypomagnesemia 06/28/2017 PAC (premature atrial contraction) 10/08/2014 Primary open angle glaucoma 03/10/2017 S/P cholecystectomy Past Surgical History: Procedure Laterality Date AMPUTATION OF TOE Right 01/04/2020 AMPUTATION TOE METATARSOPHALANGEAL JOINT performed by Eloy Borrego MD at OR [facility] APPENDECTOMY W/OTHER PROCEDURE 2011? CARDIAC CATH SCANNED RESULT 2011 CATARACT SURGERY,COMPLEX 05/07/2015 OS Tonya Lacy CATARACT SURGERY,COMPLEX Right 05/21/2015 OD Tonya Pretty. COLONOSCOPY, DIAGNOSTIC (RECTUM) 11/28/2014 microscopic colitis, diverticulosis/[facility] EGD, FLEXIBLE, DIAGNOSTIC 11/28/2014 normal bx/[facility] EGD, FLEXIBLE, DIAGNOSTIC 11/21/2020 Tortuous esophagus / ESOPHAGOGASTRODUODENOSCOPY (EGD), FLEXIBLE, TRANSORAL, DIAGNOSTIC performed byToya Napier DO at ENDOSCOPY [facility] EGD, FLEXIBLE, DIAGNOSTIC N/A 12/31/2022 food esophagus, removed/tortuous esophagus/esophagitis/diffuse gastritis/EGD/[place] EGD, FLEXIBLE, DIAGNOSTIC 01/26/2023 tortuous esophagus / [facility] LAPAROSCOPY; CHOLECYSTECTOMY 04/26/2022 done at [facility] by Dr Dhillon MISCELLANEOUS ORDER ([facility] ONLY) 2009, 2013 Dr Lobo, lumbar fusion/thorac TIBIAL/PERONEAL ART. REVASC W/ANGIO, FIRST Right 11/23/2019 TIBIAL/PERONEAL ART. REVASC W/ANGIO, FIRST performed by Eloy Borrego MD at OR [facility] US ENDOSCOPIC N/A 12/31/2022 one benign lymph node celiac region/wall thickening lower third esophagus, appeared to be primarilywithin submucosa, consistent with food impaction/EUS/[place] VEIN BYPASS, POP-TIB/PER Right 01/04/2020 BYPASS GRAFT WITH VEIN POPLITEAL TIBIAL performed by Eloy Borrego MD at OR [facility] Family History Problem Relation Name Age of Onset Other (amputation) Sister Other (amputation) Brother Social History Socioeconomic History Marital status: Spouse name: Not on file Number of children: Not on file Years of education: Not on file Highest education level: Not on file Occupational History 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 PRN Occupation: works [...] Social History Narrative Likes racing, working at [employer] Social Determinants of Health Financial Resource Strain: [...] Stability Do you currently live in a group home or have no steady place to sleep [...] - for ages0-17 years): Not on file REVIEW OF SYSTEMS: CONSTITUTIONAL: Denies fever, Denies shaking chills. EYES: Denies amaurosis fugax. EAR, NOSE, THROAT AND MOUTH: denies decreased hearing, denies trouble swallowing, denies epistaxis. CARDIOVASCULAR: denies chest pains. RESPIRATORY: denies shortness of breath. GASTROINTESTINAL: denies melena, denies bright red blood per rectum. GENITOURINARY: denies hematuria. SKIN: denies rash, denies ulcers. NEUROLOGICAL: denies TIA, denies CVA, denies amaurosis fugax. PHYSICAL EXAM: VITAL SIGNS: There were no vitals taken for this visit. RESPIRATORY: respiratory effort normal CARDIOVASCULAR: RRR PSYCHIATRIC: orientation to time, place and person normal and recent and remote memory normal. DIAGNOSTIC STUDIES: 01/25/24: RICHA: mono/mono 08/10/23: RICHA: mono/multi 08/10/23: RLE Graft: Occluded BPG The above diagnostic images were directly visualized and independently interpreted by me on 02/02/2024 with results as above 02/08/23: RICHA: multi, multi 02/08/23: RLE Graft: REIA 45, RCFA 47, RDFA 35, RSFA 72, R-pop 31, Prox 26, BPG 88, Dist 6, Runoff 7 07/06/22: RICHA: tri/tri, TBI 0.8/0.29, Toe 88/32 07/06/22: RLE Graft: RCFA 58, RDFA 39, RSFA 96, R-pop 44, Prox 64, BPG 83, Dist 19, Runoff 31 03/29/22: RICHA: multi/multi 12/03/21 RLE duplex: Patent pop-->plantar bypass with velocities ranging from 12 to 93 cm/sec. 12/03/21: RICHA: Calcified bilaterally, biphasic on right and monophasic on left. 09/17/21: RICHA: mc/mc, bi/bi 09/17/21: Right LE graft duplex: Patent graft with slow velocities distally as usual, no new issues 06/15/21 RICHA: Acceptable waveforms bilaterally 06/15/21: Right LE graft duplex: Patent graft with slow velocities distally as usual, no new issues 02/02/21: RICHA: 1/1 02/02/21: RLE Graft: RCFA 72, RDFA 44, RSFA 97, R-pop 46, Prox 71, BPG 4=>68, Dist 8, Runoff 32 10/27/20: RICHA: 0.84/0.95, tracings stable 10/27/20: RLE Graft: RCFA 74, RDFA 58 RSFA 93, R-pop 48, Prox 94, BPG 6=>155, Dist anast 21, Runoff 13 08/08/20: RICHA: 1/0.73, waveforms about the same 08/08/20: RLE Graft: REIA 95, RCFA 58, RDFA 45, RSFA 81, R-pop 35, Prox anast 89, BPG 74 , Dist anast20, R-at 58 (triphasic) 04/15/20: RICHA: 1/1, TBI: 0.25/0.42, Toe 40/66 04/15/20: RLE Graft: Distal pop 93, prox anast 94, graft 12-39, dist anast 10, runoff 18 01/25/20: RICHA: multi/multi, Toe 52/26 01/25/20: RLE Graft: RSFA 110, R-pop 94, Prox 128, BPG 12-100, dist anast 8, Runoff 31 11/20/19: Vasospasm Study: MC/MC, R peroneal biphasic with excellent amplitude, L peroneal biphasic with good amplitude, TBI: 0.29, Toe pressure 42/70, At room temp all pulsatile with decreased amplitude, with warming a bit of improvement. 11/19/19: R-Foot X-ray: IMPRESSION: No definite acute osseous abnormality. 11/05/19: RICHA: 0.74/MC, TBI: 0.24/0.15, Toe 32/20 09/21/18: CT: No AAA. No ilio/femoral disease. Prox SFAs unremarkable. 06/23/17: Echo: EF 50-54%. LABS: Creatinine (mg/dL) Date Value 07/27/2023 1.3 (H) 04/23/2020 1.1 CREATININE-OUTSIDE LAB (MG/DL) Date Value 12/29/2022 1.27 LDL Cholesterol (mg/dL) Date Value 01/05/2019 UNINTERPRETABLE RESULT Triglycerides (mg/dL) Date Value 07/27/2023 481 (H) 10/26/2019 499 (H) Hemoglobin A1C (%) Date Value 01/24/2024 7.7 (H) 04/23/2020 6.8 (H) The above clinical lab tests were reviewed by me on 02/02/2024 IMPRESSIONS: S/P right below knee popliteal artery => medial plantar artery bypass (1 mm coronary dilator) using ipsilateral reversed GSV and open right 4th toe amputation through MTP joint 01/04/2020. OCCLUDED. S/P BLE angiogram and R-AT angioplasty 11/23/2019 No AAA, per 2019 CT. Former smoker. CAD. Dyslipidemia. Zocor 40 mg HTN. DM. CKD C-diff. Tortuous esophagus. PLAN: Asymptomatic occlusion of his R BK-pop=>plantar BPG. No ulcers. Continue diligent foot care by . LLE PAD looks worse. No ulcers. Continue diligent foot care by . Continue 81 mg aspirin for PAD. Continue 75 mg Plavix for PAD (We started this for BPG. Despite occluded BPG, will continue). Continue 40 mg Zocor for dyslipidemia. RTC in 6 months in [place] [address] Dr. Borrego with richa a week prior at [facility]. KATHRYN Ritter Vascular and Endovascular Surgery [facility] [address] d documented in this encounter Plan of Treatment Upcoming Encounters Date Type Department Care Team (Late st Contact Info) Description 03/22/2024 1:30 PM EDT Office Visit Interventional Pain Center, [facility] [address] [facility] [place] [address] Suha Oconnor MD [address] [place], [place] [address] [address] 08/08/2024 12:00 PM EST Office Visit Family Practice [facility] [address] [place] [address] Chetan Galvez MD [address] [place] [address] 08/14/2024 1:30 PM EST Office Visit Cardiology, [facility] [address] [place] [address] Yinka Mcfarland DO [address] [place] [id number] Scheduled Orders Name Type Priority Associated Diagnoses Orde r Schedule VASC ANKLE BRACHIAL INDICES WITHOUT PPG (PAD) Medical Imaging Routine PVD (peripheral vascular disease) (HCC) Dyslipidemia, goal LDL below 70 Ordered: 02/02/2024 Health Maintenance Due Date Last Done Comments [...] Additional history exists CKD HGB USE SMARTSET 72226 07/27/202407/27, 07/27/2023, 12/29/2022, Additional history exists Diabetic Eye Exam 12/07/2024 12/08/2023, , 08/19/2022, Additional history exists CKD PHOS USE SMARTSET 58889 01/23/202501/02, 03/12/2021, 01/25/2020, Additional history exists Albumin/Creatinine [...] as of this encounter Visit Diagnoses Diagnosis PVD (peripheral vascular disease) (HCC)- Primary Peripheral vascular disease, unspecified Dyslipidemia, goal LDL below 70 Other and unspecified hyperlipidemia documented in this encounter Advance Directives * Full Code (Latest Code Status on File) Date Activated Date Inactivated Comments 01/02/2020 5:09 PM 01/07/2020 11:18 PM This order re flects the patients wishes and were consensually agreed upon. Care Teams Density Control Puncher Relationship Specialty Start Date End Date Chetan Galvez MD [address] [facility] [place] [address] PCP - General Family Medicine 10/23/14 documented as of this encounter
--- OUTSIDE RECORDS SUMMARY | 2024-03-30 03:50 | External Medical Summary ---
Author Name Unknown Address Unknown Organization K01:[facility] - [address] [place] [id number] Laboratory Report Ordering Provider Test Date Status XOCHITL BELL 2024 08:17:01 Final Observation Date Value Abnormality Reference (Units) Status Bacteria identified in Specimen by Culture 2024 08:17:01 No Aeromonas species or Plesiomonas species isolated. Final Test: Gastrointestinal Patho gen Panel Culture
Specimen Source: Stool
Specimen Type: Stool
Specimen Date: 02/03/2024816
Result Date: 02/05/2024 1354
Result Status: Final result
Resulting Lab: [facility]
[address]
[facility] [address]

CULTURE

No Aeromonas species or Plesiomonas species isolated.

null Performing Location [facility] - [address] [facility] [address]
--- OUTSIDE RECORDS SUMMARY | 2024-03-30 03:50 | External Medical Summary | Summary of Care ---
Author Name Unknown Organization [facility] Address [address] [place] [address] Phone [phone] Care Team Providers Care Court Usher Name Role Phone Chetan Leung MD Primary Care Provider + Reason for Visit * Reason Onset Date Comments Advice 01/30/2024 An order for Ann rdia? Encounter Details Date Type Department Care Team (Late st Contact Info) Description 01/30/2024 Telephone Family Practice [facility] [address] [facility] [place] [address] Chetan Leung MD [address] [place] [address] Advice (An order for Giardia?) Allergies Active Allergy Reactions Criticality Noted Date Comments Atorvastatin 10/17/2015 Myaglias, worse Tamsulosin 10/29/2021 Dizzy, lightheaded Oxycodone Hcl Psych complications 08/14/2013 nightmares documented as of this encounter (statuses as of 01/31/2024) Medications Medication Sig Dispensed Refills Start Date [...] hemoglobin A1c goal of less than 8.0% ([facility]) TAKE 1 TABLET BY MOUTH EVERYDAY AT BEDTIME 90 Tablet 1 08/03/2023 Active Uiggi-8-touf Ethyl Esters 1 GM Oral Capsule (Lovaza)Indications: [...] as of this encounter (statuses as of 01/31/2024) Active Problems Problem Noted Date Diagnosed Date Medical home patient encounter 01/05/2023 S/P laparoscopic cholecystectomy 05/25/2022 S/P amputation of lesser toe, right 10/29/2021 S/P amputation of lesser toe, right 10/29/2021 Coronary artery disease of n ative artery of [place] heart with stable angina pectoris 10/29/2021 Atherosclerosis [...] of insulin 03/11/2015 Overview: 04/01/15 a1c 5.9 @[place] ICD-10 update of inactive term Routine general [...] as of this encounter (statuses as of 01/31/2024) Resolved Problems Problem Noted Date Diagnosed Date Resolved Date 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 documented as of this encounter (statuses as of 01/31/2024) Immunizations Name Administration Dates Next Due COVID-19 [...] Telephone Encounter - Monserrat Morales LPN - 01/31/2024 2:51 PM EDT Called and spoke with patients . Notified of below. Will meat pickler stool containers from the lab while in office tomorrow. * Addendum Note - Chetan Leung MD - 01/30/2024 3:25 PM EDTAddended by: CHETAN LEUNG on: 01/30/2024 03:25 PM Modules accepted: Orders * Telephone Encounter - Chetan Leung MD - 01/30/2024 3:24 PM EDT Stool labs ordered-please stop by office to meat pickler containers & we'll get results and go from there. * Telephone Encounter - Khadijah Culp OSA - 01/30/2024 10:42 AM EDT Pt's Gilma is calling and Mehdi has had diarrhea x a few weeks. Imodium is not working. She can go to [facility]for a test kit, if he would send the order. 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 Dr Leung has treated him for this in the past. Pt has apt 02-01-24 Please call her at [phone] documented in this encounter Plan of Treatment Upcoming Encounters Date Type Department Care Team (Late st Contact Info) Description 02/01/2024 11:00 AM EDT Office Visit [facility] [address] [place] [address] Kemar Díaz CRNP [address] [facility] [place] [address] 02/02/2024 10:30 AM EDT Office Visit Vascular Surgery, [address] [place] [address] Eloy Borrego MD [address] [place] [address] 08/08/2024 12:00 PM EST Office Visit [facility] [address] [place] [address] Chetan Leung MD [address] [place] [address] Scheduled Orders Name Type Priority Associated Diagnoses [...] Additional history exists CKD HGB USE SMARTSET 26158 07/27/202407/27, 07/27/2023, 12/29/2022, Additional history exists Diabetic Eye Exam 12/07/2024 12/08/2023, , 08/19/2022, Additional history exists CKD PHOS USE SMARTSET 38439 01/23/202501/02, 03/12/2021, 01/25/2020, Additional history exists Albumin/Creatinine [...] and were consensually agreed upon. Care Teams Court Usher Relationship Specialty Start Date End Date Chetan Leung MD [address] [place] [address] PCP - General Family Medicine 10/23/14 documented as of this encounter
--- OUTSIDE RECORDS SUMMARY | 2024-03-30 03:50 | External Medical Summary | Summary of Care ---
Author Name Unknown Organization [facility] Address [address] [facility] [place] [address] Phone [phone] Care Team Providers Care Weight Tester Name Role Phone Chetan Galvez MD Primary Care Provider + Reason for Visit * Reason Onset Date Comments Appointment 02/15/2024 Encounter Details Date Type Department Care Team (Late st Contact Info) Description 02/15/2024 Telephone Family Practice [facility] [address] [place] [address] Kemar Díaz CRNP [address] [place] [address] Appointment Allergies Active Allergy Reactions Criticality Noted Date Comments Atorvastatin 10/17/2015 Myaglias, worse Tamsulosin 10/29/2021 Dizzy, lightheaded Oxycodone Hcl Psych complications 08/14/2013 nightmares documented as of this encounter (statuses as of 02/16/2024) Medications Medication Sig Dispensed Refills Start Date [...] 15 minutes 25 Tablet 1 08/03/2023 Active Rtrfo-7-mmwt Ethyl Esters 1 GM Oral Capsule (Lovaza)Indications [...] Oral Tablet Extended Release 24 Hour (toPROL XL)Indications:[place] Gauger rehan coronary artery disease TAKE 1 TABLET [...] as of this encounter (statuses as of 02/16/2024) Active Problems Problem Noted Date Diagnosed Date Medical home patient encounter 01/05/2023 S/P laparoscopic cholecystectomy 05/25/2022 S/P amputation of lesser toe, right 10/29/2021 S/P amputation of lesser toe, right 10/29/2021 Coronary artery disease of n ative artery of [place] heart with stable angina pectoris 10/29/2021 Atherosclerosis [...] of insulin 03/11/2015 Overview: 04/01/15 a1c 5.9 @[place] ICD-10 update of inactive term Routine general [...] as of this encounter (statuses as of 02/16/2024) Resolved Problems Problem Noted Date Diagnosed Date Resolved Date 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 documented as of this encounter (statuses as of 02/16/2024) Immunizations Name Administration Dates Next Due COVID-19 [...] encounter Miscellaneous Notes * Telephone Encounter - Sg Pierce RN - 02/16/2024 8:33 AM EDT Please see previous message. Called and spoke with patient and informed him of Kemar's previous message. He verbalized understanding of all information. Patient said he has not been going to PT. FYI. * Telephone Encounter - Manisha Hung OSA [...] Description 03/19/2024 12:20 PM EDT Office Visit [facility] [address] [place] [address] Kemar Díaz CRNP [address] [place] [address] 03/22/2024 1:30 PM EDT Office Visit Interventional Pain Center, [facility] [address] [facility] [place] [address] Suha Oconnor MD [address] [facility] [place] [address] 07/30/2024 11:30 AM EST Imaging Vascular Lab, [facility] 2nd Floor, [place] [address] [facility] [place] [address] 08/08/2024 12:00 PM EST Office Visit [facility] [address] [facility] [place] [address] Chetan Galvez MD 132 [facility] [place] [address] 08/09/2024 10:30 AM EST Office Visit [facility]ascular [facility], [place] [facility] [address] Eloy Borrego MD [address] [facility] [place] [address] 08/14/2024 1:30 PM EST Office Visit Cardiology, [facility] [address] [facility] [place] [address] Yinka Mcfarland O, DO [address] [place] [address] Health Maintenance Due Date Last Done Comments [...] Additional history exists CKD HGB USE SMARTSET 97984 07/27/202407/27, 07/27/2023, 12/29/2022, Additional history exists Diabetic Eye Exam 12/07/2024 12/08/2023, , 08/19/2022, Additional history exists CKD PHOS USE SMARTSET 10312 01/23/202501/02, 03/12/2021, 01/25/2020, Additional history exists Albumin/Creatinine [...] and were consensually agreed upon. Care Teams Weight Tester Relationship Specialty Start Date End Date Chetan Galvez MD [address] [place] [address] PCP - General Family Medicine 10/23/14 documented as of this encounter
--- OUTSIDE RECORDS SUMMARY | 2024-03-30 03:50 | External Medical Summary | Summary of Care ---
Author Name Unknown Organization [facility] Address [address] [place] [place] [place] [place] [address] Phone [phone] Care Team Providers Care Manager Intermediate Name Role Phone Chetan Leung MD Primary Care Provider + Reason for Visit * Reason Comments eRx-Medication Refill Encounter Details Date Type Department Care Team (Late st Contact Info) Description [address] [facility] [address] [place] [address] Chetan Leung MD [address] [place] [address] Dyslipidemia, goal LDL below 70; Chronic coronary artery disease; Type 2 diabetes mellitus with hemoglobin A1c goal of less than 8.0% ([facility]) Allergies Active Allergy Reactions Criticality Noted Date [...] 15 minutes 25 Tablet 1 08/03/2023 Active Zmtza-4-zbty Ethyl Esters 1 GM Oral Capsule (Lovaza)Indicatio [...] artery disease of n ative artery of [place] heart with stable angina pectoris 10/29/2021 Atherosclerosis [...] of insulin 03/11/2015 Overview: 04/01/15 a1c 5.9 @[place] ICD-10 update of inactive term Routine general [...] mRNA, LNP-s, No Pre serve, 2-Dose Series ([employer]) 11/04/2020,10/14/2020 Pneumococcal Conjugate Vacc, 13 Valent (Prevnar) [...] encounter Miscellaneous Notes * Telephone Encounter - Paty Garcia [facility] - 2024 10:35 AM EDTSigned [...] Pain Center, [facility] [address] [place] [address] Suha Oconnor MD [address] [facility] [place] [address] 07/30/2024 11:30 AM EST Imaging Vascular Lab, [facility] 2nd Floor, [place] 132 [facility] [place] [address] 08/08/2024 12:00 PM EST Office Visit Family Practice [facility] 132 [facility] [place] [address] Chetan Leung MD [address] [place] [address] 08/09/2024 10:30 AM EST Office Visit Vascular Surgery, [place] [facility] [address] Eloy oBrrego MD [address] [place] [address] 08/14/2024 1:30 PM EST Office Visit Cardiology, [facility] 132 [facility] [place] [address] Yinka Mcfarland DO [address] [place] [address] Health Maintenance Due Date Last Done Comments [...] Additional history exists CKD HGB USE SMARTSET 11990 07/27/202407/27, 07/27/2023, 12/29/2022, Additional history exists Diabetic Eye Exam 12/07/2024 12/08/2023, , 08/19/2022, Additional history exists CKD PHOS USE SMARTSET 51899 01/23/202501/02, 03/12/2021, 01/25/2020, Additional history exists Albumin/Creatinine [...] Coronary atherosclerosis of unspecified type of vessel, [place] or graft Type 2 diabetes mellitus with [...] and were consensually agreed upon. Care Teams Manager Intermediate Relationship Specialty Start Date End Date Chetan Leung MD [address] [place] [address] PCP - General Family Medicine 10/23/14 documented as of this encounter
--- OUTSIDE RECORDS SUMMARY | 2024-03-30 03:51 | External Medical Summary | Summary of Care ---
Author Name Unknown Organization [facility] Address [address] [facility] [address] Phone [phone] Care Team Providers Care Hot Blast Worker Name Role Phone Chetan Galvez MD Primary Care Provider + Reason for Visit * Reason Comments Outpatient Testing Encounter Details Date Type Department Care Team (Late st Contact Info) Description 01/25/2024 9:20 AM EDT Laboratory Laboratory [address] [place] [phone] , Specimen Drop Off [address] [place] [address] Arrived Allergies Active Allergy Reactions Criticality Noted Date Comments Atorvastatin 10/17/2015 Myaglias, worse Tamsulosin 10/29/2021 Dizzy, lightheaded Oxycodone Hcl Psych complications 08/14/2013 nightmares documented as of this encounter (statuses as of 01/25/2024) Medications Medication Sig Dispensed Refills Start Date [...] EVERY DAY 90 Tablet 3 03/12/2023 Active Metoprolol Succinate ER 50 MG Oral Tablet Extended Release 24 Hour (toPROL XL)Indications:Chron ic coronary artery disease TAKE 1 TABLET BY MOUTH EVERY DAY IN THE MORNING 90 Tablet 1 07/28/2023 Active Nitroglycerin 0.4 MG Sublingual Tablet Sublingual [...] AT BEDTIME 90 Tablet 1 08/03/2023 Active Bjild-1-xtwq Ethyl Esters 1 GM Oral Capsule (Lovaza)Indications: [...] THE MORNING 90 Tablet 1 01/23/2024 Active documented as of this encounter (statuses as of 01/25/2024) Active Problems Problem Noted Date Diagnosed Date Medical home patient encounter 01/05/2023 S/P laparoscopic cholecystectomy 05/25/2022 S/P amputation of lesser toe, right 10/29/2021 S/P amputation of lesser toe, right 10/29/2021 Coronary artery disease of n ative artery of [place] heart with stable angina pectoris 10/29/2021 Atherosclerosis [...] of insulin 03/11/2015 Overview: 04/01/15 a1c 5.9 @[place] ICD-10 update of inactive term Routine general [...] as of this encounter (statuses as of 01/25/2024) Resolved Problems Problem Noted Date Diagnosed Date Resolved Date 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 documented as of this encounter (statuses as of 01/25/2024) Immunizations Name Administration Dates Next Due COVID-19 [...] Care Team (Late st Contact Info) Description 01/25/2024 1:00 PM EDT [facility] [address] [place] [address] 02/01/2024 11:00 AM EDT Office Visit [facility] [address] [place] [address] Kemar Díaz CRNP [address] [place] [address] 02/02/2024 10:30 AM EDT Office Visit Vascular Surgery, [address] [place] [address] Eloy Borrego MD [address] [facility] [place] [address] 08/08/2024 12:00 PM EST Office Visit [facility] [address] [place] [address] Chetan Galvez MD [address] [place] [address] Health Maintenance Due Date Last Done Comments Zoster Vaccines (2 of 3) 06/07/2015 04/12/2015 COVID-19 Vaccine (3 - 2022- season) 2023 11/04/2020, 10/14/2020 Albumin/Creatinine Ratio 12/30/2023 023, 10/29/2021, 10/23/2020, Additional history exists Depression Screening 01/06/2024 01/05/2023, 10/20/2016 (Declined) Diabetic Foot Exam 01/06/2024 01/05/2023, 1 , 04/30/2020, Additional history exists Influenza Vaccine (FLU shot) (#1) 2024 HbA1c 07/26/2024 01/24/2024, 07/05, 12/29/2022, Additional history exists B-12 07/27/2024 07/27/2023, 12/03, 10/29/2021, Additional history exists CKD HGB USE SMARTSET 08546 07/27/202407/27, 07/27/2023, 12/29/2022, Additional history exists Diabetic Eye Exam 12/07/2024 12/08/2023, , 08/19/2022, Additional history exists CKD PHOS USE SMARTSET 50421 01/23/202501/02, 03/12/2021, 01/25/2020, Additional history exists DTaP,Tdap,and Td Vaccines (3 [...] and were consensually agreed upon. Care Teams Hot Blast Worker Relationship Specialty Start Date End Date Chetan Galvez MD [address] [place] [address] PCP - General Family Medicine 10/23/14 documented as of this encounter
--- OUTSIDE RECORDS SUMMARY | 2024-03-30 03:51 | External Medical Summary | Summary of Care ---
Author Name Unknown Organization [facility] Address [address] [facility] [address] Phone [phone] Care Team Providers Care Ad Setter Name Role Phone Chetan Galvez MD Primary Care Provider + Reason for Visit * Reason Comments Outpatient Testing Encounter Details Date Type Department Care Team (Late st Contact Info) Description 01/24/2024 7:40 AM EDT Laboratory Laboratory [address] [place] [phone] [place] [address] Type 2 DM with CKD stage 3 and hypertension (HCC); Chronic kidney disease, unspecified CKD stage Allergies Active Allergy Reactions Criticality Noted Date Comments Atorvastatin 10/17/2015 Myaglias, worse Tamsulosin 10/29/2021 Dizzy, lightheaded Oxycodone Hcl Psych complications 08/14/2013 nightmares documented as of this encounter (statuses as of 01/24/2024) Medications Medication Sig Dispensed Refills Start Date [...] AT BEDTIME 90 Tablet 1 08/03/2023 Active Cpzvh-6-esdn Ethyl Esters 1 GM Oral Capsule (Lovaza)Indications: [...] as of this encounter (statuses as of 01/24/2024) Active Problems Problem Noted Date Diagnosed Date Medical home patient encounter 01/05/2023 S/P laparoscopic cholecystectomy 05/25/2022 S/P amputation of lesser toe, right 10/29/2021 S/P amputation of lesser toe, right 10/29/2021 Coronary artery disease of n ative artery of [place] heart with stable angina pectoris 10/29/2021 Atherosclerosis [...] of insulin 03/11/2015 Overview: 04/01/15 a1c 5.9 @[place] ICD-10 update of inactive term Routine general [...] as of this encounter (statuses as of 01/24/2024) Resolved Problems Problem Noted Date Diagnosed Date Resolved Date 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 documented as of this encounter (statuses as of 01/24/2024) Immunizations Name Administration Dates Next Due COVID-19 [...] 01/25/2024 1:00 PM EDT [facility] [address] [place] [address] 02/01/2024 11:00 AM EDT Office Visit [facility] [address] [facility] [place] [address] Kemar Díaz CRNP 132 [facility] [place] [address] 02/02/2024 10:30 AM EDT Office Visit Vascular Surgery, [address] [place] [address] Eloy Borrego MD [address] [facility] [place] [address] 08/08/2024 12:00 PM EST Office Visit [facility] [address] [facility] [place] [address] Chetan Galvez MD [address] [place] [address] Pending Results Name Type Priority Associated Diagnoses Date /Time HEMOGLOBIN A1C Lab Routine Type 2 DM with CKD stage 3 and hypertension (HCC) 01/24/2024 7:57 AM EDT PHOSPHORUS Lab Routine Chronic kidney disease, unspecified CKD stage 01/24/2024 7:57 AM EDT Health Maintenance Due Date Last Done Comments Zoster Vaccines (2 of 3) 06/07/2015 04/12/2015 CKD PHOS USE SMARTSET 86029 03/12/2022 09/0 03/2021, 01/25/2020, 09/05/2017, Additional history exists COVID-19 Vaccine ( season) 2023 11/04/2020, 10/14/2020 Albumin/Creatinine Ratio 12/30/2023 023, 10/29/2021, 10/23/2020, Additional history exists Depression Screening 01/06/2024 01/05/2023, 10/20/2016 (Declined) Diabetic Foot Exam 01/06/2024 01/05/2023, 1 , 04/30/2020, Additional history exists HbA1c 01/25/2024 07/27/2023, 12/03, 05/13/2022, Additional history exists Influenza Vaccine (FLU shot) (#1) 2024 B-12 07/27/2024 07/27/2023, 12/03, 10/29/2021, Additional history exists CKD HGB USE SMARTSET 00976 07/27/202407/27, 07/27/2023, 12/29/2022, Additional history exists Diabetic Eye Exam 12/07/2024 12/08/2023, , 08/19/2022, Additional history exists DTaP,Tdap,and Td Vaccines (3 [...] this encounter Visit Diagnoses Diagnosis Type 2 DM with CKD stage 3 and hypertension (HCC) Chronic kidney disease, unspecified CKD stage documented in this encounter Advance Directives * Full Code (Latest Code Status on File) Date Activated Date Inactivated Comments 01/02/2020 5:09 PM 01/07/2020 11:18 PM This order re flects the patients wishes and were consensually agreed upon. Care Teams Ad Setter Relationship Specialty Start Date End Date Chetan Galvez MD [address] [place] [address] PCP - General Family Medicine 10/23/14 documented as of this encounter
--- OUTSIDE RECORDS SUMMARY | 2024-03-30 03:51 | External Medical Summary ---
Author Name Unknown Address Unknown Organization K01:LABORATORY [facility] - [address] [place] [address] Laboratory Report Ordering Provider Test Date Status XOCHITL BELL 01/24/2024 07:57:00 Final Observation Date Value Abnormality Reference (Units ) Status Phosphate 01/24/2024 07:57:00 3.3 2.5-4.8 (m g/dL) Final Performing Location [facility] [address] [facility] [address]
--- OUTSIDE RECORDS SUMMARY | 2024-03-30 03:51 | External Medical Summary ---
Author Name Unknown Address Unknown Organization K01:[facility]ORATORY [facility] - [address] [facility] [address] [facility] [address] Laboratory Report Ordering Provider Test Date Status XOCHITL BELL 01/24/2024 07:57:00 Final Observation Date Value Abnormality Reference (Units ) Status HbA1C 01/24/2024 07:57:00 7.7 Above high normal 4. 0-5.6 (%) Final The use of HbA1c to monitor glycemic status is based on normal hemoglobin and HbA composition. This test should not be used in patients with abnormal hemoglobin that affects the half life of the red blood cell or the in vivo glycation rates. Glucose, estimated average 01/24/2024 07:57:00 174 Above high normal <126 (mg/dL) Justino olmstead Performing Location LABORATORY [facility] - [address] [facility] [address]
--- OUTSIDE RECORDS SUMMARY | 2024-03-30 03:51 | External Medical Summary | Summary of Care ---
Author Name Unknown Organization [facility] Address [address] [facility] [address] Phone [phone] Care Team Providers Care Maintenance Leader Name Role Phone Chetan Galvez MD Primary Care Provider + Reason for Visit * Reason Comments Outpatient Testing Encounter Details Date Type Department Care Team (Late st Contact Info) Description 01/24/2024 7:40 AM EDT Laboratory Laboratory [address] [place] [phone] [place] [address] Type 2 DM with CKD stage 3 [...] AT BEDTIME 90 Tablet 1 08/03/2023 Active Idrsx-0-ddlj Ethyl Esters 1 GM Oral Capsule (Lovaza)Indications: [...] artery disease of n ative artery of [place] heart with stable angina pectoris 10/29/2021 Atherosclerosis [...] of insulin 03/11/2015 Overview: 04/01/15 a1c 5.9 @[place] ICD-10 update of inactive term Routine general [...] EDT [facility] [address] [place] [address] 02/01/2024 11:00 AM EDT Office Visit [facility] [address] [facility] [place] [address] Kemar Díaz CRNP 132 [facility] [place] [address] 02/02/2024 10:30 AM EDT Office Visit Vascular Surgery, [address] [place] [address] Eloy Borrego MD [address] [facility] [place] [address] 08/08/2024 12:00 PM EST Office Visit [facility] [address] [facility] [place] [address] Chetan Galvez MD [address] [place] [address] Pending Results Name Type Priority Associated Diagnoses Date /Time HEMOGLOBIN A1C Lab Routine Type 2 DM with CKD stage 3 and hypertension (HCC) 01/24/2024 7:57 AM EDT PHOSPHORUS Lab Routine Chronic kidney disease, unspecified CKD stage 01/24/2024 7:57 AM EDT ALBUMIN / CREATININE RATIO, URINE Lab Routine Chronic kidney disease, unspecified CKD stage 01/24/2024 7:57 AM EDT Health Maintenance Due Date Last Done Comments Zoster Vaccines (2 of 3) 06/07/2015 04/12/2015 CKD PHOS USE SMARTSET 85612 03/12/2022 09/03/2021, 01/25/2020, 09/05/2017, Additional history exists COVID-19 Vaccine [...] Additional history exists CKD HGB USE SMARTSET 23649 07/27/202407/27, 07/27/2023, 12/29/2022, Additional history exists Diabetic [...] and were consensually agreed upon. Care Teams Maintenance Leader Relationship Specialty Start Date End Date Chetan Galvez MD [address] [place] [address] PCP - General Family Medicine 10/23/14 documented as of this encounter
--- OUTSIDE RECORDS SUMMARY | 2024-03-30 03:51 | External Medical Summary | Summary of Care ---
Author Name Unknown Organization [facility] Address [address] [place] [address] Phone [phone] Care Team Providers Care Production Expert Name Role Phone Chetan Leung MD Primary Care Provider + Reason for Visit * Reason Comments eRx-Medication Refill Encounter Details Date Type Department Care Team (Late st Contact Info) Description 01/26/2024 Refill Family Practice [facility] [address] [place] [address] Chetan Leung MD [address] [place] [address] Chronic coronary artery disease Allergies Active Allergy Reactions Criticality Noted Date Comments Atorvastatin 10/17/2015 Myaglias, worse Tamsulosin 10/29/2021 Dizzy, lightheaded Oxycodone Hcl Psych complications 08/14/2013 nightmares documented as of this encounter (statuses as of 01/27/2024) Medications Medication Sig Dispensed Refills Start Date [...] Dipropionate Aug 0.05 % External Cream (Diprolene AF)Indications:Oth er eczema APPLY TOPICALLY TO AFFECTED AREA 2 [...] 08/03/2023 Active Simvastatin 40 MG Oral Tablet (Zocor)Indications :Dyslipidemia, goal LDL below 70,Chronic coronary artery disease,Type 2 diabetes mellitus with hemoglobin A1c goal of less than 8.0% (HCC) TAKE 1 TABLET BY MOUTH EVERYDAY AT BEDTIME 90 Tablet 1 08/03/2023 Active Neejc-1-ryrr Ethyl Esters 1 GM Oral Capsule (Lovaza)Indication s:Hypertriglycerid emia Take 1 Capsule by mouth in the [...] 09/22/2023 Active Finasteride 5 MG Oral Tablet (Proscar)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,Voiding difficulty TAKE [...] Oral Tablet Extended Release 24 Hour (toPROL XL)Indications:Chr onic coronary artery disease TAKE 1 TABLET BY MOUTH EVERY DAY IN THE MORNING 90 Tablet 1 01/27/2024 Active Metoprolol Succinate ER 50 MG Oral Tablet Extended Release 24 Hour (toPROL XL)Indications:Chr onic coronary artery disease TAKE 1 TABLET BY MOUTH EVERY DAY IN THE MORNING 90 Tablet 1 07/28/2023 Discontinued documented as of this encounter (statuses as of 01/27/2024) Active Problems Problem Noted Date Diagnosed Date Medical home patient encounter 01/05/2023 S/P laparoscopic cholecystectomy 05/25/2022 S/P amputation of lesser toe, right 10/29/2021 S/P amputation of lesser toe, right 10/29/2021 Coronary artery disease of n ative artery of habematolel heart with stable angina pectoris 10/29/2021 Atherosclerosis [...] of insulin 03/11/2015 Overview: 04/01/15 a1c 5.9 @[place] ICD-10 update of inactive term Routine general [...] as of this encounter (statuses as of 01/27/2024) Resolved Problems Problem Noted Date Diagnosed Date Resolved Date 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 documented as of this encounter (statuses as of 01/27/2024) Immunizations Name Administration Dates Next Due COVID-19 [...] encounter Miscellaneous Notes * Telephone Encounter - Grayson Winters RPh - 01/27/2024 7:02 AM EDT Signed Prescriptions: Disp Refills Metoprolol Succinate ER 50 MG Oral Tablet *90 Tab*1 Sig: TAKE 1TABLET BY MOUTH EVERY DAY IN THE MORNINGAuthorizing Provider: CHETAN LEUNG User: GRAYSON WINTERS documented in this encounter Plan of Treatment Upcoming Encounters Date Type Department Care Team (Late st Contact Info) Description 02/01/2024 11:00 AM EDT Office [facility] [address] [facility] [address] Kemar Díaz CRNP [address] [place] [address] 02/02/2024 10:30 AM EDT Office Visit Vascular Surgery, [address] [place] [address] Eloy Borrego MD [address] [place] [address] 08/08/2024 12:00 PM EST [facility] [place] [address] Chetan Leung MD 132 [place] [address] Health Maintenance Due Date Last Done Comments [...] Additional history exists CKD HGB USE SMARTSET 65381 07/27/202407/27, 07/27/2023, 12/29/2022, Additional history exists Diabetic Eye Exam 12/07/2024 12/08/2023, , 08/19/2022, Additional history exists CKD PHOS USE SMARTSET 19762 01/23/2025 07/2 09/2023, 03/12/2021, 01/25/2020, Additional history [...] as of this encounter Visit Diagnoses Diagnosis Chronic coronary artery disease Coronary atherosclerosis of unspecified type of vessel, habematolel or graft PAD (peripheral artery disease) (HCC)- Primary Peripheral vascular disease, unspecified Dyslipidemia, goal LDL below 70 Other and unspecified hyperlipidemia documented in this encounter Advance Directives * Full Code (Latest Code Status on File) Date Activated Date Inactivated Comments 01/02/2020 5:09 PM 01/07/2020 11:18 PM This order re flects the patients wishes and were consensually agreed upon. Care Teams Production Expert Relationship Specialty Start Date End Date Chetan Leugn MD [address] [place] [address] PCP - General Family Medicine 10/23/14 documented as of this encounter
--- OUTSIDE RECORDS SUMMARY | 2024-03-30 03:51 | External Medical Summary | Summary of Care ---
Author Name Unknown Organization [facility] Address [address] [place] [address] Phone [phone] Care Team Providers Care Assistant Community Director Name Role Phone Chetan Galvez MD Primary Care Provider + Reason for Visit * Reason Onset Date Comments Advice 01/30/2024 An order for Ann rdia? Encounter Details Date Type Department Care Team (Late st Contact Info) Description 01/30/2024 Telephone Family Practice [facility] [address] [facility] [place] [address] Chetan Galvez MD [address] [place] [address] Advice (An order for [...] hemoglobin A1c goal of less than 8.0% ([facility]) TAKE 1 TABLET BY MOUTH EVERYDAY AT BEDTIME 90 Tablet 1 08/03/2023 Active Gaqss-6-bzfe Ethyl Esters 1 GM Oral Capsule (Lovaza)Indications: [...] artery disease of n ative artery of [place] heart with stable angina pectoris 10/29/2021 Atherosclerosis [...] of insulin 03/11/2015 Overview: 04/01/15 a1c 5.9 @[place] ICD-10 update of inactive term Routine general [...] is not working. She can go to [facility] ([facility]for a test kit, if he would send the order. 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 Dr Galvez has treated him for this in the past. Pt has apt 02-01-24 Please call her at [phone] documented in this encounter Plan of Treatment Upcoming Encounters Date Type Department Care Team (Late st Contact Info) Description 02/01/2024 11:00 AM EDT Office Visit Family Practice [facility] [address] [place] [address] Kemar Díaz CRNP [address] [place] [address] 02/02/2024 10:30 AM EDT Office Visit Vascular Surgery, [place] [address] [place] [address] Eloy Borrego MD [address] [facility] [place] [address] 08/08/2024 12:00 PM EST Office Visit [facility] [address] [place] [address] Chetan Galvez MD [address] [place] [address] Health Maintenance Due Date Last Done Comments [...] Additional history exists CKD HGB USE SMARTSET 97116 07/27/202407/27, 07/27/2023, 12/29/2022, Additional history exists Diabetic Eye Exam 12/07/2024 12/08/2023, , 08/19/2022, Additional history exists CKD PHOS USE SMARTSET 38058 01/23/202501/02, 03/12/2021, 01/25/2020, Additional history exists Albumin/Creatinine [...] and were consensually agreed upon. Care Teams Assistant Community Director Relationship Specialty Start Date End Date Chetan Galvez MD 132 [facility] [place] [address] PCP - General Family Medicine 10/23/14 documented as of this encounter
--- OUTSIDE RECORDS SUMMARY | 2024-03-30 03:51 | External Medical Summary ---
Author Name Unknown Address Unknown Organization K01:[facility] - [address] [place] [address] Laboratory Report Ordering Provider Test Date Status XOCHITL BELL 01/25/2024 09:16:52 Final Normal: <30 mg/g creatinine< br/>High: 30-300 mg/g creatinine
Very High: >300 mg/g creatinine
Nephrotic: >2200 mg/g creatinine Observation Date Value Abnormality Reference (Units ) Status Albumin, Urine 01/25/2024 09:16:52 1.34 (mg/dL) Final Creatinine, Urine 01/25/2024 09:16:52 89 (mg/dL) Final Albumin/Creatinine [Mass Ratio] in Urine 01/25/2024 09:16:52 15 <30 (mg/g Creat) Final Performing Location [facility] - [address] [place] [address]
--- OUTSIDE RECORDS SUMMARY | 2024-03-30 03:51 | External Medical Summary | Summary of Care ---
Author Name Unknown Organization [facility] [address] [facility] [address] Phone [phone] Care Team Providers Care Assisted Living Manager Name Role Phone Chetan Leung MD Primary Care Provider + Reason for Visit * Reason Comments eRx-Medication Refill Encounter Details Date Type Department Care Team (Late st Contact Info) Description 01/23/2024 Refill Family Practice [facility] [address] [place] [address] Chetan Leung MD [address] [place] [address] Allergies Active Allergy Reactions Criticality Noted Date Comments Atorvastatin 10/17/2015 Myaglias, worse Tamsulosin 10/29/2021 Dizzy, lightheaded Oxycodone Hcl Psych complications 08/14/2013 nightmares documented as of this encounter (statuses as of 01/23/2024) Medications Medication Sig Dispensed Refills Start Date [...] AT BEDTIME 90 Tablet 1 08/03/2023 Active Iovcv-3-zgyc Ethyl Esters 1 GM Oral Capsule (Lovaza)Indication [...] THE MORNING 90 Tablet 1 01/23/2024 Active metFORMIN HCl 1000 MG Oral Tablet (Glucophage) Take 1/2 tablet twice daily (total of 1000mg daily) 90 Tablet 1 07/30/2023 4 Discontinued Lisinopril 2.5 MG Oral Tablet (Prinivil) Take 1 Tablet by mouth in the morning. 90 Tablet 1 08/03/2023 4 Discontinued documented as of this encounter (statuses as of 01/23/2024) Active Problems Problem Noted Date Diagnosed Date Medical home patient encounter 01/05/2023 S/P laparoscopic cholecystectomy 05/25/2022 S/P amputation of lesser toe, right 10/29/2021 S/P amputation of lesser toe, right 10/29/2021 Coronary artery disease of n ative artery of [place] heart with stable angina pectoris 10/29/2021 Atherosclerosis [...] of insulin 03/11/2015 Overview: 04/01/15 a1c 5.9 @[place] ICD-10 update of inactive term Routine general [...] as of this encounter (statuses as of 01/23/2024) Resolved Problems Problem Noted Date Diagnosed Date Resolved Date 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 documented as of this encounter (statuses as of 01/23/2024) Immunizations Name Administration Dates Next Due COVID-19 [...] encounter Miscellaneous Notes * Telephone Encounter - Kojo Mednez, [facility] - 01/23/2024 12:05 PM EDT Signed Prescriptions: Disp Refills metFORMIN HCl 1000 MG Oral Tablet (Glucoph*90 Tab*1 Sig: TAKE 1/2 TABLET TWICE DAILY (TOTAL OF 1000MG DAILY)Authorizing Provider: CHETAN LEUNG User: KOJO MENDEZ Lisinopril 2.5 MG Oral Tablet (Prinivil) 90 Tab*1 Sig: TAKE 1 TABLET BY MOUTH EVERY DAY IN THE MORNINGAuthorizing Provider: CHETAN LEUNG User: KOJO MENDEZ documented in this encounter Plan of Treatment Upcoming Encounters Date Type Department Care Team (Late st Contact Info) Description 01/25/2024 1:00 PM EDT Imaging Vascular Lab, [facility] 2nd Floor, [place] [address] [facility] [place] [address] 02/01/2024 11:00 AM EDT Office Visit [facility] 132 [facility] [place] [address] Kemar Díaz CRNP 132 [facility] [place] [address] 02/02/2024 10:30 AM EDT Office Visit Vascular Surgery, [address] [address] Eloy Borrego MD [address] [place] [address] 08/08/2024 12:00 PM EST Office Visit [facility] 132 [facility] [place] [address] [facility]ung MD [facility] [address] Health Maintenance Due Date Last Done Comments Zoster Vaccines (2 of 3) 06/07/2015 04/12/2015 CKD PHOS USE SMARTSET 32336 03/12/2022 09/0 03/2021, 01/25/2020, 09/05/2017, Additional history exists COVID-19 Vaccine (3 - 2022- season) 2023 11/04/2020, 10/14/2020 Albumin/Creatinine Ratio 12/30/202312/29/2 023, 10/29/2021, 10/23/2020, Additional history exists Depression Screening 01/06/2024 01/05/2023, 10/20/2016 (Declined) Diabetic Foot Exam 01/06/2024 01/05/2023, 1 , 04/30/2020, Additional history exists HbA1c 01/25/2024 07/27/2023, 12/03, 05/13/2022, Additional history exists Influenza Vaccine (FLU shot) (#1) 2024 B-12 07/27/2024 07/27/2023, 12/03, 10/29/2021, Additional history exists CKD HGB USE SMARTSET 59988 07/27/202407/27, 07/27/2023, 12/29/2022, Additional history exists Diabetic [...] and were consensually agreed upon. Care Teams Assisted Living Manager Relationship Specialty Start Date End Date Chetan Leung MD [address] [place] [address] PCP - General Family Medicine 10/23/14 documented as of this encounter
--- OUTSIDE RECORDS SUMMARY | 2024-03-30 03:51 | External Medical Summary | Summary of Care ---
Author Name Unknown Organization [facility] Address [address] [place] [place] [address] Phone [phone] Care Team Providers Care Balloon Sander Name Role Phone Chetan Galvez MD Primary Care Provider + Encounter Details Date Type Department Care Team (Late st Contact Info) Description 12/14/2023 Orders Only Family Practice [facility] [address] [place] [id number] Chetan Galvez MD [address] [place] [address] Allergies Active Allergy Reactions Criticality Noted Date Comments Atorvastatin 10/17/2015 Myaglias, worse Tamsulosin 10/29/2021 Dizzy, lightheaded Oxycodone Hcl Psych complications 08/14/2013 nightmares documented as of this encounter (statuses as of 12/14/2023) Medications Medication Sig Dispensed Refills Start Date [...] THE MORNING 90 Tablet 1 07/28/2023 Active metFORMIN HCl 1000 MG Oral Tablet (Glucophage) Take 1/2 tablet twice daily (total of 1000mg daily) 90 Tablet 1 07/30/2023 Active Lisinopril 2.5 MG Oral Tablet (Prinivil) Take 1 Tablet by mouth in the morning. 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 documented as of this encounter (statuses as of 12/14/2023) Immunizations Name Administration Dates Next Due COVID-19 [...] money to get more. Never true 10/14/2023 Sex and Gender Information Value Date [...] Care Team (Late st Contact Info) Description 01/18/2024 11:15 AM EDT Office Visit Urology, [facility] 132 [facility] [place] [address] Fausto Tate MD [address] [place] [address] [place] [id number] 01/25/2024 1:00 PM EDT Imaging Vascular Lab, [facility] 2nd Floor, [place] 132 [facility] [place] [address] 02/01/2024 11:00 AM EDT Office Visit [facility] 132 [facility] [place] [address] Kemar Díaz CRNP [facility] [place] [address] 02/02/2024 10:30 AM EDT Office Visit Vascular Surgery, [address] [place] [address] Eloy Borrego MD [address] [place] [address] 08/08/2024 12:00 PM EST [facility] [place] [address] Chetan Galvez MD 132 [facility] [place] [address] Health Maintenance Due Date Last Done Comments Zoster Vaccines (2 of 3) 06/07/2015 04/12/2015 CKD PHOS USE SMARTSET 53107 03/12/2022 09/0 03/2021, 01/25/2020, 09/05/2017, Additional history exists COVID-19 Vaccine ( season) 2023 11/04/2020, 10/14/2020 Diabetic Eye Exam 08/19/2023 12/08/2023, , 08/19/2022, Additional history exists Albumin/Creatinine Ratio 12/30/2023 023, 10/29/2021, 10/23/2020, Additional history exists Depression Screening 01/06/2024 01/05/2023, 10/20/2016 (Declined) Diabetic Foot Exam 01/06/2024 01/05/2023, 1 , 04/30/2020, Additional history exists HbA1c 01/25/2024 07/27/2023, 12/03, 05/13/2022, Additional history exists Influenza Vaccine (FLU shot) (Season Ended) 2024 B-12 07/27/2024 07/27/2023, 12/03, 10/29/2021, Additional history exists CKD HGB USE SMARTSET 75348 07/27/202407/27, 07/27/2023, 12/29/2022, Additional history exists DTaP,Tdap,and Td Vaccines (3 - Td or Tdap) 11/21/2030 11/21/2020, 11/01/2009 Pneumococcal Vaccine: 65+ Years Completed 09/16/2017, 04/21/2016 GARDASIL-HPV IMMUNIZATION SERIES Aged Out No longer eligible based on patient's age to complete this topic Hepatitis B Aged Out No longer eligi ble based on patient's age to complete this topic MENINGOCOCCAL (MENACTRA/MENVEO) Aged Out No longer eligible based on patient's age to complete this topic documented as of this encounter Medical Devices Not on filedocumented as of this encounter Procedures Procedure Name Priority Date/Time Associated Diagnosis Comments DIABETIC EYE EXAM Routine 12/08/2023 documented in this encounter Results * DIABETIC EYE EXAM (12/08/2023) 12/08/2023 Juana Samuel OD OTHER OUTSIDE LAB (SEE SCANNED REPORT) documented in this encounter Advance Directives * Full Code (Latest Code Status on File) Date Activated Date Inactivated Comments 01/02/2020 5:09 PM 01/07/2020 11:18 PM This order re flects the patients wishes and were consensually agreed upon. Care Teams Balloon Sander Relationship Specialty Start Date End Date Chetan Galvez MD [address] [place] [address] PCP - General Family Medicine 10/23/14 documented as of this encounter
[2024-03-30] MEDS ORDERED: FAMOTIDINE 20MG IV PUSH 20 MG/5 ML SYR IV SCH (09:00)
--- NOTE | 2024-03-30 09:36 | Hospitalist Progress Note ---
Date of Service March 30, 2024 Assessment & Plan (1) Food impaction of esophagus: Plan: Food impaction of esophagus Possible achalasia Patient presented to the hospital after he felt that food was stuck in the middle part of the esophagus He underwent emergent endoscopy; found to have food in the entire esophagus. Removal of food was partially completed and esophagus was full of small particle of food. Barium swallow showed moderate to severe esophageal dysmotility; esophagus is dilated and tortuous with focal beaking at the GE junction; highly suspicious for achalasia. 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 It may contain grammatical, syntax or spelling errors. Any formal questions or concerns about the content, text or information contained within the body of this dictation should be directly addressed to the provider for clarification Admission and Anticipated Discharge Date Admission Date: March 29, 2024 Subjective Patient seen and examined at bedside. Comfortable; not in distress. Denies fever, chills, chest pain, shortness of breath, abdominal pain or urinary symptoms. No significant overnight events Review of Systems Review of Systems: All systems reviewed & are unremarkable except as noted in Subjective Physical Exam Physical Exam: Constitutional: Alert oriented x 3; not in any distress. Respiratory: normal respiratory effort, lungs clear to auscultation, no wheeze, rales, rhonchi. Normal insp/exp effort, no accessory muscle use Cardiovascular: RRR, no murmur, no edema Vessels: no JVD or carotid bruit Chest: normal inspection of chest Abdomen: normal bowel sounds, soft, nontender, no hepatosplenomegaly Musculoskeletal: no cyanosis or clubbing, extremities motor strength 5/5 Skin: no rashes, warm and dry normal turgor Neurologic: PERRL, EOMI, accommodation nl, no face palsy, no dysarthria CN's II- XI intact bilaterally and moves all extremities Psychiatric: A+Ox3, euthymic affect Results & Data Results & Data Vital Signs (Past 12 Hours) Vital Signs Temp Pulse Pulse Pulse Resp BP BP 03/30/24 08:36 03/30/24 07:53 36.4 C L 73 73 16 130/69 03/30/24 07:31 70 03/30/24 06:20 74 129/81 03/30/24 06:03 72 136/74 03/30/24 03:18 153/80 H 03/30/24 03:14 36.6 C 64 18 153/80 H 03/30/24 01:35 72 03/30/24 01:09 85 147/75 H 03/30/24 01:03 36.3 C L 85 18 147/75 H 03/30/24 00:00 36.3 C L 77 20 111/67 03/29/24 23:50 36.3 C L 80 18 100/72 03/29/24 23:40 36.3 C L 82 16 108/72 Pulse Ox O2 Del Method O2 Flow Rate 03/30/24 08:36 Nasal Cannula 2 03/30/24 07:53 93 Room Air 03/30/24 07:31 03/30/24 06:20 03/30/24 06:03 03/30/24 03:18 03/30/24 03:14 97 Room Air 03/30/24 01:35 03/30/24 01:09 03/30/24 01:03 95 Room Air 03/30/24 00:00 94 Room Air 03/29/24 23:50 94 Room Air 03/29/24 23:40 96 Oxymask 2 (1) Food impaction of esophagus Encounter type: initial encounter Qualified Code(s): T18.128A - Food in esophagus causing other injury, initial encounter; W44.F3XA - Food entering into or through a natural orifice, initial encounter
--- NOTE | 2024-03-30 10:11 | Gastroenterology Progress Note ---
Date of Service March 30, 2024 Assessment & Plan (1) Food impaction of esophagus: Plan: -Await barium swallow; Given concern for achalasia, patient may benefit from kofi Arreola as an outpatient to determine options (POEM vs botox vs other). We will advise pending results of testing. -Patient should be on PPI therapy at home. While here, will initiate Protonix 40 mg BID. Admission and Anticipated Discharge Date Admission Date: March 29, 2024 Supervising Physician Co-Signing Physician Notes I examined the patient and reviewed patient's chart , laboratory data and imaging studies. I agree with with assessment and plan of care as suggested by advanced practice provider. Likely achalasia. OK to start clear liquids and advance diet. Will arrange for a referral to [facility] or to [facility] for further evaluation and therapy, for possible POEMS Subjective Patient is an 84 yo male who underwent an EGD on 03/29/24 for a food impaction of the esophagus. Due to the significant amount of food and fluid, Dr. Chaparro was unable to completely clear the esophagus. There was concern for a tortuous esophagus with abnormal musculature suspicious for achalasia. Patient is resting comfortably in bed. He is managing his secretions and is without acute complaints. A barium swallow is pending for further assessment. Review of Systems Gastrointestinal: + dysphagia Physical Exam Constitutional: well developed; no acute distress Respiratory: no respiratory distress Musculoskeletal: Head/Neck/Chest: normocephalic Psychiatric: Orientation: alert and oriented x 3 Results & Data Results & Data Vital Signs (Past 12 Hours) Vital Signs Temp Pulse Pulse Pulse Resp BP BP 03/30/24 08:36 03/30/24 07:53 36.4 C L 73 73 16 130/69 03/30/24 07:31 70 03/30/24 06:20 74 129/81 03/30/24 06:03 72 136/74 03/30/24 03:18 153/80 H 03/30/24 03:14 36.6 C 64 18 153/80 H 03/30/24 01:35 72 03/30/24 01:09 85 147/75 H 03/30/24 01:03 36.3 C L 85 18 147/75 H 03/30/24 00:00 36.3 C L 77 20 111/67 03/29/24 23:50 36.3 C L 80 18 100/72 03/29/24 23:40 36.3 C L 82 16 108/72 Pulse Ox O2 Del Method O2 Flow Rate 03/30/24 08:36 Nasal Cannula 2 03/30/24 07:53 93 Room Air 03/30/24 07:31 03/30/24 06:20 03/30/24 06:03 03/30/24 03:18 03/30/24 03:14 97 Room Air 03/30/24 01:35 03/30/24 01:09 03/30/24 01:03 95 Room Air 03/30/24 00:00 94 Room Air 03/29/24 23:50 94 Room Air 03/29/24 23:40 96 Oxymask 2 PG Care Time/CCT Total # of Minutes Spent Total Time Spent with Patient: Total time spent is greater than 50% in coordination of care (as documented) at patient's floor/unit and/or counseling patient: Coding Level of Care Code 51325 SUB INP/OBS CARE 3/50MIN Diagnoses Food impaction of esophagus T18.128A; W44.F3XA Encounter type: initial encounter (1) Food impaction of esophagus Encounter type: initial encounter Qualified Code(s): T18.128A - Food in esophagus causing other injury, initial encounter; W44.F3XA - Food entering into or through a natural orifice, initial encounter
[2024-03-30] MEDS: PANTOprazole 40 MG in SYRINGE 0 ML IV SCH (11:52)
--- NOTE | 2024-03-30 12:32 | Fluoroscopy Report ---
SINGLE CONTRAST BARIUM ESOPHAGRAM CLINICAL HISTORY: Achalasia. Esophageal food retention. COMPARISON STUDY: Chest x-ray dated 03/29/2024. TECHNIQUE: A single contrast barium esophagram is performed. Multiple spot images of the esophagus ar e acquired in the upright position. FINDINGS: There is moderate to severe esophageal dysmotility. The esophagus is dilated and tortuous. There is no evidence of intrinsic or extrinsic mass lesion. There is focal beaking of the esophagus a t the gastroesophageal junction highly suggestive of achalasia. There was significantly delayed passa ge of contrast into the stomach. No aspiration was seen during the examination. Lumbar fusion hardwa re is observed. Fluoroscopy time: 39 seconds. Ka,r: 10.4 mGy Fluoroscopic images: 6 spot images IMPRESSION: 1. Moderate to severe esophageal dysmotility. 2. The esophagus is dilated and tortuous, with focal beaking at the gastroesophageal junction. The ap pearance is highly suspicious for achalasia as clinically suspected. ACT 112: Negative or not required by law. Electronically signed by: Dagobetro Quinones M.D. 03/30/2024 12:31 PM
[2024-03-31 07:21] LABS: Basophils # (auto) 0.03 K/uL (0.00-0.20); Basophils % (auto) 0.7 %; Eosinophils # (auto) 0.37 K/uL (0.00-0.50); Hematocrit (blood only) 30.8 % (42.0-52.0); Hemoglobin 10.8 g/dl (14.0-18.0); Immature Granulocytes # (auto) 0.02 K/uL (0.01-0.20); Immature Granulocytes % (auto) 0.4 %; Lymphocytes # (auto) 1.42 K/uL (1.20-3.40); Lymphocytes % (auto) 30.9 %; Mean Corpuscular Hemoglobin 31.5 pg (25.0-34.0); Mean Corpuscular Hgb Conc 35.1 g/dL (32.0-36.0); Mean Corpuscular Volume 89.8 fL (80.0-100.0); Mean Platelet Volume 9.8 fL (9.4-12.4); Monocytes # (auto) 0.46 K/uL (0.11-0.59); Platelet Count 111 K/uL (130-400); RDW Coefficient of Variation 13.6 % (11.5-14.5); RDW Standard Deviation 44.7 fL (36.4-46.3); Red Blood Count 3.43 M/uL (4.70-6.10)
[2024-03-31 07:39] VITALS: BP 151/91; RESP 16; TEMP 97.9; O2SAT 94
[2024-03-31 07:41] LABS: BUN Creatinine Ratio 13.2 (10-20); Calcium 8.9 mg/dl (8.6-10.3); Creatinine Clr Calc Pharmacy 55.3 ml/min; Est GFR (African American) 73.3 ml/min; Est GFR (Non-African American) 63.2 ml/min; Potassium 3.5 mmol/L (3.5-5.1)
--- NOTE | 2024-03-31 09:10 | Hospitalist Progress Note ---
Date of Service March 31, 2024 Assessment & Plan (1) Food impaction of esophagus: Plan: Food impaction of esophagus Possible achalasia Patient presented to the hospital after he felt that food was stuck in the middle part of the esophagus He underwent emergent endoscopy; found to have food in the entire esophagus. Removal of food was partially completed and esophagus was full of small particle of food. Barium swallow showed moderate to severe esophageal dysmotility; esophagus is dilated and tortuous with focal beaking at the GE junction; highly suspicious for achalasia. 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 It may contain grammatical, syntax or spelling errors. Any formal questions or concerns about the content, text or information contained within the body of this dictation should be directly addressed to the provider for clarification Admission and Anticipated Discharge Date Admission Date: March 29, 2024 Physical Exam Physical Exam: Constitutional: Alert oriented x 3; not in any distress. Respiratory: normal respiratory effort, lungs clear to auscultation, no wheeze, rales, rhonchi. Normal insp/exp effort, no accessory muscle use Cardiovascular: RRR, no murmur, no edema Vessels: no JVD or carotid bruit Chest: normal inspection of chest Abdomen: normal bowel sounds, soft, nontender, no hepatosplenomegaly Musculoskeletal: no cyanosis or clubbing, extremities motor strength 5/5 Skin: no rashes, warm and dry normal turgor Neurologic: PERRL, EOMI, accommodation nl, no face palsy, no dysarthria CN's II- XI intact bilaterally and moves all extremities Psychiatric: A+Ox3, euthymic affect Results & Data Results & Data Vital Signs (Past 12 Hours) Vital Signs Temp Pulse Pulse Resp BP Pulse Ox O2 Del Method 03/31/24 07:39 36.6 C 90 16 151/91 H 94 Room Air 03/31/24 07:20 Room Air 03/31/24 07:14 65 03/31/24 03:54 36.5 C 60 18 130/68 93 Room Air 03/30/24 23:18 36.7 C 63 16 131/73 94 Room Air 03/30/24 21:48 69 (1) Food impaction of esophagus Encounter type: initial encounter Qualified Code(s): T18.128A - Food in esophagus causing other injury, initial encounter; W44.F3XA - Food entering into or through a natural orifice, initial encounter
[2024-03-31 11:22] VITALS: PULSE 73
--- OUTSIDE RECORDS SUMMARY | 2024-03-31 12:46 | External Medical Summary | Summary of Care ---
Author Name Unknown Organization [facility] Address [address] [facility] [place] [address] Phone [phone] Care Team Providers Care Guide Rail Cleaner Name Role Phone Chetan Galvez MD Primary Care Provider + Encounter Details Date Type Department Care Team (Late st Contact Info) Description 03/30/2024 Orders Only Family Practice [facility] [address] [place] [address] Chetan Galvez MD [address] [place] [address] Allergies Active Allergy Reactions Criticality Noted Date Comments Atorvastatin 10/17/2015 Myaglias, worse Tamsulosin 10/29/2021 Dizzy, lightheaded Oxycodone Hcl Psych complications 08/14/2013 nightmares documented as of this encounter (statuses as of 03/30/2024) Medications Medication Sig Dispensed Refills Start Date [...] 15 minutes 25 Tablet 1 08/03/2023 Active [id number] Ethyl Esters 1 GM Oral Capsule (Lovaza)Indications [...] on 02/01/2024 Finasteride 5 MG Oral Tablet (Proscar)Indication s:BPH with obstruction/lower urinary tract symptoms,Voiding difficulty TAKE 1 TABLET BY MOUTH EVERY DAY IN THE MORNING 90 Tablet 3 09/22/2023 Active metFORMIN HCl 1000 MG Oral Tablet (Glucophage) TAKE 1/2 TABLET TWICE DAILY (TOTAL OF 1000MG DAILY) 90 Tablet 1 01/23/2024 Active Metoprolol Succinate ER 50 MG Oral Tablet Extended Release 24 Hour (toPROL XL)Indications:Court Monitor rehan coronary artery disease TAKE 1 TABLET [...] THE MORNING 90 Tablet 1 03/27/2024 Active documented as of this encounter (statuses as of 03/30/2024) Active Problems Problem Noted Date Diagnosed Date Medical home patient encounter 01/05/2023 S/P laparoscopic cholecystectomy 05/25/2022 S/P amputation of lesser toe, right 10/29/2021 S/P amputation of lesser toe, right 10/29/2021 Coronary artery disease of n ative artery of [place] heart with stable angina pectoris 10/29/2021 Atherosclerosis [...] of insulin 03/11/2015 Overview: 04/01/15 a1c 5.9 @[place] ICD-10 update of inactive term Routine general [...] as of this encounter (statuses as of 03/30/2024) Resolved Problems Problem Noted Date Diagnosed Date Resolved Date 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 documented as of this encounter (statuses as of 03/30/2024) Immunizations Name Administration Dates Next Due COVID-19 [...] 07/30/2024 11:30 AM EST Imaging Vascular Lab, [facility] [address] [facility] [place] [address] 08/08/2024 12:00 PM EST Office Visit Family Practice [facility] [address] [facility] [place] [address] Chetan Galvez MD [address] [facility] [place] [address] 08/09/2024 10:30 AM EST Office Visit Vascular Surgery, [address] [place] [address] Eloy Borrego MD [address] [facility] [place] [address] 08/14/2024 1:30 PM EST Office Visit Cardiology, [facility] [address] [facility] [place] [address] Yinka Mcfarland O, DO [address] [place] [address] Health Maintenance Due Date Last Done Comments [...] Additional history exists CKD HGB USE SMARTSET 23505 07/27/202407/27, 07/27/2023, 12/29/2022, Additional history exists Diabetic Eye Exam 12/07/2024 12/08/2023, , 08/19/2022, Additional history exists CKD PHOS USE SMARTSET 86398 01/23/202501/02, 03/12/2021, 01/25/2020, Additional history exists Albumin/Creatinine [...] Procedure Name Priority Date/Time Associated Diagnosis Comments UPPER ENDOSCOPY, OUTSIDE PROCEDURE Routine 03/29/2024 documented in this encounter Results * UPPER ENDOSCOPY, OUTSIDE PROCEDURE (03/29/2024) 03/29/2024 Wen Chaparro MD GASTRO UPPER OUTSIDE LAB (SEE SCANNED REPORT) documented in this encounter Advance Directives * Full Code (Latest Code Status on File) Date Activated Date Inactivated Comments 01/02/2020 5:09 PM 01/07/2020 11:18 PM This order re flects the patients wishes and were consensually agreed upon. Care Teams Guide Rail Cleaner Relationship Specialty Start Date End Date Chetan aGlvez MD [address] [facility] [place] [address] PCP - General Family Medicine 10/23/14 documented as of this encounter
--- NOTE | 2024-03-31 14:20 | Discharge Summary ---
Date of Service March 31, 2024 Admission HPI Per Admitting Provider History obtained from patient and records. 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 Last confinement January 2023 for esophageal dysphagia. Tortuous esophagus, esophagitis and gastritis on EGD. Patient underwent EGD dilatation. Outpatient EGD a few weeks after discharge. Tortuous esophagus status post dilatation. GI specialist recommended PPI daily indefinitely. Patient was not able to comply with prescription because he never got it as per her account. Patient had trouble swallowing while eating dinner hours ago. Patient eating broken up Salv[place] steak as well as. GS. Achy right-sided chest pain. Patient able to swallow saliva. Subsequent emesis. Patient consulted ER for evaluation. Patient underwent emergent EGD. Incomplete removal of food in the esophagus as per GI specialist. Specialist recommended strict n.p.o. and admission for workup for possible achalasia. 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 Admission Exam Per Admitting Provider GENERAL: Comfortable, pleasant, looks younger than stated age, no respiratory distress SKIN: Pallor, warm HEENT: Partial alopecia, pale palpebral conjunctivae, no ptosis, dry buccal mucosa NECK : Supple, no tenderness CHEST : CTA, no tenderness HEART : RRR, no obvious murmurs ABDOMEN: Some distention, minimal epigastric tenderness EXTREMITIES : No LE swelling/tenderness, no other conspicuous deformities noted NEUROLOGIC : Coherent, no facial asymmetry, no other gross focality Principal Diagnosis Food impaction of esophagus Possible achalasia Discharge Exam Constitutional: Alert oriented x 3; not in any distress. Respiratory: normal respiratory effort, lungs clear to auscultation, no wheeze, rales, rhonchi. Normal insp/exp effort, no accessory muscle use Cardiovascular: RRR, no murmur, no edema Vessels: no JVD or carotid bruit Chest: normal inspection of chest Abdomen: normal bowel sounds, soft, nontender, no hepatosplenomegaly Musculoskeletal: no cyanosis or clubbing, extremities motor strength 5/5 Skin: no rashes, warm and dry normal turgor Neurologic: PERRL, EOMI, accommodation nl, no face palsy, no dysarthria CN's II- XI intact bilaterally and moves all extremities Psychiatric: A+Ox3, euthymic affect Discharge Data Allergies Allergy/AdvReac Type Severity Reaction Status Date / Time atorvastatin Allergy Severe TEMP 107., Verified 01/26/23 07:52 NEARLY PER eletriptan Allergy Intermediate LYMPH Verified 01/26/23 07:52 NODES SWELLED, HOT FLASHES oxycodone Allergy Intermediate NIGHTMARES Verified 01/26/23 07:52 Consultations 03/30/24 00:42 Consult Gastroenterology Routine Procedures Performed Operation Date: 03/29/24 21:25 Actual Procedures p Esophagogastroduodenoscopy for Food Bolus(Not Applicable) - Wen Chaparro Jr, MD Ordered Studies 03/30/24 08:00 Esophogram [FL barium swallow] Routine Hospital Course (1) Food impaction of esophagus: Food impaction of esophagus Possible achalasia Patient presented to the hospital after he felt that food was stuck in the middle part of the esophagus He underwent emergent endoscopy; found to have food in the entire esophagus. Removal of food was partially completed and esophagus was full of small particle of food. Barium swallow showed moderate to severe esophageal dysmotility; esophagus is dilated and tortuous with focal beaking at the GE junction; highly suspicious for achalasia. GI recommended outpatient follow-up for possible POEMS as outpatient. Patient was started on clear liquid diet and was able to tolerate it without any issues Patient was discharged home with instructions to follow-up with PCP and outpatient GI provider for definitive management. Discussed with patient's at bedside as well. Agreeable with the plan. Please note the above document was generated using voice recognition software. It may contain grammatical, syntax or spelling errors. Any formal questions or concerns about the content, text or information contained within the body of this dictation should be directly addressed to the provider for clarification Total Time Total Time Spent Total Time Spent (In Minutes): 34 Total Time Includes: Examination of the Patient, Discharge Planning, Medication Reconciliation, Communication With Other Providers and Other Discharge Plan Discharge Items Patient Disposition: Home - Self-Care Reason For Visit: DYSPHAGIA, IV METOPROLOL RX Discharge Diagnosis: Impaction of food bolus Possible achalasia Condition on Discharge: Good Activity: Resume your previous activity Non-emergency contact: Primary Care Provider Call non-emergency contact if: you have any medication questions Follow-up/Referrals: Chetan Galvez MD [Primary Care Provider] - Diet: Full liquid Addtl Attending Provider Instructions: You were admitted to the hospital due to impaction of food particle in the esophagus. You underwent endoscopy which revealed food particles throughout your esophagus. You had a barium swallow which showed achalasia in the lower part of esophagus. You will need to follow-up with GI physician and have repeat endoscopy and evaluation. An appointment with your primary care doctor will be set up for you for next week. Please continue to take liquid diet until you see GI physician. Pending Studies at Discharge: No Stand-Alone Forms: My [facility], Important Visit Information Medications and DC Order Prescriptions: Continued aspirin 81 mg Tablet,Delayed Release (Dr/Ec) 81 mg PO PM ascorbic acid (vitamin C) [Vitamin C] 500 mg Tablet 1,000 mg PO QAM metformin 1,000 mg tablet 500 mg PO BIDM lysine 500 mg Tablet 500 mg PO QAM lutein 40 mg Capsule 40 mg PO QAM Probiotic 3 billion cell Capsule 3 mmu cells PO QAM nitroglycerin 0.4 mg tablet, sublingual 0.4 mg sublingual UD PRN (Reason: Chest Pain) Rx Instructions: take 1 tab every 5 minutes as needed for chest pain, use up to 3 in 15 minutes clopidogrel [Plavix] 75 mg Tablet 75 mg PO QAM metoprolol succinate 50 mg tablet extended release 24 hr 50 mg PO DAILY simvastatin 40 mg tablet 40 mg PO HS allopurinol 300 mg tablet 300 mg PO QAM zinc gluconate 50 mg Tablet 50 mg PO QAM Slow-Mag 71.5 mg Tablet,Delayed Release (Dr/Ec) 143 mg PO BID acetaminophen 500 mg Tablet 500 mg PO Q6 PRN (Reason: Pain, Mild) finasteride 5 mg Tablet 5 mg PO DAILY cetirizine 10 mg Tablet 10 mg PO QAM pyridoxine (vitamin B6) [Vitamin B-6] 100 mg Tablet 100 mg PO QAM cyanocobalamin (vitamin B-12) [Vitamin B-12] 500 mcg Tablet 1,000 mcg PO DAILY famotidine 20 mg tablet 20 mg PO BID betamethasone, augmented 0.05 % cream 1 applic TOPICAL TID omega-3 acid ethyl esters 1 gram capsule 1 cap PO DAILY loratadine 10 mg Tablet 10 mg PO DAILY Discharge Orders: Discharge Order (Routine); Ordered 03/31/24 Ordered By: Jose Manuel Wolfe/Other Patient Handouts: Esophageal Blockage ED Admission Data Admit Date/Time: 03/29/24 23:35 Attending Provider: Jose Manuel Rosenberg Admit Provider: Lam Moss Primary Care Provider: Chetan Galvez Other Providers: Carla Honeycutt; Ceferino Jean; Bridget Denson; Juana Valenzuela; Kathia Kiser; Haydee Echols; Lynda Olivares; Goyo Oakes; Maximus Gallagher; Jones Zhou; Renee Haas; Pedro Rojo; Monserrat Hagan; Toya Napier; Iona Crandall; Ashley Walden; Maria Fernanda Smith; Sunil Tao; Dionne Cartagena; Wen Chaparro Jr; Kenn Vázquez; Valdemar Narvaez; Pal Matthews; Charles Ochoa; Catherine Wang; Glen Baron I; Tameka Padilla Other Interventions: Discharge Summary Assessment (RN) Last Done: 03/31/24 11:21
== END 2024-03-31 13:40 | disposition home or self-care (01) ==
LOC: ED 17:24 → 2N 21:59 → OR 21:59